=== PATIENT | male | born 1940 | race Caucasian/White ===

== ENCOUNTER 2016-08-21 13:36 | Inpatient (IN) | payer MEDICARE, MEDICAID ==
[2016-08-21] MEDS ORDERED: Albuterol 0.083% 2.5 MG/3 ML Neb Soln INH PRN (17:01)
[2016-08-21] MEDS ORDERED: Nitroglycerin 0.4 MG Tab.SL SL PRN (17:01)
[2016-08-21] MEDS: Pregabalin 25 MG Cap PO SCH (18:11)
[2016-08-21] MEDS: Clindamycin HCl 150 MG Cap PO SCH (18:11)
[2016-08-21] MEDS: Albuterol/Ipratropium 3.0-0.5 MG/3 ML Neb Soln INH SCH ×2 (18:13→23:58)
[2016-08-21] MEDS: Verapamil 120 MG Tab.ER PO SCH (18:13)
[2016-08-21] MEDS: Warfarin 5 MG Tab PO SCH (18:15)
[2016-08-21] MEDS: Docusate Sodium 100 MG Cap PO PRN (18:18)
[2016-08-21] MEDS: Lactulose Soln 10 GM/15 ML 30 ML UD Cup PO PRN (18:19)
[2016-08-21] MEDS: Acetaminophen 325 MG Tab PO PRN (18:20)
[2016-08-21] MEDS: oxyCODONE 5 MG Tab PO PRN (19:45)
[2016-08-21] MEDS: Latanoprost 0.005% Ophth Soln 2.5 ML Bottle EYEBOTH SCH (19:47)
[2016-08-21] MEDS: Simvastatin 10 MG Tab PO SCH (19:47)
--- NOTE | 2016-08-21 20:15 | PCM.HP ---
H&P History of Present Illness - General Date of Service: 08/21/16 Admit Problem/Dx: Admission Diagnosis/Problem Admission Diagnosis/Problem Mass Source of Information: Patient, Old records History Limitations: Reports: No limitations - History of Present Illness Location: Reports: chest Improves with: Reports: Medication, Rest Context: Reports: trauma (CPR) Associated Symptoms: Reports: chest pain, cough w sputum, weakness - Related Data Allergies/Adverse Reactions: Allergies Allergy/AdvReac Type Severity Reaction Status Date / Time codeine Allergy Nausea Verified 08/14/16 20:25 Penicillins Allergy Rash Verified 08/14/16 20:25 Home Medications: Home Meds Citalopram [Citalopram HBr] 20 mg PO DAILY 08/07/13 [History] Levothyroxine 75 mcg PO QAM 08/07/13 [History] Pregabalin [Lyrica] 25 mg PO TID 08/07/13 [History] amLODIPine [Norvasc] 5 mg PO DAILY 08/07/13 [History] Cholecalciferol (Vitamin D3) [Vitamin D3] 2,000 units PO DAILY 06/12/14 [History ] Docusate Sodium [Colace] 1 cap PO BID PRN 06/12/14 [History] Latanoprost [Xalatan 0.005% Ophth Soln] 1 drop EYEBOTH BEDTIME 06/12/14 [History ] Nitroglycerin [Nitrostat] 1 tab SL ASDIRECTED PRN 06/12/14 [History] Verapamil HCl [Verapamil ER] 1 cap PO QPM 06/12/14 [History] Simvastatin [Zocor] 10 mg PO BEDTIME 11/12/15 [History] Ranitidine [Zantac] 150 mg PO BID #60 tab 11/17/15 [Rx] Albuterol [Proventil Neb Soln] 1 ampule INH Q4HR PRN 03/19/16 [History] Albuterol/Ipratropium [DuoNeb 3.0-0.5 MG/3 ML] 1 ampule INH QID 03/19/16 [ History] Folic Acid 1 mg PO DAILY 03/19/16 [History] Magnesium Oxide 400 mg PO DAILY #90 tablet 04/05/16 [Rx] Acetaminophen 650 mg PO Q4HR PRN 07/26/16 [History] Furosemide 20 mg PO DAILY 07/26/16 [History] Lactulose [Cephulac] 20 gm PO DAILY PRN 07/26/16 [History] Non-Formulary Medication [NF Drug] 1 ea PO QPM 07/26/16 [History] Non-Formulary Medication [NF Drug] 1 tab PO DAILY 07/26/16 [History] Sennosides/Docusate Sodium [Senna S Tablet] 1 tab PO BID PRN 07/26/16 [History] Warfarin [Coumadin] 5 mg PO MOWEFR@1800 07/26/16 [History] Warfarin [Coumadin] 7.5 mg PO SUTUTHSA@1800 07/26/16 [History] Clindamycin HCl [Cleocin HCl] 300 mg PO TID 08/21/16 [History] Colesevelam HCl [Welchol] 3 tab PO BIDMEALS 08/21/16 [History] oxyCODONE 5 mg PO Q4H PRN 08/21/16 [History] Past Medical History HEENT History: Reports: Cataract, Glaucoma Cardiovascular History: Reports: Blood clots/VTE/DVT, Cardiomyopathy, Heart Failure, High cholesterol, Hypertension, Other (see below) Other Cardiovascular History: Varicose veins Respiratory History: Reports: COPD, PE, Pneumonia, recurrent, Sleep apnea Other Respiratory History: Benign left pulmonary nodule, Respiratory Arrest on . Gastrointestinal History: Reports: Chronic constipation, Diverticulosis, GERD, Hiatal hernia Genitourinary History: Reports: Acute renal failure, BPH, Chronic renal insuffiency, Dialysis, Renal disease, Urinary incontinence Other Genitourinary History: hX DIALYSIS due to acute renal failure, resolved Musculoskeletal History: Reports: Back pain, chronic, Fracture, Neck pain, chronic, Osteoarthritis, Other (see below) Other Musculoskeletal History: Chronic pain syndrome with chronic narcotic use Neurological History: Reports: Migraines, Neuropathy, peripheral, Other (see below) Other Neuro History: Chronic left leg weakness secondary to previous osteomyelitis, chronic pain syndrome with chronic narcotic use. 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 Miley fundoplication Male Surgical History: Reports: Prostatectomy Musculoskeletal Surgical History: Reports: Hip replacement, Knee replacement - Past Imaging History Past Imaging History: Reports: Cardiac echo (Last echocardiogram on 01/17/15 with ejection fraction of 50-55% with previous suboptimal echocardiogram on 03/14 with ejection fraction of 50-60%), CAT scan (CT of the chest on 07/04/12, CT of the abdomen and pelvis on 01/08/15, 12/19/12 and 07/04/12, CT of the brain on 08/07 and 02/04/14), DEXA scan (07/09/12), Ultrasound (Bladder ultrasound and abdominal ultrasound on 12/24/12), Venous doppler (Right leg on 05/11/14) Social & Family History - Family History Family Medical History: Noncontributory Neurological: Reports: Other (see below) Other Neurological Family History: Son with fatal muscular dystrophy at age 21 - Tobacco Use Smoking Status *Q: Former Smoker Second Hand Smoke Exposure: No - Alcohol Use Days Per Week of Alcohol Use: 0 (No previous DWIs, problems with alcohol abuse, etc.) Number of Drinks Per Day: 1 Total Drinks Per Week: 0 - Recreational Drug Use Recreational Drug Use: No Drug Use in Last 12 Months: No Recreational Drug Type: Reports: Oxycodone (Chronic oxycodone use) Recreational Drug Use Frequency: Daily - Living Situation & Occupation Living situation: Reports: (3 children), with family () Occupation: retired H&P Review of Systems - Review of Systems: Review Of Systems: See Below General: Reports: weakness HEENT: Reports: headaches Pulmonary: Reports: shortness of breath, pleuritic chest pain, cough, sputum Cardiovascular: Reports: chest pain Gastrointestinal: Reports: No symptoms Genitourinary: Reports: hematuria Musculoskeletal: Reports: muscle pain Skin: Reports: bruising Psychiatric: Reports: no symptoms Neurological: Reports: weakness Hematologic/Lymphatic: Reports: anemia, easy bleeding, easy bruising Immunologic: Reports: no symptoms Exam - Exam Exam: See Below - Vital Signs Vital Signs: Last Vital Signs Temp 98.3 F 08/21/16 19:33 Pulse 75 08/21/16 19:33 Resp 20 08/21/16 19:33 BP 113/73 08/21/16 19:33 Pulse Ox 97 08/21/16 19:33 Weight: 254 lb - Exam Quality Assessment: supplemental oxygen General: alert, cooperative HEENT: Conjunctiva clear, Hearing intact, Mucosa moist & pink, Nares patent, Normal nasal septum, Posterior pharynx clear, Pupils equal, Pupils reactive Neck: trachea midline Lungs: Normal respiratory effort, Decreased breath sounds, Rhonchi, Other ( tender over sternum, and) Cardiovascular: regular rate, regular rhythm Abdomen: normal bowel sounds, soft (Male) Exam: Deferred Rectal (Males) Exam: Deferred Back Exam: normal inspection Extremities: edema, other (chronic varicosities) Skin: warm, dry, intact, ecchymosis (extremities) Neurological: other (generalized weakness) Neuro Extensive - Mental Status: alert, normal mood/affect, normal cognition Neuro Extensive - Motor, Sensory, Reflexes: other (generalized weakness) Psychiatric: alert, normal affect, normal mood *Q Meaningful Use (ADM) - VTE *Q VTE Criteria *Q: - Stroke *Q Stroke Criteria *Q: - AMI *Q AMI Criteria *Q: - Problem List (1) Respiratory failure with hypercapnia SNOMED Code(s): 076963150 ICD Code: J96.92 - RESPIRATORY FAILURE, UNSPECIFIED WITH HYPERCAPNIA Status : Acute Priority: High Current Visit: Yes (2) Rib fractures SNOMED Code(s): 74468019 ICD Code: S22.39XA - FRACTURE OF ONE RIB, UNSP SIDE, INIT FOR CLOS FX Status: Acute Priority: High Current Visit: Yes Qualifiers: Encounter type: subsequent encounter Rib fracture type: multiple ribs Fracture type: closed Laterality: bilateral Fracture healing: with routine healing Qualified Code(s): S22.43XD - Multiple fractures of ribs, bilateral, subsequent encounter for fracture with routine healing (3) Hematuria, gross SNOMED Code(s): 846462255 ICD Code: R31.0 - GROSS HEMATURIA Status: Acute Priority: High Current Visit: No (4) Aspiration into respiratory tract SNOMED Code(s): 148107178 ICD Code: T17.908A - UNSP FB IN RESP TRACT, PART UNSP CAUSING OTH INJURY, INIT Status: Acute Current Visit: Yes (5) GERD (gastroesophageal reflux disease) SNOMED Code(s): 601301771 ICD Code: K21.9 - GASTRO-ESOPHAGEAL REFLUX DISEASE WITHOUT ESOPHAGITIS Status: Acute Priority: Medium Current Visit: No Qualifiers: Esophagitis presence: esophagitis presence not specified Qualified Code(s) : K21.9 - Gastro-esophageal reflux disease without esophagitis (6) Hip joint replacement status SNOMED Code(s): 229241644, 444718364, 246572978 ICD Code: Z96.649 - PRESENCE OF UNSPECIFIED ARTIFICIAL HIP JOINT Status: Acute Priority: High Current Visit: No Qualifiers: Laterality: left Qualified Code(s): Z96.642 - Presence of left artificial hip joint (7) Lower leg DVT (deep venous thromboembolism), chronic SNOMED Code(s): 252382470, 590650146, 978022969745389 ICD Code: I82.5Z9 - CHR EMBLSM AND THOMBOS UNSP DEEP VN UNSP DISTAL LOW EXTRM Status: Acute Priority: Medium Current Visit: No Qualifiers: Laterality: unspecified laterality Qualified Code(s): I82.5Z9 - Chronic embolism and thrombosis of unspecified deep veins of unspecified distal lower extremity (8) Mood disorder Status: Acute Priority: Medium Current Visit: No (9) PVD (peripheral vascular disease) SNOMED Code(s): 067168967 ICD Code: I73.9 - PERIPHERAL VASCULAR DISEASE, UNSPECIFIED Status: Acute Priority: Medium Current Visit: No (10) Prostate cancer SNOMED Code(s): 879013570 ICD Code: C61 - MALIGNANT NEOPLASM OF PROSTATE Status: Acute Priority: Low Current Visit: No (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 SNOMED Code(s): 8223930 ICD Code: D68.59 - OTHER PRIMARY THROMBOPHILIA Status: Acute Priority: High Current Visit: No (12) Respiratory failure, chronic SNOMED Code(s): 66085725 ICD Code: J96.10 - CHRONIC RESPIRATORY FAILURE, UNSP W HYPOXIA OR HYPERCAPNIA Status: Acute Priority: Medium Current Visit: No Qualifiers: Respiratory failure complication: unspecified whether with hypoxia or hypercapnia Qualified Code(s): J96.10 - Chronic respiratory failure, unspecified whether with hypoxia or hypercapnia (13) COPD (chronic obstructive pulmonary disease) SNOMED Code(s): 30556325 ICD Code: J44.9 - CHRONIC OBSTRUCTIVE PULMONARY DISEASE, UNSPECIFIED Status : Chronic Priority: Medium Current Visit: No Problem Details: No recent fever, bronchitic type symptoms, etc. with stable chronic nonproductive cough. Note recent antibiotic therapy, which will be held secondary to his elevated INR Qualifiers: COPD type: unspecified COPD Qualified Code(s): J44.9 - Chronic obstructive pulmonary disease, unspecified (14) Hypertension SNOMED Code(s): 96377217 ICD Code: I10 - ESSENTIAL (PRIMARY) HYPERTENSION Status: Chronic Current Visit: No Problem Details: Blood pressure is under good control in the emergency room. Stable by history Qualifiers: Hypertension type: essential hypertension Qualified Code(s): I10 - Essential (primary) hypertension (15) Hypothyroidism SNOMED Code(s): 16144855 ICD Code: E03.9 - HYPOTHYROIDISM, UNSPECIFIED Status: Chronic Priority: Medium Current Visit: No Problem Details: Stable by his history, TSH normal today (16) Migraine SNOMED Code(s): 57264632 ICD Code: G43.909 - MIGRAINE, UNSP, NOT INTRACTABLE, WITHOUT STATUS MIGRAINOSUS Status: Chronic Priority: Medium Current Visit: No Problem Details: Symptomatically improved after medications provided. Advised to hydrate and rest today to avoid rebound. Follow up as needed. (17) Osteoarthritis SNOMED Code(s): 662154662 ICD Code: M19.90 - UNSPECIFIED OSTEOARTHRITIS, UNSPECIFIED SITE Status: Chronic Priority: Medium Current Visit: No Problem Details: Stable by history with chronic narcotic use Qualifiers: Osteoarthritis location: multiple joints Osteoarthritis type: primary Qualified Code(s): M15.0 - Primary generalized (osteo)arthritis (18) Polycythemia SNOMED Code(s): 423031979 ICD Code: D75.1 - SECONDARY POLYCYTHEMIA Status: Chronic Priority: Medium Current Visit: No Onset Date: 09/12/15 Problem Details: Likely secondary to his COPD (19) Renal insufficiency SNOMED Code(s): 714610032 ICD Code: N28.9 - DISORDER OF KIDNEY AND URETER, UNSPECIFIED Status: Chronic Priority: Medium Current Visit: No Problem Details: Stable mild creatinine elevation Problem List Initiated/Reviewed/Updated: Yes Orders Last 24hrs: Active Orders 24 hr Category Date Time Status Patient Status [ADT] Routine ADT 08/21/16 16:57 Active Ambulate [RC] ASDIRECTED Care 08/21/16 16:57 Active May Shower [RC] ASDIRECTED Care 08/21/16 16:57 Active Oxygen Therapy [RC] Care 08/21/16 16:57 Active VTE/DVT Education [RC] PER UNIT ROUTINE Care 08/21/16 16:57 Active Vital Signs [RC] 08, Care 08/21/16 16:57 Active OT Evaluation and Treatment [CONS] Routine Cons 08/21/16 16:57 Active PT Evaluation and Treatment [CONS] Routine Cons 08/21/16 16:57 Active Regular Diet [DIET] Diet 08/21/16 Dinner Active BLOOD GAS VENOUS [BG] Routine Lab 08/22/16 05:11 Ordered CBC WITH AUTO DIFF [HEME] Routine Lab 08/22/16 05:11 Ordered CMP [COMPREHENSIVE METABOLIC PN,CMP] [CHEM] Routine Lab 08/22/16 05:11 Ordered INR,PT,PROTHROMBIN TIME [COAG] Routine Lab 08/22/16 05:11 Ordered PTT,PARTIAL THROMBOPLSTIN TIME [COAG] Routine Lab 08/22/16 05:11 Ordered Acetaminophen [Tylenol] Med 08/21/16 17:01 Active 650 mg PO Q4HR PRN Albuterol [Proventil Neb Soln] Med 08/21/16 17:01 Active 2.5 mg INH Q4H PRN Albuterol/Ipratropium [DuoNeb 3.0-0.5 MG/3 ML] Med 08/21/16 17:15 Active 3 ml INH QIDRT Cholecalciferol (Vitamin D3) [Vitamin D3] Med 08/22/16 08:00 Active 2,000 units PO DAILY Citalopram [Celexa] Med 08/22/16 08:00 Active 20 mg PO DAILY Clindamycin HCl [Cleocin] Med 08/21/16 18:00 Active 300 mg PO TID Colesevelam HCl Med 08/21/16 17:30 Pending 3 tab PO BIDMEALS Docusate Sodium [Colace] Med 08/21/16 17:01 Active 100 mg PO BID PRN Docusate Sodium/Sennosides [Senna Plus] Med 08/21/16 17:01 Active 1 tab PO BID PRN Folic Acid Med 08/22/16 08:00 Active 1 mg PO DAILY Furosemide [Lasix] Med 08/22/16 08:00 Active 20 mg PO DAILY Lactulose [Cephulac] Med 08/21/16 17:01 Active 20 gm PO DAILY PRN Latanoprost [Xalatan 0.005% Ophth Soln] Med 08/21/16 20:00 Active 0 ml EYEBOTH BEDTIME Levothyroxine Med 08/22/16 08:00 Active 75 mcg PO QAM Magnesium Oxide Med 08/22/16 08:00 Active 400 mg PO DAILY Nitroglycerin [Nitrostat] Med 08/21/16 17:01 Active 0.4 mg SL ASDIRECTED PRN Non-Formulary Medication [NF Drug] Med 08/22/16 08:00 Pending 1 each PO DAILY Non-Formulary Medication [NF Drug] Med 08/21/16 18:00 Pending 12 each PO QPM Pregabalin [Lyrica] Med 08/21/16 18:00 Active 25 mg PO TID Ranitidine [Zantac] Med 08/21/16 18:00 Active 150 mg PO BID Simvastatin [Zocor] Med 08/21/16 20:00 Active 10 mg PO BEDTIME Verapamil [Calan SR] Med 08/21/16 18:00 Active 240 mg PO QPM Warfarin [Coumadin] Med 08/21/16 18:00 Active 5 mg PO MOWEFR@1800 Warfarin [Coumadin] Med 08/22/16 18:00 Active 7.5 mg PO SUTUTHSA@1800 amLODIPine [Norvasc] Med 08/22/16 08:00 Active 5 mg PO DAILY oxyCODONE Med 08/21/16 17:01 Active 5 mg PO Q4H PRN Resuscitation Status Routine Resus Stat 08/21/16 16:57 Ordered Medication Orders Acetaminophen (Tylenol) 650 mg PO Q4HR PRN PRN Reason: Pain (moderate 4-6) Last Admin: 08/21/16 18:20 Dose: 650 mg Albuterol (Proventil Neb Soln) 2.5 mg INH Q4H PRN PRN Reason: Dyspnea Albuterol/Ipratropium (Duoneb 3.0-0.5 Mg/3 Ml) 3 ml INH QIDRT [facility] Last Admin: 08/21/16 18:13 Dose: 3 ml Amlodipine Besylate (Norvasc) 5 mg PO DAILY [facility] Cholecalciferol (Vitamin D3) 2,000 units PO DAILY [facility] Citalopram Hydrobromide (Celexa) 20 mg PO DAILY [facility] Clindamycin HCl (Cleocin) 300 mg PO TID [facility] Last Admin: 08/21/16 18:11 Dose: 300 mg Docusate Sodium (Colace) 100 mg PO BID PRN PRN Reason: Constipation Last Admin: 08/21/16 18:18 Dose: 100 mg Folic Acid (Folic Acid) 1 mg PO DAILY [facility] Furosemide (Lasix) 20 mg PO DAILY [facility] Lactulose (Cephulac) 20 gm PO DAILY PRN PRN Reason: Constipation Last Admin: 08/21/16 18:19 Dose: 20 gm Latanoprost (Xalatan 0.005% Oph Soln) 0 ml EYEBOTH BEDTIME [facility] Last Admin: 08/21/16 19:47 Dose: 1 drop Levothyroxine Sodium (Levothyroxine) 75 mcg PO QAM [facility] Magnesium Oxide (Magnesium Oxide) 400 mg PO DAILY [facility] Nitroglycerin (Nitrostat) 0.4 mg SL ASDIRECTED PRN PRN Reason: Chest Pain Colesevelam (Welchol () 625mg Tabs) 3 tab PO BIDMEALS [facility] Protein Tablets 12 each PO QPM [facility] Nephrocaps 1 each PO DAILY [facility] Oxycodone HCl (Oxycodone) 5 mg PO Q4H PRN PRN Reason: Pain (severe 7-10) Last Admin: 08/21/16 19:45 Dose: 5 mg Pregabalin (Lyrica) 25 mg PO TID [facility] Last Admin: 08/21/16 18:11 Dose: 25 mg Ranitidine HCl (Zantac) 150 mg PO BID [facility] Last Admin: 08/21/16 18:16 Dose: 150 mg Senna/Docusate Sodium (Senna Plus) 1 tab PO BID PRN PRN Reason: Constipation Last Admin: 08/21/16 18:18 Dose: 1 tab Simvastatin (Zocor) 10 mg PO BEDTIME [facility] Last Admin: 08/21/16 19:47 Dose: 10 mg Verapamil HCl (Calan Sr) 240 mg PO QPM [facility] Last Admin: 08/21/16 18:13 Dose: 240 mg Warfarin Sodium (Coumadin) 7.5 mg PO SUTUTHSA@1800 [facility] Warfarin Sodium (Coumadin) 5 mg PO MOWEFR@1800 [facility] Last Admin: 08/21/16 18:15 Dose: 5 mg Assessment/Plan Comment:: 08/21/16 Recent hospitalization for pneumonia. He had respiratory arrest/failure. He received CPR, transferred to [facility]. Now here admitted to [facility] for PT-OT-SPL.
[2016-08-22] MEDS: oxyCODONE 5 MG Tab PO PRN ×4 (00:45→19:02)
[2016-08-22 07:03] LABS: O2 DELIVERY DEVICE NASAL CANNULA; O2 FLOW RATE 0 L/min
[2016-08-22 07:25] LABS: CHLORIDE,CL 99 mmol/L (98-107); SODIUM,NA 140 mmol/L (136-145)
[2016-08-22 07:39] LABS: BASE EXCESS VENOUS 20 mmol/L ((-2)-3); BICARBONATE,VENOUS 45 mmol/L (23-28); O2 SATURATION VENOUS 99 %; PCO2 VENOUS 76 mmHG (41-51); PH,VENOUS 7.38 (7.31-7.41); PO2 VENOUS 138 mmHG
[2016-08-22] MEDS: Pregabalin 25 MG Cap PO SCH ×3 (08:20→17:21)
[2016-08-22] MEDS: Folic Acid 1 MG Tab PO SCH (08:21)
[2016-08-22] MEDS: Clindamycin HCl 150 MG Cap PO SCH ×3 (08:22→17:23)
[2016-08-22] MEDS: Levothyroxine 75 MCG Tab PO SCH (08:22)
[2016-08-22] MEDS: Citalopram 20 MG Tab PO SCH (08:23)
[2016-08-22] MEDS: amLODIPine 5 MG Tab PO SCH (08:24)
[2016-08-22] MEDS: Furosemide 20 MG Tab PO SCH (08:25)
[2016-08-22] MEDS: Magnesium Oxide 400 MG Tab PO SCH (08:25)
[2016-08-22] MEDS: Cholecalciferol (Vitamin D3) 1,000 Unit Tab PO SCH (08:26)
[2016-08-22] MEDS: Albuterol/Ipratropium 3.0-0.5 MG/3 ML Neb Soln INH SCH ×4 (08:30→19:03)
[2016-08-22] MEDS: COLESEVELAM 625 MG PO SCH ×2 (09:17→17:19)
[2016-08-22] MEDS: NEPHROCAPS PO SCH (09:17)
--- NOTE | 2016-08-22 11:40 | PCM.SN ---
- Free Text/Narrative Note: 08-22-16 Marin Panchal PA-C Received telephone call at [facility] [place] Ankit Booker, recommending non- invasive ventilator for this patient upon return to home. Indicates provider can call her directly to discuss this at time of discharge at [phone].
[2016-08-22] MEDS: PROTEIN PO SCH (17:18)
[2016-08-22] MEDS: Warfarin 2.5 MG Tab PO SCH (17:22)
[2016-08-22] MEDS: Verapamil 120 MG Tab.ER PO SCH (17:28)
[2016-08-22] MEDS: Latanoprost 0.005% Ophth Soln 2.5 ML Bottle EYEBOTH SCH (19:03)
[2016-08-22] MEDS: Simvastatin 10 MG Tab PO SCH (19:03)
[2016-08-22] MEDS ORDERED: guaiFENesin/Dextromethorphan 100-10 MG/5 ML Soln 10 ML Cup PO PRN (22:38)
[2016-08-23] MEDS: oxyCODONE 5 MG Tab PO PRN ×3 (01:37→19:20)
[2016-08-23] MEDS: COLESEVELAM 625 MG PO SCH ×2 (08:12→17:14)
[2016-08-23] MEDS: Albuterol/Ipratropium 3.0-0.5 MG/3 ML Neb Soln INH SCH ×4 (08:13→19:07)
[2016-08-23] MEDS: amLODIPine 5 MG Tab PO SCH (08:13)
[2016-08-23] MEDS: Pregabalin 25 MG Cap PO SCH ×3 (08:13→17:13)
[2016-08-23] MEDS: Clindamycin HCl 150 MG Cap PO SCH ×3 (08:14→17:13)
[2016-08-23] MEDS: Folic Acid 1 MG Tab PO SCH (08:14)
[2016-08-23] MEDS: Levothyroxine 75 MCG Tab PO SCH (08:15)
[2016-08-23] MEDS: Magnesium Oxide 400 MG Tab PO SCH (08:15)
[2016-08-23] MEDS: Furosemide 20 MG Tab PO SCH (08:15)
[2016-08-23] MEDS: Citalopram 20 MG Tab PO SCH (08:15)
[2016-08-23] MEDS: Cholecalciferol (Vitamin D3) 1,000 Unit Tab PO SCH (08:15)
[2016-08-23] MEDS: NEPHROCAPS PO SCH (08:15)
[2016-08-23] MEDS: Verapamil 120 MG Tab.ER PO SCH (17:13)
[2016-08-23] MEDS: Warfarin 5 MG Tab PO SCH (17:13)
[2016-08-23] MEDS: PROTEIN PO SCH (17:14)
[2016-08-23] MEDS: Latanoprost 0.005% Ophth Soln 2.5 ML Bottle EYEBOTH SCH (19:07)
[2016-08-23] MEDS: Simvastatin 10 MG Tab PO SCH (19:07)
[2016-08-24] MEDS: Folic Acid 1 MG Tab PO SCH (08:33)
[2016-08-24] MEDS: Citalopram 20 MG Tab PO SCH (08:33)
[2016-08-24] MEDS: Cholecalciferol (Vitamin D3) 1,000 Unit Tab PO SCH (08:33)
[2016-08-24] MEDS: Levothyroxine 75 MCG Tab PO SCH (08:33)
[2016-08-24] MEDS: Albuterol/Ipratropium 3.0-0.5 MG/3 ML Neb Soln INH SCH ×4 (08:33→19:14)
[2016-08-24] MEDS: Clindamycin HCl 150 MG Cap PO SCH ×3 (08:33→17:29)
[2016-08-24] MEDS: Magnesium Oxide 400 MG Tab PO SCH (08:33)
[2016-08-24] MEDS: amLODIPine 5 MG Tab PO SCH (08:34)
[2016-08-24] MEDS: Docusate Sodium 100 MG Cap PO PRN ×2 (08:34→19:14)
[2016-08-24] MEDS: Furosemide 20 MG Tab PO SCH (08:34)
[2016-08-24] MEDS: Pregabalin 25 MG Cap PO SCH ×3 (08:34→17:29)
[2016-08-24] MEDS: COLESEVELAM 625 MG PO SCH ×2 (08:34→17:30)
[2016-08-24] MEDS: NEPHROCAPS PO SCH (08:35)
--- NOTE | 2016-08-24 08:54 | PCM.PN ---
- General Info Date of Service: 08/24/16 Admission Dx/Problem (Free Text): Admission Diagnosis/Problem Admission Diagnosis/Problem Acute on Chronic hypercapnic resp failure Aspiration pneumonia Ct scan showing 3.9cm masslike consolidation in the left lower lobe atelectasis vs pneumonia vs neoplasm Functional Status: Reports: pain controlled, tolerating diet, ambulating, incentive spirometry - Review of Systems General: Reports: weakness, fatigue HEENT: Reports: no symptoms Pulmonary: Reports: cough, sputum Cardiovascular: Reports: no symptoms Gastrointestinal: Reports: No symptoms Genitourinary: Reports: no symptoms Musculoskeletal: Reports: no symptoms Skin: Reports: no symptoms Neurological: Reports: no symptoms Psychiatric: Reports: no symptoms - Patient Data Vitals - most recent: Last Vital Signs Temp 98 F 08/24/16 08:00 Pulse 74 08/24/16 08:00 Resp 16 08/24/16 08:00 BP 147/59 H 08/24/16 08:34 Pulse Ox 92 L 08/24/16 08:00 Weight - most recent: 253 lb 15.983 oz I&O - last 24 hours: Intake & Output 08/23/16 08/24/16 08/24/16 22:59 06:59 14:59 Intake Total 240 300 Output Total 1350 Balance 240 -1050 Med Orders - Current: Current Medications Acetaminophen (Tylenol) 650 mg PO Q4HR PRN PRN Reason: Pain (moderate 4-6) Last Admin: 08/21/16 18:20 Dose: 650 mg Albuterol (Proventil Neb Soln) 2.5 mg INH Q4H PRN PRN Reason: Dyspnea Albuterol/Ipratropium (Duoneb 3.0-0.5 Mg/3 Ml) 3 ml INH QIDRT [facility] Last Admin: 08/24/16 08:33 Dose: 3 ml Amlodipine Besylate (Norvasc) 5 mg PO DAILY [facility] Last Admin: 08/24/16 08:34 Dose: 5 mg Cholecalciferol (Vitamin D3) 2,000 units PO DAILY [facility] Last Admin: 08/24/16 08:33 Dose: 2,000 units Citalopram Hydrobromide (Celexa) 20 mg PO DAILY [facility] Last Admin: 08/24/16 08:33 Dose: 20 mg Clindamycin HCl (Cleocin) 300 mg PO TID [facility] Stop: 08/26/16 18:01 Last Admin: 08/24/16 08:33 Dose: 300 mg Docusate Sodium (Colace) 100 mg PO BID PRN PRN Reason: Constipation Last Admin: 08/24/16 08:34 Dose: 100 mg Folic Acid (Folic Acid) 1 mg PO DAILY [facility] Last Admin: 08/24/16 08:33 Dose: 1 mg Furosemide (Lasix) 20 mg PO DAILY [facility] Last Admin: 08/24/16 08:34 Dose: 20 mg Guaifenesin/Dextromethorphan (Robitussin Dm) 10 ml PO Q4H PRN PRN Reason: Cough Last Admin: 08/23/16 01:37 Dose: 10 ml Lactulose (Cephulac) 20 gm PO DAILY PRN PRN Reason: Constipation Last Admin: 08/21/16 18:19 Dose: 20 gm Latanoprost (Xalatan 0.005% Ophth Soln) 0 ml EYEBOTH BEDTIME [facility] Last Admin: 08/23/16 19:07 Dose: 1 drop Levothyroxine Sodium (Levothyroxine) 75 mcg PO QAM [facility] Last Admin: 08/24/16 08:33 Dose: 75 mcg Magnesium Oxide (Magnesium Oxide) 400 mg PO DAILY [facility] Last Admin: 08/24/16 08:33 Dose: 400 mg Nitroglycerin (Nitrostat) 0.4 mg SL ASDIRECTED PRN PRN Reason: Chest Pain Colesevelam (Welchol () 625mg Tabs) 3 tab PO BIDMEALS [facility] Last Admin: 08/24/16 08:34 Dose: 3 tab Protein Tablets 4 each PO DAILY@1700 [facility] Last Admin: 08/23/16 17:14 Dose: 4 each Nephrocaps 1 each PO DAILY [facility] Last Admin: 08/24/16 08:35 Dose: 1 each Oxycodone HCl (Oxycodone) 5 mg PO Q4H PRN PRN Reason: Pain (severe 7-10) Last Admin: 08/24/16 00:00 Dose: 5 mg Pregabalin (Lyrica) 25 mg PO TID [facility] Last Admin: 08/24/16 08:34 Dose: 25 mg Ranitidine HCl (Zantac) 150 mg PO BID [facility] Last Admin: 08/24/16 08:34 Dose: 150 mg Senna/Docusate Sodium (Senna Plus) 1 tab PO BID PRN PRN Reason: Constipation Last Admin: 08/21/16 18:18 Dose: 1 tab Simvastatin (Zocor) 10 mg PO BEDTIME [facility] Last Admin: 08/23/16 19:07 Dose: 10 mg Verapamil HCl (Calan Sr) 240 mg PO QPM [facility] Last Admin: 08/23/16 17:13 Dose: 240 mg Warfarin Sodium (Coumadin) 7.5 mg PO SUTUTHSA@1800 [facility] Last Admin: 08/22/16 17:22 Dose: 7.5 mg Warfarin Sodium (Coumadin) 5 mg PO MOWEFR@1800 [facility] Last Admin: 08/23/16 17:13 Dose: 5 mg - Exam Quality Assessment: supplemental oxygen, DVT prophylaxis (on coumadin) General: alert, oriented, cooperative, no acute distress HEENT: Pupils equal, Pupils reactive Neck: supple, no JVD (yellow bruise noted to left side of neck, no signs of infecton) Lungs: Normal respiratory effort, Decreased breath sounds Cardiovascular: regular rate, regular rhythm Abdomen: bowel sounds present, soft, no tenderness, no distension Back Exam: normal inspection, full range of motion Extremities: edema (trace pedal edema noted bilat) Peripheral Pulses: 1+: dorsalis pedis (L), dorsalis pedis (R) Skin: warm, dry, intact Neurological: no new focal deficit Psy/Mental Status: alert, normal affect, normal mood - Problem List & Annotations (1) Aspiration into respiratory tract SNOMED Code(s): 853442486 Code(s): T17.908A - UNSP FB IN RESP TRACT, PART UNSP CAUSING OTH INJURY, INIT Status: Acute Current Visit: Yes (2) Respiratory failure with hypercapnia SNOMED Code(s): 664265410 Code(s): J96.92 - RESPIRATORY FAILURE, UNSPECIFIED WITH HYPERCAPNIA Status : Acute Priority: High Current Visit: Yes Qualifiers: Chronicity: acute on chronic Qualified Code(s): J96.22 - Acute and chronic respiratory failure with hypercapnia (3) Rib fractures SNOMED Code(s): 94709047 Code(s): S22.39XA - FRACTURE OF ONE RIB, UNSP SIDE, INIT FOR CLOS FX Status : Acute Priority: High Current Visit: Yes Qualifiers: Encounter type: subsequent encounter Rib fracture type: multiple ribs Fracture type: closed Laterality: bilateral Fracture healing: with routine healing (4) Congestive heart failure SNOMED Code(s): 84449542 Code(s): I50.9 - HEART FAILURE, UNSPECIFIED Status: Acute Current Visit: No Qualifiers: Congestive heart failure type: unspecified congestive heart failure type Congestive heart failure chronicity: acute on chronic Qualified Code(s): I50.9 - Heart failure, unspecified (5) Protein S deficiency SNOMED Code(s): 1830191 Code(s): D68.59 - OTHER PRIMARY THROMBOPHILIA Status: Acute Priority: High Current Visit: No (6) Respiratory failure, chronic SNOMED Code(s): 19268930 Code(s): J96.10 - CHRONIC RESPIRATORY FAILURE, UNSP W HYPOXIA OR HYPERCAPNIA Status: Acute Priority: Medium Current Visit: No Qualifiers: Respiratory failure complication: unspecified whether with hypoxia or hypercapnia Qualified Code(s): J96.10 - Chronic respiratory failure, unspecified whether with hypoxia or hypercapnia (7) COPD (chronic obstructive pulmonary disease) SNOMED Code(s): 18597705 Code(s): J44.9 - CHRONIC OBSTRUCTIVE PULMONARY DISEASE, UNSPECIFIED Status : Chronic Priority: Medium Current Visit: No Qualifiers: COPD type: unspecified COPD Qualified Code(s): J44.9 - Chronic obstructive pulmonary disease, unspecified (8) Hypertension SNOMED Code(s): 86403689 Code(s): I10 - ESSENTIAL (PRIMARY) HYPERTENSION Status: Chronic Current Visit: No Qualifiers: Hypertension type: essential hypertension Qualified Code(s): I10 - Essential (primary) hypertension - Problem List Review Problem List Initiated/Reviewed/Updated: Yes - Plan Plan:: 08/21/16 Recent hospitalization for pneumonia. He had respiratory arrest/failure. He received CPR, transferred to [facility]. [facility]. 08/24/2016 Patient feeling okay, using a pillow when he coughs to help with the pain from the rib fracture. Reviewed notes from [facility]. Lung Ct scan showing a 3.9 cm masslike consolidation in the left lower lung field and AAA. Patient needing a follow up CT scan in 3 months time. Patient has appointment with Dr Summers in urology in September, when Dr Summers comes to [place]. Patient is being treated for aspiration pneumonia with Clindamycin as patient had CPR and intubation. On coumadin for Protein S deficiency, and recurrent DVT/PE. Will continue to follow INRs. Patient is needing assisted swingbed stay due to deconditioning, acute on chronic respiratory failure requiring CPR and intubation. Discussed the finding of the CT scan of the lung with the patient, patient verbalized understanding and had no further questions. Leonie Franco,TECH[employer]OLOGY SALES CONSULTANT
[2016-08-24] MEDS: oxyCODONE 5 MG Tab PO PRN ×3 (09:29→17:29)
[2016-08-24] MEDS: Warfarin 2.5 MG Tab PO SCH (17:28)
[2016-08-24] MEDS: Verapamil 120 MG Tab.ER PO SCH (17:28)
[2016-08-24] MEDS: PROTEIN PO SCH (17:30)
[2016-08-24] MEDS: Simvastatin 10 MG Tab PO SCH (19:14)
[2016-08-24] MEDS: Latanoprost 0.005% Ophth Soln 2.5 ML Bottle EYEBOTH SCH (19:14)
[2016-08-25] MEDS: Clindamycin HCl 150 MG Cap PO SCH ×3 (07:20→19:18)
[2016-08-25] MEDS: Levothyroxine 75 MCG Tab PO SCH (07:21)
[2016-08-25] MEDS: Folic Acid 1 MG Tab PO SCH (07:21)
[2016-08-25] MEDS: Citalopram 20 MG Tab PO SCH (07:21)
[2016-08-25] MEDS: Furosemide 20 MG Tab PO SCH (07:22)
[2016-08-25] MEDS: Magnesium Oxide 400 MG Tab PO SCH (07:22)
[2016-08-25] MEDS: Pregabalin 25 MG Cap PO SCH ×3 (07:23→19:18)
[2016-08-25] MEDS: COLESEVELAM 625 MG PO SCH ×2 (07:23→16:38)
[2016-08-25] MEDS: Cholecalciferol (Vitamin D3) 1,000 Unit Tab PO SCH (07:23)
[2016-08-25] MEDS: NEPHROCAPS PO SCH (07:24)
[2016-08-25] MEDS: Albuterol/Ipratropium 3.0-0.5 MG/3 ML Neb Soln INH SCH ×4 (07:24→19:17)
[2016-08-25] MEDS: Docusate Sodium 100 MG Cap PO PRN (07:32)
[2016-08-25] MEDS: oxyCODONE 5 MG Tab PO PRN ×2 (07:32→21:52)
[2016-08-25] MEDS: Lactulose Soln 10 GM/15 ML 30 ML UD Cup PO PRN (07:33)
[2016-08-25] MEDS: amLODIPine 5 MG Tab PO SCH (07:33)
[2016-08-25] MEDS: PROTEIN PO SCH (16:37)
[2016-08-25] MEDS: Acetaminophen 325 MG Tab PO PRN (16:39)
[2016-08-25] MEDS: Verapamil 120 MG Tab.ER PO SCH (19:17)
[2016-08-25] MEDS: Latanoprost 0.005% Ophth Soln 2.5 ML Bottle EYEBOTH SCH (19:17)
[2016-08-25] MEDS: Simvastatin 10 MG Tab PO SCH (19:18)
[2016-08-25] MEDS: Warfarin 2.5 MG Tab PO SCH (19:18)
[2016-08-26] MEDS ORDERED: Magnesium Hydroxide 400 MG/5 ML Susp 30 ML Cup PO PRN (06:15)
[2016-08-26 07:49] LABS: CHLORIDE,CL 99 mmol/L (98-107); SODIUM,NA 142 mmol/L (136-145)
[2016-08-26] MEDS: COLESEVELAM 625 MG PO SCH ×2 (08:14→17:36)
[2016-08-26] MEDS: Pregabalin 25 MG Cap PO SCH ×3 (08:15→17:37)
[2016-08-26] MEDS: Albuterol/Ipratropium 3.0-0.5 MG/3 ML Neb Soln INH SCH ×4 (08:15→19:47)
[2016-08-26] MEDS: Cholecalciferol (Vitamin D3) 1,000 Unit Tab PO SCH (08:20)
[2016-08-26] MEDS: Magnesium Oxide 400 MG Tab PO SCH (08:20)
[2016-08-26] MEDS: Levothyroxine 75 MCG Tab PO SCH (08:21)
[2016-08-26] MEDS: Folic Acid 1 MG Tab PO SCH (08:22)
[2016-08-26] MEDS: amLODIPine 5 MG Tab PO SCH (08:22)
[2016-08-26] MEDS: Citalopram 20 MG Tab PO SCH (08:23)
[2016-08-26] MEDS: Furosemide 20 MG Tab PO SCH (08:23)
[2016-08-26] MEDS: NEPHROCAPS PO SCH (08:24)
[2016-08-26] MEDS: Clindamycin HCl 150 MG Cap PO SCH ×3 (08:27→17:37)
[2016-08-26] MEDS: Verapamil 120 MG Tab.ER PO SCH (17:36)
[2016-08-26] MEDS: PROTEIN PO SCH (17:36)
[2016-08-26] MEDS: Warfarin 5 MG Tab PO SCH (17:37)
[2016-08-26] MEDS: Simvastatin 10 MG Tab PO SCH (19:47)
[2016-08-26] MEDS: Latanoprost 0.005% Ophth Soln 2.5 ML Bottle EYEBOTH SCH (19:47)
[2016-08-26] MEDS: Acetaminophen 325 MG Tab PO PRN (19:47)
[2016-08-26] MEDS: Lactulose Soln 10 GM/15 ML 30 ML UD Cup PO SCH (19:47)
[2016-08-26] MEDS: oxyCODONE 5 MG Tab PO PRN (21:38)
[2016-08-27] MEDS: Acetaminophen 325 MG Tab PO PRN (05:15)
[2016-08-27] MEDS: COLESEVELAM 625 MG PO SCH ×2 (07:48→17:51)
[2016-08-27] MEDS: Citalopram 20 MG Tab PO SCH (07:49)
[2016-08-27] MEDS: Cholecalciferol (Vitamin D3) 1,000 Unit Tab PO SCH (07:50)
[2016-08-27] MEDS: Levothyroxine 75 MCG Tab PO SCH (07:50)
[2016-08-27] MEDS: Pregabalin 25 MG Cap PO SCH ×3 (07:51→17:52)
[2016-08-27] MEDS: Folic Acid 1 MG Tab PO SCH (07:51)
[2016-08-27] MEDS: Furosemide 20 MG Tab PO SCH (07:51)
[2016-08-27] MEDS: Magnesium Oxide 400 MG Tab PO SCH (07:51)
[2016-08-27] MEDS: amLODIPine 5 MG Tab PO SCH (07:52)
[2016-08-27] MEDS: NEPHROCAPS PO SCH (07:54)
[2016-08-27] MEDS: Albuterol/Ipratropium 3.0-0.5 MG/3 ML Neb Soln INH SCH ×4 (07:54→19:23)
[2016-08-27] MEDS: oxyCODONE 5 MG Tab PO PRN ×2 (11:31→19:23)
[2016-08-27] MEDS: Verapamil 120 MG Tab.ER PO SCH (17:52)
[2016-08-27] MEDS: PROTEIN PO SCH (17:53)
[2016-08-27] MEDS ORDERED: Warfarin 5 MG Tab PO SCH (18:00)
[2016-08-27] MEDS: Simvastatin 10 MG Tab PO SCH (19:22)
[2016-08-27] MEDS: Latanoprost 0.005% Ophth Soln 2.5 ML Bottle EYEBOTH SCH (19:23)
[2016-08-27] MEDS: Lactulose Soln 10 GM/15 ML 30 ML UD Cup PO SCH (19:23)
[2016-08-28] MEDS: amLODIPine 5 MG Tab PO SCH (07:52)
[2016-08-28] MEDS: Pregabalin 25 MG Cap PO SCH ×3 (07:53→17:50)
[2016-08-28] MEDS: Cholecalciferol (Vitamin D3) 1,000 Unit Tab PO SCH (07:53)
[2016-08-28] MEDS: Levothyroxine 75 MCG Tab PO SCH (07:53)
[2016-08-28] MEDS: Magnesium Oxide 400 MG Tab PO SCH (07:54)
[2016-08-28] MEDS: Citalopram 20 MG Tab PO SCH (07:56)
[2016-08-28] MEDS: Folic Acid 1 MG Tab PO SCH (07:57)
[2016-08-28] MEDS: Albuterol/Ipratropium 3.0-0.5 MG/3 ML Neb Soln INH SCH ×4 (07:57→19:31)
[2016-08-28] MEDS: NEPHROCAPS PO SCH (07:57)
[2016-08-28] MEDS: Furosemide 20 MG Tab PO SCH (07:57)
[2016-08-28] MEDS: COLESEVELAM 625 MG PO SCH ×2 (07:57→17:49)
[2016-08-28] MEDS: oxyCODONE 5 MG Tab PO PRN (09:41)
[2016-08-28] MEDS: Verapamil 120 MG Tab.ER PO SCH (17:48)
[2016-08-28] MEDS: Acetaminophen 325 MG Tab PO PRN (17:50)
[2016-08-28] MEDS: PROTEIN PO SCH (17:53)
[2016-08-28] MEDS ORDERED: Warfarin 2.5 MG Tab PO SCH (18:00)
[2016-08-28] MEDS: Simvastatin 10 MG Tab PO SCH (19:31)
[2016-08-28] MEDS: Latanoprost 0.005% Ophth Soln 2.5 ML Bottle EYEBOTH SCH (19:32)
[2016-08-28] MEDS: Lactulose Soln 10 GM/15 ML 30 ML UD Cup PO SCH (19:34)
[2016-08-29] MEDS: oxyCODONE 5 MG Tab PO PRN (02:53)
[2016-08-29] MEDS: COLESEVELAM 625 MG PO SCH ×2 (07:37→17:23)
[2016-08-29] MEDS: Citalopram 20 MG Tab PO SCH (07:38)
[2016-08-29] MEDS: Albuterol/Ipratropium 3.0-0.5 MG/3 ML Neb Soln INH SCH ×4 (07:38→19:18)
[2016-08-29] MEDS: Furosemide 20 MG Tab PO SCH (07:39)
[2016-08-29] MEDS: Pregabalin 25 MG Cap PO SCH ×3 (07:39→17:23)
[2016-08-29] MEDS: Magnesium Oxide 400 MG Tab PO SCH (07:39)
[2016-08-29] MEDS: Levothyroxine 75 MCG Tab PO SCH (07:39)
[2016-08-29] MEDS: NEPHROCAPS PO SCH (07:39)
[2016-08-29] MEDS: Folic Acid 1 MG Tab PO SCH (07:39)
[2016-08-29] MEDS: amLODIPine 5 MG Tab PO SCH (07:40)
[2016-08-29] MEDS: Cholecalciferol (Vitamin D3) 1,000 Unit Tab PO SCH (07:40)
[2016-08-29] MEDS: Acetaminophen 325 MG Tab PO PRN (08:45)
[2016-08-29] MEDS: PROTEIN PO SCH (17:22)
[2016-08-29] MEDS: Verapamil 120 MG Tab.ER PO SCH (17:23)
--- NOTE | 2016-08-29 18:59 | PCM.PN ---
- General Info Date of Service: 08/29/16 Admission Dx/Problem (Free Text): Admission Diagnosis/Problem Admission Diagnosis/Problem Acute on Chronic hypercapnic resp failure Aspiration pneumonia Ct scan showing 3.9cm masslike consolidation in the left lower lobe atelectasis vs pneumonia vs neoplasm Functional Status: Reports: pain controlled - Review of Systems General: Reports: no symptoms HEENT: Reports: no symptoms Pulmonary: Reports: no symptoms Cardiovascular: Reports: no symptoms Gastrointestinal: Reports: No symptoms Genitourinary: Reports: no symptoms Musculoskeletal: Reports: no symptoms Skin: Reports: no symptoms Neurological: Reports: no symptoms Psychiatric: Reports: no symptoms - Patient Data Vitals - most recent: Last Vital Signs Temp 98.7 F 08/29/16 07:41 Pulse 76 08/28/16 19:55 Resp 14 08/29/16 07:41 BP 141/67 H 08/29/16 07:41 Pulse Ox 94 L 08/29/16 07:41 Weight - most recent: 267 lb I&O - last 24 hours: Intake & Output 08/29/16 08/29/16 08/29/16 06:59 14:59 22:59 Intake Total 360 Balance 360 Lab Results last 24 hrs: Laboratory Results - last 24 hr 08/29/16 Range/Units 07:16 INR 3.1 Med Orders - Current: Current Medications Acetaminophen (Tylenol) 650 mg PO Q4HR PRN PRN Reason: Pain (moderate 4-6) Last Admin: 08/29/16 08:45 Dose: 650 mg Albuterol (Proventil Neb Soln) 2.5 mg INH Q4H PRN PRN Reason: Dyspnea Albuterol/Ipratropium (Duoneb 3.0-0.5 Mg/3 Ml) 3 ml INH QIDRT [facility] Last Admin: 08/29/16 16:19 Dose: 3 ml Amlodipine Besylate (Norvasc) 5 mg PO DAILY [facility] Last Admin: 08/29/16 07:40 Dose: 5 mg Cholecalciferol (Vitamin D3) 2,000 units PO DAILY [facility] Last Admin: 08/29/16 07:40 Dose: 2,000 units Citalopram Hydrobromide (Celexa) 20 mg PO DAILY [facility] Last Admin: 08/29/16 07:38 Dose: 20 mg Docusate Sodium (Colace) 100 mg PO BID PRN PRN Reason: Constipation Last Admin: 08/25/16 07:32 Dose: 100 mg Folic Acid (Folic Acid) 1 mg PO DAILY [facility] Last Admin: 08/29/16 07:39 Dose: 1 mg Furosemide (Lasix) 20 mg PO DAILY [facility] Last Admin: 08/29/16 07:39 Dose: 20 mg Guaifenesin/Dextromethorphan (Robitussin Dm) 10 ml PO Q4H PRN PRN Reason: Cough Last Admin: 08/23/16 01:37 Dose: 10 ml Lactulose (Cephulac) 20 gm PO DAILY PRN PRN Reason: Constipation Last Admin: 08/25/16 07:33 Dose: 20 gm Lactulose (Cephulac) 20 gm PO BEDTIME [facility] Last Admin: 08/28/16 19:34 Dose: Not Given Latanoprost (Xalatan 0.005% Ophth Soln) 0 ml EYEBOTH BEDTIME [facility] Last Admin: 08/28/16 19:32 Dose: 1 drop Levothyroxine Sodium (Levothyroxine) 75 mcg PO QAM [facility] Last Admin: 08/29/16 07:39 Dose: 75 mcg Magnesium Hydroxide (Milk Of Magnesia) 30 ml PO DAILY PRN PRN Reason: Constipation Magnesium Oxide (Magnesium Oxide) 400 mg PO DAILY [facility] Last Admin: 08/29/16 07:39 Dose: 400 mg Nitroglycerin (Nitrostat) 0.4 mg SL ASDIRECTED PRN PRN Reason: Chest Pain Last Admin: 08/28/16 10:08 Dose: 0.4 mg Colesevelam (Welchol () 625mg Tabs) 3 tab PO BIDMEALS [facility] Last Admin: 08/29/16 17:23 Dose: 3 tab Protein Tablets 4 each PO DAILY@1700 [facility] Last Admin: 08/29/16 17:22 Dose: 4 each Nephrocaps 1 each PO DAILY [facility] Last Admin: 08/29/16 07:39 Dose: 1 each Oxycodone HCl (Oxycodone) 5 mg PO Q4H PRN PRN Reason: Pain (severe 7-10) Last Admin: 08/29/16 02:53 Dose: 5 mg Pregabalin (Lyrica) 25 mg PO TID [facility] Last Admin: 08/29/16 17:23 Dose: 25 mg Ranitidine HCl (Zantac) 150 mg PO BID [facility] Last Admin: 08/29/16 17:23 Dose: 150 mg Senna/Docusate Sodium (Senna Plus) 1 tab PO TID [facility] Last Admin: 08/29/16 17:23 Dose: 1 tab Simvastatin (Zocor) 10 mg PO BEDTIME [facility] Last Admin: 08/28/16 19:31 Dose: 10 mg Verapamil HCl (Calan Sr) 240 mg PO QPM [facility] Last Admin: 08/29/16 17:23 Dose: 240 mg Warfarin Sodium (Coumadin) 5 mg PO DAILY@1800 [facility] Discontinued Medications Clindamycin HCl (Cleocin) 300 mg PO TID [facility] Stop: 08/26/16 18:01 Last Admin: 08/26/16 17:37 Dose: 300 mg Senna/Docusate Sodium (Senna Plus) 1 tab PO BID PRN PRN Reason: Constipation Last Admin: 08/25/16 07:34 Dose: 1 tab Senna/Docusate Sodium (Senna Plus) 2 tab PO ONETIME ONE Stop: 08/26/16 12:31 Last Admin: 08/26/16 12:49 Dose: 2 tab Warfarin Sodium (Coumadin) 7.5 mg PO SUTUTHSA@1800 [facility] Last Admin: 08/25/16 19:18 Dose: 7.5 mg Warfarin Sodium (Coumadin) 5 mg PO MOWEFR@1800 [facility] Last Admin: 08/26/16 17:37 Dose: 5 mg Warfarin Sodium (Coumadin) 7.5 mg PO MOWEFR@1800 [facility] Last Admin: 08/28/16 17:50 Dose: 7.5 mg Warfarin Sodium (Coumadin) 5 mg PO SUTUTHSA@1800 [facility] Last Admin: 08/27/16 17:53 Dose: 5 mg - Exam Quality Assessment: supplemental oxygen General: alert, cooperative, no acute distress HEENT: Mucous membr. moist/pink Neck: trachea midline, no JVD Lungs: Decreased breath sounds, Rhonchi Cardiovascular: regular rate, regular rhythm Abdomen: bowel sounds present, soft, no tenderness, no distension (Male) Exam: Deferred Back Exam: normal inspection Extremities: no calf tenderness, edema Skin: warm, dry, intact, ecchymosis (extremities) Neurological: no new focal deficit Psy/Mental Status: alert, normal affect, normal mood - Problem List & Annotations (1) Respiratory failure with hypercapnia SNOMED Code(s): 588208182 Code(s): J96.92 - RESPIRATORY FAILURE, UNSPECIFIED WITH HYPERCAPNIA Status : Acute Priority: High Current Visit: Yes Qualifiers: Chronicity: acute on chronic Qualified Code(s): J96.22 - Acute and chronic respiratory failure with hypercapnia (2) Rib fractures SNOMED Code(s): 57608848 Code(s): S22.39XA - FRACTURE OF ONE RIB, UNSP SIDE, INIT FOR CLOS FX Status : Acute Priority: High Current Visit: Yes Qualifiers: Encounter type: subsequent encounter Rib fracture type: multiple ribs Fracture type: closed Laterality: bilateral Fracture healing: with routine healing (3) Hematuria, gross SNOMED Code(s): 560473819 Code(s): R31.0 - GROSS HEMATURIA Status: Acute Priority: High Current Visit: No (4) Aspiration into respiratory tract SNOMED Code(s): 437000554 Code(s): T17.908A - UNSP FB IN RESP TRACT, PART UNSP CAUSING OTH INJURY, INIT Status: Acute Current Visit: Yes (5) GERD (gastroesophageal reflux disease) SNOMED Code(s): 968581002 Code(s): K21.9 - GASTRO-ESOPHAGEAL REFLUX DISEASE WITHOUT ESOPHAGITIS Status: Acute Priority: Medium Current Visit: No Qualifiers: Esophagitis presence: esophagitis presence not specified Qualified Code(s) : K21.9 - Gastro-esophageal reflux disease without esophagitis (6) Hip joint replacement status SNOMED Code(s): 525446219, 172436570, 579123945 Code(s): Z96.649 - PRESENCE OF UNSPECIFIED ARTIFICIAL HIP JOINT Status: Acute Priority: High Current Visit: No Qualifiers: Laterality: left Qualified Code(s): Z96.642 - Presence of left artificial hip joint (7) Lower leg DVT (deep venous thromboembolism), chronic SNOMED Code(s): 094287467, 703461067, 592925410316951 Code(s): I82.5Z9 - CHR EMBLSM AND THOMBOS UNSP DEEP VN UNSP DISTAL LOW EXTRM Status: Acute Priority: Medium Current Visit: No Qualifiers: Laterality: unspecified laterality Qualified Code(s): I82.5Z9 - Chronic embolism and thrombosis of unspecified deep veins of unspecified distal lower extremity (8) Mood disorder Status: Acute Priority: Medium Current Visit: No (9) PVD (peripheral vascular disease) SNOMED Code(s): 839452922 Code(s): I73.9 - PERIPHERAL VASCULAR DISEASE, UNSPECIFIED Status: Acute Priority: Medium Current Visit: No (10) Prostate cancer SNOMED Code(s): 087591112 Code(s): C61 - MALIGNANT NEOPLASM OF PROSTATE Status: Acute Priority: Low Current Visit: No (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 SNOMED Code(s): 8051336 Code(s): D68.59 - OTHER PRIMARY THROMBOPHILIA Status: Acute Priority: High Current Visit: No (12) Respiratory failure, chronic SNOMED Code(s): 55865634 Code(s): J96.10 - CHRONIC RESPIRATORY FAILURE, UNSP W HYPOXIA OR HYPERCAPNIA Status: Acute Priority: Medium Current Visit: No Qualifiers: Respiratory failure complication: unspecified whether with hypoxia or hypercapnia Qualified Code(s): J96.10 - Chronic respiratory failure, unspecified whether with hypoxia or hypercapnia (13) COPD (chronic obstructive pulmonary disease) SNOMED Code(s): 26414463 Code(s): J44.9 - CHRONIC OBSTRUCTIVE PULMONARY DISEASE, UNSPECIFIED Status : Chronic Priority: Medium Current Visit: No Qualifiers: COPD type: unspecified COPD Qualified Code(s): J44.9 - Chronic obstructive pulmonary disease, unspecified (14) Hypertension SNOMED Code(s): 86997657 Code(s): I10 - ESSENTIAL (PRIMARY) HYPERTENSION Status: Chronic Current Visit: No Qualifiers: Hypertension type: essential hypertension Qualified Code(s): I10 - Essential (primary) hypertension (15) Hypothyroidism SNOMED Code(s): 55850626 Code(s): E03.9 - HYPOTHYROIDISM, UNSPECIFIED Status: Chronic Priority: Medium Current Visit: No Annotation/Comment:: Stable by his history, TSH normal today (16) Migraine SNOMED Code(s): 29896280 Code(s): G43.909 - MIGRAINE, UNSP, NOT INTRACTABLE, WITHOUT STATUS MIGRAINOSUS Status: Chronic Priority: Medium Current Visit: No Annotation/Comment:: Symptomatically improved after medications provided. Advised to hydrate and rest today to avoid rebound. Follow up as needed. (17) Osteoarthritis SNOMED Code(s): 756250974 Code(s): M19.90 - UNSPECIFIED OSTEOARTHRITIS, UNSPECIFIED SITE Status: Chronic Priority: Medium Current Visit: No Qualifiers: Osteoarthritis location: multiple joints Osteoarthritis type: primary Qualified Code(s): M15.0 - Primary generalized (osteo)arthritis Annotation/Comment:: Stable by history with chronic narcotic use (18) Polycythemia SNOMED Code(s): 654174885 Code(s): D75.1 - SECONDARY POLYCYTHEMIA Status: Chronic Priority: Medium Current Visit: No Onset Date: 09/12/15 Annotation/Comment:: Likely secondary to his COPD (19) Renal insufficiency SNOMED Code(s): 613781642 Code(s): N28.9 - DISORDER OF KIDNEY AND URETER, UNSPECIFIED Status: Chronic Priority: Medium Current Visit: No Annotation/Comment:: Stable mild creatinine elevation - Problem List Review Problem List Initiated/Reviewed/Updated: Yes - My Orders Last 24 Hours: My Active Orders 08/30/16 05:11 Chest 2V [CR] Routine BLOOD GAS VENOUS [BG] Routine CBC WITH AUTO DIFF [HEME] Routine CMP [COMPREHENSIVE METABOLIC PN,CMP] [CHEM] Routine CRP [C-REACTIVE PROTEIN] [CHEM] Routine INR,PT,PROTHROMBIN TIME [COAG] Routine 08/30/16 18:00 Warfarin [Coumadin] 5 mg PO DAILY@1800 - Plan Plan:: 08/21/16 Recent hospitalization for pneumonia. He had respiratory arrest/failure. He received CPR, transferred to [facility]. Now here admitted to [facility] for PT-OT-SPL. 08/24/2016 Patient feeling okay, using a pillow when he coughs to help with the pain from the rib fracture. Reviewed notes from [facility]. Lung Ct scan showing a 3.9 cm masslike consolidation in the left lower lung field and AAA. Patient needing a follow up CT scan in 3 months time. Patient has appointment with Dr Summers in urology in September, when Dr Summers comes to [place]. Patient is being treated for aspiration pneumonia with Clindamycin as patient had CPR and intubation. On coumadin for Protein S deficiency, and recurrent DVT/PE. Will continue to follow INRs. 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 Discussed the finding of the CT scan of the lung with the patient, patient verbalized understanding and had no further questions. Leonie Franco,JOSE 08/29/16 Discharge plans discussed today with Jabari and his Johanny. Discharge tomorrow. Discussed oxygen requirements.
[2016-08-29] MEDS: Simvastatin 10 MG Tab PO SCH (19:18)
[2016-08-29] MEDS: Latanoprost 0.005% Ophth Soln 2.5 ML Bottle EYEBOTH SCH (19:18)
[2016-08-29] MEDS: Lactulose Soln 10 GM/15 ML 30 ML UD Cup PO SCH ×2 (19:18→20:33)
--- NOTE | 2016-08-29 19:22 | PCM.SN ---
- Free Text/Narrative Note: 08/29/2016 Beatrice Lang MD Face to face visit for DME/Respiratory item. 76 yowm diagnosis of COPD, acute on chronic respiratory failure with hypoxia and hypercapnia, aspiration pneumonia, lung atelectasis severe obstructive sleep apnea. He is oxygen dependent at 3.5 LPM per nasal cannula continuous. O2 sats today at rest on room air 69%. He will need oxygen concentrator, portability 3.5 LPM, CPAP (Auto titrating), Nebulizers, cool humidifier. Sleep study last done 2001. See results. A new sleep study has been ordered.
[2016-08-30 07:24] VITALS: BP 154/78
[2016-08-30 07:26] LABS: O2 DELIVERY DEVICE NASAL CANNULA; O2 FLOW RATE 0 L/min
[2016-08-30] MEDS: Albuterol/Ipratropium 3.0-0.5 MG/3 ML Neb Soln INH SCH ×2 (07:38→11:18)
[2016-08-30] MEDS: Magnesium Oxide 400 MG Tab PO SCH (07:38)
[2016-08-30] MEDS: amLODIPine 5 MG Tab PO SCH (07:38)
[2016-08-30] MEDS: Pregabalin 25 MG Cap PO SCH ×2 (07:38→11:18)
[2016-08-30] MEDS: Cholecalciferol (Vitamin D3) 1,000 Unit Tab PO SCH (07:38)
[2016-08-30] MEDS: Levothyroxine 75 MCG Tab PO SCH (07:38)
[2016-08-30] MEDS: Furosemide 20 MG Tab PO SCH (07:38)
[2016-08-30] MEDS: Citalopram 20 MG Tab PO SCH (07:38)
[2016-08-30] MEDS: Folic Acid 1 MG Tab PO SCH (07:38)
[2016-08-30] MEDS: NEPHROCAPS PO SCH (07:39)
[2016-08-30] MEDS: COLESEVELAM 625 MG PO SCH (07:39)
[2016-08-30 07:46] LABS: CHLORIDE,CL 102 mmol/L (98-107); SODIUM,NA 143 mmol/L (136-145)
[2016-08-30 07:53] LABS: BASE EXCESS VENOUS 14 mmol/L ((-2)-3); BICARBONATE,VENOUS 40 mmol/L (23-28); O2 SATURATION VENOUS 97 %; PCO2 VENOUS 77 mmHG (41-51); PH,VENOUS 7.32 (7.31-7.41); PO2 VENOUS 106 mmHG
--- NOTE | 2016-08-30 12:29 | PCM.PN ---
- General Info Date of Service: 08/30/16 Functional Status: Reports: pain controlled - Review of Systems General: Reports: weakness HEENT: Reports: no symptoms Pulmonary: Reports: no symptoms Cardiovascular: Reports: no symptoms Gastrointestinal: Reports: No symptoms Genitourinary: Reports: no symptoms Musculoskeletal: Reports: no symptoms Skin: Reports: no symptoms Neurological: Reports: no symptoms Psychiatric: Reports: no symptoms - Patient Data Vitals - most recent: Last Vital Signs Temp 98.6 F 08/30/16 07:22 Pulse 84 08/30/16 07:22 Resp 18 08/30/16 07:22 BP 154/78 H 08/30/16 07:38 Pulse Ox 93 L 08/29/16 19:19 Weight - most recent: 267 lb I&O - last 24 hours: Intake & Output 08/29/16 08/30/16 08/30/16 22:59 06:59 14:59 Intake Total 300 420 Balance 300 420 Lab Results last 24 hrs: Laboratory Results - last 24 hr 08/30/16 08/30/16 08/30/16 Range/Units 07:20 07:20 07:20 WBC 5.0 (4.0-10.2) K/uL RBC 4.03 L (4.33-5.41) M/uL Hgb 12.0 L (13.1-16.8) g/dL Hct 39.5 (39.0-49.0) % MCV 98.0 (84.0-98.0) fL MCH 29.8 (28.2-33.3) pg MCHC 30.4 L (31.7-36.0) g/dL RDW 15.4 H (11.2-14.1) % Plt Count 147 L (150-350) K/uL Neut % (Auto) 79.8 (45.0-80.0) % Lymph % (Auto) 9.2 L (10.0-50.0) % Luna % (Auto) 7.6 (2.0-14.0) % Eos % (Auto) 2.8 (0.0-5.0) % Baso % (Auto) 0.6 (0.0-2.0) % Neut # 3.99 (1.40-7.00) K/uL Lymph # 0.46 L (0.50-3.50) K/uL Luna # 0.38 (0.00-1.00) K/uL Eos # 0.14 (0.00-0.50) K/uL Baso # 0.03 (0.00-0.20) K/uL PT 30.1 H (9.8-11.7) SEC INR 2.7 VBG pH 7.32 (7.31-7.41) VBG pCO2 77 H (41-51) mmHG VBG pO2 106 mmHG VBG HCO3 40 H (23-28) mmol/L VBG Total CO2 42 mmol/L VBG O2 Saturation 97 % VBG Base Excess 14 H ((-2)-3) mmol/L O2 Delivery Device Nasal cannula Oxygen Flow Rate 0 L/min Sodium (136-145) mmol/L Potassium (3.5-5.1) mmol/L Chloride (98-107) mmol/L Carbon Dioxide (21.0-32.0) mmol/L BUN (7-18) mg/dL Creatinine (0.51-1.17) mg/dL Est Cr Clr Drug Dosing mL/min Estimated GFR (MDRD) mL/min Glucose (74-106) mg/dL Calcium (8.5-10.1) mg/dL Total Bilirubin (0.2-1.0) mg/dL AST (15-37) U/L ALT (12-78) U/L Alkaline Phosphatase (46-116) IU/L C-Reactive Protein (<=0.9) mg/dL Total Protein (6.4-8.2) g/dL Albumin (3.4-5.0) g/dL 08/30/16 Range/Units 07:20 WBC (4.0-10.2) K/uL RBC (4.33-5.41) M/uL Hgb (13.1-16.8) g/dL Hct (39.0-49.0) % MCV (84.0-98.0) fL MCH (28.2-33.3) pg MCHC (31.7-36.0) g/dL RDW (11.2-14.1) % Plt Count (150-350) K/uL Neut % (Auto) (45.0-80.0) % Lymph % (Auto) (10.0-50.0) % Luna % (Auto) (2.0-14.0) % Eos % (Auto) (0.0-5.0) % Baso % (Auto) (0.0-2.0) % Neut # (1.40-7.00) K/uL Lymph # (0.50-3.50) K/uL Luna # (0.00-1.00) K/uL Eos # (0.00-0.50) K/uL Baso # (0.00-0.20) K/uL PT (9.8-11.7) SEC INR VBG pH (7.31-7.41) VBG pCO2 (41-51) mmHG VBG pO2 mmHG VBG HCO3 (23-28) mmol/L VBG Total CO2 mmol/L VBG O2 Saturation % VBG Base Excess ((-2)-3) mmol/L O2 Delivery Device Oxygen Flow Rate L/min Sodium 143 (136-145) mmol/L Potassium 4.3 (3.5-5.1) mmol/L Chloride 102 (98-107) mmol/L Carbon Dioxide 38.1 H (21.0-32.0) mmol/L BUN 18 (7-18) mg/dL Creatinine 0.92 (0.51-1.17) mg/dL Est Cr Clr Drug Dosing 77.43 mL/min Estimated GFR (MDRD) > 60 mL/min Glucose 97 (74-106) mg/dL Calcium 8.6 (8.5-10.1) mg/dL Total Bilirubin 0.5 (0.2-1.0) mg/dL AST 37 (15-37) U/L ALT 32 (12-78) U/L Alkaline Phosphatase 108 (46-116) IU/L C-Reactive Protein 2.1 H (<=0.9) mg/dL Total Protein 6.6 (6.4-8.2) g/dL Albumin 3.1 L (3.4-5.0) g/dL Med Orders - Current: Current Medications Acetaminophen (Tylenol) 650 mg PO Q4HR PRN PRN Reason: Pain (moderate 4-6) Last Admin: 08/29/16 08:45 Dose: 650 mg Albuterol (Proventil Neb Soln) 2.5 mg INH Q4H PRN PRN Reason: Dyspnea Albuterol/Ipratropium (Duoneb 3.0-0.5 Mg/3 Ml) 3 ml INH QIDRT [facility] Last Admin: 08/30/16 11:18 Dose: 3 ml Amlodipine Besylate (Norvasc) 5 mg PO DAILY [facility] Last Admin: 08/30/16 07:38 Dose: 5 mg Cholecalciferol (Vitamin D3) 2,000 units PO DAILY [facility] Last Admin: 08/30/16 07:38 Dose: 2,000 units Citalopram Hydrobromide (Celexa) 20 mg PO DAILY [facility] Last Admin: 08/30/16 07:38 Dose: 20 mg Docusate Sodium (Colace) 100 mg PO BID PRN PRN Reason: Constipation Last Admin: 08/25/16 07:32 Dose: 100 mg Folic Acid (Folic Acid) 1 mg PO DAILY [facility] Last Admin: 08/30/16 07:38 Dose: 1 mg Furosemide (Lasix) 20 mg PO DAILY [facility] Last Admin: 08/30/16 07:38 Dose: 20 mg Guaifenesin/Dextromethorphan (Robitussin Dm) 10 ml PO Q4H PRN PRN Reason: Cough Last Admin: 08/23/16 01:37 Dose: 10 ml Lactulose (Cephulac) 20 gm PO DAILY PRN PRN Reason: Constipation Last Admin: 08/25/16 07:33 Dose: 20 gm Lactulose (Cephulac) 20 gm PO BEDTIME [facility] Last Admin: 08/29/16 20:33 Dose: Not Given Latanoprost (Xalatan 0.005% [facility] Sol) 0 ml EYEBOTH BEDTIME [facility] Last Admin: 08/29/16 19:18 Dose: 1 drop Levothyroxine Sodium (Levothyroxine) 75 mcg PO QAM [facility] Last Admin: 08/30/16 07:38 Dose: 75 mcg Magnesium Hydroxide (Milk Of Magnesia) 30 ml PO DAILY PRN PRN Reason: Constipation Magnesium Oxide (Magnesium Oxide) 400 mg PO DAILY [facility] Last Admin: 08/30/16 07:38 Dose: 400 mg Nitroglycerin (Nitrostat) 0.4 mg SL ASDIRECTED PRN PRN Reason: Chest Pain Last Admin: 08/28/16 10:08 Dose: 0.4 mg Colesevelam (Welchol () 625mg Tabs) 3 tab PO BIDMEALS [facility] Last Admin: 08/30/16 07:39 Dose: 3 tab Protein Tablets 4 each PO DAILY@1700 [facility] Last Admin: 08/29/16 17:22 Dose: 4 each Nephrocaps 1 each PO DAILY [facility] Last Admin: 08/30/16 07:39 Dose: 1 each Oxycodone HCl (Oxycodone) 5 mg PO Q4H PRN PRN Reason: Pain (severe 7-10) Last Admin: 08/29/16 02:53 Dose: 5 mg Pregabalin (Lyrica) 25 mg PO TID [facility] Last Admin: 08/30/16 11:18 Dose: 25 mg Ranitidine HCl (Zantac) 150 mg PO BID [facility] Last Admin: 08/30/16 07:38 Dose: 150 mg Senna/Docusate Sodium (Senna Plus) 1 tab PO TID [facility] Last Admin: 08/30/16 11:18 Dose: 1 tab Simvastatin (Zocor) 10 mg PO BEDTIME [facility] Last Admin: 08/29/16 19:18 Dose: 10 mg Verapamil HCl (Calan Sr) 240 mg PO QPM [facility] Last Admin: 08/29/16 17:23 Dose: 240 mg Warfarin Sodium (Coumadin) 5 mg PO DAILY@1800 [facility] Discontinued Medications Clindamycin HCl (Cleocin) 300 mg PO TID [facility] Stop: 08/26/16 18:01 Last Admin: 08/26/16 17:37 Dose: 300 mg Senna/Docusate Sodium (Senna Plus) 1 tab PO BID PRN PRN Reason: Constipation Last Admin: 08/25/16 07:34 Dose: 1 tab Senna/Docusate Sodium (Senna Plus) 2 tab PO ONETIME ONE Stop: 08/26/16 12:31 Last Admin: 08/26/16 12:49 Dose: 2 tab Warfarin Sodium (Coumadin) 7.5 mg PO SUTUTHSA@1800 [facility] Last Admin: 08/25/16 19:18 Dose: 7.5 mg Warfarin Sodium (Coumadin) 5 mg PO MOWEFR@1800 [facility] Last Admin: 08/26/16 17:37 Dose: 5 mg Warfarin Sodium (Coumadin) 7.5 mg PO MOWEFR@1800 [facility] Last Admin: 08/28/16 17:50 Dose: 7.5 mg Warfarin Sodium (Coumadin) 5 mg PO SUTUTHSA@1800 [facility] Last Admin: 08/27/16 17:53 Dose: 5 mg - Exam Quality Assessment: supplemental oxygen General: alert, cooperative, no acute distress HEENT: Mucous membr. moist/pink Neck: trachea midline, no JVD, no thyromegaly Lungs: Normal respiratory effort, Decreased breath sounds Cardiovascular: regular rate, regular rhythm Abdomen: bowel sounds present, soft, no tenderness, no distension (Male) Exam: Deferred Back Exam: normal inspection Extremities: no calf tenderness, edema Skin: warm, dry, intact, ecchymosis (extremities) Neurological: no new focal deficit Psy/Mental Status: alert, normal affect, normal mood - Problem List & Annotations (1) Respiratory failure with hypercapnia SNOMED Code(s): 378819753 Code(s): J96.92 - RESPIRATORY FAILURE, UNSPECIFIED WITH HYPERCAPNIA Status : Acute Priority: High Current Visit: Yes Qualifiers: Chronicity: acute on chronic Qualified Code(s): J96.22 - Acute and chronic respiratory failure with hypercapnia (2) Rib fractures SNOMED Code(s): 03205981 Code(s): S22.39XA - FRACTURE OF ONE RIB, UNSP SIDE, INIT FOR CLOS FX Status : Acute Priority: High Current Visit: Yes Qualifiers: Encounter type: subsequent encounter Rib fracture type: multiple ribs Fracture type: closed Laterality: bilateral Fracture healing: with routine healing (3) Hematuria, gross SNOMED Code(s): 491719883 Code(s): R31.0 - GROSS HEMATURIA Status: Acute Priority: High Current Visit: No (4) Aspiration into respiratory tract SNOMED Code(s): 657288345 Code(s): T17.908A - UNSP FB IN RESP TRACT, PART UNSP CAUSING OTH INJURY, INIT Status: Acute Current Visit: Yes (5) GERD (gastroesophageal reflux disease) SNOMED Code(s): 680380237 Code(s): K21.9 - GASTRO-ESOPHAGEAL REFLUX DISEASE WITHOUT ESOPHAGITIS Status: Acute Priority: Medium Current Visit: No Qualifiers: Esophagitis presence: esophagitis presence not specified Qualified Code(s) : K21.9 - Gastro-esophageal reflux disease without esophagitis (6) Hip joint replacement status SNOMED Code(s): 436564708, 761725226, 840330892 Code(s): Z96.649 - PRESENCE OF UNSPECIFIED ARTIFICIAL HIP JOINT Status: Acute Priority: High Current Visit: No Qualifiers: Laterality: left Qualified Code(s): Z96.642 - Presence of left artificial hip joint (7) Lower leg DVT (deep venous thromboembolism), chronic SNOMED Code(s): 345551878, 425164421, 890722373156065 Code(s): I82.5Z9 - CHR EMBLSM AND THOMBOS UNSP DEEP VN UNSP DISTAL LOW EXTRM Status: Acute Priority: Medium Current Visit: No Qualifiers: Laterality: unspecified laterality Qualified Code(s): I82.5Z9 - Chronic embolism and thrombosis of unspecified deep veins of unspecified distal lower extremity (8) Mood disorder Status: Acute Priority: Medium Current Visit: No (9) PVD (peripheral vascular disease) SNOMED Code(s): 408827019 Code(s): I73.9 - PERIPHERAL VASCULAR DISEASE, UNSPECIFIED Status: Acute Priority: Medium Current Visit: No (10) Prostate cancer SNOMED Code(s): 126718625 Code(s): C61 - MALIGNANT NEOPLASM OF PROSTATE Status: Acute Priority: Low Current Visit: No (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 SNOMED Code(s): 7131722 Code(s): D68.59 - OTHER PRIMARY THROMBOPHILIA Status: Acute Priority: High Current Visit: No (12) Respiratory failure, chronic SNOMED Code(s): 31111204 Code(s): J96.10 - CHRONIC RESPIRATORY FAILURE, UNSP W HYPOXIA OR HYPERCAPNIA Status: Acute Priority: Medium Current Visit: No Qualifiers: Respiratory failure complication: unspecified whether with hypoxia or hypercapnia Qualified Code(s): J96.10 - Chronic respiratory failure, unspecified whether with hypoxia or hypercapnia (13) COPD (chronic obstructive pulmonary disease) SNOMED Code(s): 93337896 Code(s): J44.9 - CHRONIC OBSTRUCTIVE PULMONARY DISEASE, UNSPECIFIED Status : Chronic Priority: Medium Current Visit: No Qualifiers: COPD type: unspecified COPD Qualified Code(s): J44.9 - Chronic obstructive pulmonary disease, unspecified (14) Hypertension SNOMED Code(s): 70379391 Code(s): I10 - ESSENTIAL (PRIMARY) HYPERTENSION Status: Chronic Current Visit: No Qualifiers: Hypertension type: essential hypertension Qualified Code(s): I10 - Essential (primary) hypertension (15) Hypothyroidism SNOMED Code(s): 79013468 Code(s): E03.9 - HYPOTHYROIDISM, UNSPECIFIED Status: Chronic Priority: Medium Current Visit: No Annotation/Comment:: Stable by his history, TSH normal today (16) Migraine SNOMED Code(s): 46828513 Code(s): G43.909 - MIGRAINE, UNSP, NOT INTRACTABLE, WITHOUT STATUS MIGRAINOSUS Status: Chronic Priority: Medium Current Visit: No Annotation/Comment:: Symptomatically improved after medications provided. Advised to hydrate and rest today to avoid rebound. Follow up as needed. (17) Osteoarthritis SNOMED Code(s): 110898719 Code(s): M19.90 - UNSPECIFIED OSTEOARTHRITIS, UNSPECIFIED SITE Status: Chronic Priority: Medium Current Visit: No Qualifiers: Osteoarthritis location: multiple joints Osteoarthritis type: primary Qualified Code(s): M15.0 - Primary generalized (osteo)arthritis Annotation/Comment:: Stable by history with chronic narcotic use (18) Polycythemia SNOMED Code(s): 529390118 Code(s): D75.1 - SECONDARY POLYCYTHEMIA Status: Chronic Priority: Medium Current Visit: No Onset Date: 09/12/15 Annotation/Comment:: Likely secondary to his COPD (19) Renal insufficiency SNOMED Code(s): 749863607 Code(s): N28.9 - DISORDER OF KIDNEY AND URETER, UNSPECIFIED Status: Chronic Priority: Medium Current Visit: No Annotation/Comment:: Stable mild creatinine elevation (20) AAA (abdominal aortic aneurysm) SNOMED Code(s): 081917298 Code(s): I71.4 - ABDOMINAL AORTIC ANEURYSM, WITHOUT RUPTURE Status: Acute Priority: Medium Current Visit: Yes Qualifiers: Presence of rupture: without rupture Qualified Code(s): I71.4 - Abdominal aortic aneurysm, without rupture - Problem List Review Problem List Initiated/Reviewed/Updated: Yes - My Orders Last 24 Hours: My Active Orders 08/30/16 05:11 Chest 2V [CR] Routine 08/30/16 12:26 Ready for Discharge [RC] PER UNIT ROUTINE 08/30/16 18:00 Warfarin [Coumadin] 5 mg PO DAILY@1800 - Plan Plan:: 08/21/16 Recent hospitalization for pneumonia. He had respiratory arrest/failure. He received CPR, transferred to [facility]. Now here admitted to [facility] for PT-OT-SPL. 08/24/2016 Patient feeling okay, using a pillow when he coughs to help with the pain from the rib fracture. Reviewed notes from [facility]. Lung Ct scan showing a 3.9 cm masslike consolidation in the left lower lung field and AAA. Patient needing a follow up CT scan in 3 months time. Patient has appointment with Dr Summers in urology in September, when Dr Summers comes to [place]. Patient is being treated for aspiration pneumonia with Clindamycin as patient had CPR and intubation. On coumadin for Protein S deficiency, and recurrent DVT/PE. Will continue to follow INRs. Patient is needing manager line [facility] stay due to deconditioning, acute on chronic respiratory failure requiring CPR and intubation. Discussed the finding of the CT scan of the lung with the patient, patient verbalized understanding and had no further questions. Leonie Franco CNP 08/29/16 Discharge plans discussed today with Jabari and his Johanny. Discharge tomorrow. Discussed oxygen requirements. 08/30/16 Beatrice Lang MD Ready for discharge.
--- NOTE | 2016-08-30 12:35 | PCM.DCSUM1 ---
Discharge Summary - Hospital Course Free Text/Narrative:: 76 yowm pneumonia, questionable LLL mass was hospitalized. He experienced hypercapnia, hypoxia respiratory arrest. He was full code so he was resuscitated and sent to [place]. CT scans confirmed oxygen dependent COPD and small abdomenal aortic aneurysm. He returned to [facility] bed status for PT- OT. He had sustained closed fracture bilateral ribs. He is dependent 3.5 LPM continuous oxygen per nasal cannula. He had gross hematuria so he will follow up with urology. History of prostate cancer. - Discharge Data Discharge Date: 08/30/16 Discharge Disposition: Home, [facility] 06 Condition: Good - Discharge Diagnosis/Problem(s) (1) Respiratory failure with hypercapnia SNOMED Code(s): 751523978 ICD Code: J96.92 - RESPIRATORY FAILURE, UNSPECIFIED WITH HYPERCAPNIA Status : Acute Priority: High Current Visit: Yes Qualifiers: Chronicity: acute on chronic Qualified Code(s): J96.22 - Acute and chronic respiratory failure with hypercapnia (2) Rib fractures SNOMED Code(s): 43775085 ICD Code: S22.39XA - FRACTURE OF ONE RIB, UNSP SIDE, INIT FOR CLOS FX Status: Acute Priority: High Current Visit: Yes Qualifiers: Encounter type: subsequent encounter Rib fracture type: multiple ribs Fracture type: closed Laterality: bilateral Fracture healing: with routine healing (3) Hematuria, gross SNOMED Code(s): 119286315 ICD Code: R31.0 - GROSS HEMATURIA Status: Acute Priority: High Current Visit: No (4) Aspiration into respiratory tract SNOMED Code(s): 671616686 ICD Code: T17.908A - UNSP FB IN RESP TRACT, PART UNSP CAUSING OTH INJURY, INIT Status: Acute Current Visit: Yes (5) GERD (gastroesophageal reflux disease) SNOMED Code(s): 739806875 ICD Code: K21.9 - GASTRO-ESOPHAGEAL REFLUX DISEASE WITHOUT ESOPHAGITIS Status: Acute Priority: Medium Current Visit: No Qualifiers: Esophagitis presence: esophagitis presence not specified Qualified Code(s) : K21.9 - Gastro-esophageal reflux disease without esophagitis (6) Hip joint replacement status SNOMED Code(s): 536049939, 079656241, 226022225 ICD Code: Z96.649 - PRESENCE OF UNSPECIFIED ARTIFICIAL HIP JOINT Status: Acute Priority: High Current Visit: No Qualifiers: Laterality: left Qualified Code(s): Z96.642 - Presence of left artificial hip joint (7) Lower leg DVT (deep venous thromboembolism), chronic SNOMED Code(s): 569605713, 542792657, [id number] ICD Code: I82.5Z9 - CHR EMBLSM AND THOMBOS UNSP DEEP VN UNSP DISTAL LOW EXTRM Status: Acute Priority: Medium Current Visit: No Qualifiers: Laterality: unspecified laterality Qualified Code(s): I82.5Z9 - Chronic embolism and thrombosis of unspecified deep veins of unspecified distal lower extremity (8) Mood disorder Status: Acute Priority: Medium Current Visit: No (9) PVD (peripheral vascular disease) SNOMED Code(s): 266999431 ICD Code: I73.9 - PERIPHERAL VASCULAR DISEASE, UNSPECIFIED Status: Acute Priority: Medium Current Visit: No (10) Prostate cancer SNOMED Code(s): 135680039 ICD Code: C61 - MALIGNANT NEOPLASM OF PROSTATE Status: Acute Priority: Low Current Visit: No (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 SNOMED Code(s): 9931233 ICD Code: D68.59 - OTHER PRIMARY THROMBOPHILIA Status: Acute Priority: High Current Visit: No (12) Respiratory failure, chronic SNOMED Code(s): 16242226 ICD Code: J96.10 - CHRONIC RESPIRATORY FAILURE, UNSP W HYPOXIA OR HYPERCAPNIA Status: Acute Priority: Medium Current Visit: No Qualifiers: Respiratory failure complication: unspecified whether with hypoxia or hypercapnia Qualified Code(s): J96.10 - Chronic respiratory failure, unspecified whether with hypoxia or hypercapnia (13) COPD (chronic obstructive pulmonary disease) SNOMED Code(s): 97630327 ICD Code: J44.9 - CHRONIC OBSTRUCTIVE PULMONARY DISEASE, UNSPECIFIED Status : Chronic Priority: Medium Current Visit: No Qualifiers: COPD type: unspecified COPD Qualified Code(s): J44.9 - Chronic obstructive pulmonary disease, unspecified (14) Hypertension SNOMED Code(s): 04362126 ICD Code: I10 - ESSENTIAL (PRIMARY) HYPERTENSION Status: Chronic Current Visit: No Qualifiers: Hypertension type: essential hypertension Qualified Code(s): I10 - Essential (primary) hypertension (15) Hypothyroidism SNOMED Code(s): 08172943 ICD Code: E03.9 - HYPOTHYROIDISM, UNSPECIFIED Status: Chronic Priority: Medium Current Visit: No Problem Details: Stable by his history, TSH normal today (16) Migraine SNOMED Code(s): 43186912 ICD Code: G43.909 - MIGRAINE, UNSP, NOT INTRACTABLE, WITHOUT STATUS MIGRAINOSUS Status: Chronic Priority: Medium Current Visit: No Problem Details: Symptomatically improved after medications provided. Advised to hydrate and rest today to avoid rebound. Follow up as needed. (17) Osteoarthritis SNOMED Code(s): 479593677 ICD Code: M19.90 - UNSPECIFIED OSTEOARTHRITIS, UNSPECIFIED SITE Status: Chronic Priority: Medium Current Visit: No Problem Details: Stable by history with chronic narcotic use Qualifiers: Osteoarthritis location: multiple joints Osteoarthritis type: primary Qualified Code(s): M15.0 - Primary generalized (osteo)arthritis (18) Polycythemia SNOMED Code(s): 100622256 ICD Code: D75.1 - SECONDARY POLYCYTHEMIA Status: Chronic Priority: Medium Current Visit: No Onset Date: 09/12/15 Problem Details: Likely secondary to his COPD (19) Renal insufficiency SNOMED Code(s): 921273019 ICD Code: N28.9 - DISORDER OF KIDNEY AND URETER, UNSPECIFIED Status: Chronic Priority: Medium Current Visit: No Problem Details: Stable mild creatinine elevation (20) AAA (abdominal aortic aneurysm) SNOMED Code(s): 090722755 ICD Code: I71.4 - ABDOMINAL AORTIC ANEURYSM, WITHOUT RUPTURE Status: Acute Priority: Medium Current Visit: Yes Qualifiers: Presence of rupture: without rupture Qualified Code(s): I71.4 - Abdominal aortic aneurysm, without rupture - Patient Summary/Data Consults: Consultations 08/21/16 16:57 OT Evaluation and Treatment [CONS] Routine PT Evaluation and Treatment [CONS] Routine 08/22/16 08:00 Consult to Speech Language Pathology [SIDER Evaluation and Treatment] [CONS] Routine - Patient Instructions Diet: Mechanical Soft ([place] thick liquids, Free water protocol) Activity: As Tolerated, Cough & Deep Breathe (Incentive Spirometry every hour while awake) Driving: Do Not Drive Showering/Bathing: May Shower Other/Special Instructions: Oxygen per nasal cannula 3.5 LPM. Sleep study ordered. - Discharge Plan Prescriptions/Med Rec: Warfarin [Coumadin] 5 mg PO DAILY@1800 #30 tablet Home Medications: Home Meds Citalopram [Citalopram HBr] 20 mg PO DAILY 08/07/13 [History] Levothyroxine 75 mcg PO QAM 08/07/13 [History] Pregabalin [Lyrica] 25 mg PO TID 08/07/13 [History] amLODIPine [Norvasc] 5 mg PO DAILY 08/07/13 [History] Cholecalciferol (Vitamin D3) [Vitamin D3] 2,000 units PO DAILY 06/12/14 [History ] Docusate Sodium [Colace] 1 cap PO BID PRN 06/12/14 [History] Latanoprost [Xalatan 0.005% Ophth Soln] 1 drop EYEBOTH BEDTIME 06/12/14 [History ] Nitroglycerin [Nitrostat] 1 tab SL ASDIRECTED PRN 06/12/14 [History] Verapamil HCl [Verapamil ER] 1 cap PO QPM 06/12/14 [History] Simvastatin [Zocor] 10 mg PO BEDTIME 11/12/15 [History] Ranitidine [Zantac] 150 mg PO BID #60 tab 11/17/15 [Rx] Albuterol [Proventil Neb Soln] 1 ampule INH Q4HR PRN 03/19/16 [History] Albuterol/Ipratropium [DuoNeb 3.0-0.5 MG/3 ML] 1 ampule INH QID 03/19/16 [ History] Folic Acid 1 mg PO DAILY 03/19/16 [History] Magnesium Oxide 400 mg PO DAILY #90 tablet 04/05/16 [Rx] Acetaminophen 650 mg PO Q4HR PRN 07/26/16 [History] Furosemide 20 mg PO DAILY 07/26/16 [History] Lactulose [Cephulac] 20 gm PO DAILY PRN 07/26/16 [History] Non-Formulary Medication [NF Drug] 1 ea PO QPM 07/26/16 [History] Non-Formulary Medication [NF Drug] 1 tab PO DAILY 07/26/16 [History] Sennosides/Docusate Sodium [Senna S Tablet] 1 tab PO BID PRN 07/26/16 [History] Colesevelam HCl [Welchol] 3 tab PO BIDMEALS 08/21/16 [History] Dextromethorphan/guaiFENesin [Robitussin DM] 10 ml PO Q4H PRN #240 cup 08/30/16 [Rx] Magnesium Hydroxide [Milk of Magnesia] 30 ml PO DAILY PRN #240 cup 08/30/16 [Rx] Warfarin [Coumadin] 5 mg PO DAILY@1800 #30 tablet 08/30/16 [Rx] - Discharge Summary/Plan Comment DC Time >30 min.: Yes Discharge Summary/Plan Comment: He is ready for discharge to home with home health. - Patient Data Vitals - Most Recent: Last Vital Signs Temp 98.6 F 08/30/16 07:22 Pulse 84 08/30/16 07:22 Resp 18 08/30/16 07:22 BP 154/78 H 08/30/16 07:38 Pulse Ox 93 L 08/29/16 19:19 Weight - Most Recent: 267 lb I&O - Last 24 hours: Intake & Output 08/29/16 08/30/16 08/30/16 22:59 06:59 14:59 Intake Total 300 420 Balance 300 420 Lab Results - Last 24 hrs: Laboratory Results - last 24 hr 08/30/16 08/30/16 08/30/16 Range/Units 07:20 07:20 07:20 WBC 5.0 (4.0-10.2) K/uL RBC 4.03 L (4.33-5.41) M/uL Hgb 12.0 L (13.1-16.8) g/dL Hct 39.5 (39.0-49.0) % MCV 98.0 (84.0-98.0) fL MCH 29.8 (28.2-33.3) pg MCHC 30.4 L (31.7-36.0) g/dL RDW 15.4 H (11.2-14.1) % Plt Count 147 L (150-350) K/uL Neut % (Auto) 79.8 (45.0-80.0) % Lymph % (Auto) 9.2 L (10.0-50.0) % Gr[place] % (Auto) 7.6 (2.0-14.0) % Eos % (Auto) 2.8 (0.0-5.0) % Baso % (Auto) 0.6 (0.0-2.0) % Neut # 3.99 (1.40-7.00) K/uL Lymph # 0.46 L (0.50-3.50) K/uL Grayson # 0.38 (0.00-1.00) K/uL Eos # 0.14 (0.00-0.50) K/uL Baso # 0.03 (0.00-0.20) K/uL PT 30.1 H (9.8-11.7) SEC INR 2.7 VBG pH 7.32 (7.31-7.41) VBG pCO2 77 H (41-51) mmHG VBG pO2 106 mmHG VBG HCO3 40 H (23-28) mmol/L VBG Total CO2 42 mmol/L VBG O2 Saturation 97 % VBG Base Excess 14 H ((-2)-3) mmol/L O2 Delivery Device Nasal cannula Oxygen Flow Rate 0 L/min Sodium (136-145) mmol/L Potassium (3.5-5.1) mmol/L Chloride (98-107) mmol/L Carbon Dioxide (21.0-32.0) mmol/L BUN (7-18) mg/dL Creatinine (0.51-1.17) mg/dL Est Cr Clr Drug Dosing mL/min Estimated GFR (MDRD) mL/min Glucose (74-106) mg/dL Calcium (8.5-10.1) mg/dL Total Bilirubin (0.2-1.0) mg/dL AST (15-37) U/L ALT (12-78) U/L Alkaline Phosphatase (46-116) IU/L C-Reactive Protein (<=0.9) mg/dL Total Protein (6.4-8.2) g/dL Albumin (3.4-5.0) g/dL 08/30/16 Range/Units 07:20 WBC (4.0-10.2) K/uL RBC (4.33-5.41) M/uL Hgb (13.1-16.8) g/dL Hct (39.0-49.0) % MCV (84.0-98.0) fL MCH (28.2-33.3) pg MCHC (31.7-36.0) g/dL RDW (11.2-14.1) % Plt Count (150-350) K/uL Neut % (Auto) (45.0-80.0) % Lymph % (Auto) (10.0-50.0) % [place] % (Auto) (2.0-14.0) % Eos % (Auto) (0.0-5.0) % Baso % (Auto) (0.0-2.0) % Neut # (1.40-7.00) K/uL Lymph # (0.50-3.50) K/uL Grayson # (0.00-1.00) K/uL Eos # (0.00-0.50) K/uL Baso # (0.00-0.20) K/uL PT (9.8-11.7) SEC INR VBG pH (7.31-7.41) VBG pCO2 (41-51) mmHG VBG pO2 mmHG VBG HCO3 (23-28) mmol/L VBG Total CO2 mmol/L VBG O2 Saturation % VBG Base Excess ((-2)-3) mmol/L O2 Delivery Device Oxygen Flow Rate L/min Sodium 143 (136-145) mmol/L Potassium 4.3 (3.5-5.1) mmol/L Chloride 102 (98-107) mmol/L Carbon Dioxide 38.1 H (21.0-32.0) mmol/L BUN 18 (7-18) mg/dL Creatinine 0.92 (0.51-1.17) mg/dL Est Cr Clr Drug Dosing 77.43 mL/min Estimated GFR (MDRD) > 60 mL/min Glucose 97 (74-106) mg/dL Calcium 8.6 (8.5-10.1) mg/dL Total Bilirubin 0.5 (0.2-1.0) mg/dL AST 37 (15-37) U/L ALT 32 (12-78) U/L Alkaline Phosphatase 108 (46-116) IU/L C-Reactive Protein 2.1 H (<=0.9) mg/dL Total Protein 6.6 (6.4-8.2) g/dL Albumin 3.1 L (3.4-5.0) g/dL Med Orders - Current: Current Medications Acetaminophen (Tylenol) 650 mg PO Q4HR PRN PRN Reason: Pain (moderate 4-6) Last Admin: 08/29/16 08:45 Dose: 650 mg Albuterol (Proventil Neb Soln) 2.5 mg INH Q4H PRN PRN Reason: Dyspnea Albuterol/Ipratropium (Duoneb 3.0-0.5 Mg/3 Ml) 3 ml INH QIDRT [facility] Last Admin: 08/30/16 11:18 Dose: 3 ml Amlodipine Besylate (Norvasc) 5 mg PO DAILY [facility] Last Admin: 08/30/16 07:38 Dose: 5 mg Cholecalciferol (Vitamin D3) 2,000 units PO DAILY [facility] Last Admin: 08/30/16 07:38 Dose: 2,000 units Citalopram Hydrobromide (Celexa) 20 mg PO DAILY [facility] Last Admin: 08/30/16 07:38 Dose: 20 mg Docusate Sodium (Colace) 100 mg PO BID PRN PRN Reason: Constipation Last Admin: 08/25/16 07:32 Dose: 100 mg Folic Acid (Folic Acid) 1 mg PO DAILY [facility] Last Admin: 08/30/16 07:38 Dose: 1 mg Furosemide (Lasix) 20 mg PO DAILY [facility] Last Admin: 08/30/16 07:38 Dose: 20 mg Guaifenesin/Dextromethorphan (Robitussin Dm) 10 ml PO Q4H PRN PRN Reason: Cough Last Admin: 08/23/16 01:37 Dose: 10 ml Lactulose (Cephulac) 20 gm PO DAILY PRN PRN Reason: Constipation Last Admin: 08/25/16 07:33 Dose: 20 gm Lactulose (Cephulac) 20 gm PO BEDTIME [facility] Last Admin: 08/29/16 20:33 Dose: Not Given Latanoprost (Xalatan 0.005% Ophth Soln) 0 ml EYEBOTH BEDTIME [facility] Last Admin: 08/29/16 19:18 Dose: 1 drop Levothyroxine Sodium (Levothyroxine) 75 mcg PO QAM [facility] Last Admin: 08/30/16 07:38 Dose: 75 mcg Magnesium Hydroxide (Milk Of Magnesia) 30 ml PO DAILY PRN PRN Reason: Constipation Magnesium Oxide (Magnesium Oxide) 400 mg PO DAILY [facility] Last Admin: 08/30/16 07:38 Dose: 400 mg Nitroglycerin (Nitrostat) 0.4 mg SL ASDIRECTED PRN PRN Reason: Chest Pain Last Admin: 08/28/16 10:08 Dose: 0.4 mg Colesevelam (Welchol () 625mg Tabs) 3 tab PO BIDMEALS [facility] Last Admin: 08/30/16 07:39 Dose: 3 tab Protein Tablets 4 each PO DAILY@1700 [facility] Last Admin: 08/29/16 17:22 Dose: 4 each Nephrocaps 1 each PO DAILY [facility] Last Admin: 08/30/16 07:39 Dose: 1 each Oxycodone HCl (Oxycodone) 5 mg PO Q4H PRN PRN Reason: Pain (severe 7-10) Last Admin: 08/29/16 02:53 Dose: 5 mg Pregabalin (Lyrica) 25 mg PO TID [facility] Last Admin: 08/30/16 11:18 Dose: 25 mg Ranitidine HCl (Zantac) 150 mg PO BID [facility] Last Admin: 08/30/16 07:38 Dose: 150 mg Senna/Docusate Sodium (Senna Plus) 1 tab PO TID [facility] Last Admin: 08/30/16 11:18 Dose: 1 tab Simvastatin (Zocor) 10 mg PO BEDTIME [facility] Last Admin: 08/29/16 19:18 Dose: 10 mg Verapamil HCl (Calan Sr) 240 mg PO QPM [facility] Last Admin: 08/29/16 17:23 Dose: 240 mg Warfarin Sodium (Coumadin) 5 mg PO DAILY@1800 [facility] Discontinued Medications Clindamycin HCl (Cleocin) 300 mg PO TID [facility] Stop: 08/26/16 18:01 Last Admin: 08/26/16 17:37 Dose: 300 mg Senna/Docusate Sodium (Senna Plus) 1 tab PO BID PRN PRN Reason: Constipation Last Admin: 08/25/16 07:34 Dose: 1 tab Senna/Docusate Sodium (Senna Plus) 2 tab PO ONETIME ONE Stop: 08/26/16 12:31 Last Admin: 08/26/16 12:49 Dose: 2 tab Warfarin Sodium (Coumadin) 7.5 mg PO SUTUTHSA@1800 [facility] Last Admin: 08/25/16 19:18 Dose: 7.5 mg Warfarin Sodium (Coumadin) 5 mg PO MOWEFR@1800 [facility] Last Admin: 08/26/16 17:37 Dose: 5 mg Warfarin Sodium (Coumadin) 7.5 mg PO MOWEFR@1800 [facility] Last Admin: 08/28/16 17:50 Dose: 7.5 mg Warfarin Sodium (Coumadin) 5 mg PO SUTUTHSA@1800 [facility] Last Admin: 08/27/16 17:53 Dose: 5 mg *Q Meaningful Use (DIS) - VTE *Q VTE Criteria *Q: - Stroke *Q Stroke Criteria *Q: - AMI *Q AMI Criteria *Q:
[2016-08-30] MEDS ORDERED: Warfarin 5 MG Tab PO SCH (18:00)
== END 2016-08-30 15:45 | disposition home health service (06) | DRG 189 ==
LOC: LL.MS 14:20
PROVIDERS: ADMIT Family Medicine; ATTEND Family Medicine
DX: J96.22 Acute and chronic respiratory failure with hypercapnia (principal); J69.0 Pneumonitis due to inhalation of food and vomit; I82.5Z9 Chronic embolism and thrombosis of unspecified deep veins of unspecified distal lower extremity; D68.59 Other primary thrombophilia; I42.9 Cardiomyopathy, unspecified; I11.0 Hypertensive heart disease with heart failure; I50.9 Heart failure, unspecified; E03.9 Hypothyroidism, unspecified; J44.9 Chronic obstructive pulmonary disease, unspecified; G47.33 Obstructive sleep apnea (adult) (pediatric); K59.09 Other constipation; E78.00 Pure hypercholesterolemia, unspecified; K21.9 Gastro-esophageal reflux disease without esophagitis; K44.9 Diaphragmatic hernia without obstruction or gangrene; M54.9 Dorsalgia, unspecified; M19.90 Unspecified osteoarthritis, unspecified site; G89.4 Chronic pain syndrome; F11.90 Opioid use, unspecified, uncomplicated; F41.9 Anxiety disorder, unspecified; F32.9 Major depressive disorder, single episode, unspecified; Z85.46 Personal history of malignant neoplasm of prostate; Z87.01 Personal history of pneumonia (recurrent); Z86.718 Personal history of other venous thrombosis and embolism; Z86.711 Personal history of pulmonary embolism; E66.9 Obesity, unspecified; Z68.30 Body mass index [BMI] 30.0-30.9, adult; Z99.81 Dependence on supplemental oxygen; I71.4 Abdominal aortic aneurysm, without rupture; Z87.891 Personal history of nicotine dependence; S22.32XD Fracture of one rib, left side, subsequent encounter for fracture with routine healing; S22.31XD Fracture of one rib, right side, subsequent encounter for fracture with routine healing; R31.0 Gross hematuria; I73.9 Peripheral vascular disease, unspecified; G43.909 Migraine, unspecified, not intractable, without status migrainosus; D75.1 Secondary polycythemia; N28.9 Disorder of kidney and ureter, unspecified; Z90.79 Acquired absence of other genital organ(s); G62.9 Polyneuropathy, unspecified; F39 Unspecified mood [affective] disorder; Z96.659 Presence of unspecified artificial knee joint; R91.8 Other nonspecific abnormal finding of lung field; Z79.01 Long term (current) use of anticoagulants; Z88.5 Allergy status to narcotic agent; Z88.0 Allergy status to penicillin
CPT/HCPCS: 36415; 36416; 71020; 74230; 80053; 82803; 83735; 85025; 85610; 85730; 86140; 92526-GN; 92611-GN; 94640; 94664; 97110-GO; 97110-GP; 97116-GP; 97161-GP; 97165-GO; 97530-GO; 97535-GO; A9270-GY

== ENCOUNTER 2016-09-02 12:40 | Emergency (ER) | payer MEDICARE, MEDICAID ==
[2016-09-02] MEDS ORDERED: Famotidine 20 MG/2 ML SDV IVPUSH ONE (12:47)
[2016-09-02] MEDS ORDERED: Morphine 2 MG/ML Syringe IVPUSH ONE ×2 (12:54→13:22)
[2016-09-02] MEDS ORDERED: Ondansetron 4 MG/2 ML SDV IVPUSH ONE (12:54)
[2016-09-02] MEDS: Sodium Chloride 0.9% 10 ML Syringe FLUSH PRN ×2 (12:55→13:26)
[2016-09-02] MEDS ORDERED: Morphine 10 MG/ML Syringe IVPUSH ONE (13:15)
[2016-09-02] MEDS ORDERED: Furosemide 40 MG/4 ML VIAL IVPUSH ONE (13:19)
--- NOTE | 2016-09-02 13:19 | EDM.PDOC ---
ED HISTORY OF PRESENT ILLNESS - General Chief Complaint: Chest Pain Stated Complaint: Chest Pain Time Seen by Provider: 09/02/16 12:40 Source of Information: Reports: Patient, EMS, Family (), Old records ([facility] chart/EMR) History Limitations: Reports: No limitations - History of Present Illness INITIAL COMMENTS - FREE TEXT/NARRATIVE: The patient was brought to the emergency room for evaluation of 04/08 retrosternal chest pressure, which started at about 09:30 a.m. this morning, while the patient was sitting in the chair at home. He did take one sublingual nitroglycerin tablet at that time with no improvement of his symptoms. His chest pain is associated with some mild diaphoresis. The patient denies any heart flutter, dizziness, orthostasis, orthopnea, paresthesias, recent decreased exercise tolerance, or any other anginal-type symptoms, although his overall activity level is low secondary to his COPD, etc.. No recent history of abdominal pain, heartburn, nausea, diarrhea, melena, gross hematochezia, or any food intolerance, including fatty foods, etc. with normal bowel movement yesterday evening. The patient also denies any recent fever, cough, wheezing, dyspnea, etc.. Note that the patient did go into respiratory arrest on 08/14/16 with code and intubation required. He was recently discharged from our swing bed unit on 08/30/16. He has been compliant with his medications, nebulizer therapy, and home O2, although he has yet to initiate his CPAP Symptom Onset Date: 09/02/16 Symptom Onset Time: 09:30 Timing/Duration: Reports: Constant Severity: severe Location, General: Reports: chest. Denies: head, face, neck, abdomen, back, upper extremity, left, upper extremity, right, radiates to: Quality: Reports: Dull, Pressure, Same as previous episode Improves with: Reports: None Worsens with: Reports: None Context, General: Reports: Other (As above) Associated Symptoms (General): Reports: cough, diaphoresis, shortness of breath. Denies: confusion, chest pain, fever/chills, headaches, loss of appetite, nausea/vomiting, syncope, weakness - Related Data Allergies/ADRs: Allergies Allergy/AdvReac Type Severity Reaction Status Date / Time codeine Allergy Nausea Verified 08/14/16 20:25 Penicillins Allergy Rash Verified 08/14/16 20:25 Home Meds: Home Meds Citalopram [Citalopram HBr] 20 mg PO DAILY 08/07/13 [History] Levothyroxine 75 mcg PO QAM 08/07/13 [History] Pregabalin [Lyrica] 25 mg PO TID 08/07/13 [History] amLODIPine [Norvasc] 5 mg PO DAILY 08/07/13 [History] Cholecalciferol (Vitamin D3) [Vitamin D3] 2,000 units PO DAILY 06/12/14 [History ] Docusate Sodium [Colace] 1 cap PO BID PRN 06/12/14 [History] Latanoprost [Xalatan 0.005% Ophth Soln] 1 drop EYEBOTH BEDTIME 06/12/14 [History ] Nitroglycerin [Nitrostat] 1 tab SL ASDIRECTED PRN 06/12/14 [History] Verapamil HCl [Verapamil ER] 1 cap PO QPM 06/12/14 [History] Simvastatin [Zocor] 10 mg PO BEDTIME 11/12/15 [History] Ranitidine [Zantac] 150 mg PO BID #60 tab 11/17/15 [Rx] Albuterol [Proventil Neb Soln] 1 ampule INH Q4HR PRN 03/19/16 [History] Albuterol/Ipratropium [DuoNeb 3.0-0.5 MG/3 ML] 1 ampule INH QID 03/19/16 [ History] Folic Acid 1 mg PO DAILY 03/19/16 [History] Magnesium Oxide 400 mg PO DAILY #90 tablet 04/05/16 [Rx] Acetaminophen 650 mg PO Q4HR PRN 07/26/16 [History] Furosemide 20 mg PO DAILY 07/26/16 [History] Lactulose [Cephulac] 20 gm PO DAILY PRN 07/26/16 [History] Non-Formulary Medication [NF Drug] 1 ea PO QPM 07/26/16 [History] Non-Formulary Medication [NF Drug] 1 tab PO DAILY 07/26/16 [History] Sennosides/Docusate Sodium [Senna S Tablet] 1 tab PO BID PRN 07/26/16 [History] Colesevelam HCl [Welchol] 3 tab PO BIDMEALS 08/21/16 [History] Dextromethorphan/guaiFENesin [Robitussin DM] 10 ml PO Q4H PRN #240 cup 08/30/16 [Rx] Magnesium Hydroxide [Milk of Magnesia] 30 ml PO DAILY PRN #240 cup 08/30/16 [Rx] Warfarin [Coumadin] 5 mg PO DAILY@1800 #30 tablet 08/30/16 [Rx] Past Medical History HEENT History: Reports: Cataract, Glaucoma, Impaired vision, Other (see below). Denies: Allergic rhinitis, Hard of hearing, Macular degeneration, Retinal detachment Other HEENT History: Patient wears reading glasses Cardiovascular History: Reports: Aneurysm, Arrhythmia, Blood clots/VTE/DVT, Cardiomyopathy, Heart Failure, High cholesterol, Hypertension, PVD, Other (see below). 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 Gastrointestinal History: Reports: Chronic constipation, Diverticulosis, GERD, Hiatal hernia. Denies: Celiac disease, Cholelithiasis, Chronic diarrhea, Colon polyp, Fecal incontinence, GI bleed, Hepatitis, Inflammatory bowel disease, Irritable bowel syndrome, Jaundice, Pancreatitis, PUD Genitourinary History: Reports: Acute renal failure, BPH, Chronic renal insuffiency, Dialysis, Renal disease, Urinary incontinence. Denies: Renal calculus, STD Other Genitourinary History: History of DIALYSIS due to acute renal failure- resolved chronic renal insufficiency, BPH with additional history of prostate cancer Musculoskeletal History: Reports: Arthritis, Back pain, chronic, Fracture, Gout , Neck pain, chronic, Osteoarthritis, SLE, Other (see below). Denies: Amputation, Osteoporosis, RA Other Musculoskeletal History: Chronic pain syndrome with previous history chronic narcotic use, bilateral wrist fractures as a child at about age 13, right-sided rib fracture secondary to respiratory code on 08/14/16 as above Neurological History: Reports: Headaches, chronic, Migraines, Neuropathy, peripheral, Other (see below). Denies: Cerebral aneurysms, Concussion, CVA, Head trauma, MS, Parkinson's, Seizure, TIA Other Neuro History: Chronic left leg weakness secondary to previous osteomyelitis, chronic pain syndrome with chronic narcotic use. Head mass found via CT on 08/19/16 Psychiatric History: Reports: Addiction, Anxiety, Depression, Other (see below) . Denies: Abuse, victim of, ADD, ADHD, Alzheimers disease, Dementia, Psych Hospitalization(s), PTSD, Suicide attempt, Suicidal ideation Other Psychiatric History: History of chronic narcotic use secondary to chronic pain syndrome as above Endocrine/Metabolic History: Reports: Hyperparathyroidism, Hypothyroidism, Obesity/BMI 30+. Denies: Diabetes, type I, Diabetes, type II, IDDM Hematologic History: Reports: Polycythemia, Other (see below). 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 Denies: AIDS, HIV, SLE Oncologic (Cancer) History: Reports: Prostate, Other (see below). Denies: Basal cell carcinoma, Bladder, Hodgkin's Lymphoma, Lymphoma, Malignant melanoma , Non-Hodgkin's Lymphoma Other Oncologic History: 37 radiation treatments for prostate cancer with additional chemotherapy and status post prostatectomy in 2011 Dermatologic History: Reports: Venous stasis dermatitis, Other (see below). Denies: Eczema, Psoriasis Other Dermatologic History: Venous stasis ulcer of the right anterior tibial region with skin graft as below - Infectious Disease History Infectious Disease History: Reports: Chicken pox, Measles, Mumps. Denies: C- difficile, Meningitis, Mononucleosis, MRSA, Pertussis (whooping cough), Rheumatic Fever, Rubella, Scarlet fever, Shingles, TB, VRE - Past Surgical History Head Surgeries/Procedures: Reports: None HEENT Surgical History: Reports: Cataract surgery, Oral surgery, Tonsillectomy, Other (see below) Other HEENT Surgeries/Procedures: bilateral cataract surgery in 2009,, complete teeth extraction, tonsillectomy Cardiovascular Surgical History: Reports: Other (see below) Other Cardiovascular Surgeries/Procedures: IVC filter placement GI Surgical History: Reports: Appendectomy, Colonoscopy, EGD, Miley fundoplication. Denies: Hernia repair/other, Lysis of adhesions, Polypectomy Other GI Surgeries/Procedures: Hiatal hernia repair-? Miley fundoplication Male Surgical History: Reports: Circumcision, Prostatectomy, Other (see below ). Denies: Vasectomy Other Male Surgeries/Procedures: Radical prostatectomy secondary to prostate cancer in 2011, circumcision as an infant Endocrine Surgical History: Reports: None. Denies: Thyroid biopsy Neurological Surgical History: Reports: None. Denies: C-Spine, Discectomy, Laminectomy, Lumbar spine, Spinal fusion, Vertebroplasty Musculoskeletal Surgical History: Reports: Carpal tunnel, Hip replacement, Joint replacement, Knee replacement, Shoulder surgery, Other (see below). Denies: Amputation, Arthroscopic procedure, Ganglion cyst, ORIF Other Musculoskeletal Surgeries/Procedures:: Carpal tunnel release to left side , right hip TEP in 1993, left hip TEP on 03/14/16, left rotator cuff repair Oncologic Surgical History: Reports: Other (see below) Other Oncologic Surgeries/Procedures: Prostatectomy, etc. as above Dermatological Surgical History: Reports: Skin graft, Other (see below) Other Dermatological Surgeries/Procedures: Skin graft of the right anterior tibial region in the - Past Imaging History Past Imaging History: Reports: Cardiac echo (Last echocardiogram on 01/17/15 with ejection fraction of 50-55% with previous suboptimal echocardiogram on 03/14 with ejection fraction of 50-60%), CAT scan (CT of the head, chest, abdomen , and pelvis in 08/19/2016 ? CT of the soft tissue of the neck on 11/21/15 and , CT of the chest on 07/04/12, CT of the abdomen and pelvis on 01/08/15, and 07/04/12, CT of the brain on 08/07/13 and 02/04/14), DEXA scan (07/09/12), Sleep study (08/21/16), Swallow Study (08/22/16), Ultrasound (Renal ultrasound on 04/17/16, thyroid ultrasound on 11/16/15, Bladder ultrasound and abdominal ultrasound on 12/24/12), Venous doppler (Left leg on 07/26/16, Right leg on ) Social & Family History - Family History Family Medical History: Noncontributory HEENT: Reports: None. Denies: Allergic rhinitis, Retinal detachment Cardiac: Reports: Blood clots/VTE/DVT, CAD, Heart failure, ND, Other (see below) . Denies: Afib, Aneurysm, Arrhythmia, Bypass, High cholesterol, Hypertension, Pacemaker, Stent, Syncope Other Cardiac Family History: Father with probable fatal ND and CHF at age 78, father with recurrent DVTs Respiratory: Reports: None. Denies: Asthma, COPD, PE, Pneumothorax, Sleep apnea GI: Reports: None. Denies: Chronic diarrhea, Cirrhosis, Colon polyps, Diverticulosis, GERD, GI bleed, Hepatitis, Irritable bowel syndrome, PUD : Reports: Diabetic nephropathy, Renal disease/insufficiency, Other (see below ). Denies: Dialysis, Renal calculus Other Family History: mother with diabetic nephropathy Musculoskeletal: Reports: Arthritis, Osteoarthritis, Other (see below). Denies : Gout, RA, SLE Other Musculoskeletal Family History: Father with osteoarthritis Neurological: Reports: Other (see below). Denies: Alzheimers disease, Cerebral aneurysms, CVA, Dementia, MS, Parkinson's, Seizure, TIA Other Neurological Family History: Son with fatal muscular dystrophy at age 21 Psychiatric: Reports: None. Denies: Abuse, victim of, ADHD, Learning disability , Psych hospitalization(s), PTSD Endocrine/Metabolic: Reports: Diabetes, type II, IDDM, Other (see below). Denies: Diabetes, type I, Hypothyroidism Other Endocrine/Metabolic Family History: Mother, maternal aunt, and paternal uncle with IDDM Hematologic: Reports: None. Denies: Anemia, B12 deficiency, Polycthemia Immunologic: Reports: None. Denies: AIDS, HIV, SLE Dermatologic: Reports: None. Denies: Eczema, Psoriasis Oncologic: Reports: None. Denies: Colon, Esophageal, Hodgkin's lymphoma, Leukemia, Non-Hodgkin's lymphoma, Prostate - Tobacco Use Smoking Status *Q: Never Smoker Smoking Cessation Information Provided To Patient: No Second Hand Smoke Exposure: No Second Hand Smoke Education Provided: No - Caffeine Use Caffeine Use: Reports: Coffee (2 cups per day), Soda (One soda per day). Denies : Energy drinks, Tea - Alcohol Use Alcohol Use History: Yes Days Per Week of Alcohol Use: 0 (No previous DWIs, problems with alcohol abuse, etc.) Number of Drinks Per Day: 0 Total Drinks Per Week: 0 Alcohol Use in Last Twelve Months: No - Recreational Drug Use Recreational Drug Use: No Drug Use in Last 12 Months: No Recreational Drug Type: Denies: Amphetamines (Speed), Cocaine, Heroin, Inhalants (Glues, Solvents, Aerosols), LSD (Acid), Marijuana/Hashish, Methamphetamine, Morphine - Living Situation & Occupation Living situation: Reports: (1962,3 children), with family () Occupation: retired (Retired [employer] in 1980) ED ROS GENERAL - Review of Systems Review Of Systems: ROS reveals no pertinent complaints other than HPI. ED EXAM, GENERAL - Physical Exam Exam: See Below Exam Limited By: No limitations General Appearance: alert, WD/WN, no apparent distress, anxious (Mild) Eye Exam: bilateral eye: EOMI, normal inspection (No nystagmus), PERRL Ears: normal external exam, normal canal, hearing grossly normal, normal TMs Nose: normal inspection, normal mucosa, no blood Throat/Mouth: Normal inspection, Normal lips, Normal gums, Normal oropharynx, Normal voice, No airway compromise. No: Normal teeth (Complete absent dentition ), Dysphagia, Inflammation, Perioral cyanosis Head: atraumatic, normocephalic. No: facial swelling, facial tenderness, sinus tenderness Neck: normal inspection, supple, non-tender, full range of motion. No: carotid bruit, lymphadenopathy (L), lymphadenopathy (R), thyromegaly Respiratory/Chest: no respiratory distress, no accessory muscle use, chest non- tender, rales (Moderate diffuse bilateral particularly in the bases). No: rhonchi, wheezing, pleural rub, retractions Cardiovascular: normal peripheral pulses, regular rate, rhythm, no gallop, no JVD, no murmur, no rub. No: no edema (Dependent edema as below), gallop/S3, gallop/S4, friction rub Peripheral Pulses: 2+: radial (L), radial (R), dorsalis pedis (L), dorsalis pedis (R) GI/Abdominal: normal bowel sounds, soft, non tender, no organomegaly, no distention, no abnormal bruit, no mass, other (Obese, multiple abdominal surgical scars). No: guarding (Male) Exam: Deferred Rectal (Males) Exam: Deferred Back Exam: normal inspection, full range of motion. No: CVA tenderness (L), CVA tenderness (R), muscle spasm Extremities: normal range of motion, non-tender, normal capillary refill, pedal edema (Stable by history trace-+1 bilateral pedal/pretibial edema moderate bilateral venous stasis dermatitis and evidence of previous right anterior tibial skin graft with no evidence of acute infection). No: Sean's Sign Neurological: alert, oriented, CN II-XII intact, normal cognition, normal gait, normal reflexes (Negative Babinski's), no motor/sensory deficits Psychiatric: anxious (Mild). No: depressed mood Skin Exam: Diaphoretic (Mild), Other (Venous stasis dermatitis as above). No: Intact, Wound/incision Lymphatic: no adenopathy EKG INTERPRETATION EKG Date: 09/02/16 Time: 12:40 Rhythm: NSR Rate (beats/min): 78 [place]: normal P-wave: enlarged (Mouth diffuse biphasic P waves) QRS: normal (QRS interval of 0.11 seconds representing borderline incomplete right bundle branch block versus repolarization changes) ST-T: normal QT: normal FL/PQ Interval: FL interval 0.16 seconds Comparison: no change (08/16/16) EKG Interpretation Comments: 1. No acute ischemic changes 2. Borderline incomplete right bundle branch block versus repolarization changes Course - Vital Signs Last Recorded V/S: Last Vital Signs Temp 36.8 C 09/02/16 12:44 Pulse 86 09/02/16 16:20 Resp 18 09/02/16 16:20 BP 114/72 09/02/16 16:20 Pulse Ox 95 09/02/16 16:20 Vital Signs - 24 hr 09/02/16 09/02/16 09/02/16 12:44 13:04 13:19 Temperature [ 36.8 C Oral] Pulse, 76 76 75 Peripheral [ Pulse Oximetry] Respiratory 19 25 H 20 Rate Blood Pressure 115/67 126/73 112/65 [Right Upper Arm] O2 Sat by Pulse 95 97 94 L Oximetry 09/02/16 09/02/16 09/02/16 13:35 13:50 14:05 Temperature [ Oral] Pulse, 74 74 76 Peripheral [ Pulse Oximetry] Respiratory 22 H 21 H 16 Rate Blood Pressure 120/55 L 113/68 115/70 [Right Upper Arm] O2 Sat by Pulse 96 95 95 Oximetry 09/02/16 09/02/16 09/02/16 14:17 14:29 14:32 Temperature [ Oral] Pulse, 76 81 81 Peripheral [ Pulse Oximetry] Respiratory 19 18 20 Rate Blood Pressure 114/60 96/68 [Right Upper Arm] O2 Sat by Pulse 93 L 94 L 95 Oximetry 09/02/16 09/02/16 09/02/16 14:56 15:16 15:22 Temperature [ Oral] Pulse, 84 85 86 Peripheral [ Pulse Oximetry] Respiratory 17 18 18 Rate Blood Pressure 139/71 125/65 126/66 [Right Upper Arm] O2 Sat by Pulse 91 L 95 91 L Oximetry 09/02/16 09/02/16 09/02/16 15:37 15:52 16:20 Temperature [ Oral] Pulse, 88 85 86 Peripheral [ Pulse Oximetry] Respiratory 18 21 H 18 Rate Blood Pressure 143/81 H 134/74 114/72 [Right Upper Arm] O2 Sat by Pulse 91 L 91 L 95 Oximetry - Orders/Labs/Meds Orders: Active Orders 24 hr Category Date Time Status Cardiac Monitoring [RC] . DIRECTED Care 09/02/16 12:47 Active EKG Documentation Completion [RC] ASDIRECTED Care 09/02/16 12:47 Active Ochoa Catheter Insertion [Insert Urinary Catheter] [OM. Care 09/02/16 15:45 Ordered PC] Q24H Oxygen Therapy, ED [RC] CONTINUOUS Care 09/02/16 12:47 Active Peripheral IV Care [RC] . DIRECTED Care 09/02/16 12:47 Active Peripheral IV Care [RC] . DIRECTED Care 09/02/16 12:47 Inactive Pulse Oximetry [RC] CONTINUOUS Care 09/02/16 12:47 Active Up With Assistance [RC] PFP Care 09/02/16 12:47 Active Urinary Catheter Assessment [RC] ASDIRECTED Care 09/02/16 15:34 Active Vital Signs [RC] PFP Care 09/02/16 12:47 Active Nothing per Oral Now Diet [DIET] Diet 09/02/16 Breakfast Active Chest 1V Frontal [CR] Stat Exams 09/02/16 12:47 Taken Chest PE [Ang Chest] [CT] Stat Exams 09/02/16 14:23 Taken Nitroglycerin/D5W [Nitroglycerin 25 MG/D5W 250 ML] Med 09/02/16 14:00 Active 25 mg in 250 ml IV TITRATE Sodium Chloride 0.9% [Normal Saline] 1,000 ml Med 09/02/16 14:00 Active IV ASDIRECTED Sodium Chloride 0.9% [Saline Flush] Med 09/02/16 12:47 Active 10 ml FLUSH ASDIRECTED PRN Obtain Past Medical Record [OM.PC] Urgent Oth 09/02/16 12:47 Active Peripheral IV Insertion Adult [OM.PC] Stat Oth 09/02/16 12:47 Ordered Resuscitation Status Stat Resus Stat 09/02/16 12:47 Ordered Medication Orders Nitroglycerin/Dextrose (Nitroglycerin 25 Mg/D5w 250 Ml) 25 mg in 250 mls @ 12 mls/hr IV TITRATE ROLAND PRN Reason: 20 MCG/MIN Last Infusion: 09/02/16 15:08 Dose: 15 mcg/min, 9 mls/hr Admin: 09/02/16 14:08 Dose: 10 mcg/min, 6 mls/hr Sodium Chloride (Normal Saline) 1,000 mls @ 30 mls/hr IV ASDIRECTED ROLAND Last Admin: 09/02/16 14:03 Dose: 30 mls/hr Sodium Chloride (Saline Flush) 10 ml FLUSH ASDIRECTED PRN PRN Reason: Keep Vein Open Last Admin: 09/02/16 13:26 Dose: 10 ml Admin: 09/02/16 12:55 Dose: 10 ml Labs: Laboratory Tests 09/02/16 09/02/16 09/02/16 Range/Units 12:55 12:55 12:55 WBC 6.6 (4.0-10.2) K/uL RBC 3.98 L (4.33-5.41) M/uL Hgb 11.8 L (13.1-16.8) g/dL Hct 38.7 L (39.0-49.0) % MCV 97.2 (84.0-98.0) fL MCH 29.6 (28.2-33.3) pg MCHC 30.5 L (31.7-36.0) g/dL RDW 15.6 H (11.2-14.1) % Plt Count 138 L (150-350) K/uL Neut % (Auto) 82.0 H (45.0-80.0) % Lymph % (Auto) 8.5 L (10.0-50.0) % [place] % (Auto) 6.5 (2.0-14.0) % Eos % (Auto) 2.1 (0.0-5.0) % Baso % (Auto) 0.9 (0.0-2.0) % Neut # 5.42 (1.40-7.00) K/uL Lymph # 0.56 (0.50-3.50) K/uL [place] # 0.43 (0.00-1.00) K/uL Eos # 0.14 (0.00-0.50) K/uL Baso # 0.06 (0.00-0.20) K/uL PT 28.3 H (9.8-11.7) SEC INR 2.5 APTT 37.3 H (23.5-30.0) SEC D-Dimer, Quantitative 1100 H (0-400) ng/mL Sodium (136-145) mmol/L Potassium (3.5-5.1) mmol/L Chloride (98-107) mmol/L Carbon Dioxide (21.0-32.0) mmol/L BUN (7-18) mg/dL Creatinine (0.51-1.17) mg/dL Est Cr Clr Drug Dosing mL/min Estimated GFR (MDRD) mL/min Glucose (74-106) mg/dL Lactic Acid (0.4-2.0) mmol/L Uric Acid (2.6-7.2) mg/dL Calcium (8.5-10.1) mg/dL Magnesium (1.8-2.4) mg/dL Total Bilirubin (0.2-1.0) mg/dL AST (15-37) U/L ALT (12-78) U/L Alkaline Phosphatase (46-116) IU/L Creatine Kinase (26-308) U/L Creatine Kinase Index (0.0-2.5) % CK-MB (CK-2) (0.00-3.60) ng/mL Troponin I (0.000-0.056) ng/mL [id number] Pept (0-125) pg/mL Total Protein (6.4-8.2) g/dL Albumin (3.4-5.0) g/dL TSH, Ultra Sensitive (0.358-3.740) mIU/mL H. pylori IgG Antibody (NEGATIVE) 09/02/16 09/02/16 09/02/16 Range/Units 12:55 12:55 12:55 WBC (4.0-10.2) K/uL RBC (4.33-5.41) M/uL Hgb (13.1-16.8) g/dL Hct (39.0-49.0) % MCV (84.0-98.0) fL MCH (28.2-33.3) pg MCHC (31.7-36.0) g/dL RDW (11.2-14.1) % Plt Count (150-350) K/uL Neut % (Auto) (45.0-80.0) % Lymph % (Auto) (10.0-50.0) % [place] % (Auto) (2.0-14.0) % Eos % (Auto) (0.0-5.0) % Baso % (Auto) (0.0-2.0) % Neut # (1.40-7.00) K/uL Lymph # (0.50-3.50) K/uL [place] # (0.00-1.00) K/uL Eos # (0.00-0.50) K/uL Baso # (0.00-0.20) K/uL PT (9.8-11.7) SEC INR APTT (23.5-30.0) SEC D-Dimer, Quantitative (0-400) ng/mL Sodium 145 (136-145) mmol/L Potassium 4.1 (3.5-5.1) mmol/L Chloride 103 (98-107) mmol/L Carbon Dioxide 35.8 H (21.0-32.0) mmol/L BUN 14 (7-18) mg/dL Creatinine 1.08 (0.51-1.17) mg/dL Est Cr Clr Drug Dosing 65.86 mL/min Estimated GFR (MDRD) > 60 mL/min Glucose 92 (74-106) mg/dL Lactic Acid 1.6 (0.4-2.0) mmol/L Uric Acid 7.4 H (2.6-7.2) mg/dL Calcium 8.5 (8.5-10.1) mg/dL Magnesium 1.5 L (1.8-2.4) mg/dL Total Bilirubin 0.4 (0.2-1.0) mg/dL AST 21 (15-37) U/L ALT 27 (12-78) U/L Alkaline Phosphatase 120 H (46-116) IU/L Creatine Kinase 75 (26-308) U/L Creatine Kinase Index 0.8 (0.0-2.5) % CK-MB (CK-2) 0.60 (0.00-3.60) ng/mL Troponin I 0.000 (0.000-0.056) ng/mL [id number] Pept 365 H (0-125) pg/mL Total Protein 6.3 L (6.4-8.2) g/dL Albumin 3.0 L (3.4-5.0) g/dL TSH, Ultra Sensitive 0.666 (0.358-3.740) mIU/mL H. pylori IgG Antibody Negative (NEGATIVE) Meds: Medications Generic Name Dose Route Start Last Admin Trade Name Freq PRN Reason Stop Dose Admin Nitroglycerin/Dextrose 25 mg in 250 mls @ 12 mls/hr 09/02/16 14:00 09/02/16 16:07 Nitroglycerin 25 Mg/D5w 250 Ml IV 20 mcg/min TITRATE ROLAND 12 mls/hr 20 MCG/MIN Infusion Sodium Chloride 1,000 mls @ 30 mls/hr 09/02/16 14:00 09/02/16 14:03 Normal Saline IV 30 mls/hr ASDIRECTED ROLAND Administration Sodium Chloride 10 ml 09/02/16 12:47 09/02/16 13:26 Saline Flush FLUSH 10 ml ASDIRECTED PRN Administration Keep Vein Open Discontinued Medications Generic Name Dose Route Start Last Admin Trade Name Freq PRN Reason Stop Dose Admin Famotidine 40 mg 09/02/16 12:47 09/02/16 12:55 Pepcid IVPUSH 09/02/16 12:48 40 mg ONETIME ONE Administration Furosemide 60 mg 09/02/16 13:19 09/02/16 13:25 Lasix IVPUSH 09/02/16 13:20 60 mg NOW ONE Administration Iopamidol 100 ml 09/02/16 14:25 09/02/16 14:50 [id number] (76%) IVPUSH 09/02/16 14:26 100 ml ONETIME ONE Administration Morphine Sulfate 2 mg 09/02/16 12:54 09/02/16 12:57 Morphine IVPUSH 09/02/16 12:55 2 mg ONETIME ONE Administration Morphine Sulfate 2 mg 09/02/16 13:22 09/02/16 13:25 Morphine IVPUSH 09/02/16 13:23 2 mg ONETIME ONE Administration Ondansetron HCl 4 mg 09/02/16 12:54 09/02/16 12:57 Zofran IVPUSH 09/02/16 12:55 4 mg ONETIME ONE Administration - Radiology Interpretation Free Text/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 Moderate COPD and mild pulmonary fibrotic changes also noted. Preliminary written report from the radiologist does not apparently indicate any significant pulmonary infiltrates, or pulmonary effusions CHF are present. Telephone consultation at 15:29 hours with the radiologist at [facility] Center with verbal report of CTA of the chest with IV contrast. The study is negative for PE, however possibility of right middle lobe and left lower lobe pulmonary infiltrates with bilateral perihilar lymphadenopathy and bilateral pleural effusions, right greater than left. Previous left lower lobe pulmonary nodule could not be properly assessed. CT Results Date: 09/02/16 CT Results Time: 15:29 Departure - Departure Time of Disposition: 16:45 Disposition: DC/Tfer to [facility] 02 Reason for Transfer *Q: Other (Unstable angina) Condition: fair Clinical Impression: Chest pain, AAA (abdominal aortic aneurysm), Congestive heart failure, COPD ( chronic obstructive pulmonary disease), Hypertension, Hypothyroidism, Renal insufficiency, Osteoarthritis, Hypoalbuminemia, Hypomagnesemia, Anemia, Peptic reflux disease, Sleep apnea Referrals: Beatrice-Karen Lang MD [Primary Care Provider] - Forms: ED Department Discharge, Interfacility Transfer EMTALA - Problem List & Annotations (1) Chest pain SNOMED Code(s): 79679354 Code(s): R07.9 - CHEST PAIN, UNSPECIFIED Status: Acute Priority: High Current Visit: Yes Onset Date: 09/02/16 Annotation/Comment:: Procedure pain still the same Chest pain protocol initiated in the emergency room. ASA and Plavix were held secondary to his current Coumadin therapy with therapeutic INR at this time. IV Lopressor was also held secondary to his COPD and borderline mild low systolic blood pressure on arrival. Telephone consultation at 13:[address] Lin, hospitalist at [facility], with no ICU beds available in their facility. He is in agreement with my plan to initiate IV nitroglycerin infusion secondary to patient's persistent unstable angina despite aggressive treatment in the emergency room initially as above. Subsequent telephone consultation with [facility] at 13:55 hours with no bed available in their facility. Initially the patient and his requested that we continue to observe the patient in the emergency room. Note no relief of patient's chest pain with persistent 8/10 chest pressure despite aggressive therapy as above. Telephone consultation with [facility] at 14: 40 hours will help us obtain patient transfer to another facility [facility]. Subsequent telephone consultation at 14:[address] Cardona, hospitalist at [facility] in [place], who does accept the patient for further treatment and evaluation. No further treatment recommendations given. [facility] will arrange air transport for the patient. Subsequent telephone consultations with [facility] at 15:10 and 15:20 hours with patient updates given. Some delay inpatient transfer secondary to record her transport, etc. as above with no sequelae. Chest pain persists at 8/10 at time of transfer with nitroglycerin increased to 20 mcg per minute prior to transfer with systolic blood pressure in the 130s at that time with systolic blood pressures in the 110s Qualifiers: Ischemic chest pain type: unstable angina pectoris (2) Congestive heart failure SNOMED Code(s): 71772860 Code(s): I50.9 - HEART FAILURE, UNSPECIFIED Status: Acute Priority: High Current Visit: Yes Annotation/Comment:: Exacerbation of patient's previous CHF with IV Lasix initiated in the emergency room. Excellent urine output in the emergency room with the patient requesting Ochoa catheter placement. Continue to observe his renal status closely secondary to required aggressive IV Lasix therapy. Qualifiers: Congestive heart failure type: unspecified congestive heart failure type Congestive heart failure chronicity: acute on chronic Qualified Code(s): I50.9 - Heart failure, unspecified (3) COPD (chronic obstructive pulmonary disease) SNOMED Code(s): 78486827 Code(s): J44.9 - CHRONIC OBSTRUCTIVE PULMONARY DISEASE, UNSPECIFIED Status : Acute Priority: Medium Current Visit: Yes Annotation/Comment:: Note O2 dependent COPD and sleep apnea with possibility of concomitant right middle lobe and right lower lobe pneumonia, however difficult to determine secondary to patient's concomitant CHF. No recent history of fever with no leukocytosis at this time. Conflicting reports of chest x-ray and CT scan of the chest as above. Consider blood cultures, initiation of antibiotic therapy, etc. depending on his clinical course. Note recent history of respiratory failure requiring code and intubation on 08/14/16 with stable O2 sats with O2 supplementation in the emergency room. Qualifiers: COPD type: COPD with acute lower respiratory infection Qualified Code(s): J44.0 - Chronic obstructive pulmonary disease with acute lower respiratory infection (4) AAA (abdominal aortic aneurysm) SNOMED Code(s): 496828361 Code(s): I71.4 - ABDOMINAL AORTIC ANEURYSM, WITHOUT RUPTURE Status: Acute Priority: Medium Current Visit: Yes Annotation/Comment:: Recently diagnosed small abdominal aortic aneurysm by CT scan nonproblematic at this time Qualifiers: Presence of rupture: without rupture Qualified Code(s): I71.4 - Abdominal aortic aneurysm, without rupture (5) Protein S deficiency SNOMED Code(s): 3913086 Code(s): D68.59 - OTHER PRIMARY THROMBOPHILIA Status: Chronic Priority: Medium Current Visit: No Annotation/Comment:: History of chronic DVTs and previous PE today. INR today. Note d-dimer elevation with negative CTA of the chest for PE (6) Hypertension SNOMED Code(s): 94753889 Code(s): I10 - ESSENTIAL (PRIMARY) HYPERTENSION Status: Chronic Priority : Medium Current Visit: Yes Annotation/Comment:: Blood Pressures under good control in the emergency room Qualifiers: Hypertension type: essential hypertension Qualified Code(s): I10 - Essential (primary) hypertension (7) Hypothyroidism SNOMED Code(s): 94919943 Code(s): E03.9 - HYPOTHYROIDISM, UNSPECIFIED Status: Chronic Priority: Medium Current Visit: Yes Annotation/Comment:: Stable by his history, TSH normal today (8) Osteoarthritis SNOMED Code(s): 222616815 Code(s): M19.90 - UNSPECIFIED OSTEOARTHRITIS, UNSPECIFIED SITE Status: Chronic Priority: Medium Current Visit: Yes Annotation/Comment:: Stable by history with history of gout and chronic narcotic use Qualifiers: Osteoarthritis location: multiple joints Osteoarthritis type: primary Qualified Code(s): M15.0 - Primary generalized (osteo)arthritis (9) Renal insufficiency SNOMED Code(s): 845473105 Code(s): N28.9 - DISORDER OF KIDNEY AND URETER, UNSPECIFIED Status: Chronic Priority: Medium Current Visit: Yes Annotation/Comment:: History of chronic renal insufficiency with normal creatinine today and previous history of acute renal insufficiency requiring distant dialysis as above (10) Anemia SNOMED Code(s): 484886676 Code(s): D64.9 - ANEMIA, UNSPECIFIED Status: Chronic Priority: Medium Current Visit: Yes Annotation/Comment:: Mild progression of his previous anemia with no abdominal complaints or evidence of acute GI bleed. Note current Coumadin therapy. Continue to observe closely with further workup depending on his clinical course Qualifiers: Anemia type: unspecified type Qualified Code(s): D64.9 - Anemia, unspecified (11) Hypoalbuminemia SNOMED Code(s): 052415435 Code(s): E88.09 - OTH DISORDERS OF PLASMA-PROTEIN METABOLISM, NEC Status: Chronic Priority: Medium Current Visit: Yes Annotation/Comment:: Consider initiation of high protein Glucerna supplement with caution secondary to his previous history of renal insufficiency (12) Hypomagnesemia SNOMED Code(s): 421414279 Code(s): E83.42 - HYPOMAGNESEMIA Status: Chronic Priority: Medium Current Visit: Yes Annotation/Comment:: Consider initiation of magnesium oxide therapy (13) Peptic reflux disease SNOMED Code(s): 26797727 Code(s): K21.9 - GASTRO-ESOPHAGEAL REFLUX DISEASE WITHOUT ESOPHAGITIS Status: Chronic Priority: Medium Current Visit: Yes Annotation/Comment:: High-dose IV Pepcid given as GI prophylaxis in the emergency room. No recent abdominal complaints, etc. as above (14) Sleep apnea SNOMED Code(s): 15124292 Code(s): G47.30 - SLEEP APNEA, UNSPECIFIED Status: Chronic Priority: Medium Current Visit: Yes Onset Date: ~08/21/16 Annotation/Comment:: Auto- CPAP should be initiated [facility] Qualifiers: Sleep apnea type: obstructive Qualified Code(s): G47.33 - Obstructive sleep apnea (adult) (pediatric) - Problem List Review Problem List Initiated/Reviewed/Updated: Yes - My Orders Last 24 Hours: My Active Orders 09/02/16 12:47 Cardiac Monitoring [RC] . DIRECTED EKG Documentation Completion [RC] ASDIRECTED Oxygen Therapy, ED [RC] CONTINUOUS Peripheral IV Care [RC] . DIRECTED Peripheral IV Care [RC] . DIRECTED Pulse Oximetry [RC] CONTINUOUS Up With Assistance [RC] PFP Vital Signs [RC] PFP Chest 1V Frontal [CR] Stat Sodium Chloride 0.9% [Saline Flush] 10 ml FLUSH ASDIRECTED PRN Obtain Past Medical Record [OM.PC] Urgent Peripheral IV Insertion Adult [OM.PC] Stat Resuscitation Status Stat 09/02/16 14:00 Nitroglycerin/D5W [Nitroglycerin 25 MG/D5W 250 ML] 25 mg in 250 ml IV TITRATE Sodium Chloride 0.9% [Normal Saline] 1,000 ml IV ASDIRECTED 09/02/16 14:23 Chest PE [Ang Chest] [CT] Stat 09/02/16 15:34 Urinary Catheter Assessment [RC] ASDIRECTED 09/02/16 15:45 Ochoa Catheter Insertion [Insert Urinary Catheter] [OM.PC] Q24H 09/02/16 Breakfast Nothing per Oral Now Diet [DIET] - Assessment/Plan Last 24 Hours: My Active Orders 09/02/16 12:47 Cardiac Monitoring [RC] . DIRECTED EKG Documentation Completion [RC] ASDIRECTED Oxygen Therapy, ED [RC] CONTINUOUS Peripheral IV Care [RC] . DIRECTED Peripheral IV Care [RC] . DIRECTED Pulse Oximetry [RC] CONTINUOUS Up With Assistance [RC] PFP Vital Signs [RC] PFP Chest 1V Frontal [CR] Stat Sodium Chloride 0.9% [Saline Flush] 10 ml FLUSH ASDIRECTED PRN Obtain Past Medical Record [OM.PC] Urgent Peripheral IV Insertion Adult [OM.PC] Stat Resuscitation Status Stat 09/02/16 14:00 Nitroglycerin/D5W [Nitroglycerin 25 MG/D5W 250 ML] 25 mg in 250 ml IV TITRATE Sodium Chloride 0.9% [Normal Saline] 1,000 ml IV ASDIRECTED 09/02/16 14:23 Chest PE [Ang Chest] [CT] Stat 09/02/16 15:34 Urinary Catheter Assessment [RC] ASDIRECTED 09/02/16 15:45 Ochoa Catheter Insertion [Insert Urinary Catheter] [OM.PC] Q24H 09/02/16 Breakfast Nothing per Oral Now Diet [DIET] Assessment:: As above Plan: As above. Extensive precautions were given to the patient and his , who are in agreement with the treatment plan. Air ambulance transport as above.
[2016-09-02 13:26] LABS: CHLORIDE,CL 103 mmol/L (98-107); SODIUM,NA 145 mmol/L (136-145)
[2016-09-02] MEDS ORDERED: Sodium Chloride 0.9% 1,000 ML IV SCH (14:00)
[2016-09-02] MEDS ORDERED: Nitroglycerin/D5W 25 MG/250 ML BOTTLE IV SCH (14:00)
[2016-09-02] MEDS ORDERED: Iopamidol 755 Mg/ML 100 ML Bottle IVPUSH ONE (14:25)
[2016-09-02 18:23] VITALS: BP 120/79
== END 2016-09-02 16:45 ==
LOC: LL.ED 12:40
DX: I13.0 Hypertensive heart and chronic kidney disease with heart failure and stage 1 through stage 4 chronic kidney disease, or unspecified chronic kidney disease (principal); I50.9 Heart failure, unspecified; J44.9 Chronic obstructive pulmonary disease, unspecified; I71.4 Abdominal aortic aneurysm, without rupture; D68.59 Other primary thrombophilia; E03.9 Hypothyroidism, unspecified; M19.90 Unspecified osteoarthritis, unspecified site; N28.9 Disorder of kidney and ureter, unspecified; D64.9 Anemia, unspecified; E88.09 Other disorders of plasma-protein metabolism, not elsewhere classified; E83.42 Hypomagnesemia; K21.9 Gastro-esophageal reflux disease without esophagitis; G47.30 Sleep apnea, unspecified; Z88.5 Allergy status to narcotic agent; Z88.0 Allergy status to penicillin; Z79.899 Other long term (current) drug therapy; Z79.01 Long term (current) use of anticoagulants; Z90.49 Acquired absence of other specified parts of digestive tract
CPT/HCPCS: 36415; 71010; 71275; 80053; 82550; 82553; 83605; 83735; 83880; 84443; 84484; 84550; 85025; 85379; 85610; 85730; 86318; 93005; 96365; 96366; 96375; 99284; 99285; J1940; J2270; J2405; J7030; J7050; Q9967; S0028

== ENCOUNTER 2016-10-04 18:23 | Emergency (ER) | payer MEDICARE, MEDICAID ==
--- NOTE | 2016-10-04 19:58 | EDM.PDOC ---
ED HPI RENAL/ - General Chief Complaint: Genitourinary Problem Stated Complaint: urinating blood Time Seen by Provider: 10/04/16 18:41 Source of Information: Reports: Patient History Limitations: Reports: No limitations - History of Present Illness INITIAL COMMENTS - FREE TEXT/NARRATIVE: Patient is brought to ER by after having bloody urination starting at 15: 30 today. Has some discomfort in urethra with urination but is otherwise pain- free. No history of similar episodes in past. Home health nurse visited him earlier today and it was noted that his INR was 5 per patient's recollection. Was told to hold his Warfarin. He usually does not have issues with elevated INR. Denies changes in diets/meds/ supplements. Denies back/abdominal pain. ROS negative for acute changes for HEENT/Respiratory /CV/GI/Neuro systems. Patient has multiple chronic medical problems including protein S deficiency and previous DVTs. Several recent hospitalizations. - Related Data Allergies/ADRs: Allergies Allergy/AdvReac Type Severity Reaction Status Date / Time codeine Allergy Nausea Verified 10/04/16 18:34 Penicillins Allergy Rash Verified 10/04/16 18:34 Home Meds: Home Meds Citalopram [Citalopram HBr] 20 mg PO DAILY 08/07/13 [History] Levothyroxine 75 mcg PO QAM 08/07/13 [History] Pregabalin [Lyrica] 25 mg PO TID 08/07/13 [History] amLODIPine [Norvasc] 5 mg PO DAILY 08/07/13 [History] Cholecalciferol (Vitamin D3) [Vitamin D3] 2,000 units PO DAILY 06/12/14 [History ] Docusate Sodium [Colace] 1 cap PO BID PRN 06/12/14 [History] Latanoprost [Xalatan 0.005% Ophth Soln] 1 drop EYEBOTH BEDTIME 06/12/14 [History ] Nitroglycerin [Nitrostat] 1 tab SL ASDIRECTED PRN 06/12/14 [History] Verapamil HCl [Verapamil ER] 1 cap PO QPM 06/12/14 [History] Simvastatin [Zocor] 10 mg PO BEDTIME 11/12/15 [History] Ranitidine [Zantac] 150 mg PO BID #60 tab 11/17/15 [Rx] Albuterol [Proventil Neb Soln] 1 ampule INH Q4HR PRN 03/19/16 [History] Albuterol/Ipratropium [DuoNeb 3.0-0.5 MG/3 ML] 1 ampule INH QID 03/19/16 [ History] Folic Acid 1 mg PO DAILY 03/19/16 [History] Magnesium Oxide 400 mg PO DAILY #90 tablet 04/05/16 [Rx] Acetaminophen 650 mg PO Q4HR PRN 07/26/16 [History] Furosemide 20 mg PO DAILY 07/26/16 [History] Lactulose [Cephulac] 20 gm PO DAILY PRN 07/26/16 [History] Non-Formulary Medication [NF Drug] 1 ea PO QPM 07/26/16 [History] Non-Formulary Medication [NF Drug] 1 tab PO DAILY 07/26/16 [History] Sennosides/Docusate Sodium [Senna S Tablet] 1 tab PO BID PRN 07/26/16 [History] Magnesium Hydroxide [Milk of Magnesia] 30 ml PO DAILY PRN #240 cup 08/30/16 [Rx] Warfarin [Coumadin] 5 mg PO DAILY@1800 #30 tablet 08/30/16 [Rx] Calcium Carbonate/Vitamin D3 [Liquid Calcium 600-Vit D3 Sfgl] 1 each PO BID 01/13 [History] Past Medical History HEENT History: Reports: Cataract, Glaucoma, Impaired vision, Other (see below) Other HEENT History: Patient wears reading glasses Cardiovascular History: Reports: Aneurysm, Arrhythmia, Blood clots/VTE/DVT, Cardiomyopathy, Heart Failure, High cholesterol, Hypertension, PVD, Other (see below) Other Cardiovascular History: Varicose veins, recurrent DVTs since 1980 including DVT of the abdomen and legs with 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 Gastrointestinal History: Reports: Chronic constipation, Diverticulosis, GERD, Hiatal hernia Genitourinary History: Reports: Acute renal failure, BPH, Chronic renal insuffiency, Dialysis, Renal disease, Urinary incontinence Other Genitourinary History: History of DIALYSIS due to acute renal failure- resolved chronic renal insufficiency, BPH with additional history of prostate cancer Musculoskeletal History: Reports: Arthritis, Back pain, chronic, Fracture, Gout , Neck pain, chronic, Osteoarthritis, SLE, Other (see below) Other Musculoskeletal History: Chronic pain syndrome with previous history chronic narcotic use, bilateral wrist fractures as a child at about age 13, right-sided rib fracture secondary to respiratory code on 08/14/16 as above Neurological History: Reports: Headaches, chronic, Migraines, Neuropathy, peripheral, Other (see below) Other Neuro History: Chronic left leg weakness secondary to previous osteomyelitis, chronic pain syndrome with chronic narcotic use. 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 Immunologic History: Reports: None Oncologic (Cancer) History: Reports: Prostate, Other (see below) Other Oncologic History: 37 radiation treatments for prostate cancer with additional chemotherapy and status post prostatectomy in 2011 Dermatologic History: Reports: Venous stasis dermatitis, Other (see below) Other Dermatologic History: Venous stasis ulcer of the right anterior tibial region with skin graft as below - Infectious Disease History Infectious Disease History: Reports: Chicken pox, Measles, Mumps - Past Surgical History Head Surgeries/Procedures: Reports: None HEENT Surgical History: Reports: Cataract surgery, Oral surgery, Tonsillectomy, Other (see below) Other HEENT Surgeries/Procedures: bilateral cataract surgery in 2009,, complete teeth extraction, tonsillectomy Cardiovascular Surgical History: Reports: Other (see below) Other Cardiovascular Surgeries/Procedures: IVC filter placement GI Surgical History: Reports: Appendectomy, Colonoscopy, EGD, Miley fundoplication Other GI Surgeries/Procedures: Hiatal hernia repair-? Miley fundoplication Male Surgical History: Reports: Circumcision, Prostatectomy, Other (see below ) Other Male Surgeries/Procedures: Radical prostatectomy secondary to prostate cancer in 2012, circumcision as an infant Endocrine Surgical History: Reports: None Neurological Surgical History: Reports: None Musculoskeletal Surgical History: Reports: Carpal tunnel, Hip replacement, Joint replacement, Knee replacement, Shoulder surgery, Other (see below) Other Musculoskeletal Surgeries/Procedures:: Carpal tunnel release to left side , right hip TEP in 1993, left hip TEP on 03/14/16, left rotator cuff repair Oncologic Surgical History: Reports: Other (see below) Other Oncologic Surgeries/Procedures: Prostatectomy, etc. as above Dermatological Surgical History: Reports: Skin graft - Past Imaging History Past Imaging History: Reports: Cardiac echo (Last echocardiogram on 01/17/15 with ejection fraction of 50-55% with previous suboptimal echocardiogram on 03/14 with ejection fraction of 50-60%), CAT scan (CT of the head, chest, abdomen , and pelvis in 08/19/[address] ? [address] of the soft tissue of the neck on 11/21/15 and , CT of the chest on 07/04/12, CT of the abdomen and pelvis on 01/08/15, and 07/04/12, CT of the brain on 08/07/13 and 02/04/14), DEXA scan (07/09/12), Sleep study (08/21/16), Swallow Study (08/22/16), Ultrasound (Renal ultrasound on 04/17/16, thyroid ultrasound on 11/16/15, Bladder ultrasound and abdominal ultrasound on 12/24/12), Venous doppler (Left leg on 07/26/16, Right leg on ) Social & Family History - Family History Family Medical History: Noncontributory HEENT: Reports: None Cardiac: Reports: Blood clots/VTE/DVT, CAD, Heart failure, [place], Other (see below) Other Cardiac Family History: Father with probable fatal [place] and CHF at age 78, father with recurrent DVTs Respiratory: Reports: None GI: Reports: None : Reports: Diabetic nephropathy, Renal disease/insufficiency, Other (see below ) Other Family History: mother with diabetic nephropathy Musculoskeletal: Reports: Arthritis, Osteoarthritis, Other (see below) Other Musculoskeletal Family History: Father with osteoarthritis Neurological: Reports: Other (see below) Other Neurological Family History: Son with fatal muscular dystrophy at age 21 Psychiatric: Reports: None Endocrine/Metabolic: Reports: Diabetes, type II, IDDM, Other (see below) Other Endocrine/Metabolic Family History: Mother, maternal aunt, and paternal uncle with IDDM Hematologic: Reports: None Immunologic: Reports: None Dermatologic: Reports: None Oncologic: Reports: None - Tobacco Use Smoking Status *Q: Never Smoker Second Hand Smoke Exposure: No - Caffeine Use Caffeine Use: Reports: Coffee, Soda - Alcohol Use Days Per Week of Alcohol Use: 0 Number of Drinks Per Day: 0 Total Drinks Per Week: 0 - Recreational Drug Use Recreational Drug Use: No Drug Use in Last 12 Months: No Recreational Drug Type: Denies: Amphetamines (Speed), Cocaine, Heroin, Inhalants (Glues, Solvents, Aerosols), LSD (Acid), Marijuana/Hashish, Methamphetamine, Morphine Recreational Drug Use Frequency: Daily - Living Situation & Occupation Living situation: Reports: (1959,3 children), with family () Occupation: retired (Retired [employer] in 1980) ED ROS GENERAL - Review of Systems Review Of Systems: ROS reveals no pertinent complaints other than HPI. ED EXAM, RENAL/ - Physical Exam Exam: See Below Exam Limited By: No limitations General Appearance: alert, WD/WN, no apparent distress Eye Exam: bilateral eye: EOMI, PERRL Ears: normal external exam Throat/Mouth: Normal lips, Normal voice, No airway compromise Head: atraumatic, normocephalic Neck: normal inspection, supple, non-tender. No: carotid bruit, lymphadenopathy (L), lymphadenopathy (R) Respiratory/Chest: no respiratory distress, lungs clear, normal breath sounds Cardiovascular: normal peripheral pulses, regular rate, rhythm, no murmur GI/Abdominal: normal bowel sounds, soft, non tender (Male) Exam: Other (No acute changes. Observed to have hematuria when UA obtained. ) Rectal (Males) Exam: Deferred Back Exam: No: CVA tenderness (L), CVA tenderness (R) Extremities: non-tender, normal capillary refill, other (mild bilateral lower extremity edema around ankles. ) Neurological: alert, oriented, normal cognition Psychiatric: normal affect, normal mood Skin Exam: Warm, Dry, Intact Course - Vital Signs Last Recorded V/S: Last Vital Signs Temp 37.2 C 10/04/16 19:30 Pulse 73 10/04/16 19:30 Resp 16 10/04/16 19:30 BP 127/93 H 10/04/16 19:30 Pulse Ox 97 10/04/16 19:30 - Orders/Labs/Meds Orders: Active Orders 24 hr Category Date Time Status Communication Order [RC] ROUTINE Care 10/04/16 19:18 Active Labs: Laboratory Tests 10/04/16 10/04/16 10/04/16 Range/Units 18:35 18:35 18:40 WBC 5.1 (4.0-10.2) K/uL RBC 3.87 L (4.33-5.41) M/uL Hgb 11.4 L (13.1-16.8) g/dL Hct 36.0 L (39.0-49.0) % MCV 93.0 D (84.0-98.0) fL MCH 29.5 (28.2-33.3) pg MCHC 31.7 (31.7-36.0) g/dL RDW 14.4 H (11.2-14.1) % Plt Count 131 L (150-350) K/uL Neut % (Auto) 71.4 (45.0-80.0) % Lymph % (Auto) 13.9 (10.0-50.0) % Dubois % (Auto) 9.4 (2.0-14.0) % Eos % (Auto) 3.3 (0.0-5.0) % Baso % (Auto) 2.0 (0.0-2.0) % Neut # (Auto) 3.64 (1.40-7.00) K/uL Lymph # (Auto) 0.71 (0.50-3.50) K/uL Dubois # (Auto) 0.48 (0.00-1.00) K/uL Eos # (Auto) 0.17 (0.00-0.50) K/uL Baso # (Auto) 0.10 (0.00-0.20) K/uL PT 48.3 H D (9.8-11.7) SEC INR 4.2 Specimen Type Urinvoid Urine Color Red H (YELLOW) Urine Appearance Other H (CLEAR) Urine pH TNP Ur Specific [place] TNP Urine Protein TNP Urine Glucose (UA) TNP Urine Ketones TNP Urine Occult Blood TNP Urine Nitrite TNP Urine Bilirubin TNP Urine Urobilinogen TNP Ur Leukocyte Esterase TNP Urine RBC Packed /HPF Urine WBC 5-10 H /HPF Urine Bacteria Few (NONE TO FEW) /HPF - Re-Assessments/Exams Free Text/Narrative Re-Assessment/Exam: 10/04/16 20:02 UA confirmed packed RBCs, only a few WBC noted. CBC showed Hgb 11.4 Platelets slightly below normal range. INR 4.2 It was noted by lab that the urine sample literally clotted shortly after collection. Called and discussed patient with (hospitalist) from [facility]. Suspect that hematuria is related to patient's elevated INR however cannot guarantee that it is the cause of patient's complaint. It was decided to transfer the patient to [facility] as Urology available. requested that we set patient up for continuous bladder irrigation prior to transfer. Patient transferred by EMS to [facility] for further evaluation and care. Departure - Departure Time of Disposition: 20:06 Disposition: DC/Tfer to [facility] 02 Clinical Impression: Hematuria, gross Referrals: PCP,Unknown [Primary Care Provider] - Forms: ED Department Discharge - My Orders Last 24 Hours: My Active Orders 10/04/16 19:18 Communication Order [RC] ROUTINE - Assessment/Plan Last 24 Hours: My Active Orders 10/04/16 19:18 Communication Order [RC] ROUTINE
[2016-10-05 00:29] VITALS: BP 142/58
== END 2016-10-04 20:28 ==
LOC: LL.ED 18:23
DX: R31.0 Gross hematuria (principal); I11.0 Hypertensive heart disease with heart failure; I50.9 Heart failure, unspecified; E78.00 Pure hypercholesterolemia, unspecified; E03.9 Hypothyroidism, unspecified; J44.9 Chronic obstructive pulmonary disease, unspecified; K21.9 Gastro-esophageal reflux disease without esophagitis; M19.90 Unspecified osteoarthritis, unspecified site; F41.9 Anxiety disorder, unspecified; F32.9 Major depressive disorder, single episode, unspecified; E66.9 Obesity, unspecified; Z79.01 Long term (current) use of anticoagulants; Z79.899 Other long term (current) drug therapy; Z68.30 Body mass index [BMI] 30.0-30.9, adult; Z98.42 Cataract extraction status, left eye; Z98.41 Cataract extraction status, right eye; Z98.890 Other specified postprocedural states; Z90.49 Acquired absence of other specified parts of digestive tract; Z88.5 Allergy status to narcotic agent; Z88.0 Allergy status to penicillin
CPT/HCPCS: 36000; 36415; 51702; 81001; 85025; 85610; 99284; 99285

== ENCOUNTER 2016-11-02 16:21 | Emergency (ER) | payer MEDICARE, MEDICAID ==
--- NOTE | 2016-11-02 17:09 | EDM.PDOC ---
ED HPI RENAL/ - General Chief Complaint: Genitourinary Problem Stated Complaint: Burning with urination Time Seen by Provider: 11/02/16 16:27 Source of Information: Reports: Patient, Family History Limitations: Reports: No limitations - History of Present Illness INITIAL COMMENTS - FREE TEXT/NARRATIVE: Increased urinary frequency and dysuria. Started yesterday. Worse today. No fever Timing/Duration: Reports: Day(s):, Getting worse Location: Reports: suprapubic Quality: Reports: burning Severity: moderate Worsens with: Reports: urinating - Related Data Allergies/ADRs: Allergies Allergy/AdvReac Type Severity Reaction Status Date / Time codeine Allergy Nausea Verified 11/02/16 16:41 Penicillins Allergy Rash Verified 11/02/16 16:41 Home Meds: Home Meds Citalopram [Citalopram HBr] 20 mg PO DAILY 08/07/13 [History] Levothyroxine 75 mcg PO QAM 08/07/13 [History] Pregabalin [Lyrica] 25 mg PO TID 08/07/13 [History] amLODIPine [Norvasc] 5 mg PO DAILY 08/07/13 [History] Cholecalciferol (Vitamin D3) [Vitamin D3] 2,000 units PO DAILY 06/12/14 [History ] Latanoprost [Xalatan 0.005% Ophth Soln] 1 drop EYEBOTH BEDTIME 06/12/14 [History ] Nitroglycerin [Nitrostat] 1 tab SL ASDIRECTED PRN 06/12/14 [History] Simvastatin [Zocor] 10 mg PO BEDTIME 11/12/15 [History] Ranitidine [Zantac] 150 mg PO BID #60 tab 11/17/15 [Rx] Albuterol [Proventil Neb Soln] 1 ampule INH Q4HR PRN 03/19/16 [History] Albuterol/Ipratropium [DuoNeb 3.0-0.5 MG/3 ML] 1 ampule INH QID 03/19/16 [ History] Folic Acid 1 mg PO DAILY 03/19/16 [History] Magnesium Oxide 400 mg PO DAILY #90 tablet 04/05/16 [Rx] Acetaminophen 650 mg PO Q4HR PRN 07/26/16 [History] Furosemide 20 mg PO DAILY 07/26/16 [History] Non-Formulary Medication [NF Drug] 1 ea PO QPM 07/26/16 [History] Non-Formulary Medication [NF Drug] 1 tab PO DAILY 07/26/16 [History] Magnesium Hydroxide [Milk of Magnesia] 30 ml PO DAILY PRN #240 cup 08/30/16 [Rx] Calcium Carbonate/Vitamin D3 [Liquid Calcium 600-Vit D3 Sfgl] 1 each PO BID 01/13 [History] Finasteride 5 mg PO DAILY 11/02/16 [History] Sulfamethoxazole/Trimethoprim [Bactrim Ds Tablet] 1 each PO BID #14 tablet 11/02 [Rx] Verapamil HCl [Verapamil ER] 240 mg PO DAILY 11/02/16 [History] Warfarin [Coumadin] 5 mg PO SUTUTHSA@1800 11/02/16 [History] Warfarin [Coumadin] 7.5 mg PO MOWEFR@1800 11/02/16 [History] Past Medical History HEENT History: Reports: Cataract, Glaucoma, Impaired vision, Other (see below) Other HEENT History: Patient wears reading glasses Cardiovascular History: Reports: Aneurysm, Arrhythmia, Blood clots/VTE/DVT, Cardiomyopathy, Heart Failure, High cholesterol, Hypertension, PVD, Other (see below) Other Cardiovascular History: Varicose veins, recurrent DVTs since 1980 including DVT of the abdomen and legs with 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 Gastrointestinal History: Reports: Chronic constipation, Diverticulosis, GERD, Hiatal hernia Genitourinary History: Reports: Acute renal failure, BPH, Chronic renal insuffiency, Dialysis, Renal disease, Urinary incontinence Other Genitourinary History: History of DIALYSIS due to acute renal failure- resolved chronic renal insufficiency, BPH with additional history of prostate cancer Musculoskeletal History: Reports: Arthritis, Back pain, chronic, Fracture, Gout , Neck pain, chronic, Osteoarthritis, SLE, Other (see below) Other Musculoskeletal History: Chronic pain syndrome with previous history chronic narcotic use, bilateral wrist fractures as a child at about age 13, right-sided rib fracture secondary to respiratory code on 08/14/16 as above Neurological History: Reports: Headaches, chronic, Migraines, Neuropathy, peripheral, Other (see below) Other Neuro History: Chronic left leg weakness secondary to previous osteomyelitis, chronic pain syndrome with chronic narcotic use. 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 Immunologic History: Reports: None Oncologic (Cancer) History: Reports: Prostate, Other (see below) Other Oncologic History: 37 radiation treatments for prostate cancer with additional chemotherapy and status post prostatectomy in 2011 Dermatologic History: Reports: Venous stasis dermatitis, Other (see below) Other Dermatologic History: Venous stasis ulcer of the right anterior tibial region with skin graft as below - Infectious Disease History Infectious Disease History: Reports: Chicken pox, Measles, Mumps - Past Surgical History Head Surgeries/Procedures: Reports: None HEENT Surgical History: Reports: Cataract surgery, Oral surgery, Tonsillectomy, Other (see below) Other HEENT Surgeries/Procedures: bilateral cataract surgery in 2009,, complete teeth extraction, tonsillectomy Cardiovascular Surgical History: Reports: Other (see below) Other Cardiovascular Surgeries/Procedures: IVC filter placement GI Surgical History: Reports: Appendectomy, Colonoscopy, EGD, Miley fundoplication Other GI Surgeries/Procedures: Hiatal hernia repair-? Miley fundoplication Male Surgical History: Reports: Circumcision, Prostatectomy, Other (see below ) Other Male Surgeries/Procedures: Radical prostatectomy secondary to prostate cancer in 2012, circumcision as an Endocrine Surgical History: Reports: None Neurological Surgical History: Reports: None Musculoskeletal Surgical History: Reports: Carpal tunnel, Hip replacement, Joint replacement, Knee replacement, Shoulder surgery, Other (see below) Other Musculoskeletal Surgeries/Procedures:: Carpal tunnel release to left side , right hip TEP in 1993, left hip TEP on 03/14/16, left rotator cuff repair Oncologic Surgical History: Reports: Other (see below) Other Oncologic Surgeries/Procedures: Prostatectomy, etc. as above Dermatological Surgical History: Reports: Skin graft - Past Imaging History Past Imaging History: Reports: Cardiac echo (Last echocardiogram on 01/17/15 with ejection fraction of 50-55% with previous suboptimal echocardiogram on 03/14 with ejection fraction of 50-60%), CAT scan (CT of the head, chest, abdomen , and pelvis in 08/19/2016 ? CT of the soft tissue of the neck on 11/21/15 and , CT of the chest on 07/04/12, CT of the abdomen and pelvis on 01/08/15, and 07/04/12, CT of the brain on 08/07/13 and 02/04/14), DEXA scan (07/09/12), Sleep study (08/21/16), Swallow Study (08/22/16), Ultrasound (Renal ultrasound on 04/17/16, thyroid ultrasound on 11/16/15, Bladder ultrasound and abdominal ultrasound on 12/24/12), Venous doppler (Left leg on 07/26/16, Right leg on ) Social & Family History - Family History Family Medical History: Noncontributory HEENT: Reports: None Cardiac: Reports: Blood clots/VTE/DVT, CAD, Heart failure, GA, Other (see below) Other Cardiac Family History: Father with probable fatal GA and CHF at age 78, father with recurrent DVTs Respiratory: Reports: None GI: Reports: None : Reports: Diabetic nephropathy, Renal disease/insufficiency, Other (see below ) Other Family History: mother with diabetic nephropathy Musculoskeletal: Reports: Arthritis, Osteoarthritis, Other (see below) Other Musculoskeletal Family History: Father with osteoarthritis Neurological: Reports: Other (see below) Other Neurological Family History: Son with fatal muscular dystrophy at age 21 Psychiatric: Reports: None Endocrine/Metabolic: Reports: Diabetes, type II, IDDM, Other (see below) Other Endocrine/Metabolic Family History: Mother, maternal aunt, and paternal uncle with IDDM Hematologic: Reports: None Immunologic: Reports: None Dermatologic: Reports: None Oncologic: Reports: None - Tobacco Use Smoking Status *Q: Never Smoker Second Hand Smoke Exposure: No - Caffeine Use Caffeine Use: Reports: Coffee, Soda - Alcohol Use Days Per Week of Alcohol Use: 0 Number of Drinks Per Day: 0 Total Drinks Per Week: 0 - Recreational Drug Use Recreational Drug Use: No Drug Use in Last 12 Months: No Recreational Drug Type: Denies: Amphetamines (Speed), Cocaine, Heroin, Inhalants (Glues, Solvents, Aerosols), LSD (Acid), Marijuana/Hashish, Methamphetamine, Morphine Recreational Drug Use Frequency: Daily - Living Situation & Occupation Living situation: Reports: (196,3 children), with family () Occupation: retired (Retired [employer] in 1980) ED ROS GENERAL - Review of Systems Review Of Systems: See Below HEENT: Reports: No symptoms Respiratory: Reports: No Symptoms Cardiovascular: Reports: No symptoms GI/Abdominal: Reports: No symptoms : Reports: dysuria, frequency Musculoskeletal: Reports: no symptoms ED EXAM, RENAL/ - Physical Exam Exam: See Below Exam Limited By: No limitations General Appearance: alert, mild distress Throat/Mouth: Normal oropharynx Neck: supple Respiratory/Chest: lungs clear Cardiovascular: regular rate, rhythm GI/Abdominal: non tender Course - Orders/Labs/Meds Orders: Active Orders 24 hr Category Date Time Status CULTURE URINE [RM] Stat Lab 11/02/16 17:01 Uncollected Labs: Laboratory Tests 11/02/16 Range/Units 16:30 Specimen Type Urincc Urine Color Yellow Urine Appearance Cloudy Urine pH 5.0 (5.0-9.0) Ur Specific [place] 1.025 (1.005-1.030) Urine Protein >=300 H (NEGATIVE) mg/dL Urine Glucose (UA) Negative (NEGATIVE) mg/dL Urine Ketones Trace H (NEGATIVE) mg/dL Urine Occult Blood Large H (NEGATIVE) Urine Nitrite Negative (NEGATIVE) Urine Bilirubin Negative (NEGATIVE) Urine Urobilinogen 0.2 (0.2-1.0) E.U./dL Ur Leukocyte Esterase Small H (NEGATIVE) Urine RBC 50-75 H /HPF Urine WBC >100 H /HPF Urine Bacteria Moderate H (NONE TO FEW) /HPF Urine Yeast Rare H (NEGATIVE) /HPF Departure - Departure Time of Disposition: 17:15 Disposition: Home, Self-Care 01 Clinical Impression: UTI, Urinary tract infectious disease Prescriptions: Sulfamethoxazole/Trimethoprim [Bactrim Ds Tablet] 1 each PO BID #14 tablet Instructions: Urinary Tract Infection, Adult, [id number] Forms: ED Department Discharge Additional Instructions: Follow up in clinic - My Orders Last 24 Hours: My Active Orders 11/02/16 17:01 CULTURE URINE [RM] Stat - Assessment/Plan Last 24 Hours: My Active Orders 11/02/16 17:01 CULTURE URINE [] Stat
[2016-11-02 19:49] VITALS: BP 134/72
== END 2016-11-02 17:32 | disposition home or self-care (01) ==
LOC: LL.ED 16:21
DX: N39.0 Urinary tract infection, site not specified (principal); E78.00 Pure hypercholesterolemia, unspecified; I13.0 Hypertensive heart and chronic kidney disease with heart failure and stage 1 through stage 4 chronic kidney disease, or unspecified chronic kidney disease; I50.9 Heart failure, unspecified; N18.9 Chronic kidney disease, unspecified; K21.9 Gastro-esophageal reflux disease without esophagitis; J44.9 Chronic obstructive pulmonary disease, unspecified; F41.9 Anxiety disorder, unspecified; F32.9 Major depressive disorder, single episode, unspecified; E03.9 Hypothyroidism, unspecified; E21.3 Hyperparathyroidism, unspecified; E66.9 Obesity, unspecified; Z88.1 Allergy status to other antibiotic agents; Z88.6 Allergy status to analgesic agent; Z79.899 Other long term (current) drug therapy
CPT/HCPCS: 81001; 87086; 87186; 99282; 99283

== ENCOUNTER 2016-11-08 17:50 | Emergency (ER) | payer MEDICARE, MEDICAID ==
[2016-11-08 17:58] VITALS: BP 133/61
[2016-11-08] MEDS ORDERED: Sodium Chloride 0.9% 10 ML Syringe FLUSH PRN (19:48)
--- NOTE | 2016-11-08 19:48 | EDM.PDOC ---
ED HPI GENERAL MEDICAL PROBLEM - General Chief Complaint: General Stated Complaint: Pain in abdomen, buring with urination Time Seen by Provider: 11/08/16 17:53 Source of Information: Reports: Patient, Family History Limitations: Reports: Other (Patient is very vague when giving history) - History of Present Illness INITIAL COMMENTS - FREE TEXT/NARRATIVE: Patient comes to ER complaining of burning with urination and left lower quadrant/groin pain. The groin pain and left lower abdomen discomfort has been going on for quite some time and has been documented before. It is now worse per patient. Was seen November 02 for urinary complaints. Diagnosed with UTI. Sent home with Rx for Bactrim. Today patient says he did not take/was not given antibiotics. Again he is very poor with history when questioned about his health the last few weeks and circumstances around last visit. He does say he is taking a pill that "turns his urine orange" and it sounds like Pyridium by description. says patient has been having soaking wet sweats in bed but no fever. They deny GI changes. No emesis. No other pain complaint. No other acute changes mentioned during ROS. Bladder Pain Score (Numeric/FACES): 6 - Related Data Allergies Allergy/AdvReac Type Severity Reaction Status Date / Time codeine Allergy Nausea Verified 11/02/16 16:41 Penicillins Allergy Rash Verified 11/02/16 16:41 Home Meds: Home Meds Citalopram [Citalopram HBr] 20 mg PO DAILY 08/07/13 [History] Levothyroxine 75 mcg PO QAM 08/07/13 [History] Pregabalin [Lyrica] 25 mg PO TID 08/07/13 [History] amLODIPine [Norvasc] 5 mg PO DAILY 08/07/13 [History] Cholecalciferol (Vitamin D3) [Vitamin D3] 2,000 units PO DAILY 06/12/14 [History ] Latanoprost [Xalatan 0.005% Ophth Soln] 1 drop EYEBOTH BEDTIME 06/12/14 [History ] Nitroglycerin [Nitrostat] 1 tab SL ASDIRECTED PRN 06/12/14 [History] Simvastatin [Zocor] 10 mg PO BEDTIME 11/12/15 [History] Ranitidine [Zantac] 150 mg PO BID #60 tab 11/17/15 [Rx] Albuterol [Proventil Neb Soln] 1 ampule INH QID 03/19/16 [History] Albuterol/Ipratropium [DuoNeb 3.0-0.5 MG/3 ML] 1 ampule INH QID 03/19/16 [ History] Folic Acid 1 mg PO DAILY 03/19/16 [History] Magnesium Oxide 400 mg PO DAILY #90 tablet 04/05/16 [Rx] Acetaminophen 650 mg PO Q4HR PRN 07/26/16 [History] Furosemide 20 mg PO DAILY 07/26/16 [History] Non-Formulary Medication [NF Drug] 1 cap PO DAILY 07/26/16 [History] Non-Formulary Medication [NF Drug] 1 ea PO QPM 07/26/16 [History] Calcium Carbonate/Vitamin D3 [Liquid Calcium 600-Vit D3 Sfgl] 1 each PO BID 01/13 [History] Finasteride 5 mg PO DAILY 11/02/16 [History] Phenazopyridine HCl [Pyridium] 200 mg PO TID 11/02/16 [History] Verapamil HCl [Verapamil ER] 240 mg PO DAILY 11/02/16 [History] Warfarin [Coumadin] 5 mg PO SUTUTHSA@1800 11/02/16 [History] Warfarin [Coumadin] 7.5 mg PO MOWEFR@1800 11/02/16 [History] Past Medical History HEENT History: Reports: Cataract, Glaucoma, Impaired Vision, Other (See Below) Other HEENT History: Patient wears reading glasses Cardiovascular History: Reports: Aneurysm, Arrhythmia, Blood Clots/VTE/DVT, Cardiomyopathy, Heart Failure, High Cholesterol, Hypertension, PVD, Other (See Below) Other Cardiovascular History: Varicose veins, recurrent DVTs since 1980 including DVT of the abdomen and legs with 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 Gastrointestinal History: Reports: Chronic Constipation, Diverticulosis, GERD, Hiatal Hernia Genitourinary History: Reports: Acute Renal Failure, BPH, Chronic Renal Insuffiency, Dialysis, Renal Disease, Urinary Incontinence Other Genitourinary History: History of DIALYSIS due to acute renal failure- resolved chronic renal insufficiency, BPH with additional history of prostate cancer Musculoskeletal History: Reports: Arthritis, Back Pain, Chronic, Fracture, Gout , Neck Pain, Chronic, Osteoarthritis, SLE, Other (See Below) Other Musculoskeletal History: Chronic pain syndrome with previous history chronic narcotic use, bilateral wrist fractures as a child at about age 13, right-sided rib fracture secondary to respiratory code on 08/14/16 as above Neurological History: Reports: Headaches, Chronic, Migraines, Neuropathy, Peripheral, Other (See Below) Other Neuro History: Chronic left leg weakness secondary to previous osteomyelitis, chronic pain syndrome with chronic narcotic use. 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 Immunologic History: Reports: None Oncologic (Cancer) History: Reports: Prostate, Other (See Below) Other Oncologic History: 37 radiation treatments for prostate cancer with additional chemotherapy and status post prostatectomy in 2011 Dermatologic History: Reports: Venous Stasis Dermatitis, Other (See Below) Other Dermatologic History: Venous stasis ulcer of the right anterior tibial region with skin graft as below - Infectious Disease History Infectious Disease History: Reports: Chicken Pox, Measles, Mumps - Past Surgical History Head Surgeries/Procedures: Reports: None HEENT Surgical History: Reports: Cataract Surgery, Oral Surgery, Tonsillectomy, Other (See Below) Cardiovascular Surgical History: Reports: Other (See Below) GI Surgical History: Reports: Appendectomy, Colonoscopy, EGD, Miley Fundoplication Male Surgical History: Reports: Circumcision, Prostatectomy, Other (See Below ) Endocrine Surgical History: Reports: None Musculoskeletal Surgical History: Reports: Carpal Tunnel, Hip Replacement, Joint Replacement, Knee Replacement, Shoulder Surgery, Other (See Below) Oncologic Surgical History: Reports: Other (See Below) Dermatological Surgical History: Reports: Skin Graft - Past Imaging History Past Imaging History: Reports: Cardiac Echo, CAT Scan, DEXA Scan, Sleep Study, Swallow Study, Ultrasound, Venous Doppler Social & Family History - Family History Family Medical History: Noncontributory HEENT: Reports: None Cardiac: Reports: Blood Clots/VTE/DVT, CAD, Heart Failure, CO, Other (See Below) Other Cardiac Family History: Father with probable fatal CO and CHF at age 78, father with recurrent DVTs Respiratory: Reports: None GI: Reports: None : Reports: Diabetic Nephropathy, Renal Disease/Insufficiency, Other (See Below ) Other Family History: mother with diabetic nephropathy Musculoskeletal: Reports: Arthritis, Osteoarthritis, Other (See Below) Other Musculoskeletal Family History: Father with osteoarthritis Neurological: Reports: Other (See Below) Other Neurological Family History: Son with fatal muscular dystrophy at age 21 Psychiatric: Reports: None Endocrine/Metabolic: Reports: Diabetes, type II, IDDM, Other (See Below) Other Endocrine/Metabolic Family History: Mother, maternal aunt, and paternal uncle with IDDM Hematologic: Reports: None Immunologic: Reports: None Dermatologic: Reports: None Oncologic: Reports: None - Tobacco Use Smoking Status *Q: Never Smoker Second Hand Smoke Exposure: No - Caffeine Use Caffeine Use: Reports: Coffee, Soda - Alcohol Use Days Per Week of Alcohol Use: 0 Number of Drinks Per Day: 0 Total Drinks Per Week: 0 - Recreational Drug Use Recreational Drug Use: No Drug Use in Last 12 Months: No Recreational Drug Type: Denies: Amphetamines (Speed), Cocaine, Heroin, Inhalants (Glues, Solvents, Aerosols), LSD (Acid), Marijuana/Hashish, Methamphetamine, Morphine Recreational Drug Use Frequency: Daily - Living Situation & Occupation Living situation: Reports: , with Family Occupation: Retired ED ROS GENERAL - Review of Systems Review Of Systems: See Below Constitutional: Reports: Chills, Malaise, Night Sweats, Diaphoresis. Denies: Fever, Weakness, Fatigue, Decreased Appetite, Weight Loss HEENT: Reports: No Symptoms Respiratory: Reports: No Symptoms Cardiovascular: Reports: No Symptoms GI/Abdominal: Reports: Abdominal Pain (See HPI). Denies: Black Stool, Bloody Stool, Constipation, Diarrhea, Distension, Hematochezia, Nausea, Vomiting : Reports: Dysuria, Frequency, Hematuria (uncertain). Denies: Flank Pain Musculoskeletal: Reports: Other (no acute changes) Skin: Reports: No Symptoms Neurological: Reports: No Symptoms Psychiatric: Reports: No Symptoms ED EXAM, GENERAL - Physical Exam Exam: See Below Exam Limited By: No Limitations General Appearance: Alert, No Apparent Distress, Obese Eye Exam: Bilateral Eye: EOMI, Normal Inspection, PERRL Ears: Normal External Exam Nose: No: Nasal Drainage Throat/Mouth: Normal Inspection, Normal Voice, No Airway Compromise Head: Atraumatic, Normocephalic Neck: Normal Inspection, Supple, Non-Tender, Full Range of Motion Respiratory/Chest: No Respiratory Distress, Lungs Clear, No Accessory Muscle Use , Decreased Breath Sounds (diminished throughout) Cardiovascular: Regular Rate, Rhythm, No Murmur Peripheral Pulses: 2+: Radial (L), Radial (R) GI/Abdominal: Soft, Tender (Left lower quadrant/suprapubic). No: Guarding, Rigid, Rebound Back Exam: No: CVA Tenderness (L), CVA Tenderness (R) Extremities: Non-Tender, Normal Capillary Refill Neurological: Alert, Oriented Psychiatric: Normal Affect, Normal Mood Skin Exam: Warm, Dry, Intact, Normal Color Course - Vital Signs Last Recorded V/S: Last Vital Signs Temp 37.1 C 11/08/16 17:50 Pulse 87 11/08/16 17:50 Resp 16 11/08/16 17:50 BP 133/61 11/08/16 17:50 Pulse Ox 99 11/08/16 17:50 - Orders/Labs/Meds Orders: Active Orders 24 hr Category Date Time Status COMPREHENSIVE METABOLIC PN,CMP [CHEM] Stat Lab 11/08/16 17:55 Ordered Labs: Laboratory Tests 11/08/16 11/08/16 11/08/16 Range/Units 18:05 18:15 18:15 WBC 7.9 (4.0-10.2) K/uL RBC 3.29 L (4.33-5.41) M/uL Hgb 9.4 L (13.1-16.8) g/dL Hct 31.5 L (39.0-49.0) % MCV 95.7 (84.0-98.0) fL MCH 28.6 (28.2-33.3) pg MCHC 29.8 L (31.7-36.0) g/dL RDW 14.9 H (11.2-14.1) % Plt Count 238 (150-350) K/uL Neut % (Auto) 80.6 H (45.0-80.0) % Lymph % (Auto) 12.0 (10.0-50.0) % [place] % (Auto) 5.6 (2.0-14.0) % Eos % (Auto) 1.0 (0.0-5.0) % Baso % (Auto) 0.8 (0.0-2.0) % Neut # (Auto) 6.39 (1.40-7.00) K/uL Lymph # (Auto) 0.95 (0.50-3.50) K/uL Evans # (Auto) 0.44 (0.00-1.00) K/uL Eos # (Auto) 0.08 (0.00-0.50) K/uL Baso # (Auto) 0.06 (0.00-0.20) K/uL PT 40.9 H (9.8-11.7) SEC INR 3.6 Specimen Type Urinblad Urine Color [place] Urine Appearance Slightly cloudy Urine pH 5.5 (5.0-9.0) Ur Specific [place] 1.015 (1.005-1.030) Urine Protein >=300 H (NEGATIVE) mg/dL Urine Glucose (UA) 100 H (NEGATIVE) mg/dL Urine Ketones Trace H (NEGATIVE) mg/dL Urine Occult Blood Large H (NEGATIVE) Urine Nitrite Positive H (NEGATIVE) Urine Bilirubin Small H (NEGATIVE) Urine Urobilinogen 4.0 H (0.2-1.0) E.U./dL Ur Leukocyte Esterase Large H (NEGATIVE) Urine RBC 75-100 H /HPF Urine WBC 40-50 H /HPF Ur Epithelial Cells Few /LPF Urine Bacteria Moderate H (NONE TO FEW) /HPF - Re-Assessments/Exams Free Text/Narrative Re-Assessment/Exam: 11/08/16 19:54 Vital signs stable. Elevated WBC/RBC in UA. Hgb 9.4. Noted to be slowly decreasing over the past several months when compared to previous values. Normal WBC. CRP 21.9 INR 3.6/elevated. Urine Culture found during chart review, collected November 02. +E Coli. Susceptible to Septra/Bactrim. Negative bladder scan. Uncertain as to cause of increased left lower quadrant pain and if the pain is related to the UTI or early Pylonephritis. Cannot rule out other cause. Differential discussed with patient along with possible need for CT. Patient and would like to have workup continued at [place] and have him admitted there as they have been up there numerous times recently visiting Urology and other specialists for other chronic conditions patient has. Discussed patient with . He accepted the patient in transfer to be admitted to [facility] for UTI and additional evaluation to r/o acute abdomen. Free Text/Narrative Re-Assessment/Exam: 11/08/16 20:06 Rocephin given. Patient stated he has tolerated Morphine well in the past and was given a dose while in ER to help with his discomfort. Departure - Departure Time of Disposition: 20:04 Disposition: DC/Tfer to Acute Hospital 02 Condition: good Clinical Impression: UTI, Urinary tract infectious disease, Abdominal pain, left lower quadrant, Elevated INR - Discharge Information Forms: ED Department Discharge - My Orders Last 24 Hours: My Active Orders 11/08/16 17:55 COMPREHENSIVE METABOLIC PN,CMP [CHEM] Stat - Assessment/Plan Last 24 Hours: My Active Orders 11/08/16 17:55 COMPREHENSIVE METABOLIC PN,CMP [CHEM] Stat
[2016-11-08] MEDS ORDERED: Sodium Chloride 0.9% 1,000 ML IV ONE (19:49)
[2016-11-08] MEDS ORDERED: cefTRIAXone 1 GM in Sodium Chloride 0.9% 100 ML IV ONE (19:49)
[2016-11-08] MEDS ORDERED: Morphine 10 MG/ML Syringe IVPUSH ONE (20:01)
[2016-11-08] MEDS ORDERED: Ondansetron 4 MG/2 ML SDV IVPUSH ONE (20:03)
== END 2016-11-08 21:30 ==
LOC: LL.ED 17:50
DX: N39.0 Urinary tract infection, site not specified (principal); I13.0 Hypertensive heart and chronic kidney disease with heart failure and stage 1 through stage 4 chronic kidney disease, or unspecified chronic kidney disease; E11.22 Type 2 diabetes mellitus with diabetic chronic kidney disease; I50.9 Heart failure, unspecified; N18.9 Chronic kidney disease, unspecified; I25.2 Old myocardial infarction; E78.00 Pure hypercholesterolemia, unspecified; K21.9 Gastro-esophageal reflux disease without esophagitis; F41.9 Anxiety disorder, unspecified; F32.9 Major depressive disorder, single episode, unspecified; M10.9 Gout, unspecified; E66.9 Obesity, unspecified; G43.909 Migraine, unspecified, not intractable, without status migrainosus; J44.9 Chronic obstructive pulmonary disease, unspecified; M19.90 Unspecified osteoarthritis, unspecified site; R79.1 Abnormal coagulation profile; Z79.01 Long term (current) use of anticoagulants; Z88.0 Allergy status to penicillin; Z79.899 Other long term (current) drug therapy; Z98.49 Cataract extraction status, unspecified eye; Z88.5 Allergy status to narcotic agent; Z90.49 Acquired absence of other specified parts of digestive tract
CPT/HCPCS: 36415; 51798; 81001; 85025; 85610; 96374; 96375; 99284; 99285; J0696; J2270; J2405; J7030; J7050

== ENCOUNTER 2016-11-15 12:40 | Inpatient (IN) | payer MEDICARE, MEDICAID ==
[2016-11-15] MEDS ORDERED: Docusate Sodium 100 MG Cap PO PRN (13:44)
[2016-11-15] MEDS ORDERED: BELLADONNA ALKALOIDS RECTAL PRN (13:44)
[2016-11-15] MEDS ORDERED: Nitroglycerin 0.4 MG Tab.SL SL PRN (13:44)
[2016-11-15] MEDS ORDERED: OPIUM RECTAL PRN (13:44)
[2016-11-15] MEDS: Verapamil 120 MG Tab.ER PO SCH (17:14)
[2016-11-15] MEDS: PROTEIN PO SCH (17:14)
[2016-11-15] MEDS: Calcium Carbonate/Vitamin D3 1500 MG-400 Units Tab PO SCH (17:15)
[2016-11-15] MEDS: Amoxicillin/Clavulanate K 875-125 MG Tab PO SCH (17:15)
[2016-11-15] MEDS: Magnesium Oxide 400 MG Tab PO SCH (17:15)
[2016-11-15] MEDS: Pregabalin 25 MG Cap PO SCH (17:15)
[2016-11-15] MEDS: Arformoterol 15 MCG/2 ML Neb Soln INH SCH (20:59)
[2016-11-15] MEDS: Latanoprost 0.005% Ophth Soln 2.5 ML Bottle EYEBOTH SCH (21:00)
[2016-11-15] MEDS: Budesonide 0.5 MG/2 ML Neb Susp NEB SCH (21:00)
[2016-11-15] MEDS: Famotidine 20 MG Tab PO SCH (21:00)
[2016-11-15] MEDS: Simvastatin 10 MG Tab PO SCH (21:00)
[2016-11-15] MEDS: traMADol 50 MG Tab PO PRN (21:51)
--- NOTE | 2016-11-15 22:00 | PCM.HP ---
H&P History of Present Illness - General Date of Service: 11/15/16 Admit Problem/Dx: Admission Diagnosis/Problem Admission Diagnosis/Problem UTI, Urinary tract infectious disease Source of Information: Patient, Old Records History Limitations: Reports: No Limitations - History of Present Illness Initial Comments - Free Text/Narative: Complicated UTI. Hypoxia. Chronic respiratory failure. Weakness. Duration of Symptoms: Reports: Improving Associated Symptoms: Reports: Shortness of Breath, Weakness - Related Data Allergies/Adverse Reactions: Allergies Allergy/AdvReac Type Severity Reaction Status Date / Time codeine Allergy Nausea Verified 11/15/16 10:42 Home Medications: Home Meds Citalopram [Citalopram HBr] 20 mg PO DAILY 08/07/13 [History] Levothyroxine 75 mcg PO QAM 08/07/13 [History] Pregabalin [Lyrica] 25 mg PO TID 08/07/13 [History] amLODIPine [Norvasc] 5 mg PO DAILY 08/07/13 [History] Cholecalciferol (Vitamin D3) [Vitamin D3] 2,000 units PO DAILY 06/12/14 [History ] Latanoprost [Xalatan 0.005% Ophth Soln] 1 drop EYEBOTH BEDTIME 06/12/14 [History ] Nitroglycerin [Nitrostat] 1 tab SL ASDIRECTED PRN 06/12/14 [History] Simvastatin [Zocor] 10 mg PO BEDTIME 11/12/15 [History] Ranitidine [Zantac] 150 mg PO BID #60 tab 11/17/15 [Rx] Albuterol/Ipratropium [DuoNeb 3.0-0.5 MG/3 ML] 1 ampule INH Q4H PRN 03/19/16 [ History] Folic Acid 1 mg PO DAILY 03/19/16 [History] Acetaminophen 650 mg PO Q4HR PRN 07/26/16 [History] Furosemide 20 mg PO DAILY 07/26/16 [History] Calcium Carbonate/Vitamin D3 [Liquid Calcium 600-Vit D3 Sfgl] 1 each PO BID 01/13 [History] Finasteride 5 mg PO DAILY 11/02/16 [History] Phenazopyridine HCl [Pyridium] 200 mg PO TID 11/02/16 [History] Verapamil HCl [Verapamil ER] 240 mg PO DAILY@1700 11/02/16 [History] Warfarin [Coumadin] 7.5 mg PO SUTUTHSA@1800 11/02/16 [History] Amoxicillin/Potassium Clav [Augmentin 875-125 Tablet] 1 each PO BID 11/15/16 [ History] Aspirin [Halfprin] 324 mg PO DAILY 11/15/16 [History] Belladonna/Opium [B & O Supprettes No. 16A] 1 supp RECTAL BID PRN 11/15/16 [ History] Budesonide [Pulmicort] 0.5 mg NEB BIDRT 11/15/16 [History] Docusate Sodium [Colace] 100 mg PO BID PRN 11/15/16 [History] Formoterol [Perforomist] 1 dose INH BID 11/15/16 [History] Lactulose [Cephulac] 20 gm PO DAILY 11/15/16 [History] Magnesium Oxide 400 mg PO BID 11/15/16 [History] Non-Formulary Medication [NF Drug] 4 tab PO 1700 11/15/16 [History] traMADol [Ultram] 50 mg PO Q6HR PRN 11/15/16 [History] Past Medical History HEENT History: Reports: Cataract, Glaucoma, Impaired Vision, Other (See Below) Other HEENT History: Patient wears reading glasses Cardiovascular History: Reports: Aneurysm, Arrhythmia, Blood Clots/VTE/DVT, Cardiomyopathy, Heart Failure, High Cholesterol, Hypertension, PVD, Other (See Below) Other Cardiovascular History: Varicose veins, recurrent DVTs since 1980 including DVT of the abdomen and legs with 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 Gastrointestinal History: Reports: Chronic Constipation, Diverticulosis, GERD, Hiatal Hernia Genitourinary History: Reports: Acute Renal Failure, BPH, Chronic Renal Insuffiency, Dialysis, Renal Disease, Urinary Incontinence Other Genitourinary History: History of DIALYSIS due to acute renal failure- resolved chronic renal insufficiency, BPH with additional history of prostate cancer Musculoskeletal History: Reports: Arthritis, Back Pain, Chronic, Fracture, Gout , Neck Pain, Chronic, Osteoarthritis, SLE, Other (See Below) Other Musculoskeletal History: Chronic pain syndrome with previous history chronic narcotic use, bilateral wrist fractures as a child at about age 13, right-sided rib fracture secondary to respiratory code on 08/14/16 as above Neurological History: Reports: Headaches, Chronic, Migraines, Neuropathy, Peripheral, Other (See Below) Other Neuro History: Chronic left leg weakness secondary to previous osteomyelitis, chronic pain syndrome with chronic narcotic use. 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 Immunologic History: Reports: None Oncologic (Cancer) History: Reports: Prostate, Other (See Below) Other Oncologic History: 37 radiation treatments for prostate cancer with additional chemotherapy and status post prostatectomy in 2012 Dermatologic History: Reports: Venous Stasis Dermatitis, Other (See Below) Other Dermatologic History: Venous stasis ulcer of the right anterior tibial region with skin graft as below - Infectious Disease History Infectious Disease History: Reports: Chicken Pox, Measles, Mumps - Past Surgical History Head Surgeries/Procedures: Reports: None HEENT Surgical History: Reports: Cataract Surgery, Oral Surgery, Tonsillectomy, Other (See Below) Cardiovascular Surgical History: Reports: Other (See Below) GI Surgical History: Reports: Appendectomy, Colonoscopy, EGD, Miley Fundoplication Male Surgical History: Reports: Circumcision, Prostatectomy, Other (See Below ) Endocrine Surgical History: Reports: None Musculoskeletal Surgical History: Reports: Carpal Tunnel, Hip Replacement, Joint Replacement, Knee Replacement, Shoulder Surgery, Other (See Below) Oncologic Surgical History: Reports: Other (See Below) Dermatological Surgical History: Reports: Skin Graft - Past Imaging History Past Imaging History: Reports: Cardiac Echo, CAT Scan, DEXA Scan, Sleep Study, Swallow Study, Ultrasound, Venous Doppler Social & Family History - Family History Family Medical History: Noncontributory HEENT: Reports: None Cardiac: Reports: Blood Clots/VTE/DVT, CAD, Heart Failure, PR, Other (See Below) Other Cardiac Family History: Father with probable fatal PR and CHF at age 78, father with recurrent DVTs Respiratory: Reports: None GI: Reports: None : Reports: Diabetic Nephropathy, Renal Disease/Insufficiency, Other (See Below ) Other Family History: mother with diabetic nephropathy Musculoskeletal: Reports: Arthritis, Osteoarthritis, Other (See Below) Other Musculoskeletal Family History: Father with osteoarthritis Neurological: Reports: Other (See Below) Other Neurological Family History: Son with fatal muscular dystrophy at age 21 Psychiatric: Reports: None Endocrine/Metabolic: Reports: Diabetes, type II, IDDM, Other (See Below) Other Endocrine/Metabolic Family History: Mother, maternal aunt, and paternal uncle with IDDM Hematologic: Reports: None Immunologic: Reports: None Dermatologic: Reports: None Oncologic: Reports: None - Tobacco Use Smoking Status *Q: Never Smoker Second Hand Smoke Exposure: No - Caffeine Use Caffeine Use: Reports: Coffee, Soda - Alcohol Use Days Per Week of Alcohol Use: 0 Number of Drinks Per Day: 0 Total Drinks Per Week: 0 - Recreational Drug Use Recreational Drug Use: No Drug Use in Last 12 Months: No Recreational Drug Type: Denies: Amphetamines (Speed), Cocaine, Heroin, Inhalants (Glues, Solvents, Aerosols), LSD (Acid), Marijuana/Hashish, Methamphetamine, Morphine Recreational Drug Use Frequency: Daily - Living Situation & Occupation Living situation: Reports: , with Family Occupation: Retired H&P Review of Systems - Review of Systems: Review Of Systems: See Below General: Reports: Weakness HEENT: Reports: Headaches Pulmonary: Reports: Shortness of Breath Cardiovascular: Reports: No Symptoms Gastrointestinal: Reports: No Symptoms Genitourinary: Reports: Dysuria, Burning, Hematuria Musculoskeletal: Reports: Joint Pain, Muscle Pain Skin: Reports: No Symptoms Psychiatric: Reports: No Symptoms Neurological: Reports: Weakness Hematologic/Lymphatic: Reports: Easy Bruising Immunologic: Reports: No Symptoms Exam - Exam Exam: See Below - Vital Signs Vital Signs: Last Vital Signs Temp Pulse 83 11/15/16 12:58 Resp 16 11/15/16 12:58 BP Pulse Ox 94 L 11/15/16 15:42 Weight: 249 lb 12.8 oz - Exam Quality Assessment: Supplemental Oxygen General: Alert, Cooperative HEENT: Conjunctiva Clear, Mucosa Moist & [place], Pupils Equal, Pupils Reactive Neck: Trachea Midline Lungs: Normal Respiratory Effort, Decreased Breath Sounds Cardiovascular: Regular Rate, Regular Rhythm Abdomen: Normal Bowel Sounds, Soft (Male) Exam: Deferred Rectal (Males) Exam: Deferred Back Exam: Normal Inspection Extremities: Edema (chronic) Skin: Warm, Dry, Intact Neurological: Normal Speech Neuro Extensive - Mental Status: Alert, Memory Intact Psychiatric: Alert, Normal Affect, Normal Mood *Q Meaningful Use (ADM) - VTE *Q VTE Criteria *Q: - Stroke *Q Stroke Criteria *Q: - AMI *Q AMI Criteria *Q: - Problem List (1) Lower leg DVT (deep venous thromboembolism), chronic SNOMED Code(s): 381156433, 512500596, 444586858119185 ICD Code: I82.5Z9 - CHR EMBLSM AND THOMBOS UNSP DEEP VN UNSP DISTAL LOW EXTRM Status: Acute Priority: Medium Current Visit: No Qualifiers: Laterality: unspecified laterality Qualified Code(s): I82.5Z9 - Chronic embolism and thrombosis of unspecified deep veins of unspecified distal lower extremity (2) Mood disorder Status: Acute Priority: Medium Current Visit: No (3) PVD (peripheral vascular disease) SNOMED Code(s): 137288804 ICD Code: I73.9 - PERIPHERAL VASCULAR DISEASE, UNSPECIFIED Status: Acute Priority: Medium Current Visit: No (4) Respiratory failure, chronic SNOMED Code(s): 04109029 ICD Code: J96.10 - CHRONIC RESPIRATORY FAILURE, UNSP W HYPOXIA OR HYPERCAPNIA Status: Acute Priority: Medium Current Visit: No Qualifiers: Respiratory failure complication: unspecified whether with hypoxia or hypercapnia Qualified Code(s): J96.10 - Chronic respiratory failure, unspecified whether with hypoxia or hypercapnia (5) UTI, Urinary tract infectious disease SNOMED Code(s): 37060665 ICD Code: N39.0 - URINARY TRACT INFECTION, SITE NOT SPECIFIED Status: Acute Current Visit: No (6) Anemia SNOMED Code(s): 379206698 ICD Code: D64.9 - ANEMIA, UNSPECIFIED Status: Chronic Priority: Medium Current Visit: No Problem Details: Mild progression of his previous anemia with no abdominal complaints or evidence of acute GI bleed. Note current Coumadin therapy. Continue to observe closely with further workup depending on his clinical course Qualifiers: Anemia type: unspecified type Qualified Code(s): D64.9 - Anemia, unspecified (7) Blood coagulation disorder SNOMED Code(s): 31319808 ICD Code: D68.9 - COAGULATION DEFECT, UNSPECIFIED Status: Chronic Priority: Medium Current Visit: No Problem Details: Elevated INR close followup by his regular providers as per discharge instructions (8) COPD (chronic obstructive pulmonary disease) SNOMED Code(s): 81718478 ICD Code: J44.9 - CHRONIC OBSTRUCTIVE PULMONARY DISEASE, UNSPECIFIED Status : Chronic Priority: Medium Current Visit: No Problem Details: Note O2 dependent COPD and sleep apnea with possibility of concomitant right middle lobe and right lower lobe pneumonia, however difficult to determine secondary to patient's concomitant CHF. No recent history of fever with no leukocytosis at this time. Conflicting reports of chest x-ray and CT scan of the chest as above. Consider blood cultures, initiation of antibiotic therapy, etc. depending on his clinical course. Note recent history of respiratory failure requiring code and intubation on 08/14/16 with stable O2 sats with O2 supplementation in the emergency room. Qualifiers: COPD type: COPD with acute lower respiratory infection Qualified Code(s): J44.0 - Chronic obstructive pulmonary disease with acute lower respiratory infection (9) GERD (gastroesophageal reflux disease) SNOMED Code(s): 741942080 ICD Code: K21.9 - GASTRO-ESOPHAGEAL REFLUX DISEASE WITHOUT ESOPHAGITIS Status: Chronic Priority: Medium Current Visit: No Qualifiers: Esophagitis presence: esophagitis presence not specified Qualified Code(s) : K21.9 - Gastro-esophageal reflux disease without esophagitis (10) Heart disease SNOMED Code(s): 33234653 ICD Code: I51.9 - HEART DISEASE, UNSPECIFIED Status: Chronic Priority: Medium Current Visit: No Problem Details: Stable by history with no recent true anginal complaints, etc. and negative EKG, cardiac enzymes, etc. as above (11) Hypertension SNOMED Code(s): 17073489 ICD Code: I10 - ESSENTIAL (PRIMARY) HYPERTENSION Status: Chronic Priority : Medium Current Visit: No Problem Details: Blood Pressures under good control in the emergency room Qualifiers: Hypertension type: essential hypertension Qualified Code(s): I10 - Essential (primary) hypertension (12) Hypoalbuminemia SNOMED Code(s): 663275063 ICD Code: E88.09 - OTH DISORDERS OF PLASMA-PROTEIN METABOLISM, NEC Status: Chronic Priority: Medium Current Visit: No Problem Details: Consider initiation of high protein Glucerna supplement with caution secondary to his previous history of renal insufficiency (13) Hypomagnesemia SNOMED Code(s): 335937269 ICD Code: E83.42 - HYPOMAGNESEMIA Status: Chronic Priority: Medium Current Visit: No Problem Details: Consider initiation of magnesium oxide therapy (14) Hypothyroidism SNOMED Code(s): 20554459 ICD Code: E03.9 - HYPOTHYROIDISM, UNSPECIFIED Status: Chronic Priority: Medium Current Visit: No Problem Details: Stable by his history, TSH normal today (15) Migraine SNOMED Code(s): 06101082 ICD Code: G43.909 - MIGRAINE, UNSP, NOT INTRACTABLE, WITHOUT STATUS MIGRAINOSUS Status: Chronic Priority: Medium Current Visit: No Problem Details: Symptomatically improved after medications provided. Advised to hydrate and rest today to avoid rebound. Follow up as needed. (16) Osteoarthritis SNOMED Code(s): 330356499 ICD Code: M19.90 - UNSPECIFIED OSTEOARTHRITIS, UNSPECIFIED SITE Status: Chronic Priority: Medium Current Visit: No Problem Details: Stable by history with history of gout and chronic narcotic use Qualifiers: Osteoarthritis location: multiple joints Osteoarthritis type: primary Qualified Code(s): M15.0 - Primary generalized (osteo)arthritis (17) Polycythemia SNOMED Code(s): 508061787 ICD Code: D75.1 - SECONDARY POLYCYTHEMIA Status: Chronic Priority: Medium Current Visit: No Onset Date: 09/12/15 Problem Details: Likely secondary to his COPD (18) Prostate cancer SNOMED Code(s): 187814907 ICD Code: C61 - MALIGNANT NEOPLASM OF PROSTATE Status: Chronic Priority: Low Current Visit: No (19) Protein S deficiency SNOMED Code(s): 1785402 ICD Code: D68.59 - OTHER PRIMARY THROMBOPHILIA Status: Chronic Priority: Medium Current Visit: No Problem Details: History of chronic DVTs and previous PE today. INR today. Note d-dimer elevation with negative CTA of the chest for PE (20) Renal insufficiency SNOMED Code(s): 293876832, 478749746 ICD Code: N28.9 - DISORDER OF KIDNEY AND URETER, UNSPECIFIED Status: Chronic Priority: Medium Current Visit: No Problem Details: History of chronic renal insufficiency with normal creatinine today and previous history of acute renal insufficiency requiring distant dialysis as above (21) Sleep apnea SNOMED Code(s): 40307649 ICD Code: G47.30 - SLEEP APNEA, UNSPECIFIED Status: Chronic Priority: Medium Current Visit: No Onset Date: ~08/21/16 Problem Details: Auto-CPAP should be initiated JUSTYN Qualifiers: Sleep apnea type: obstructive Qualified Code(s): G47.33 - Obstructive sleep apnea (adult) (pediatric) (22) Hematuria, gross SNOMED Code(s): 396951864 ICD Code: R31.0 - GROSS HEMATURIA Status: Resolved Priority: High Current Visit: No Problem List Initiated/Reviewed/Updated: Yes Orders Last 24hrs: Active Orders 24 hr Category Date Time Status Patient Status [ADT] Routine ADT 11/15/16 15:42 Active Ambulate [RC] DAILY Care 11/15/16 15:42 Active Communication Order [RC] 08,20 Care 11/15/16 15:48 Active Communication Order [RC] DAILY Care 11/15/16 13:55 Active May Shower [RC] DAILY Care 11/15/16 15:42 Active Oxygen Therapy [RC] 2300 Care 11/15/16 15:42 Active VTE/DVT Education [RC] PER UNIT ROUTINE Care 11/15/16 15:42 Active Vital Signs [RC] DAILY Care 11/15/16 15:42 Active Care Management Consult [Consult to Case Management] [ Cons 11/15/16 14:04 Active CONS] Routine Consult to Occupational Therapy [OT Evaluation and Cons 11/15/16 14:04 Active Treatment] [CONS] Routine Consult to Physical Therapy [PT Evaluation and Cons 11/15/16 14:03 Active Treatment] [CONS] Routine Regular Diet [DIET] Diet 11/15/16 Dinner Active Amoxicillin/Clavulanate K [Augmentin 875 MG/125 MG] Med 11/15/16 18:00 Active 1 tab PO BID Arformoterol [Brovana] Med 11/15/16 20:00 Active 15 mcg INH Q12HR Belladonna/Opium [B & O Supprettes No. 16A] Med 11/15/16 13:44 Active 1 supp RECTAL BID PRN Budesonide [Pulmicort] Med 11/15/16 20:00 Active 0.5 mg NEB BIDRT Calcium Carbonate/Vitamin D3 [Caltrate 600+D 1500 MG- Med 11/15/16 18:00 Active 400 Units] 1 tab PO BID Cholecalciferol (Vitamin D3) [Vitamin D3] Med 11/16/16 08:00 Active 2,000 units PO DAILY Citalopram [Celexa] Med 11/16/16 08:00 Active 20 mg PO DAILY Docusate Sodium [Colace] Med 11/15/16 13:44 Active 100 mg PO BID PRN Famotidine [Pepcid] Med 11/15/16 20:00 Active 20 mg PO Q12HR Finasteride [Proscar] Med 11/16/16 08:00 Active 5 mg PO DAILY Folic Acid Med 11/16/16 08:00 Active 1 mg PO DAILY Furosemide [Lasix] Med 11/16/16 08:00 Active 20 mg PO DAILY Lactulose [Cephulac] Med 11/16/16 08:00 Active 20 gm PO DAILY Latanoprost [Xalatan 0.005% Ophth Soln] Med 11/15/16 20:00 Active 0 ml EYEBOTH BEDTIME Levothyroxine Med 11/16/16 14:00 Active 75 mcg PO DAILY@1400 Magnesium Oxide Med 11/15/16 18:00 Active 400 mg PO BID Nitroglycerin [Nitrostat] Med 11/15/16 13:44 Active 0.4 mg SL Q5M PRN Non-Formulary Medication [NF Drug] Med 11/15/16 17:00 Active 4 each PO DAILY@1700 Pregabalin [Lyrica] Med 11/15/16 18:00 Active 25 mg PO TID Simvastatin [Zocor] Med 11/15/16 20:00 Active 10 mg PO BEDTIME Verapamil [Calan SR] Med 11/15/16 17:00 Active 240 mg PO DAILY@1700 Warfarin [Coumadin] Med 11/16/16 18:00 Active 7.5 mg PO SUTUTHSA@1800 amLODIPine [Norvasc] Med 11/16/16 08:00 Active 5 mg PO DAILY traMADol [Ultram] Med 11/15/16 13:44 Active 50 mg PO Q6HR PRN Resuscitation Status Routine Resus Stat 11/15/16 15:42 Ordered Medication Orders Amlodipine Besylate (Norvasc) 5 mg PO DAILY [facility] Amoxicillin/Clavulanate Potassium (Augmentin 875 Mg/125 Mg) 1 tab PO BID [facility] Stop: 11/23/16 08:01 Last Admin: 11/15/16 17:15 Dose: 1 tab Arformoterol Tartrate (Brovana) 15 mcg INH Q12HR [facility] Last Admin: 11/15/16 20:59 Dose: 15 mcg Belladonna Alkaloids/Opium (B & O Supprettes No. 16a) 1 supp RECTAL BID PRN PRN Reason: Moderate pain Budesonide (Pulmicort) 0.5 mg NEB BIDRT [facility] Last Admin: 11/15/16 21:00 Dose: 0.5 mg Calcium Carbonate (Caltrate 600+D 1500 Mg-400 Units) 1 tab PO BID [facility] Last Admin: 11/15/16 17:15 Dose: 1 tab Cholecalciferol (Vitamin D3) 2,000 units PO DAILY [facility] Citalopram Hydrobromide (Celexa) 20 mg PO DAILY [facility] Docusate Sodium (Colace) 100 mg PO BID PRN PRN Reason: Constipation Famotidine (Pepcid) 20 mg PO Q12HR [facility] Last Admin: 11/15/16 21:00 Dose: 20 mg Finasteride (Proscar) 5 mg PO DAILY [facility] Folic Acid (Folic Acid) 1 mg PO DAILY [facility] Furosemide (Lasix) 20 mg PO DAILY [facility] Lactulose (Cephulac) 20 gm PO DAILY [facility] Latanoprost (Xalatan 0.005% Ophth Soln) 0 ml EYEBOTH BEDTIME [facility] Last Admin: 11/15/16 21:00 Dose: 1 drop Levothyroxine Sodium (Levothyroxine) 75 mcg PO DAILY@1400 [facility] Magnesium Oxide (Magnesium Oxide) 400 mg PO BID [facility] Last Admin: 11/15/16 17:15 Dose: 400 mg Nitroglycerin (Nitrostat) 0.4 mg SL Q5M PRN PRN Reason: Chest Pain Protein Tablets 4 each PO DAILY@1700 [facility] Last Admin: 11/15/16 17:14 Dose: 4 each Pregabalin (Lyrica) 25 mg PO TID [facility] Last Admin: 11/15/16 17:15 Dose: 25 mg Simvastatin (Zocor) 10 mg PO BEDTIME [facility] Last Admin: 11/15/16 21:00 Dose: 10 mg Tramadol HCl (Ultram) 50 mg PO Q6HR PRN PRN Reason: moderate pain Last Admin: 11/15/16 21:51 Dose: 50 mg Verapamil HCl (Calan Sr) 240 mg PO DAILY@1700 [facility] Last Admin: 11/15/16 17:14 Dose: 240 mg Warfarin Sodium (Coumadin) 7.5 mg PO SUTUTHSA@1800 [facility] Assessment/Plan Comment:: 11/15/2016 Beatrice Lang MD Recent hospitalized for complex UTI, chronic respiratory failure (pO2 ~57%). Now requires swing bed status for PT-OT due to weakness.
[2016-11-16] MEDS: Finasteride 5 MG Tab PO SCH (07:36)
[2016-11-16] MEDS: Folic Acid 1 MG Tab PO SCH (07:36)
[2016-11-16] MEDS: Magnesium Oxide 400 MG Tab PO SCH ×2 (07:36→17:39)
[2016-11-16] MEDS: Pregabalin 25 MG Cap PO SCH ×3 (07:36→17:39)
[2016-11-16] MEDS: Furosemide 20 MG Tab PO SCH (07:36)
[2016-11-16] MEDS: Citalopram 20 MG Tab PO SCH (07:36)
[2016-11-16] MEDS: Calcium Carbonate/Vitamin D3 1500 MG-400 Units Tab PO SCH ×2 (07:36→17:39)
[2016-11-16] MEDS: Cholecalciferol (Vitamin D3) 1,000 Unit Tab PO SCH (07:37)
[2016-11-16] MEDS: amLODIPine 5 MG Tab PO SCH (07:37)
[2016-11-16] MEDS: Arformoterol 15 MCG/2 ML Neb Soln INH SCH ×2 (07:37→19:57)
[2016-11-16] MEDS: Famotidine 20 MG Tab PO SCH ×2 (07:37→19:57)
[2016-11-16] MEDS: Amoxicillin/Clavulanate K 875-125 MG Tab PO SCH ×2 (07:37→17:39)
[2016-11-16] MEDS: Budesonide 0.5 MG/2 ML Neb Susp NEB SCH ×2 (07:37→19:57)
[2016-11-16] MEDS: Lactulose Soln 10 GM/15 ML 30 ML UD Cup PO SCH ×2 (07:39→07:49)
--- NOTE | 2016-11-16 09:53 | PCM.PN ---
- General Info Date of Service: 11/16/16 Admission Dx/Problem (Free Text): Admission Diagnosis/Problem Admission Diagnosis/Problem UTI, Urinary tract infectious disease Functional Status: Reports: pain controlled, tolerating diet, ambulating - Review of Systems General: Reports: Weakness HEENT: Reports: no symptoms Pulmonary: Reports: no symptoms Cardiovascular: Reports: No Symptoms Gastrointestinal: Reports: No symptoms Genitourinary: Reports: frequency Musculoskeletal: Reports: neck pain (left sided neck pain) Skin: Reports: no symptoms Neurological: Reports: No Symptoms Psychiatric: Reports: no symptoms - Patient Data Vitals - most recent: Last Vital Signs Temp 98 F 11/16/16 07:59 Pulse 79 11/16/16 07:59 Resp 16 11/16/16 07:59 BP 120/73 11/16/16 07:59 Pulse Ox 91 L 11/16/16 07:59 Weight - most recent: 249 lb 12.8 oz I&O - last 24 hours: Intake & Output 11/15/16 11/16/16 11/16/16 22:59 06:59 14:59 Intake Total 680 50 360 Output Total 400 450 100 Balance 280 -400 260 Med Orders - Current: Current Medications Amlodipine Besylate (Norvasc) 5 mg PO DAILY [facility] Last Admin: 11/16/16 07:37 Dose: 5 mg Amoxicillin/Clavulanate Potassium (Augmentin 875 Mg/125 Mg) 1 tab PO BID [facility] Stop: 11/23/16 08:01 Last Admin: 11/16/16 07:37 Dose: 1 tab Arformoterol Tartrate (Brovana) 15 mcg INH Q12HR [facility] Last Admin: 11/16/16 07:37 Dose: 15 mcg Belladonna Alkaloids/Opium (B & O Supprettes No. 16a) 1 supp RECTAL BID PRN PRN Reason: Moderate pain Budesonide (Pulmicort) 0.5 mg NEB BIDRT [facility] Last Admin: 11/16/16 07:37 Dose: 0.5 mg Calcium Carbonate (Caltrate 600+D 1500 Mg-400 Units) 1 tab PO BID [facility] Last Admin: 11/16/16 07:36 Dose: 1 tab Cholecalciferol (Vitamin D3) 2,000 units PO DAILY [facility] Last Admin: 11/16/16 07:37 Dose: 2,000 units Citalopram Hydrobromide (Celexa) 20 mg PO DAILY [facility] Last Admin: 11/16/16 07:36 Dose: 20 mg Docusate Sodium (Colace) 100 mg PO BID PRN PRN Reason: Constipation Famotidine (Pepcid) 20 mg PO Q12HR [facility] Last Admin: 11/16/16 07:37 Dose: 20 mg Finasteride (Proscar) 5 mg PO DAILY [facility] Last Admin: 11/16/16 07:36 Dose: 5 mg Folic Acid (Folic Acid) 1 mg PO DAILY [facility] Last Admin: 11/16/16 07:36 Dose: 1 mg Furosemide (Lasix) 20 mg PO DAILY [facility] Last Admin: 11/16/16 07:36 Dose: 20 mg Lactulose (Cephulac) 20 gm PO DAILY [facility] Last Admin: 11/16/16 07:49 Dose: Not Given Latanoprost (Xalatan 0.005% Ophth Soln) 0 ml EYEBOTH BEDTIME [facility] Last Admin: 11/15/16 21:00 Dose: 1 drop Levothyroxine Sodium (Levothyroxine) 75 mcg PO DAILY@1400 [facility] Magnesium Oxide (Magnesium Oxide) 400 mg PO BID [facility] Last Admin: 11/16/16 07:36 Dose: 400 mg Nitroglycerin (Nitrostat) 0.4 mg SL Q5M PRN PRN Reason: Chest Pain Protein Tablets 4 each PO DAILY@1700 [facility] Last Admin: 11/15/16 17:14 Dose: 4 each Pregabalin (Lyrica) 25 mg PO TID [facility] Last Admin: 11/16/16 07:36 Dose: 25 mg Simvastatin (Zocor) 10 mg PO BEDTIME [facility] Last Admin: 11/15/16 21:00 Dose: 10 mg Tramadol HCl (Ultram) 50 mg PO Q6HR PRN PRN Reason: moderate pain Last Admin: 11/15/16 21:51 Dose: 50 mg Verapamil HCl (Calan Sr) 240 mg PO DAILY@1700 [facility] Last Admin: 11/15/16 17:14 Dose: 240 mg Warfarin Sodium (Coumadin) 7.5 mg PO SUTUTHSA@1800 [facility] - Exam Quality Assessment: supplemental oxygen General: alert, oriented, cooperative, no acute distress HEENT: Pupils equal Neck: supple Lungs: Clear to auscultation, Normal respiratory effort Cardiovascular: Regular Rate, Regular Rhythm, Murmurs Abdomen: bowel sounds present, soft, no tenderness, no distension Extremities: no edema Peripheral Pulses: 1+: Dorsalis Pedis (L), Dorsalis Pedis (R) Skin: warm, dry, intact Neurological: no new focal deficit Psy/Mental Status: alert, normal affect, normal mood - Problem List & Annotations (1) UTI, Urinary tract infectious disease SNOMED Code(s): 66174497 Code(s): N39.0 - URINARY TRACT INFECTION, SITE NOT SPECIFIED Status: Acute Current Visit: No (2) Respiratory failure, chronic SNOMED Code(s): 27798787 Code(s): J96.10 - CHRONIC RESPIRATORY FAILURE, UNSP W HYPOXIA OR HYPERCAPNIA Status: Acute Priority: Medium Current Visit: No Qualifiers: Respiratory failure complication: unspecified whether with hypoxia or hypercapnia Qualified Code(s): J96.10 - Chronic respiratory failure, unspecified whether with hypoxia or hypercapnia (3) Blood coagulation disorder SNOMED Code(s): 05246521 Code(s): D68.9 - COAGULATION DEFECT, UNSPECIFIED Status: Chronic Priority : Medium Current Visit: No (4) COPD (chronic obstructive pulmonary disease) SNOMED Code(s): 82101889 Code(s): J44.9 - CHRONIC OBSTRUCTIVE PULMONARY DISEASE, UNSPECIFIED Status : Chronic Priority: Medium Current Visit: No Qualifiers: COPD type: COPD with acute lower respiratory infection Qualified Code(s): J44.0 - Chronic obstructive pulmonary disease with acute lower respiratory infection - Problem List Review Problem List Initiated/Reviewed/Updated: Yes - My Orders Last 24 Hours: My Active Orders 11/16/16 09:08 Heat Therapy [OM.PC] Routine - Plan Plan:: 11/15/2016 Beatrice Lang MD Recent hospitalized for complex UTI, chronic respiratory failure (pO2 ~57%). Now requires swing bed status for PT-OT due to weakness. 11/16/2016 Patient having left sided neck pain after waking up this morning. Patient states having this in [place] and it started after he started to wear the new type of mask at night. Hurts to turn neck to the left side, heating pad applied with relief. Will order INR as patient is on coumadin therapy for blood clotting disorder. Continue with PT for strengthening. Leonie Franco,OUTSOLE ROUNDER
[2016-11-16] MEDS: Levothyroxine 75 MCG Tab PO SCH (13:57)
[2016-11-16] MEDS: PROTEIN PO SCH (17:20)
[2016-11-16] MEDS: Verapamil 120 MG Tab.ER PO SCH (17:20)
[2016-11-16] MEDS: Warfarin 2.5 MG Tab PO SCH (17:39)
[2016-11-16] MEDS: Simvastatin 10 MG Tab PO SCH (19:57)
[2016-11-16] MEDS: Latanoprost 0.005% Ophth Soln 2.5 ML Bottle EYEBOTH SCH (19:59)
[2016-11-17] MEDS: traMADol 50 MG Tab PO PRN ×2 (02:59→16:03)
[2016-11-17] MEDS: Amoxicillin/Clavulanate K 875-125 MG Tab PO SCH ×2 (07:39→17:54)
[2016-11-17] MEDS: amLODIPine 5 MG Tab PO SCH (07:39)
[2016-11-17] MEDS: Cholecalciferol (Vitamin D3) 1,000 Unit Tab PO SCH (07:39)
[2016-11-17] MEDS: Furosemide 20 MG Tab PO SCH (07:39)
[2016-11-17] MEDS: Famotidine 20 MG Tab PO SCH ×2 (07:39→19:44)
[2016-11-17] MEDS: Magnesium Oxide 400 MG Tab PO SCH ×2 (07:39→17:54)
[2016-11-17] MEDS: Pregabalin 25 MG Cap PO SCH ×3 (07:39→17:54)
[2016-11-17] MEDS: Finasteride 5 MG Tab PO SCH (07:39)
[2016-11-17] MEDS: Budesonide 0.5 MG/2 ML Neb Susp NEB SCH ×2 (07:39→19:44)
[2016-11-17] MEDS: Citalopram 20 MG Tab PO SCH (07:39)
[2016-11-17] MEDS: Arformoterol 15 MCG/2 ML Neb Soln INH SCH ×2 (07:39→19:44)
[2016-11-17] MEDS: Calcium Carbonate/Vitamin D3 1500 MG-400 Units Tab PO SCH ×2 (07:39→17:54)
[2016-11-17] MEDS: Lactulose Soln 10 GM/15 ML 30 ML UD Cup PO SCH (07:40)
[2016-11-17] MEDS: Folic Acid 1 MG Tab PO SCH (07:40)
[2016-11-17] MEDS ORDERED: Aluminum Hydroxide/Magnesium Hydroxide/Simethicone Susp 30 ML Cup PO PRN (11:19)
[2016-11-17] MEDS: Calcium Carbonate 750 MG Tab.Chew PO PRN (11:40)
[2016-11-17] MEDS: Levothyroxine 75 MCG Tab PO SCH (14:59)
[2016-11-17] MEDS: Verapamil 120 MG Tab.ER PO SCH (16:05)
[2016-11-17] MEDS ORDERED: Verapamil 120 MG Tab.ER ONE (16:09)
[2016-11-17] MEDS: PROTEIN PO SCH (16:11)
[2016-11-17] MEDS: Warfarin 2.5 MG Tab PO SCH (17:53)
[2016-11-17] MEDS: Latanoprost 0.005% Ophth Soln 2.5 ML Bottle EYEBOTH SCH (19:44)
[2016-11-17] MEDS: Simvastatin 10 MG Tab PO SCH (19:44)
[2016-11-18] MEDS: Calcium Carbonate 750 MG Tab.Chew PO PRN (03:47)
[2016-11-18] MEDS: traMADol 50 MG Tab PO PRN (03:47)
[2016-11-18] MEDS: Acetaminophen 325 MG Tab PO PRN (05:03)
[2016-11-18 07:13] LABS: O2 DELIVERY DEVICE NASAL CANNULA
[2016-11-18 07:49] LABS: BASE EXCESS VENOUS 19 mmol/L ((-2)-3); BICARBONATE,VENOUS 46 mmol/L (23-28); O2 SATURATION VENOUS 99 %; PCO2 VENOUS 97 mmHG (41-51); PH,VENOUS 7.29 (7.31-7.41); PO2 VENOUS 173 mmHG
[2016-11-18] MEDS: Finasteride 5 MG Tab PO SCH (07:50)
[2016-11-18] MEDS: Calcium Carbonate/Vitamin D3 1500 MG-400 Units Tab PO SCH ×2 (07:50→17:28)
[2016-11-18] MEDS: Pregabalin 25 MG Cap PO SCH ×3 (07:52→17:23)
[2016-11-18] MEDS: Cholecalciferol (Vitamin D3) 1,000 Unit Tab PO SCH (07:52)
[2016-11-18] MEDS: amLODIPine 5 MG Tab PO SCH (07:53)
[2016-11-18] MEDS: Famotidine 20 MG Tab PO SCH ×2 (07:54→19:51)
[2016-11-18] MEDS: Furosemide 20 MG Tab PO SCH (07:54)
[2016-11-18] MEDS: Citalopram 20 MG Tab PO SCH (07:55)
[2016-11-18] MEDS: Folic Acid 1 MG Tab PO SCH (07:55)
[2016-11-18 07:56] LABS: CHLORIDE,CL 99 mmol/L (98-107); SODIUM,NA 140 mmol/L (136-145)
[2016-11-18] MEDS: Magnesium Oxide 400 MG Tab PO SCH ×2 (07:56→17:23)
[2016-11-18] MEDS: Amoxicillin/Clavulanate K 875-125 MG Tab PO SCH ×2 (07:56→17:22)
[2016-11-18] MEDS: Lactulose Soln 10 GM/15 ML 30 ML UD Cup PO SCH (07:57)
[2016-11-18] MEDS: Arformoterol 15 MCG/2 ML Neb Soln INH SCH ×2 (07:57→19:51)
[2016-11-18] MEDS: Budesonide 0.5 MG/2 ML Neb Susp NEB SCH ×2 (07:57→19:51)
[2016-11-18] MEDS: Levothyroxine 75 MCG Tab PO SCH (14:35)
[2016-11-18] MEDS: Verapamil 120 MG Tab.ER PO SCH (17:24)
[2016-11-18] MEDS: PROTEIN PO SCH (17:28)
[2016-11-18] MEDS: Latanoprost 0.005% Ophth Soln 2.5 ML Bottle EYEBOTH SCH (19:51)
[2016-11-18] MEDS: Simvastatin 10 MG Tab PO SCH (19:51)
[2016-11-19] MEDS: traMADol 50 MG Tab PO PRN (00:28)
[2016-11-19] MEDS: Amoxicillin/Clavulanate K 875-125 MG Tab PO SCH ×2 (07:57→17:01)
[2016-11-19] MEDS: Finasteride 5 MG Tab PO SCH (07:58)
[2016-11-19] MEDS: Magnesium Oxide 400 MG Tab PO SCH ×2 (07:58→17:02)
[2016-11-19] MEDS: Calcium Carbonate/Vitamin D3 1500 MG-400 Units Tab PO SCH ×2 (07:59→17:04)
[2016-11-19] MEDS: Famotidine 20 MG Tab PO SCH ×2 (07:59→19:36)
[2016-11-19] MEDS: Citalopram 20 MG Tab PO SCH (08:00)
[2016-11-19] MEDS: Cholecalciferol (Vitamin D3) 1,000 Unit Tab PO SCH (08:00)
[2016-11-19] MEDS: Furosemide 20 MG Tab PO SCH (08:01)
[2016-11-19] MEDS: Pregabalin 25 MG Cap PO SCH ×3 (08:01→17:01)
[2016-11-19] MEDS: Folic Acid 1 MG Tab PO SCH (08:01)
[2016-11-19] MEDS: Budesonide 0.5 MG/2 ML Neb Susp NEB SCH ×2 (08:02→19:36)
[2016-11-19] MEDS: Lactulose Soln 10 GM/15 ML 30 ML UD Cup PO SCH (08:02)
[2016-11-19] MEDS: Arformoterol 15 MCG/2 ML Neb Soln INH SCH ×2 (08:02→19:36)
[2016-11-19] MEDS: amLODIPine 5 MG Tab PO SCH (08:02)
[2016-11-19] MEDS: Levothyroxine 75 MCG Tab PO SCH (14:20)
[2016-11-19] MEDS: Verapamil 120 MG Tab.ER PO SCH (17:00)
[2016-11-19] MEDS: PROTEIN PO SCH (17:01)
[2016-11-19] MEDS: Warfarin 2.5 MG Tab PO SCH (17:03)
[2016-11-19] MEDS: Acetaminophen 325 MG Tab PO PRN (19:36)
[2016-11-19] MEDS: Simvastatin 10 MG Tab PO SCH (19:36)
[2016-11-19] MEDS: Latanoprost 0.005% Ophth Soln 2.5 ML Bottle EYEBOTH SCH (19:37)
[2016-11-20] MEDS: traMADol 50 MG Tab PO PRN (02:34)
[2016-11-20 07:19] VITALS: BP 144/78
[2016-11-20] MEDS: Calcium Carbonate/Vitamin D3 1500 MG-400 Units Tab PO SCH (07:34)
[2016-11-20] MEDS: Arformoterol 15 MCG/2 ML Neb Soln INH SCH (07:34)
[2016-11-20] MEDS: Citalopram 20 MG Tab PO SCH (07:34)
[2016-11-20] MEDS: Lactulose Soln 10 GM/15 ML 30 ML UD Cup PO SCH ×2 (07:34→07:38)
[2016-11-20] MEDS: Amoxicillin/Clavulanate K 875-125 MG Tab PO SCH (07:34)
[2016-11-20] MEDS: Folic Acid 1 MG Tab PO SCH (07:35)
[2016-11-20] MEDS: Magnesium Oxide 400 MG Tab PO SCH (07:35)
[2016-11-20] MEDS: Furosemide 20 MG Tab PO SCH (07:35)
[2016-11-20] MEDS: Pregabalin 25 MG Cap PO SCH ×2 (07:35→12:00)
[2016-11-20] MEDS: amLODIPine 5 MG Tab PO SCH (07:35)
[2016-11-20] MEDS: Famotidine 20 MG Tab PO SCH (07:36)
[2016-11-20] MEDS: Budesonide 0.5 MG/2 ML Neb Susp NEB SCH (07:36)
[2016-11-20] MEDS: Finasteride 5 MG Tab PO SCH (07:36)
[2016-11-20] MEDS: Cholecalciferol (Vitamin D3) 1,000 Unit Tab PO SCH (07:36)
--- NOTE | 2016-11-20 13:34 | PCM.PN ---
- General Info Date of Service: 11/20/16 Admission Dx/Problem (Free Text): Admission Diagnosis/Problem Admission Diagnosis/Problem UTI, Urinary tract infectious disease Functional Status: Reports: pain controlled - Review of Systems General: Reports: No Symptoms HEENT: Reports: no symptoms Pulmonary: Reports: shortness of breath Cardiovascular: Reports: No Symptoms Gastrointestinal: Reports: No symptoms Genitourinary: Reports: hematuria Musculoskeletal: Reports: no symptoms Skin: Reports: no symptoms Neurological: Reports: No Symptoms Psychiatric: Reports: no symptoms - Patient Data Vitals - most recent: Last Vital Signs Temp 97.7 F 11/20/16 07:18 Pulse 83 11/20/16 07:18 Resp 15 11/20/16 07:18 BP 144/78 H 11/20/16 07:35 Pulse Ox 91 L 11/20/16 07:18 Weight - most recent: 247 lb 11.135 oz I&O - last 24 hours: Intake & Output 11/19/16 11/20/16 11/20/16 22:59 06:59 14:59 Intake Total 240 250 840 Output Total 275 700 Balance -35 -450 840 Med Orders - Current: Current Medications Acetaminophen (Tylenol) 650 mg PO Q4H PRN PRN Reason: Fever/Pain Last Admin: 11/19/16 19:36 Dose: 650 mg Al Hydroxide/Mg Hydroxide (Mag-Al Plus) 30 ml PO Q4H PRN PRN Reason: Indigestion Amlodipine Besylate (Norvasc) 5 mg PO DAILY [facility] Last Admin: 11/20/16 07:35 Dose: 5 mg Amoxicillin/Clavulanate Potassium (Augmentin 875 Mg/125 Mg) 1 tab PO BID [facility] Stop: 11/23/16 08:01 Last Admin: 11/20/16 07:34 Dose: 1 tab Arformoterol Tartrate (Brovana) 15 mcg INH Q12HR [facility] Last Admin: 11/20/16 07:34 Dose: 15 mcg Belladonna Alkaloids/Opium (B & O Supprettes No. 16a) 1 supp RECTAL BID PRN PRN Reason: Moderate pain Budesonide (Pulmicort) 0.5 mg NEB BIDRT [facility] Last Admin: 11/20/16 07:36 Dose: 0.5 mg Calcium Carbonate (Caltrate 600+D 1500 Mg-400 Units) 1 tab PO BID [facility] Last Admin: 11/20/16 07:34 Dose: 1 tab Calcium Carbonate/Glycine (Tums Extra Strength) 750 mg PO Q2HR PRN PRN Reason: Indigestion Last Admin: 11/18/16 03:47 Dose: 750 mg Cholecalciferol (Vitamin D3) 2,000 units PO DAILY [facility] Last Admin: 11/20/16 07:36 Dose: 2,000 units Citalopram Hydrobromide (Celexa) 20 mg PO DAILY [facility] Last Admin: 11/20/16 07:34 Dose: 20 mg Docusate Sodium (Colace) 100 mg PO BID PRN PRN Reason: Constipation Famotidine (Pepcid) 20 mg PO Q12HR [facility] Last Admin: 11/20/16 07:36 Dose: 20 mg Finasteride (Proscar) 5 mg PO DAILY [facility] Last Admin: 11/20/16 07:36 Dose: 5 mg Folic Acid (Folic Acid) 1 mg PO DAILY [facility] Last Admin: 11/20/16 07:35 Dose: 1 mg Furosemide (Lasix) 20 mg PO DAILY [facility] Last Admin: 11/20/16 07:35 Dose: 20 mg Lactulose (Cephulac) 20 gm PO DAILY [facility] Last Admin: 11/20/16 07:38 Dose: Not Given Latanoprost (Xalatan 0.005% Oph Soln) 0 ml EYEBOTH BEDTIME [facility] Last Admin: 11/19/16 19:37 Dose: 1 drop Levothyroxine Sodium (Levothyroxine) 75 mcg PO DAILY@1400 [facility] Last Admin: 11/19/16 14:20 Dose: 75 mcg Magnesium Oxide (Magnesium Oxide) 400 mg PO BID [facility] Last Admin: 11/20/16 07:35 Dose: 400 mg Nitroglycerin (Nitrostat) 0.4 mg SL Q5M PRN PRN Reason: Chest Pain Protein Tablets 4 each PO DAILY@1700 [facility] Last Admin: 11/19/16 17:01 Dose: 4 each Pregabalin (Lyrica) 25 mg PO TID [facility] Last Admin: 11/20/16 12:00 Dose: 25 mg Simvastatin (Zocor) 10 mg PO BEDTIME [facility] Last Admin: 11/19/16 19:36 Dose: 10 mg Tramadol HCl (Ultram) 50 mg PO Q6HR PRN PRN Reason: moderate pain Last Admin: 11/20/16 02:34 Dose: 50 mg Verapamil HCl (Calan Sr) 240 mg PO DAILY@1700 [facility] Last Admin: 11/19/16 17:00 Dose: 240 mg Warfarin Sodium (Coumadin) 7.5 mg PO SUTUTHSA@1800 [facility] Last Admin: 11/19/16 17:03 Dose: 7.5 mg Discontinued Medications Verapamil HCl (Calan Sr) Confirm Administered Dose 120 mg .ROUTE .STK-MED ONE Stop: 11/17/16 16:10 Last Admin: 11/17/16 17:52 Dose: Not Given - Exam Quality Assessment: supplemental oxygen General: alert, cooperative HEENT: Pupils equal, Pupils reactive, EOMI, Mucous membr. moist/pink Neck: trachea midline, no JVD Lungs: Normal respiratory effort, Decreased breath sounds Cardiovascular: Regular Rate, Regular Rhythm Abdomen: bowel sounds present, soft, no tenderness, no distension (Male) Exam: Deferred Back Exam: Normal Inspection Extremities: no edema, no calf tenderness Skin: warm, dry, intact Neurological: no new focal deficit Psy/Mental Status: alert, normal affect, normal mood - Problem List & Annotations (1) Lower leg DVT (deep venous thromboembolism), chronic SNOMED Code(s): 159998299, 168500066, 086248894866013 Code(s): I82.5Z9 - CHR EMBLSM AND THOMBOS UNSP DEEP VN UNSP DISTAL LOW EXTRM Status: Acute Priority: Medium Current Visit: No Qualifiers: Laterality: unspecified laterality Qualified Code(s): I82.5Z9 - Chronic embolism and thrombosis of unspecified deep veins of unspecified distal lower extremity (2) Mood disorder Status: Acute Priority: Medium Current Visit: No (3) PVD (peripheral vascular disease) SNOMED Code(s): 991643760 Code(s): I73.9 - PERIPHERAL VASCULAR DISEASE, UNSPECIFIED Status: Acute Priority: Medium Current Visit: No (4) Respiratory failure, chronic SNOMED Code(s): 01604537 Code(s): J96.10 - CHRONIC RESPIRATORY FAILURE, UNSP W HYPOXIA OR HYPERCAPNIA Status: Acute Priority: Medium Current Visit: No Qualifiers: Respiratory failure complication: unspecified whether with hypoxia or hypercapnia Qualified Code(s): J96.10 - Chronic respiratory failure, unspecified whether with hypoxia or hypercapnia (5) UTI, Urinary tract infectious disease SNOMED Code(s): 58776255 Code(s): N39.0 - URINARY TRACT INFECTION, SITE NOT SPECIFIED Status: Acute Current Visit: No (6) Anemia SNOMED Code(s): 637781725 Code(s): D64.9 - ANEMIA, UNSPECIFIED Status: Chronic Priority: Medium Current Visit: No Qualifiers: Anemia type: unspecified type Qualified Code(s): D64.9 - Anemia, unspecified Annotation/Comment:: Mild progression of his previous anemia with no abdominal complaints or evidence of acute GI bleed. Note current Coumadin therapy. Continue to observe closely with further workup depending on his clinical course (7) Blood coagulation disorder SNOMED Code(s): 44509452 Code(s): D68.9 - COAGULATION DEFECT, UNSPECIFIED Status: Chronic Priority : Medium Current Visit: No (8) COPD (chronic obstructive pulmonary disease) SNOMED Code(s): 63457389 Code(s): J44.9 - CHRONIC OBSTRUCTIVE PULMONARY DISEASE, UNSPECIFIED Status : Chronic Priority: Medium Current Visit: No Qualifiers: COPD type: COPD with acute lower respiratory infection Qualified Code(s): J44.0 - Chronic obstructive pulmonary disease with acute lower respiratory infection (9) GERD (gastroesophageal reflux disease) SNOMED Code(s): 502576062 Code(s): K21.9 - GASTRO-ESOPHAGEAL REFLUX DISEASE WITHOUT ESOPHAGITIS Status: Chronic Priority: Medium Current Visit: No Qualifiers: Esophagitis presence: esophagitis presence not specified Qualified Code(s) : K21.9 - Gastro-esophageal reflux disease without esophagitis (10) Heart disease SNOMED Code(s): 16652019 Code(s): I51.9 - HEART DISEASE, UNSPECIFIED Status: Chronic Priority: Medium Current Visit: No Annotation/Comment:: Stable by history with no recent true anginal complaints, etc. and negative EKG, cardiac enzymes, etc. as above (11) Hypertension SNOMED Code(s): 66135892 Code(s): I10 - ESSENTIAL (PRIMARY) HYPERTENSION Status: Chronic Priority : Medium Current Visit: No Qualifiers: Hypertension type: essential hypertension Qualified Code(s): I10 - Essential (primary) hypertension Annotation/Comment:: Blood Pressures under good control in the emergency room (12) Hypoalbuminemia SNOMED Code(s): 247532637 Code(s): E88.09 - OTH DISORDERS OF PLASMA-PROTEIN METABOLISM, NEC Status: Chronic Priority: Medium Current Visit: No Annotation/Comment:: Consider initiation of high protein Glucerna supplement with caution secondary to his previous history of renal insufficiency (13) Hypomagnesemia SNOMED Code(s): 979578259 Code(s): E83.42 - HYPOMAGNESEMIA Status: Chronic Priority: Medium Current Visit: No Annotation/Comment:: Consider initiation of magnesium oxide therapy (14) Hypothyroidism SNOMED Code(s): 13951435 Code(s): E03.9 - HYPOTHYROIDISM, UNSPECIFIED Status: Chronic Priority: Medium Current Visit: No Annotation/Comment:: Stable by his history, TSH normal today (15) Migraine SNOMED Code(s): 15907708 Code(s): G43.909 - MIGRAINE, UNSP, NOT INTRACTABLE, WITHOUT STATUS MIGRAINOSUS Status: Chronic Priority: Medium Current Visit: No Annotation/Comment:: Symptomatically improved after medications provided. Advised to hydrate and rest today to avoid rebound. Follow up as needed. (16) Osteoarthritis SNOMED Code(s): 710994223 Code(s): M19.90 - UNSPECIFIED OSTEOARTHRITIS, UNSPECIFIED SITE Status: Chronic Priority: Medium Current Visit: No Qualifiers: Osteoarthritis location: multiple joints Osteoarthritis type: primary Qualified Code(s): M15.0 - Primary generalized (osteo)arthritis Annotation/Comment:: Stable by history with history of gout and chronic narcotic use (17) Polycythemia SNOMED Code(s): 239081490 Code(s): D75.1 - SECONDARY POLYCYTHEMIA Status: Chronic Priority: Medium Current Visit: No Onset Date: 09/12/15 Annotation/Comment:: Likely secondary to his COPD (18) Prostate cancer SNOMED Code(s): 727163092 Code(s): C61 - MALIGNANT NEOPLASM OF PROSTATE Status: Chronic Priority: Low Current Visit: No (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 INR today. Note d-dimer elevation with negative CTA of the chest for PE (20) Renal insufficiency SNOMED Code(s): 797494603, 754339122 Code(s): N28.9 - DISORDER OF KIDNEY AND URETER, UNSPECIFIED Status: Chronic Priority: Medium Current Visit: No Annotation/Comment:: History of chronic renal insufficiency with normal creatinine today and previous history of acute renal insufficiency requiring distant dialysis as above (21) Sleep apnea SNOMED Code(s): 22029190 Code(s): G47.30 - SLEEP APNEA, UNSPECIFIED Status: Chronic Priority: Medium Current Visit: No Onset Date: ~08/21/16 Qualifiers: Sleep apnea type: obstructive Qualified Code(s): G47.33 - Obstructive sleep apnea (adult) (pediatric) Annotation/Comment:: Auto-CPAP should be initiated JUSTYN (22) Hematuria, gross SNOMED Code(s): 710171944 Code(s): R31.0 - GROSS HEMATURIA Status: Resolved Priority: High Current Visit: No - Problem List Review Problem List Initiated/Reviewed/Updated: Yes - My Orders Last 24 Hours: My Active Orders 11/20/16 13:29 Ready for Discharge [RC] PER UNIT ROUTINE - Plan Plan:: 11/15/2016 Beatrice Lang MD Recent hospitalized for complex UTI, chronic respiratory failure (pO2 ~57%). Now requires swing bed status for PT-OT due to weakness. 11/16/2016 Patient having left sided neck pain after waking up this morning. Patient states having this in [place] and it started after he started to wear the new type of mask at night. Hurts to turn neck to the left side, heating pad applied with relief. Will order INR as patient is on coumadin therapy for blood clotting disorder. Continue with PT for strengthening. Loenie Franco,JOSE 11/20/16 Beatrice Lang MD Ready to go home.
--- NOTE | 2016-11-20 13:35 | PCM.DCSUM1 ---
Discharge Summary - Discharge Data Discharge Date: 11/20/16 Discharge Disposition: Home, Self-Care 01 Condition: Good - Discharge Diagnosis/Problem(s) (1) Lower leg DVT (deep venous thromboembolism), chronic SNOMED Code(s): 382506238, 242940921, [id number] ICD Code: I82.5Z9 - CHR EMBLSM AND THOMBOS UNSP DEEP VN UNSP DISTAL LOW EXTRM Status: Acute Priority: Medium Current Visit: No Qualifiers: Laterality: unspecified laterality Qualified Code(s): I82.5Z9 - Chronic embolism and thrombosis of unspecified deep veins of unspecified distal lower extremity (2) Mood disorder Status: Acute Priority: Medium Current Visit: No (3) PVD (peripheral vascular disease) SNOMED Code(s): 302423694 ICD Code: I73.9 - PERIPHERAL VASCULAR DISEASE, UNSPECIFIED Status: Acute Priority: Medium Current Visit: No (4) Respiratory failure, chronic SNOMED Code(s): 28831582 ICD Code: J96.10 - CHRONIC RESPIRATORY FAILURE, UNSP W HYPOXIA OR HYPERCAPNIA Status: Acute Priority: Medium Current Visit: No Qualifiers: Respiratory failure complication: unspecified whether with hypoxia or hypercapnia Qualified Code(s): J96.10 - Chronic respiratory failure, unspecified whether with hypoxia or hypercapnia (5) UTI, Urinary tract infectious disease SNOMED Code(s): 26283914 ICD Code: N39.0 - URINARY TRACT INFECTION, SITE NOT SPECIFIED Status: Acute Current Visit: No (6) Anemia SNOMED Code(s): 963457995 ICD Code: D64.9 - ANEMIA, UNSPECIFIED Status: Chronic Priority: Medium Current Visit: No Problem Details: Mild progression of his previous anemia with no abdominal complaints or evidence of acute GI bleed. Note current Coumadin therapy. Continue to observe closely with further workup depending on his clinical course Qualifiers: Anemia type: unspecified type Qualified Code(s): D64.9 - Anemia, unspecified (7) Blood coagulation disorder SNOMED Code(s): 59711858 ICD Code: D68.9 - COAGULATION DEFECT, UNSPECIFIED Status: Chronic Priority: Medium Current Visit: No (8) COPD (chronic obstructive pulmonary disease) SNOMED Code(s): 74820693 ICD Code: J44.9 - CHRONIC OBSTRUCTIVE PULMONARY DISEASE, UNSPECIFIED Status : Chronic Priority: Medium Current Visit: No Qualifiers: COPD type: COPD with acute lower respiratory infection Qualified Code(s): J44.0 - Chronic obstructive pulmonary disease with acute lower respiratory infection (9) GERD (gastroesophageal reflux disease) SNOMED Code(s): 643437788 ICD Code: K21.9 - GASTRO-ESOPHAGEAL REFLUX DISEASE WITHOUT ESOPHAGITIS Status: Chronic Priority: Medium Current Visit: No Qualifiers: Esophagitis presence: esophagitis presence not specified Qualified Code(s) : K21.9 - Gastro-esophageal reflux disease without esophagitis (10) Heart disease SNOMED Code(s): 84569230 ICD Code: I51.9 - HEART DISEASE, UNSPECIFIED Status: Chronic Priority: Medium Current Visit: No Problem Details: Stable by history with no recent true anginal complaints, etc. and negative EKG, cardiac enzymes, etc. as above (11) Hypertension SNOMED Code(s): 98460361 ICD Code: I10 - ESSENTIAL (PRIMARY) HYPERTENSION Status: Chronic Priority : Medium Current Visit: No Problem Details: Blood Pressures under good control in the emergency room Qualifiers: Hypertension type: essential hypertension Qualified Code(s): I10 - Essential (primary) hypertension (12) Hypoalbuminemia SNOMED Code(s): 653263368 ICD Code: E88.09 - OTH DISORDERS OF PLASMA-PROTEIN METABOLISM, NEC Status: Chronic Priority: Medium Current Visit: No Problem Details: Consider initiation of high protein Glucerna supplement with caution secondary to his previous history of renal insufficiency (13) Hypomagnesemia SNOMED Code(s): 500067036 ICD Code: E83.42 - HYPOMAGNESEMIA Status: Chronic Priority: Medium Current Visit: No Problem Details: Consider initiation of magnesium oxide therapy (14) Hypothyroidism SNOMED Code(s): 37562725 ICD Code: E03.9 - HYPOTHYROIDISM, UNSPECIFIED Status: Chronic Priority: Medium Current Visit: No Problem Details: Stable by his history, TSH normal today (15) Migraine SNOMED Code(s): 01978083 ICD Code: G43.909 - MIGRAINE, UNSP, NOT INTRACTABLE, WITHOUT STATUS MIGRAINOSUS Status: Chronic Priority: Medium Current Visit: No Problem Details: Symptomatically improved after medications provided. Advised to hydrate and rest today to avoid rebound. Follow up as needed. (16) Osteoarthritis SNOMED Code(s): 443325175 ICD Code: M19.90 - UNSPECIFIED OSTEOARTHRITIS, UNSPECIFIED SITE Status: Chronic Priority: Medium Current Visit: No Problem Details: Stable by history with history of gout and chronic narcotic use Qualifiers: Osteoarthritis location: multiple joints Osteoarthritis type: primary Qualified Code(s): M15.0 - Primary generalized (osteo)arthritis (17) Polycythemia SNOMED Code(s): 760597260 ICD Code: D75.1 - SECONDARY POLYCYTHEMIA Status: Chronic Priority: Medium Current Visit: No Onset Date: 09/12/15 Problem Details: Likely secondary to his COPD (18) Prostate cancer SNOMED Code(s): 774281159 ICD Code: C61 - MALIGNANT NEOPLASM OF PROSTATE Status: Chronic Priority: Low Current Visit: No (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 INR today. Note d-dimer elevation with negative CTA of the chest for PE (20) Renal insufficiency SNOMED Code(s): 953330752, 320166925 ICD Code: N28.9 - DISORDER OF KIDNEY AND URETER, UNSPECIFIED Status: Chronic Priority: Medium Current Visit: No Problem Details: History of chronic renal insufficiency with normal creatinine today and previous history of acute renal insufficiency requiring distant dialysis as above (21) Sleep apnea SNOMED Code(s): 07592729 ICD Code: G47.30 - SLEEP APNEA, UNSPECIFIED Status: Chronic Priority: Medium Current Visit: No Onset Date: ~08/21/16 Problem Details: Auto-CPAP should be initiated JUSTYN Qualifiers: Sleep apnea type: obstructive Qualified Code(s): G47.33 - Obstructive sleep apnea (adult) (pediatric) (22) Hematuria, gross SNOMED Code(s): 712161994 ICD Code: R31.0 - GROSS HEMATURIA Status: Resolved Priority: High Current Visit: No - Patient Summary/Data Consults: Consultations 11/15/16 14:03 Consult to Physical Therapy [PT Evaluation and Treatment] [CONS] Routine 11/15/16 14:04 Care Management Consult [Consult to Case Management] [CONS] Routine Consult to Occupational Therapy [OT Evaluation and Treatment] [CONS] Routine - Patient Instructions Diet: Usual Diet as Tolerated Activity: As Tolerated Driving: Do Not Drive Showering/Bathing: May Shower - Discharge Plan Prescriptions/Med Rec: Amoxicillin/Potassium Clav [Augmentin 875-125 Tablet] 1 each PO BID #10 tablet Home Medications: Home Meds Citalopram [Citalopram HBr] 20 mg PO DAILY 08/07/13 [History] Levothyroxine 75 mcg PO QAM 08/07/13 [History] Pregabalin [Lyrica] 25 mg PO TID 08/07/13 [History] amLODIPine [Norvasc] 5 mg PO DAILY 08/07/13 [History] Cholecalciferol (Vitamin D3) [Vitamin D3] 2,000 units PO DAILY 06/12/14 [History ] Latanoprost [Xalatan 0.005% Ophth Soln] 1 drop EYEBOTH BEDTIME 06/12/14 [History ] Nitroglycerin [Nitrostat] 1 tab SL ASDIRECTED PRN 06/12/14 [History] Simvastatin [Zocor] 10 mg PO BEDTIME 11/12/15 [History] Ranitidine [Zantac] 150 mg PO BID #60 tab 11/17/15 [Rx] Albuterol/Ipratropium [DuoNeb 3.0-0.5 MG/3 ML] 1 ampule INH Q4H PRN 03/19/16 [ History] Folic Acid 1 mg PO DAILY 03/19/16 [History] Acetaminophen 650 mg PO Q4HR PRN 07/26/16 [History] Furosemide 20 mg PO DAILY 07/26/16 [History] Calcium Carbonate/Vitamin D3 [Liquid Calcium 600-Vit D3 Sfgl] 1 each PO BID 01/13 [History] Finasteride 5 mg PO DAILY 11/02/16 [History] Verapamil HCl [Verapamil ER] 240 mg PO DAILY@1700 11/02/16 [History] Warfarin [Coumadin] 7.5 mg PO SUTUTHSA@1800 11/02/16 [History] Aspirin [Halfprin] 324 mg PO DAILY 11/15/16 [History] Belladonna/Opium [B & O Supprettes No. 16A] 1 supp RECTAL BID PRN 11/15/16 [ History] Budesonide [Pulmicort] 0.5 mg NEB BIDRT 11/15/16 [History] Docusate Sodium [Colace] 100 mg PO BID PRN 11/15/16 [History] Formoterol [Perforomist] 1 dose INH BID 11/15/16 [History] Lactulose [Cephulac] 20 gm PO DAILY 11/15/16 [History] Magnesium Oxide 400 mg PO BID 11/15/16 [History] Non-Formulary Medication [NF Drug] 4 tab PO 1700 11/15/16 [History] traMADol [Ultram] 50 mg PO Q6HR PRN 11/15/16 [History] Amoxicillin/Potassium Clav [Augmentin 875-125 Tablet] 1 each PO BID #10 tablet 11/20/16 [Rx] Patient Handouts: Urinary Tract Infection, Adult, [id number] - Discharge Summary/Plan Comment DC Time >30 min.: No - Patient Data Vitals - Most Recent: Last Vital Signs Temp 97.7 F 11/20/16 07:18 Pulse 83 11/20/16 07:18 Resp 15 11/20/16 07:18 BP 144/78 H 11/20/16 07:35 Pulse Ox 91 L 11/20/16 07:18 Weight - Most Recent: 247 lb 11.135 oz I&O - Last 24 hours: Intake & Output 11/19/16 11/20/16 11/20/16 22:59 06:59 14:59 Intake Total 240 250 840 Output Total 275 700 Balance -35 -450 840 Med Orders - Current: Current Medications Acetaminophen (Tylenol) 650 mg PO Q4H PRN PRN Reason: Fever/Pain Last Admin: 11/19/16 19:36 Dose: 650 mg Al Hydroxide/Mg Hydroxide (Mag-Al Plus) 30 ml PO Q4H PRN PRN Reason: Indigestion Amlodipine Besylate (Norvasc) 5 mg PO DAILY [facility] Last Admin: 11/20/16 07:35 Dose: 5 mg Amoxicillin/Clavulanate Potassium (Augmentin 875 Mg/125 Mg) 1 tab PO BID ROLAND Stop: 11/23/16 08:01 Last Admin: 11/20/16 07:34 Dose: 1 tab Arformoterol Tartrate (Brovana) 15 mcg INH Q12HR ROLAND Last Admin: 11/20/16 07:34 Dose: 15 mcg Belladonna Alkaloids/Opium (B & O Supprettes No. 16a) 1 supp RECTAL BID PRN PRN Reason: Moderate pain Budesonide (Pulmicort) 0.5 mg NEB BIDRT [facility] Last Admin: 11/20/16 07:36 Dose: 0.5 mg Calcium Carbonate (Caltrate 600+D 1500 Mg-400 Units) 1 tab PO BID [facility] Last Admin: 11/20/16 07:34 Dose: 1 tab Calcium Carbonate/Glycine (Tums Extra Strength) 750 mg PO Q2HR PRN PRN Reason: Indigestion Last Admin: 11/18/16 03:47 Dose: 750 mg Cholecalciferol (Vitamin D3) 2,000 units PO DAILY [facility] Last Admin: 11/20/16 07:36 Dose: 2,000 units Citalopram Hydrobromide (Celexa) 20 mg PO DAILY [facility] Last Admin: 11/20/16 07:34 Dose: 20 mg Docusate Sodium (Colace) 100 mg PO BID PRN PRN Reason: Constipation Famotidine (Pepcid) 20 mg PO Q12HR [facility] Last Admin: 11/20/16 07:36 Dose: 20 mg Finasteride (Proscar) 5 mg PO DAILY [facility] Last Admin: 11/20/16 07:36 Dose: 5 mg Folic Acid (Folic Acid) 1 mg PO DAILY [facility] Last Admin: 11/20/16 07:35 Dose: 1 mg Furosemide (Lasix) 20 mg PO DAILY [facility] Last Admin: 11/20/16 07:35 Dose: 20 mg Lactulose (Cephulac) 20 gm PO DAILY [facility] Last Admin: 11/20/16 07:38 Dose: Not Given Latanoprost (Xalatan 0.005% [facility]) 0 ml EYEBOTH BEDTIME [facility] Last Admin: 11/19/16 19:37 Dose: 1 drop Levothyroxine Sodium (Levothyroxine) 75 mcg PO DAILY@1400 [facility] Last Admin: 11/19/16 14:20 Dose: 75 mcg Magnesium Oxide (Magnesium Oxide) 400 mg PO BID [facility] Last Admin: 11/20/16 07:35 Dose: 400 mg Nitroglycerin (Nitrostat) 0.4 mg SL Q5M PRN PRN Reason: Chest Pain Protein Tablets 4 each PO DAILY@1700 [facility] Last Admin: 11/19/16 17:01 Dose: 4 each Pregabalin (Lyrica) 25 mg PO TID [facility] Last Admin: 11/20/16 12:00 Dose: 25 mg Simvastatin (Zocor) 10 mg PO BEDTIME [facility] Last Admin: 11/19/16 19:36 Dose: 10 mg Tramadol HCl (Ultram) 50 mg PO Q6HR PRN PRN Reason: moderate pain Last Admin: 11/20/16 02:34 Dose: 50 mg Verapamil HCl (Calan Sr) 240 mg PO DAILY@1700 [facility] Last Admin: 11/19/16 17:00 Dose: 240 mg Warfarin Sodium (Coumadin) 7.5 mg PO SUTUTHSA@1800 [facility] Last Admin: 11/19/16 17:03 Dose: 7.5 mg Discontinued Medications Verapamil HCl (Calan Sr) Confirm Administered Dose 120 mg .ROUTE .K-MED ONE Stop: 11/17/16 16:10 Last Admin: 11/17/16 17:52 Dose: Not Given *Q Meaningful Use (DIS) - VTE *Q VTE Criteria *Q: - Stroke *Q Stroke Criteria *Q: - AMI *Q AMI Criteria *Q:
== END 2016-11-20 14:20 | disposition home health service (06) | DRG 948 ==
LOC: LL.MS 12:40
PROVIDERS: ADMIT Family Medicine; ATTEND Family Medicine
DX: R53.1 Weakness (principal); N39.0 Urinary tract infection, site not specified; J96.11 Chronic respiratory failure with hypoxia; I42.9 Cardiomyopathy, unspecified; I82.5Z9 Chronic embolism and thrombosis of unspecified deep veins of unspecified distal lower extremity; D68.9 Coagulation defect, unspecified; D68.59 Other primary thrombophilia; I13.0 Hypertensive heart and chronic kidney disease with heart failure and stage 1 through stage 4 chronic kidney disease, or unspecified chronic kidney disease; Z79.01 Long term (current) use of anticoagulants; Z79.82 Long term (current) use of aspirin; Z79.899 Other long term (current) drug therapy; I50.9 Heart failure, unspecified; J44.9 Chronic obstructive pulmonary disease, unspecified; K21.9 Gastro-esophageal reflux disease without esophagitis; K44.9 Diaphragmatic hernia without obstruction or gangrene; E21.3 Hyperparathyroidism, unspecified; I73.9 Peripheral vascular disease, unspecified; D64.9 Anemia, unspecified; E88.09 Other disorders of plasma-protein metabolism, not elsewhere classified; E83.42 Hypomagnesemia; M19.90 Unspecified osteoarthritis, unspecified site; G43.909 Migraine, unspecified, not intractable, without status migrainosus; D75.1 Secondary polycythemia; Z99.81 Dependence on supplemental oxygen; N18.9 Chronic kidney disease, unspecified; G47.33 Obstructive sleep apnea (adult) (pediatric); Z85.46 Personal history of malignant neoplasm of prostate; E03.9 Hypothyroidism, unspecified; F32.9 Major depressive disorder, single episode, unspecified; H40.9 Unspecified glaucoma; E78.00 Pure hypercholesterolemia, unspecified; K59.09 Other constipation; M54.9 Dorsalgia, unspecified; M32.9 Systemic lupus erythematosus, unspecified; G89.4 Chronic pain syndrome; Z86.711 Personal history of pulmonary embolism; Z92.21 Personal history of antineoplastic chemotherapy; Z92.3 Personal history of irradiation; Z96.649 Presence of unspecified artificial hip joint; Z96.659 Presence of unspecified artificial knee joint; Z88.5 Allergy status to narcotic agent; F39 Unspecified mood [affective] disorder
CPT/HCPCS: 36415; 80053; 82550; 82803; 83735; 84550; 85025; 85610; 94640; 94664; 97110-GP; 97116-GP; 97161-GP; 97165-GO; 97535-GO; A9270-GY

== ENCOUNTER 2016-12-18 19:38 | Emergency (ER) | payer MEDICARE, MEDICAID ==
--- NOTE | 2016-12-18 19:41 | EDM.PDOC ---
ED HPI GENERAL MEDICAL PROBLEM - General Chief Complaint: General Stated Complaint: L) knee bruising and pain Time Seen by Provider: 12/18/16 19:40 Source of Information: Reports: Patient, Family (), Old Records ([facility] chart/EMR) History Limitations: Reports: No Limitations - History of Present Illness INITIAL COMMENTS - FREE TEXT/NARRATIVE: The patient was brought to the emergency room via private automobile by his for evaluation of mild left leg and knee pain with possible mild increased dependent edema in this extremity since yesterday evening. They did notice a mild bruise over the medial left knee this morning, however no recent history of fall, injury, joint instability, etc. The patient is currently on Coumadin therapy with known previous history of recurrent DVTs as below. The patient denies any chest pain/pressure, heart flutter, dizziness, orthostasis, orthopnea , diaphoresis, paresthesias, recent decreased exercise tolerance, or any other anginal-type symptoms. No recent history of abdominal pain, heartburn, nausea, diarrhea, melena, gross hematochezia, or any food intolerance, including fatty foods, etc.. The patient also denies any recent fever, cough, wheezing, dyspnea , etc.. He did take 650 mg of Tylenol at 12:00 hours yesterday evening but no other therapy to this point Onset: Gradual, Unknown/Unsure Onset Date: 12/17/16 Duration: Getting Worse Location: Reports: Lower Extremity, Left. Denies: Head, Face, Neck, Chest, Abdomen, Back, Pelvis, Upper Extremity, Left, Upper Extremity, Right, Lower Extremity, Right, Radiates to Quality: Reports: Ache, Same as Previous Episode Severity: Mild Improves with: Reports: Rest Worsens with: Reports: Movement Context: Reports: Other (As above) Associated Symptoms: Denies: Confusion, Chest Pain, Cough, Diaphoresis, Fever/ Chills, Headaches, Loss of Appetite, Nausea/Vomiting, Shortness of Breath, Syncope, Weakness Treatments ART PREPARATOR: Reports: Other (see below) (None) - Related Data Allergies Allergy/AdvReac Type Severity Reaction Status Date / Time codeine Allergy Nausea Verified 12/18/16 19:42 Penicillins Allergy Hives Verified 12/18/16 19:42 Home Meds: Home Meds Citalopram [Citalopram HBr] 20 mg PO DAILY 08/07/13 [History] Levothyroxine 75 mcg PO QAM 08/07/13 [History] Pregabalin [Lyrica] 25 mg PO TID 08/07/13 [History] amLODIPine [Norvasc] 5 mg PO DAILY 08/07/13 [History] Cholecalciferol (Vitamin D3) [Vitamin D3] 2,000 units PO DAILY 06/12/14 [History ] Latanoprost [Xalatan 0.005% Ophth Soln] 1 drop EYEBOTH BEDTIME 06/12/14 [History ] Nitroglycerin [Nitrostat] 1 tab SL ASDIRECTED PRN 06/12/14 [History] Simvastatin [Zocor] 10 mg PO BEDTIME 11/12/15 [History] Ranitidine [Zantac] 150 mg PO BID #60 tab 11/17/15 [Rx] Albuterol/Ipratropium [DuoNeb 3.0-0.5 MG/3 ML] 1 ampule INH Q4H PRN 03/19/16 [ History] Folic Acid 1 mg PO DAILY 03/19/16 [History] Acetaminophen 650 mg PO Q4HR PRN 07/26/16 [History] Furosemide 20 mg PO DAILY 07/26/16 [History] Calcium Carbonate/Vitamin D3 [Liquid Calcium 600-Vit D3 Sfgl] 1 each PO BID 01/13 [History] Finasteride 5 mg PO DAILY 11/02/16 [History] Verapamil HCl [Verapamil ER] 240 mg PO DAILY@1700 11/02/16 [History] Warfarin [Coumadin] 7.5 mg PO SUTUTHSA@1800 11/02/16 [History] Aspirin [Halfprin] 324 mg PO DAILY 11/15/16 [History] Belladonna/Opium [B & O Supprettes No. 16A] 1 supp RECTAL BID PRN 11/15/16 [ History] Budesonide [Pulmicort] 0.5 mg NEB BIDRT 11/15/16 [History] Docusate Sodium [Colace] 100 mg PO BID PRN 11/15/16 [History] Formoterol [Perforomist] 1 dose INH BID 11/15/16 [History] Lactulose [Cephulac] 20 gm PO DAILY 11/15/16 [History] Magnesium Oxide 400 mg PO BID 11/15/16 [History] Non-Formulary Medication [NF Drug] 4 tab PO 1700 11/15/16 [History] traMADol [Ultram] 50 mg PO Q6HR PRN 11/15/16 [History] Past Medical History HEENT History: Reports: Cataract, Glaucoma, Impaired Vision, Other (See Below) Other HEENT History: Patient wears reading glasses Cardiovascular History: Reports: Aneurysm, Arrhythmia, Blood Clots/VTE/DVT, Cardiomyopathy, Heart Failure, High Cholesterol, Hypertension, PVD, Other (See Below) Other Cardiovascular History: Varicose veins, recurrent DVTs since 1980 including DVT of the abdomen and legs with 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 Gastrointestinal History: Reports: Chronic Constipation, Diverticulosis, GERD, Hiatal Hernia Genitourinary History: Reports: Acute Renal Failure, BPH, Chronic Renal Insuffiency, Dialysis, Renal Disease, Urinary Incontinence Other Genitourinary History: History of DIALYSIS due to acute renal failure- resolved chronic renal insufficiency, BPH with additional history of prostate cancer Musculoskeletal History: Reports: Arthritis, Back Pain, Chronic, Fracture, Gout , Neck Pain, Chronic, Osteoarthritis, SLE, Other (See Below) Other Musculoskeletal History: Chronic pain syndrome with previous history chronic narcotic use, bilateral wrist fractures as a child at about age 13, right-sided rib fracture secondary to respiratory code on 08/14/16 as above Neurological History: Reports: Headaches, Chronic, Migraines, Neuropathy, Peripheral, Other (See Below) Other Neuro History: Chronic left leg weakness secondary to previous osteomyelitis, chronic pain syndrome with chronic narcotic use. 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 Immunologic History: Reports: None Oncologic (Cancer) History: Reports: Prostate, Other (See Below) Other Oncologic History: 37 radiation treatments for prostate cancer with additional chemotherapy and status post prostatectomy in 2012 Dermatologic History: Reports: Venous Stasis Dermatitis, Other (See Below) Other Dermatologic History: Venous stasis ulcer of the right anterior tibial region with skin graft as below - Infectious Disease History Infectious Disease History: Reports: Chicken Pox, Measles, Mumps - Past Surgical History Head Surgeries/Procedures: Reports: None HEENT Surgical History: Reports: Cataract Surgery, Oral Surgery, Tonsillectomy, Other (See Below) Cardiovascular Surgical History: Reports: Other (See Below) GI Surgical History: Reports: Appendectomy, Colonoscopy, EGD, Miley Fundoplication Male Surgical History: Reports: Circumcision, Prostatectomy, Other (See Below ) Endocrine Surgical History: Reports: None Musculoskeletal Surgical History: Reports: Carpal Tunnel, Hip Replacement, Joint Replacement, Knee Replacement, Shoulder Surgery, Other (See Below) Oncologic Surgical History: Reports: Other (See Below) Dermatological Surgical History: Reports: Skin Graft - Past Imaging History Past Imaging History: Reports: Cardiac Echo (Last echocardiogram on with results not available with previous echocardiogram on 01/17/15 with ejection fraction of 5055 percent), CAT Scan (CTA of the chest on 09/02/16, CT of the chest, abdomen, and pelvis on 11/22/16, CT of the head, chest, and abdomen on , CT of the soft tissue of the neck on 11/21/15 and 11/16/15, CT of the chest on 07/04/12, CT of the abdomen and pelvis on 01/08/15, 12/19/12, and 07/04/12, CT of the brain on 08/07/13 and 02/04/14), DEXA Scan (07/09/12), Sleep Study (08/21/16 ), Swallow Study (08/22/16), Ultrasound (Renal ultrasound on 04/17/16, thyroid ultrasound on 11/16/15, bladder ultrasound and abdominal ultrasound on 12/24/12), Venous Doppler (Left leg on 07/26/16, right leg on 05/11/14) Social & Family History - Family History Family Medical History: Noncontributory HEENT: Reports: None Cardiac: Reports: Blood Clots/VTE/DVT, CAD, Heart Failure, RI, Other (See Below) Other Cardiac Family History: Father with probable fatal RI and CHF at age 78, father with recurrent DVTs Respiratory: Reports: None GI: Reports: None : Reports: Diabetic Nephropathy, Renal Disease/Insufficiency, Other (See Below ) Other Family History: mother with diabetic nephropathy Musculoskeletal: Reports: Arthritis, Osteoarthritis, Other (See Below) Other Musculoskeletal Family History: Father with osteoarthritis Neurological: Reports: Other (See Below) Other Neurological Family History: Son with fatal muscular dystrophy at age 21 Psychiatric: Reports: None Endocrine/Metabolic: Reports: Diabetes, type II, IDDM, Other (See Below) Other Endocrine/Metabolic Family History: Mother, maternal aunt, and paternal uncle with IDDM Hematologic: Reports: None Immunologic: Reports: None Dermatologic: Reports: None Oncologic: Reports: None - Tobacco Use Smoking Status *Q: Never Smoker Second Hand Smoke Exposure: No - Caffeine Use Caffeine Use: Reports: Coffee, Soda - Alcohol Use Days Per Week of Alcohol Use: 0 Number of Drinks Per Day: 0 Total Drinks Per Week: 0 - Recreational Drug Use Recreational Drug Use: No Drug Use in Last 12 Months: No Recreational Drug Type: Denies: Amphetamines (Speed), Cocaine, Heroin, Inhalants (Glues, Solvents, Aerosols), LSD (Acid), Marijuana/Hashish, Methamphetamine, Morphine Recreational Drug Use Frequency: Daily - Living Situation & Occupation Living situation: Reports: , with Family Occupation: Retired ED ROS GENERAL - Review of Systems Review Of Systems: ROS reveals no pertinent complaints other than HPI. ED EXAM, GENERAL - Physical Exam Exam: See Below Exam Limited By: No Limitations General Appearance: Alert, WD/WN, No Apparent Distress Head: Atraumatic, Normocephalic Neck: Normal Inspection, Supple, Non-Tender, Full Range of Motion. No: Lymphadenopathy (L), Lymphadenopathy (R), Thyromegaly Respiratory/Chest: No Respiratory Distress, Lungs Clear, Normal Breath Sounds, No Accessory Muscle Use, Chest Non-Tender. No: Pleural Rub, Retractions Cardiovascular: Normal Peripheral Pulses, Regular Rate, Rhythm, No Gallop, No JVD, No Murmur, No Rub. No: No Edema (Dependent edema as below), Gallop/S3, Gallop/S4, Friction Rub Peripheral Pulses: 2+: Radial (L), Radial (R), Dorsalis Pedis (L), Dorsalis Pedis (R) GI/Abdominal: Normal Bowel Sounds, Soft, Non-Tender, No Organomegaly, No Distention, No Abnormal Bruit, No Mass, Pelvis Stable, Other (Obese). No: Guarding (Male) Exam: Deferred Rectal (Males) Exam: Deferred Back Exam: Normal Inspection, Full Range of Motion. No: CVA Tenderness (L), CVA Tenderness (R), Muscle Spasm Extremities: Normal Range of Motion, Pedal Edema (+1 bilateral pedal/pretibial edema), Leg Pain (Mild Localized palpation pain over area of 3 cm in diameter mild ecchymosis over than left medial knee region with no joint instability, effusion, etc.). No: Sean's Sign Neurological: Alert, Oriented, CN II-XII Intact, Normal Cognition, Normal Gait, No Motor/Sensory Deficits Psychiatric: Normal Affect, Normal Mood Skin Exam: Warm, Dry, Intact, Ecchymosis (As above). No: Petechiae, Wound/ Incision Lymphatic: No Adenopathy Course - Vital Signs Last Recorded V/S: Last Vital Signs Temp 36.6 C 12/18/16 21:00 Pulse 88 12/18/16 21:00 Resp 20 12/18/16 21:00 BP 110/62 12/18/16 21:00 Pulse Ox 95 12/18/16 21:00 Vital Signs - 24 hr 12/18/16 21:00 Temperature [ 36.6 C Oral] Pulse, 88 Peripheral [ Right Pulse Oximetry] Respiratory 20 Rate Blood Pressure 110/62 [Right Upper Arm] O2 Sat by Pulse 95 Oximetry - Orders/Labs/Meds Orders: Active Orders 24 hr Category Date Time Status Obtain Past Medical Record [OM.PC] Routine Oth 12/18/16 19:41 Active Labs: Laboratory Tests 12/18/16 12/18/16 12/18/16 Range/Units 19:54 19:54 19:54 WBC 6.3 (4.0-10.2) K/uL RBC 3.60 L (4.33-5.41) M/uL Hgb 10.5 L (13.1-16.8) g/dL Hct 33.6 L (39.0-49.0) % MCV 93.3 D (84.0-98.0) fL MCH 29.2 (28.2-33.3) pg MCHC 31.3 L (31.7-36.0) g/dL RDW 15.6 H (11.2-14.1) % Plt Count 165 D (150-350) K/uL Neut % (Auto) 73.6 (45.0-80.0) % Lymph % (Auto) 13.5 (10.0-50.0) % Chilton % (Auto) 8.4 (2.0-14.0) % Eos % (Auto) 3.5 (0.0-5.0) % Baso % (Auto) 1.0 (0.0-2.0) % Neut # (Auto) 4.64 (1.40-7.00) K/uL Lymph # (Auto) 0.85 (0.50-3.50) K/uL [place] # (Auto) 0.53 (0.00-1.00) K/uL Eos # (Auto) 0.22 (0.00-0.50) K/uL Baso # (Auto) 0.06 (0.00-0.20) K/uL PT (9.8-11.7) SEC INR D-Dimer, Quantitative 913 H (0-400) ng/mL Sodium 139 (136-145) mmol/L Potassium 3.9 (3.5-5.1) mmol/L Chloride 103 (98-107) mmol/L Carbon Dioxide 32.5 H (21.0-32.0) mmol/L BUN 30 H (7-18) mg/dL Creatinine 1.21 H (0.51-1.17) mg/dL Est Cr Clr Drug Dosing TNP Estimated GFR (MDRD) 59 mL/min Glucose 119 H (74-106) mg/dL Calcium 9.0 (8.5-10.1) mg/dL Total Bilirubin 0.2 (0.2-1.0) mg/dL AST 18 (15-37) U/L ALT 19 (12-78) U/L Alkaline Phosphatase 105 (46-116) IU/L Total Protein 7.1 (6.4-8.2) g/dL Albumin 3.2 L (3.4-5.0) g/dL 12/18/16 Range/Units 19:54 WBC (4.0-10.2) K/uL RBC (4.33-5.41) M/uL Hgb (13.1-16.8) g/dL Hct (39.0-49.0) % MCV (84.0-98.0) fL MCH (28.2-33.3) pg MCHC (31.7-36.0) g/dL RDW (11.2-14.1) % Plt Count (150-350) K/uL Neut % (Auto) (45.0-80.0) % Lymph % (Auto) (10.0-50.0) % Chilton % (Auto) (2.0-14.0) % Eos % (Auto) (0.0-5.0) % Baso % (Auto) (0.0-2.0) % Neut # (Auto) (1.40-7.00) K/uL Lymph # (Auto) (0.50-3.50) K/uL [place]ilton # (Auto) (0.00-1.00) K/uL Eos # (Auto) (0.00-0.50) K/uL Baso # (Auto) (0.00-0.20) K/uL PT 34.9 H D (9.8-11.7) SEC INR 3.1 D-Dimer, Quantitative (0-400) ng/mL Sodium (136-145) mmol/L Potassium (3.5-5.1) mmol/L Chloride (98-107) mmol/L Carbon Dioxide (21.0-32.0) mmol/L BUN (7-18) mg/dL Creatinine (0.51-1.17) mg/dL Est Cr Clr Drug Dosing Estimated GFR (MDRD) mL/min Glucose (74-106) mg/dL Calcium (8.5-10.1) mg/dL Total Bilirubin (0.2-1.0) mg/dL AST (15-37) U/L ALT (12-78) U/L Alkaline Phosphatase (46-116) IU/L Total Protein (6.4-8.2) g/dL Albumin (3.4-5.0) g/dL Meds: None - Radiology Interpretation Free Text/Narrative:: None Departure - Departure Time of Disposition: 21:30 Disposition: Home, Self-Care 01 Condition: Good Clinical Impression: Protein S deficiency, Peptic reflux disease, Renal insufficiency, Heart disease Congestive heart failure Qualifiers: Congestive heart failure type: unspecified congestive heart failure type Congestive heart failure chronicity: acute on chronic Qualified Code(s): I50.9 - Heart failure, unspecified COPD (chronic obstructive pulmonary disease) Qualifiers: COPD type: COPD with acute lower respiratory infection Qualified Code(s): J44.0 - Chronic obstructive pulmonary disease with acute lower respiratory infection GERD (gastroesophageal reflux disease) Qualifiers: Esophagitis presence: esophagitis presence not specified Qualified Code(s): K21.9 - Gastro-esophageal reflux disease without esophagitis Hypertension Qualifiers: Hypertension type: essential hypertension Qualified Code(s): I10 - Essential ( primary) hypertension Anemia Qualifiers: Anemia type: other cause Other causes of anemia: other cause, not classified Qualified Code(s): D64.89 - Other specified anemias - Discharge Information Instructions: Deep Vein Thrombosis Referrals: Lidya Panchal PA [Primary Care Provider] - Forms: ED Department Discharge Additional Instructions: 1. Follow-up with your regular provider in one week with recommended CBC, INR, d-dimer, and basic metabolic panel at that time 2. Follow-up in this facility tomorrow at 9 AM for outpatient venous Doppler studies. Do not leave this facility without receiving preliminary verbal report from this provider 3. BenGay or equivalent, heating pad, and/or ice packs as directed. - Problem List & Annotations (1) Protein S deficiency SNOMED Code(s): 2470113 Code(s): D68.59 - OTHER PRIMARY THROMBOPHILIA Status: Chronic Priority: Medium Annotation/Comment:: History of chronic and recurrent DVT. INR therapeutic today. Note persistent d-dimer elevation, although this is actually improved from previous evaluations with negative recent CTA of the chest for PE as below. Venous Doppler studies to be conducted in this facility tomorrow as per discharge instructions with further therapy depending on these results. Otherwise follow-up closely with his regular provider (2) Anemia SNOMED Code(s): 207343902 Code(s): D64.9 - ANEMIA, UNSPECIFIED Status: Chronic Priority: High Annotation/Comment:: Continue to observe closely by his regular providers with further workup depending on his clinical course Qualifiers: Anemia type: other cause Other causes of anemia: other cause, not classified Qualified Code(s): D64.89 - Other specified anemias (3) Congestive heart failure SNOMED Code(s): 23816684 Code(s): I50.9 - HEART FAILURE, UNSPECIFIED Status: Chronic Priority: High Annotation/Comment:: No recent chest pain or anginal type symptoms Qualifiers: Congestive heart failure type: unspecified congestive heart failure type Congestive heart failure chronicity: acute on chronic Qualified Code(s): I50.9 - Heart failure, unspecified (4) AAA (abdominal aortic aneurysm) SNOMED Code(s): 571398872 Code(s): I71.4 - ABDOMINAL AORTIC ANEURYSM, WITHOUT RUPTURE Status: Chronic Priority: Medium Annotation/Comment:: Recently diagnosed small abdominal aortic aneurysm by CT scan nonproblematic at this time Qualifiers: Presence of rupture: without rupture Qualified Code(s): I71.4 - Abdominal aortic aneurysm, without rupture (5) Hypoalbuminemia SNOMED Code(s): 326834444 Code(s): E88.09 - OTH DISORDERS OF PLASMA-PROTEIN METABOLISM, NEC Status: Chronic Priority: Medium Annotation/Comment:: Once again recommend initiation of high protein Glucerna supplement with caution secondary to his previous history of renal insufficiency (6) Peptic reflux disease SNOMED Code(s): 92704051 Code(s): K21.9 - GASTRO-ESOPHAGEAL REFLUX DISEASE WITHOUT ESOPHAGITIS Status: Chronic Priority: Medium Annotation/Comment:: Stable by patient history. Note moderate anemia today (7) Osteoarthritis SNOMED Code(s): 913934557 Code(s): M19.90 - UNSPECIFIED OSTEOARTHRITIS, UNSPECIFIED SITE Status: Chronic Priority: Medium Annotation/Comment:: Stable by history with history of gout and chronic narcotic use. Current discomfort likely secondary to his mild ecchymosis in the left knee region as above. No evidence of significant injury Qualifiers: Osteoarthritis location: multiple joints Osteoarthritis type: primary Qualified Code(s): M15.0 - Primary generalized (osteo)arthritis (8) Hypertension SNOMED Code(s): 58250453 Code(s): I10 - ESSENTIAL (PRIMARY) HYPERTENSION Status: Chronic Priority : Medium Annotation/Comment:: Blood Pressures under good control in the emergency room Qualifiers: Hypertension type: essential hypertension Qualified Code(s): I10 - Essential (primary) hypertension (9) Renal insufficiency SNOMED Code(s): 334812669, 067860673 Code(s): N28.9 - DISORDER OF KIDNEY AND URETER, UNSPECIFIED Status: Chronic Priority: Medium Annotation/Comment:: History of chronic renal insufficiency relatively stable from previous evaluations. Note previous history of acute renal insufficiency requiring distant dialysis as above - Problem List Review Problem List Initiated/Reviewed/Updated: Yes - My Orders Last 24 Hours: My Active Orders 12/18/16 19:41 Obtain Past Medical Record [OM.PC] Routine - Assessment/Plan Last 24 Hours: My Active Orders 12/18/16 19:41 Obtain Past Medical Record [OM.PC] Routine Assessment:: As above Plan: As above. Extensive precautions were given to the patient and his , who are in agreement with the treatment plan. See Patient Instructions for further treatment and plan.
[2016-12-18 20:13] LABS: CHLORIDE,CL 103 mmol/L (98-107); SODIUM,NA 139 mmol/L (136-145)
[2016-12-18 22:17] VITALS: BP 110/62
== END 2016-12-18 21:31 | disposition home or self-care (01) ==
LOC: LL.ED 19:38
DX: I13.0 Hypertensive heart and chronic kidney disease with heart failure and stage 1 through stage 4 chronic kidney disease, or unspecified chronic kidney disease (principal); I50.9 Heart failure, unspecified; N18.9 Chronic kidney disease, unspecified; D68.59 Other primary thrombophilia; D64.89 Other specified anemias; I71.4 Abdominal aortic aneurysm, without rupture; K21.9 Gastro-esophageal reflux disease without esophagitis; J44.0 Chronic obstructive pulmonary disease with (acute) lower respiratory infection; E78.00 Pure hypercholesterolemia, unspecified; I73.9 Peripheral vascular disease, unspecified; E03.9 Hypothyroidism, unspecified; E66.9 Obesity, unspecified; I42.9 Cardiomyopathy, unspecified; E21.3 Hyperparathyroidism, unspecified; F41.9 Anxiety disorder, unspecified; F32.9 Major depressive disorder, single episode, unspecified; G43.909 Migraine, unspecified, not intractable, without status migrainosus; Z86.718 Personal history of other venous thrombosis and embolism; Z96.649 Presence of unspecified artificial hip joint; Z98.890 Other specified postprocedural states; Z98.49 Cataract extraction status, unspecified eye; Z79.01 Long term (current) use of anticoagulants; Z79.82 Long term (current) use of aspirin; Z88.5 Allergy status to narcotic agent; Z88.0 Allergy status to penicillin
CPT/HCPCS: 36415; 80053; 85025; 85379; 85610; 99283; 99284

== ENCOUNTER 2017-03-30 11:55 | Emergency (ER) | payer MEDICARE, MEDICAID ==
[2017-03-30] MEDS ORDERED: Sodium Chloride 0.9% 10 ML Syringe FLUSH PRN (12:08)
--- NOTE | 2017-03-30 12:36 | EDM.PDOC ---
ED HPI GENERAL MEDICAL PROBLEM - General Chief Complaint: Respiratory Problem Stated Complaint: ratting in my chest Time Seen by Provider: 03/30/17 12:20 Source of Information: Reports: Patient History Limitations: Reports: No Limitations - History of Present Illness INITIAL COMMENTS - FREE TEXT/NARRATIVE: Patient's 77-year-old who was brought in by his with chief complaint of rattling in his chest shortness of breath lower abdominal discomfort he was not feeling well at home and was brought in for evaluation Onset: Gradual Duration: Hour(s):, Waxing/Waning Location: Reports: Chest, Abdomen Severity: Moderate Improves with: Reports: Rest Worsens with: Reports: Movement Context: Reports: Sick Contact Associated Symptoms: Reports: Cough, Nausea/Vomiting, Shortness of Breath, Weakness Treatments 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: Reports: Oxygen Left Abdomen Pain Score (Numeric/FACES): 7 - Related Data Allergies Allergy/AdvReac Type Severity Reaction Status Date / Time codeine Allergy Nausea Verified 03/30/17 12:06 Penicillins Allergy Hives Verified 03/30/17 12:06 Home Meds: Home Meds Citalopram [Citalopram HBr] 20 mg PO DAILY 08/07/13 [History] Levothyroxine 75 mcg PO QAM 08/07/13 [History] Pregabalin [Lyrica] 25 mg PO TID 08/07/13 [History] amLODIPine [Norvasc] 5 mg PO DAILY 08/07/13 [History] Cholecalciferol (Vitamin D3) [Vitamin D3] 2,000 units PO DAILY 06/12/14 [History ] Latanoprost [Xalatan 0.005% Ophth Soln] 1 drop EYEBOTH BEDTIME 06/12/14 [History ] Nitroglycerin [Nitrostat] 1 tab SL ASDIRECTED PRN 06/12/14 [History] Simvastatin [Zocor] 10 mg PO BEDTIME 11/12/15 [History] Ranitidine [Zantac] 150 mg PO BID #60 tab 11/17/15 [Rx] Albuterol/Ipratropium [DuoNeb 3.0-0.5 MG/3 ML] 1 ampule INH Q4H PRN 03/19/16 [ History] Folic Acid 1 mg PO DAILY 03/19/16 [History] Acetaminophen 650 mg PO Q4HR PRN 07/26/16 [History] Furosemide 20 mg PO DAILY 07/26/16 [History] Finasteride 5 mg PO DAILY 11/02/16 [History] Verapamil HCl [Verapamil ER] 240 mg PO DAILY@1700 11/02/16 [History] Warfarin [Coumadin] 7.5 mg PO SUTUTHSA@1800 11/02/16 [History] Aspirin [Halfprin] 162 mg PO DAILY 11/15/16 [History] Budesonide [Pulmicort] 0.5 mg NEB BIDRT 11/15/16 [History] Docusate Sodium [Colace] 100 mg PO BID PRN 11/15/16 [History] Formoterol [Perforomist] 1 dose INH BID 11/15/16 [History] Magnesium Oxide 400 mg PO BID 11/15/16 [History] Amino Acids/Protein Supplement [Protein 2,000 MG] 1 each PO DAILY 03/30/17 [ History] Calcium Carbonate [Calcium] 600 mg PO BID 03/30/17 [History] Docusate Sodium [Colace] 100 mg PO BID 03/30/17 [History] Enoxaparin [Lovenox] 100 mg SUBCUT DAILY 03/30/17 [History] Past Medical History HEENT History: Reports: Cataract, Glaucoma, Impaired Vision, Other (See Below) Other HEENT History: Patient wears reading glasses Cardiovascular History: Reports: Aneurysm, Arrhythmia, Blood Clots/VTE/DVT, Cardiomyopathy, Heart Failure, High Cholesterol, Hypertension, PVD, Other (See Below) Other Cardiovascular History: Varicose veins, recurrent DVTs since 1980 including DVT of the abdomen and legs with 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 Gastrointestinal History: Reports: Chronic Constipation, Diverticulosis, GERD, Hiatal Hernia Genitourinary History: Reports: Acute Renal Failure, BPH, Chronic Renal Insuffiency, Dialysis, Renal Disease, Urinary Incontinence Other Genitourinary History: History of DIALYSIS due to acute renal failure- resolved chronic renal insufficiency, BPH with additional history of prostate cancer Musculoskeletal History: Reports: Arthritis, Back Pain, Chronic, Fracture, Gout , Neck Pain, Chronic, Osteoarthritis, SLE, Other (See Below) Other Musculoskeletal History: Chronic pain syndrome with previous history chronic narcotic use, bilateral wrist fractures as a child at about age 13, right-sided rib fracture secondary to respiratory code on 08/14/16 as above Neurological History: Reports: Headaches, Chronic, Migraines, Neuropathy, Peripheral, Other (See Below) Other Neuro History: Chronic left leg weakness secondary to previous osteomyelitis, chronic pain syndrome with chronic narcotic use. 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 Immunologic History: Reports: None Oncologic (Cancer) History: Reports: Prostate, Other (See Below) Other Oncologic History: 37 radiation treatments for prostate cancer with additional chemotherapy and status post prostatectomy in 2012 Dermatologic History: Reports: Venous Stasis Dermatitis, Other (See Below) Other Dermatologic History: Venous stasis ulcer of the right anterior tibial region with skin graft as below - Infectious Disease History Infectious Disease History: Reports: Chicken Pox, Measles, Mumps - Past Surgical History Head Surgeries/Procedures: Reports: None HEENT Surgical History: Reports: Cataract Surgery, Oral Surgery, Tonsillectomy, Other (See Below) Cardiovascular Surgical History: Reports: Other (See Below) GI Surgical History: Reports: Appendectomy, Colonoscopy, EGD, Miley Fundoplication Male Surgical History: Reports: Circumcision, Prostatectomy, Other (See Below ) Endocrine Surgical History: Reports: None Musculoskeletal Surgical History: Reports: Carpal Tunnel, Hip Replacement, Joint Replacement, Knee Replacement, Shoulder Surgery, Other (See Below) Oncologic Surgical History: Reports: Other (See Below) Dermatological Surgical History: Reports: Skin Graft - Past Imaging History Past Imaging History: Reports: Cardiac Echo (Last echocardiogram on with results not available with previous echocardiogram on 01/17/15 with ejection fraction of 5055 percent), CAT Scan (CTA of the chest on 09/02/16, CT of the chest, abdomen, and pelvis on 11/22/16, CT of the head, chest, and abdomen on , CT of the soft tissue of the neck on 11/21/15 and 11/16/15, CT of the chest on 07/04/12, CT of the abdomen and pelvis on 01/08/15, 12/19/12, and 07/04/12, CT of the brain on 08/07/13 and 02/04/14), DEXA Scan (07/09/12), Sleep Study (08/21/16 ), Swallow Study (08/22/16), Ultrasound (Renal ultrasound on 04/17/16, thyroid ultrasound on 11/16/15, bladder ultrasound and abdominal ultrasound on 12/24/12), Venous Doppler (Left leg on 07/26/16, right leg on 05/11/14) Social & Family History - Family History Family Medical History: Noncontributory HEENT: Reports: None Cardiac: Reports: Blood Clots/VTE/DVT, CAD, Heart Failure, VA, Other (See Below) Other Cardiac Family History: Father with probable fatal VA and CHF at age 78, father with recurrent DVTs Respiratory: Reports: None GI: Reports: None : Reports: Diabetic Nephropathy, Renal Disease/Insufficiency, Other (See Below ) Other Family History: mother with diabetic nephropathy Musculoskeletal: Reports: Arthritis, Osteoarthritis, Other (See Below) Other Musculoskeletal Family History: Father with osteoarthritis Neurological: Reports: Other (See Below) Other Neurological Family History: Son with fatal muscular dystrophy at age 21 Psychiatric: Reports: None Endocrine/Metabolic: Reports: Diabetes, type II, IDDM, Other (See Below) Other Endocrine/Metabolic Family History: Mother, maternal aunt, and paternal uncle with IDDM Hematologic: Reports: None Immunologic: Reports: None Dermatologic: Reports: None Oncologic: Reports: None - Tobacco Use Smoking Status *Q: Never Smoker Second Hand Smoke Exposure: No - Caffeine Use Caffeine Use: Reports: Coffee, Soda - Alcohol Use Days Per Week of Alcohol Use: 0 Number of Drinks Per Day: 0 Total Drinks Per Week: 0 - Recreational Drug Use Recreational Drug Use: No Drug Use in Last 12 Months: No Recreational Drug Type: Denies: Amphetamines (Speed), Cocaine, Heroin, Inhalants (Glues, Solvents, Aerosols), LSD (Acid), Marijuana/Hashish, Methamphetamine, Morphine Recreational Drug Use Frequency: Daily - Living Situation & Occupation Living situation: Reports: , with Family Occupation: Retired ED ROS GENERAL - Review of Systems Review Of Systems: See Below Constitutional: Reports: Weakness HEENT: Reports: No Symptoms Respiratory: Reports: Shortness of Breath Cardiovascular: Reports: No Symptoms Endocrine: Reports: Fatigue GI/Abdominal: Reports: Nausea : Reports: No Symptoms Musculoskeletal: Reports: No Symptoms Skin: Reports: No Symptoms Psychiatric: Reports: No Symptoms Hematologic/Lymphatic: Reports: No Symptoms Immunologic: Reports: No Symptoms ED EXAM, GENERAL - Physical Exam Exam: See Below Exam Limited By: No Limitations General Appearance: Alert, WD/WN, No Apparent Distress Ears: Normal External Exam, Normal Canal, Hearing Grossly Normal, Normal TMs Nose: Normal Inspection, Normal Mucosa, No Blood Throat/Mouth: Normal Inspection, Normal Lips, Normal Teeth, Normal Gums, Normal Oropharynx, Normal Voice, No Airway Compromise Head: Atraumatic, Normocephalic Neck: Normal Inspection Respiratory/Chest: Decreased Breath Sounds, Rales (In basis) GI/Abdominal: Normal Bowel Sounds, Soft, Non-Tender, No Organomegaly, No Distention, No Abnormal Bruit, No Mass, Tender (In all quadrants) (Male) Exam: No Hernia Rectal (Males) Exam: Deferred Back Exam: Normal Inspection, Full Range of Motion, NT Extremities: Normal Inspection, Normal Range of Motion, Non-Tender, Normal Capillary Refill, No Pedal Edema Neurological: Alert, Oriented, CN II-XII Intact, Normal Cognition, Normal Gait, Normal Reflexes, No Motor/Sensory Deficits Psychiatric: Normal Affect, Normal Mood Skin Exam: Warm, Dry, Intact, Normal Color, No Rash Lymphatic: No Adenopathy Course - Vital Signs Last Recorded V/S: Last Vital Signs Temp 99.4 F 03/30/17 11:59 Pulse 88 03/30/17 11:59 Resp 23 H 03/30/17 11:59 BP 136/69 03/30/17 11:59 Pulse Ox 92 L 03/30/17 11:59 - Orders/Labs/Meds Orders: Active Orders 24 hr Category Date Time Status CXR [Chest 2V] [CR] Stat Exams 03/30/17 12:05 Taken AMYLASE [CHEM] Stat Lab 03/30/17 12:43 Ordered COMPREHENSIVE METABOLIC PN,CMP [CHEM] Stat Lab 03/30/17 12:43 Ordered LACTIC ACID [CHEM] Stat Lab 03/30/17 12:46 Ordered LIPASE [CHEM] Stat Lab 03/30/17 12:43 Ordered PRO B-TYPE NATRIUR PEPT,BNPPRO [CHEM] Stat Lab 03/30/17 12:43 Ordered TROPONIN I [CHEM] Stat Lab 03/30/17 Ordered Sodium Chloride 0.9% [Saline Flush] Med 03/30/17 12:08 Active 10 ml FLUSH ASDIRECTED PRN Saline Lock Insert [OM.PC] Stat Oth 03/30/17 12:08 Ordered Medication Orders Sodium Chloride (Saline Flush) 10 ml FLUSH ASDIRECTED PRN PRN Reason: Keep Vein Open Last Admin: 03/30/17 13:32 Dose: 10 ml Labs: Laboratory Tests 03/30/17 03/30/17 03/30/17 Range/Units 12:25 12:25 12:42 WBC 5.8 (4.0-10.2) K/uL RBC 3.81 L (4.33-5.41) M/uL Hgb 11.2 L (13.1-16.8) g/dL Hct 35.9 L (39.0-49.0) % MCV 94.2 (84.0-98.0) fL MCH 29.4 (28.2-33.3) pg MCHC 31.2 L (31.7-36.0) g/dL RDW 15.0 H (11.2-14.1) % Plt Count 163 (150-350) K/uL Neut % (Auto) 75.9 (45.0-80.0) % Lymph % (Auto) 9.4 L (10.0-50.0) % [place] % (Auto) 9.2 (2.0-14.0) % Eos % (Auto) 5.0 (0.0-5.0) % Baso % (Auto) 0.5 (0.0-2.0) % Neut # (Auto) 4.38 (1.40-7.00) K/uL Lymph # (Auto) 0.54 (0.50-3.50) K/uL [place] # (Auto) 0.53 (0.00-1.00) K/uL Eos # (Auto) 0.29 (0.00-0.50) K/uL Baso # (Auto) 0.03 (0.00-0.20) K/uL POC Sodium 141 (138-146) mmol/L POC Potassium 4.1 (3.5-4.9) mmol/L POC Chloride 97 L (98-109) mmol/L POC Total CO2 34 H (24-29) mmol/L POC BUN 29 H (8-26) mg/dL POC Creatinine 1.2 (0.6-1.3) mg/dL POC Glucose 127 H (70-105) mg/dL POC WB Ioniz Calcium 1.15 Specimen Type Urincc Urine Color Dark yellow Urine Appearance Clear Urine pH 6.5 (5.0-9.0) Ur Specific [place] 1.020 (1.005-1.030) Urine Protein >=300 H (NEGATIVE) mg/dL Urine Glucose (UA) Negative (NEGATIVE) mg/dL Urine Ketones Negative (NEGATIVE) mg/dL Urine Occult Blood Moderate H (NEGATIVE) Urine Nitrite Negative (NEGATIVE) Urine Bilirubin Negative (NEGATIVE) Urine Urobilinogen 0.2 (0.2-1.0) E.U./dL Ur Leukocyte Esterase Negative (NEGATIVE) Urine RBC 40-50 H /HPF Urine WBC 0-5 /HPF Ur Epithelial Cells Few /LPF Urine Bacteria Few (NONE TO FEW) /HPF Meds: Medications Generic Name Dose Route Start Last Admin Trade Name Freq PRN Reason Stop Dose Admin Sodium Chloride 10 ml 03/30/17 12:08 03/30/17 13:32 Saline Flush FLUSH 10 ml ASDIRECTED PRN Administration Keep Vein Open Discontinued Medications Generic Name Dose Route Start Last Admin Trade Name Freq PRN Reason Stop Dose Admin Furosemide 40 mg 03/30/17 12:47 03/30/17 13:04 Lasix IVPUSH 03/30/17 12:48 40 mg NOW ONE Administration Ondansetron HCl 4 mg 03/30/17 12:48 03/30/17 12:57 Zofran IVPUSH 03/30/17 12:49 4 mg ONETIME ONE Administration Pantoprazole Sodium 40 mg 03/30/17 12:47 03/30/17 13:04 Protonix Iv IVPUSH 03/30/17 12:48 40 mg ONETIME ONE Administration Departure - Departure Time of Disposition: 14:44 Disposition: Home, Self-Care 01 Condition: Good Clinical Impression: Congenital heart disease in adult CHF (congestive heart failure) Qualifiers: Congestive heart failure type: unspecified congestive heart failure type Congestive heart failure chronicity: acute on chronic Qualified Code(s): I50.9 - Heart failure, unspecified - Discharge Information Referrals: Lidya Panchal PA [Primary Care Provider] - Forms: ED Department Discharge Care Plan Goals: Patient admitted to the ER given IV Lasix Protonix and Zofran feeling much better review labs from 6 troponin negative BMP 78.6 lactic acid within normal limits will discharge home follow-up as needed - My Orders Last 24 Hours: My Active Orders 03/30/17 TROPONIN I [CHEM] Stat 03/30/17 12:05 CXR [Chest 2V] [CR] Stat 03/30/17 12:08 Sodium Chloride 0.9% [Saline Flush] 10 ml FLUSH ASDIRECTED PRN Saline Lock Insert [OM.PC] Stat 03/30/17 12:43 AMYLASE [CHEM] Stat COMPREHENSIVE METABOLIC PN,CMP [CHEM] Stat LIPASE [CHEM] Stat PRO B-TYPE NATRIUR PEPT,BNPPRO [CHEM] Stat 03/30/17 12:46 LACTIC ACID [CHEM] Stat - Assessment/Plan Last 24 Hours: My Active Orders 03/30/17 TROPONIN I [CHEM] Stat 03/30/17 12:05 CXR [Chest 2V] [CR] Stat 03/30/17 12:08 Sodium Chloride 0.9% [Saline Flush] 10 ml FLUSH ASDIRECTED PRN Saline Lock Insert [OM.PC] Stat 03/30/17 12:43 AMYLASE [CHEM] Stat COMPREHENSIVE METABOLIC PN,CMP [CHEM] Stat LIPASE [CHEM] Stat PRO B-TYPE NATRIUR PEPT,BNPPRO [CHEM] Stat 03/30/17 12:46 LACTIC ACID [CHEM] Stat
[2017-03-30] MEDS ORDERED: Pantoprazole 40 MG Vial IVPUSH ONE (12:47)
[2017-03-30] MEDS ORDERED: Furosemide 40 MG/4 ML VIAL IVPUSH ONE (12:47)
[2017-03-30] MEDS ORDERED: Ondansetron 4 MG/2 ML SDV IVPUSH ONE (12:48)
[2017-03-30 15:23] VITALS: BP 136/70
== END 2017-03-30 14:57 | disposition home or self-care (01) ==
LOC: LL.ED 11:55
DX: I13.0 Hypertensive heart and chronic kidney disease with heart failure and stage 1 through stage 4 chronic kidney disease, or unspecified chronic kidney disease (principal); I50.9 Heart failure, unspecified; N18.9 Chronic kidney disease, unspecified; E78.00 Pure hypercholesterolemia, unspecified; J44.9 Chronic obstructive pulmonary disease, unspecified; K21.9 Gastro-esophageal reflux disease without esophagitis; M19.90 Unspecified osteoarthritis, unspecified site; G43.909 Migraine, unspecified, not intractable, without status migrainosus; F41.9 Anxiety disorder, unspecified; F32.9 Major depressive disorder, single episode, unspecified; E03.9 Hypothyroidism, unspecified; E66.9 Obesity, unspecified; Z79.01 Long term (current) use of anticoagulants; Z90.89 Acquired absence of other organs; Z79.899 Other long term (current) drug therapy; Z88.0 Allergy status to penicillin; Z88.5 Allergy status to narcotic agent; Z79.82 Long term (current) use of aspirin; Z99.2 Dependence on renal dialysis
CPT/HCPCS: 36415; 71020; 80047; 80053; 81001; 82150; 83605; 83690; 83880; 84484; 85025; 96374; 96375; 99284; 99285; C9113; J1940; J2405; J7050

== ENCOUNTER 2017-04-05 08:35 | Emergency (ER) | payer MEDICARE, MEDICAID ==
[2017-04-05] MEDS ORDERED: Sodium Chloride 0.9% 10 ML Syringe FLUSH PRN (09:04)
[2017-04-05] MEDS ORDERED: Nitroglycerin 0.4 MG Tab.SL SL PRN (09:06)
[2017-04-05] MEDS ORDERED: Aspirin 81 MG Tab.Chew PO ONE (09:11)
[2017-04-05 09:28] LABS: CHLORIDE,CL 103 mmol/L (98-107); SODIUM,NA 143 mmol/L (136-145)
[2017-04-05] MEDS ORDERED: Morphine 2 MG/ML Syringe IVPUSH ONE ×2 (09:29→09:48)
[2017-04-05] MEDS ORDERED: Furosemide 40 MG/4 ML VIAL IVPUSH ONE (09:36)
--- NOTE | 2017-04-05 09:42 | EDM.PDOC ---
ED HPI GENERAL MEDICAL PROBLEM - General Chief Complaint: Respiratory Problem Stated Complaint: shortness of breathing Time Seen by Provider: 04/05/17 09:20 Source of Information: Reports: Patient, Family () History Limitations: Reports: No Limitations - History of Present Illness INITIAL COMMENTS - FREE TEXT/NARRATIVE: Patient is a 77-year-old who was seen with chief complaint of retrosternal chest pain stasis about 8 out of 10 started around midnight maybe a little before with no relief patient has not been able to sleep all night patient was admitted during the summer at [place] with similar symptoms 4 baby aspirins given positive one nitroglycerin given dropped his pressure significantly to 92/ 56 rebound back nicely morphine 1 mg IV given will be repeated right now Lasix 40 mg IV will be given Onset: Sudden Duration: Hour(s): (10 hours), Getting Worse (During the night), Heavy Location: Reports: Chest Quality: Reports: Ache, Pressure, Stabbing Severity: Moderate Worsens with: Reports: Movement Treatments 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: Aspirin, Breathing Treatments Upper Chest Pain Score (Numeric/FACES): 8 - Related Data Allergies Allergy/AdvReac Type Severity Reaction Status Date / Time codeine Allergy Nausea Verified 03/30/17 12:06 Penicillins Allergy Hives Verified 03/30/17 12:06 Home Meds: Home Meds Citalopram [Citalopram HBr] 20 mg PO DAILY 08/07/13 [History] Levothyroxine 75 mcg PO QAM 08/07/13 [History] Pregabalin [Lyrica] 25 mg PO TID 08/07/13 [History] amLODIPine [Norvasc] 5 mg PO DAILY 08/07/13 [History] Cholecalciferol (Vitamin D3) [Vitamin D3] 2,000 units PO DAILY 06/12/14 [History ] Latanoprost [Xalatan 0.005% Ophth Soln] 1 drop EYEBOTH BEDTIME 06/12/14 [History ] Nitroglycerin [Nitrostat] 1 tab SL ASDIRECTED PRN 06/12/14 [History] Simvastatin [Zocor] 10 mg PO BEDTIME 11/12/15 [History] Ranitidine [Zantac] 150 mg PO BID #60 tab 11/17/15 [Rx] Albuterol/Ipratropium [DuoNeb 3.0-0.5 MG/3 ML] 1 ampule INH Q4H PRN 03/19/16 [ History] Folic Acid 1 mg PO DAILY 03/19/16 [History] Acetaminophen 650 mg PO Q4HR PRN 07/26/16 [History] Furosemide 20 mg PO DAILY 07/26/16 [History] Finasteride 5 mg PO DAILY 11/02/16 [History] Verapamil HCl [Verapamil ER] 240 mg PO DAILY@1700 11/02/16 [History] Warfarin [Coumadin] 7.5 mg PO SUTUTHSA@1800 11/02/16 [History] Aspirin [Halfprin] 162 mg PO DAILY 11/15/16 [History] Budesonide [Pulmicort] 0.5 mg NEB BIDRT 11/15/16 [History] Docusate Sodium [Colace] 100 mg PO BID PRN 11/15/16 [History] Formoterol [Perforomist] 1 dose INH BID 11/15/16 [History] Magnesium Oxide 400 mg PO BID 11/15/16 [History] Amino Acids/Protein Supplement [Protein 2,000 MG] 1 each PO DAILY 03/30/17 [ History] Calcium Carbonate [Calcium] 600 mg PO BID 03/30/17 [History] Docusate Sodium [Colace] 100 mg PO BID 03/30/17 [History] Enoxaparin [Lovenox] 100 mg SUBCUT DAILY 03/30/17 [History] cefTRIAXone [Rocephin] 1 gm IM ONETIME #1 vial 04/05/17 [Rx] Past Medical History HEENT History: Reports: Cataract, Glaucoma, Impaired Vision, Other (See Below) Other HEENT History: Patient wears reading glasses Cardiovascular History: Reports: Aneurysm, Arrhythmia, Blood Clots/VTE/DVT, Cardiomyopathy, Heart Failure, High Cholesterol, Hypertension, PVD, Other (See Below) Other Cardiovascular History: Varicose veins, recurrent DVTs since 1980 including DVT of the abdomen and legs with 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 Gastrointestinal History: Reports: Chronic Constipation, Diverticulosis, GERD, Hiatal Hernia Genitourinary History: Reports: Acute Renal Failure, BPH, Chronic Renal Insuffiency, Dialysis, Renal Disease, Urinary Incontinence Other Genitourinary History: History of DIALYSIS due to acute renal failure- resolved chronic renal insufficiency, BPH with additional history of prostate cancer Musculoskeletal History: Reports: Arthritis, Back Pain, Chronic, Fracture, Gout , Neck Pain, Chronic, Osteoarthritis, SLE, Other (See Below) Other Musculoskeletal History: Chronic pain syndrome with previous history chronic narcotic use, bilateral wrist fractures as a child at about age 13, right-sided rib fracture secondary to respiratory code on 08/14/16 as above Neurological History: Reports: Headaches, Chronic, Migraines, Neuropathy, Peripheral, Other (See Below) Other Neuro History: Chronic left leg weakness secondary to previous osteomyelitis, chronic pain syndrome with chronic narcotic use. 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 Immunologic History: Reports: None Oncologic (Cancer) History: Reports: Prostate, Other (See Below) Other Oncologic History: 37 radiation treatments for prostate cancer with additional chemotherapy and status post prostatectomy in 2012 Dermatologic History: Reports: Venous Stasis Dermatitis, Other (See Below) Other Dermatologic History: Venous stasis ulcer of the right anterior tibial region with skin graft as below - Infectious Disease History Infectious Disease History: Reports: Chicken Pox, Measles, Mumps - Past Surgical History Head Surgeries/Procedures: Reports: None HEENT Surgical History: Reports: Cataract Surgery, Oral Surgery, Tonsillectomy, Other (See Below) Cardiovascular Surgical History: Reports: Other (See Below) GI Surgical History: Reports: Appendectomy, Colonoscopy, EGD, Miley Fundoplication Male Surgical History: Reports: Circumcision, Prostatectomy, Other (See Below ) Endocrine Surgical History: Reports: None Musculoskeletal Surgical History: Reports: Carpal Tunnel, Hip Replacement, Joint Replacement, Knee Replacement, Shoulder Surgery, Other (See Below) Oncologic Surgical History: Reports: Other (See Below) Dermatological Surgical History: Reports: Skin Graft - Past Imaging History Past Imaging History: Reports: Cardiac Echo (Last echocardiogram on with results not available with previous echocardiogram on 01/17/15 with ejection fraction of 5055 percent), CAT Scan (CTA of the chest on 09/02/16, CT of the chest, abdomen, and pelvis on 11/22/16, CT of the head, chest, and abdomen on , CT of the soft tissue of the neck on 11/21/15 and 11/16/15, CT of the chest on 07/04/12, CT of the abdomen and pelvis on 01/08/15, 12/19/12, and 07/04/12, CT of the brain on 08/07/13 and 02/04/14), DEXA Scan (07/09/12), Sleep Study (08/21/16 ), Swallow Study (08/22/16), Ultrasound (Renal ultrasound on 04/17/16, thyroid ultrasound on 11/16/15, bladder ultrasound and abdominal ultrasound on 12/24/12), Venous Doppler (Left leg on 07/26/16, right leg on 05/11/14) Social & Family History - Family History Family Medical History: Noncontributory HEENT: Reports: None Cardiac: Reports: Blood Clots/VTE/DVT, CAD, Heart Failure, RI, Other (See Below) Other Cardiac Family History: Father with probable fatal RI and CHF at age 78, father with recurrent DVTs Respiratory: Reports: None GI: Reports: None : Reports: Diabetic Nephropathy, Renal Disease/Insufficiency, Other (See Below ) Other Family History: mother with diabetic nephropathy Musculoskeletal: Reports: Arthritis, Osteoarthritis, Other (See Below) Other Musculoskeletal Family History: Father with osteoarthritis Neurological: Reports: Other (See Below) Other Neurological Family History: Son with fatal muscular dystrophy at age 21 Psychiatric: Reports: None Endocrine/Metabolic: Reports: Diabetes, type II, IDDM, Other (See Below) Other Endocrine/Metabolic Family History: Mother, maternal aunt, and paternal uncle with IDDM Hematologic: Reports: None Immunologic: Reports: None Dermatologic: Reports: None Oncologic: Reports: None - Tobacco Use Smoking Status *Q: Never Smoker Second Hand Smoke Exposure: No - Caffeine Use Caffeine Use: Reports: None - Alcohol Use Days Per Week of Alcohol Use: 0 Number of Drinks Per Day: 0 Total Drinks Per Week: 0 - Recreational Drug Use Recreational Drug Use: No Drug Use in Last 12 Months: No Recreational Drug Type: Denies: Amphetamines (Speed), Cocaine, Heroin, Inhalants (Glues, Solvents, Aerosols), LSD (Acid), Marijuana/Hashish, Methamphetamine, Morphine Recreational Drug Use Frequency: Daily - Living Situation & Occupation Living situation: Reports: , with Family Occupation: Retired ED ROS GENERAL - Review of Systems Review Of Systems: See Below Constitutional: Reports: Night Sweats HEENT: Reports: No Symptoms Respiratory: Reports: Shortness of Breath, Cough (During the night) Cardiovascular: Reports: Chest Pain, Dyspnea on Exertion, Edema (Minimal) Endocrine: Reports: No Symptoms GI/Abdominal: Reports: No Symptoms : Reports: Incontinence, Urgency, Other (Dribbling history of prostate cancer) Musculoskeletal: Reports: Other (Generalized aches) Skin: Reports: Dryness, Bruising Neurological: Reports: No Symptoms Psychiatric: Reports: No Symptoms ED EXAM, GENERAL - Physical Exam Exam: See Below Exam Limited By: No Limitations General Appearance: Alert, WD/WN, No Apparent Distress Ears: Normal External Exam, Normal Canal, Hearing Grossly Normal, Normal TMs Nose: Normal Inspection, Normal Mucosa, No Blood Throat/Mouth: Normal Inspection, Normal Lips, Normal Teeth, Normal Gums, Normal Oropharynx, Normal Voice, No Airway Compromise Head: Atraumatic, Normocephalic Neck: Normal Inspection, Supple, Non-Tender, Full Range of Motion Respiratory/Chest: Respiratory Distress, Decreased Breath Sounds, Rales, Prolonged Expiration Cardiovascular: Normal Peripheral Pulses, Regular Rate, Rhythm, No Edema, No Gallop, No JVD, No Murmur, No Rub GI/Abdominal: Normal Bowel Sounds, Soft, Non-Tender, No Organomegaly, No Distention, No Abnormal Bruit, No Mass Back Exam: Normal Inspection, Full Range of Motion, NT Extremities: Pedal Edema Neurological: Alert, Oriented, CN II-XII Intact, Normal Cognition, Normal Gait, Normal Reflexes, No Motor/Sensory Deficits Psychiatric: Normal Affect, Normal Mood Skin Exam: Warm Course - Vital Signs Last Recorded V/S: Last Vital Signs Temp 98 F 04/05/17 08:36 Pulse 104 H 04/05/17 09:30 Resp 21 H 04/05/17 09:30 BP 92/53 L 04/05/17 09:30 Pulse Ox 92 L 04/05/17 09:30 - Orders/Labs/Meds Orders: Active Orders 24 hr Category Date Time Status EKG Documentation Completion [RC] ASDIRECTED Care 04/05/17 09:05 Ordered Oxygen Therapy [RC] PRN Care 04/05/17 09:00 Ordered Chest 1V Frontal [CR] Stat Exams 04/05/17 08:59 Ordered DD [D-DIMER QUANTITATIVE] [COAG] Stat Lab 04/05/17 09:04 Ordered PRO B-TYPE NATRIUR PEPT,BNPPRO [CHEM] Stat Lab 04/05/17 09:06 Ordered TROPONIN I [CHEM] Q6H Lab 04/05/17 15:03 Ordered TROPONIN I [CHEM] Q6H Lab 04/05/17 21:03 Ordered UA W/MICROSCOPIC [URIN] Stat Lab 04/05/17 09:03 Uncollected Furosemide [Lasix] Med 04/05/17 09:36 Once 40 mg IVPUSH NOW ONE Nitroglycerin [Nitrostat] Med 04/05/17 09:06 Ordered 0.4 mg SL Q5M PRN Sodium Chloride 0.9% [Saline Flush] Med 04/05/17 09:04 Ordered 10 ml FLUSH ASDIRECTED PRN Saline Lock Insert [OM.PC] Stat Oth 04/05/17 09:00 Ordered EKG 12 Lead [EK] Stat Ther 04/05/17 08:59 Ordered Medication Orders Nitroglycerin (Nitrostat) 0.4 mg SL Q5M PRN PRN Reason: Chest Pain Last Admin: 04/05/17 09:11 Dose: 0.4 mg Sodium Chloride (Saline Flush) 10 ml FLUSH ASDIRECTED PRN PRN Reason: Keep Vein Open Labs: Laboratory Tests 04/05/17 04/05/17 Range/Units 09:00 09:00 WBC 5.7 (4.0-10.2) K/uL RBC 3.80 L (4.33-5.41) M/uL Hgb 11.1 L (13.1-16.8) g/dL Hct 36.8 L (39.0-49.0) % MCV 96.8 (84.0-98.0) fL MCH 29.2 (28.2-33.3) pg MCHC 30.2 L (31.7-36.0) g/dL RDW 15.3 H (11.2-14.1) % Plt Count 184 (150-350) K/uL Neut % (Auto) 81.9 H (45.0-80.0) % Lymph % (Auto) 7.9 L (10.0-50.0) % Dare % (Auto) 7.9 (2.0-14.0) % Eos % (Auto) 1.9 (0.0-5.0) % Baso % (Auto) 0.4 (0.0-2.0) % Neut # (Auto) 4.68 (1.40-7.00) K/uL Lymph # (Auto) 0.45 L (0.50-3.50) K/uL Dare # (Auto) 0.45 (0.00-1.00) K/uL Eos # (Auto) 0.11 (0.00-0.50) K/uL Baso # (Auto) 0.02 (0.00-0.20) K/uL Sodium 143 (136-145) mmol/L Potassium 4.4 (3.5-5.1) mmol/L Chloride 103 (98-107) mmol/L Carbon Dioxide 38.2 H (21.0-32.0) mmol/L BUN 29 H (7-18) mg/dL Creatinine 1.15 (0.51-1.17) mg/dL Est Cr Clr Drug Dosing 60.92 mL/min Estimated GFR (MDRD) > 60 mL/min Glucose 124 H (74-106) mg/dL Calcium 9.0 (8.5-10.1) mg/dL Troponin I 0.000 (0.000-0.056) ng/mL Meds: Medications Generic Name Dose Route Start Last Admin Trade Name Freq PRN Reason Stop Dose Admin Nitroglycerin 0.4 mg 04/05/17 09:06 10 09:11 Nitrostat SL 0.4 mg Q5M PRN Administration Chest Pain Sodium Chloride 10 ml 04/05/17 09:04 Saline Flush FLUSH ASDIRECTED PRN Keep Vein Open Discontinued Medications Generic Name Dose Route Start Last Admin Trade Name Freq PRN Reason Stop Dose Admin Aspirin 324 mg 04/05/17 09:11 04/05/17 09:17 Aspirin PO 04/05/17 09:12 324 mg ONETIME ONE Administration Morphine Sulfate 2 mg 04/05/17 09:29 Morphine IVPUSH 04/05/17 09:30 ONETIME ONE Departure - Departure Time of Disposition: 11:49 Disposition: DC/Tfer to Acute Hospital 02 Condition: Fair Clinical Impression: Pneumonia Qualifiers: Pneumonia type: aspiration pneumonia Aspiration pneumonia type: unspecified Laterality: left Lung location: lower lobe of lung Qualified Code(s): J69.0 - Pneumonitis due to inhalation of food and vomit - Discharge Information - My Orders Last 24 Hours: My Active Orders 04/05/17 08:59 Chest 1V Frontal [CR] Stat EKG 12 Lead [EK] Stat 04/05/17 09:00 Oxygen Therapy [RC] PRN Saline Lock Insert [OM.PC] Stat 04/05/17 09:03 UA W/MICROSCOPIC [URIN] Stat 04/05/17 09:04 DD [D-DIMER QUANTITATIVE] [COAG] Stat Sodium Chloride 0.9% [Saline Flush] 10 ml FLUSH ASDIRECTED PRN 04/05/17 09:05 EKG Documentation Completion [RC] ASDIRECTED 04/05/17 09:06 PRO B-TYPE NATRIUR PEPT,BNPPRO [CHEM] Stat Nitroglycerin [Nitrostat] 0.4 mg SL Q5M PRN 04/05/17 09:36 Furosemide [Lasix] 40 mg IVPUSH NOW ONE 04/05/17 15:03 TROPONIN I [CHEM] Q6H 04/05/17 21:03 TROPONIN I [CHEM] Q6H - Assessment/Plan Last 24 Hours: My Active Orders 04/05/17 08:59 Chest 1V Frontal [CR] Stat EKG 12 Lead [EK] Stat 04/05/17 09:00 Oxygen Therapy [RC] PRN Saline Lock Insert [OM.PC] Stat 04/05/17 09:03 UA W/MICROSCOPIC [URIN] Stat 04/05/17 09:04 DD [D-DIMER QUANTITATIVE] [COAG] Stat Sodium Chloride 0.9% [Saline Flush] 10 ml FLUSH ASDIRECTED PRN 04/05/17 09:05 EKG Documentation Completion [RC] ASDIRECTED 04/05/17 09:06 PRO B-TYPE NATRIUR PEPT,BNPPRO [CHEM] Stat Nitroglycerin [Nitrostat] 0.4 mg SL Q5M PRN 04/05/17 09:36 Furosemide [Lasix] 40 mg IVPUSH NOW ONE 04/05/17 15:03 TROPONIN I [CHEM] Q6H 04/05/17 21:03 TROPONIN I [CHEM] Q6H
[2017-04-05] MEDS ORDERED: Iopamidol 755 Mg/ML 100 ML Bottle IVPUSH ONE (10:20)
[2017-04-05 10:26] VITALS: BP 136/69
[2017-04-05] MEDS ORDERED: cefTRIAXone 1 GM Vial ONE (12:12)
[2017-04-05] MEDS ORDERED: cefTRIAXone 1 GM in Sodium Chloride 0.9% 100 ML IV SCH (12:15)
== END 2017-04-05 12:17 ==
LOC: LL.ED 08:35
DX: J69.0 Pneumonitis due to inhalation of food and vomit (principal); I13.0 Hypertensive heart and chronic kidney disease with heart failure and stage 1 through stage 4 chronic kidney disease, or unspecified chronic kidney disease; I50.9 Heart failure, unspecified; N18.9 Chronic kidney disease, unspecified; Z88.0 Allergy status to penicillin; Z79.82 Long term (current) use of aspirin; Z79.01 Long term (current) use of anticoagulants; Z79.899 Other long term (current) drug therapy; Z88.5 Allergy status to narcotic agent
CPT/HCPCS: 36415; 51702; 71010; 71275; 80048; 81001; 83880; 84484; 85025; 85379; 87040; 93005; 94761; 96374; 96375; 96376; 99285; A9270; J0696; J1940; J2270; J7050; Q9967

== ENCOUNTER 2017-09-10 22:23 | Emergency (ER) | payer MEDICARE, MEDICAID ==
[2017-09-10 23:19] VITALS: BP 142/69
[2017-09-10] MEDS: Meclizine 25 MG Tab PO ONE (23:46)
--- NOTE | 2017-09-10 23:52 | EDM.PDOC ---
ED HPI GENERAL MEDICAL PROBLEM - General Chief Complaint: General Stated Complaint: dizziness Time Seen by Provider: 09/10/17 22:41 Source of Information: Reports: Patient History Limitations: Reports: No Limitations - History of Present Illness INITIAL COMMENTS - FREE TEXT/NARRATIVE: Patient well known to our facility comes by ambulance for complaint of left neck soreness and feeling lightheaded. Neck soreness has been present all day. Has had this pain before. Usually responds well to chiropractic intervention. No specific trigger for this episode of neck pain. Denies other pain complaints. Only other complaint is feeling mildly light headed. This started when he was at home and had just gone to the bathroom to have a bowel movement. It has been improving since then but has not gone completely away. Denies having frequent bouts of dizziness/light-headed sensation. Forgot current med list. No specific new meds/med changes mentioned by patient. Treatments DIRECTOR RADIO: Reports: Acetaminophen Left Neck Pain Score (Numeric/FACES): 8 Left Shoulder Pain Score (Numeric/FACES): 8 - Related Data Allergies Allergy/AdvReac Type Severity Reaction Status Date / Time codeine Allergy Nausea Verified 03/30/17 12:06 Penicillins Allergy Hives Verified 03/30/17 12:06 Home Meds: Home Meds Citalopram [Citalopram HBr] 20 mg PO DAILY 08/07/13 [History] Levothyroxine 75 mcg PO QAM 08/07/13 [History] Pregabalin [Lyrica] 25 mg PO TID 08/07/13 [History] amLODIPine [Norvasc] 5 mg PO DAILY 08/07/13 [History] Cholecalciferol (Vitamin D3) [Vitamin D3] 2,000 units PO DAILY 06/12/14 [History ] Latanoprost [Xalatan 0.005% Ophth Soln] 1 drop EYEBOTH BEDTIME 06/12/14 [History ] Nitroglycerin [Nitrostat] 1 tab SL ASDIRECTED PRN 06/12/14 [History] Simvastatin [Zocor] 10 mg PO BEDTIME 11/12/15 [History] Ranitidine [Zantac] 150 mg PO BID #60 tab 11/17/15 [Rx] Albuterol/Ipratropium [DuoNeb 3.0-0.5 MG/3 ML] 1 ampule INH Q4H PRN 03/19/16 [ History] Folic Acid 1 mg PO DAILY 03/19/16 [History] Acetaminophen 650 mg PO Q4HR PRN 07/26/16 [History] Furosemide 20 mg PO DAILY 07/26/16 [History] Finasteride 5 mg PO DAILY 11/02/16 [History] Verapamil HCl [Verapamil ER] 240 mg PO DAILY@1700 11/02/16 [History] Warfarin [Coumadin] 7.5 mg PO SUTUTHSA@1800 11/02/16 [History] Aspirin [Halfprin] 162 mg PO DAILY 11/15/16 [History] Budesonide [Pulmicort] 0.5 mg NEB BIDRT 11/15/16 [History] Docusate Sodium [Colace] 100 mg PO BID PRN 11/15/16 [History] Formoterol [Perforomist] 1 dose INH BID 11/15/16 [History] Magnesium Oxide 400 mg PO BID 11/15/16 [History] Amino Acids/Protein Supplement [Protein 2,000 MG] 1 each PO DAILY 03/30/17 [ History] Calcium Carbonate [Calcium] 600 mg PO BID 03/30/17 [History] Docusate Sodium [Colace] 100 mg PO BID 03/30/17 [History] Enoxaparin [Lovenox] 100 mg SUBCUT DAILY 03/30/17 [History] cefTRIAXone [Rocephin] 1 gm IM ONETIME #1 vial 04/05/17 [Rx] Past Medical History HEENT History: Reports: Cataract, Glaucoma, Impaired Vision, Other (See Below) Other HEENT History: Patient wears reading glasses Cardiovascular History: Reports: Aneurysm, Arrhythmia, Blood Clots/VTE/DVT, Cardiomyopathy, Heart Failure, High Cholesterol, Hypertension, PVD, Other (See Below) Other Cardiovascular History: Varicose veins, recurrent DVTs since 1980 including DVT of the abdomen and legs with 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 Gastrointestinal History: Reports: Chronic Constipation, Diverticulosis, GERD, Hiatal Hernia Genitourinary History: Reports: Acute Renal Failure, BPH, Chronic Renal Insuffiency, Dialysis, Renal Disease, Urinary Incontinence Other Genitourinary History: History of DIALYSIS due to acute renal failure- resolved chronic renal insufficiency, BPH with additional history of prostate cancer Musculoskeletal History: Reports: Arthritis, Back Pain, Chronic, Fracture, Gout , Neck Pain, Chronic, Osteoarthritis, SLE, Other (See Below) Other Musculoskeletal History: Chronic pain syndrome with previous history chronic narcotic use, bilateral wrist fractures as a child at about age 13, right-sided rib fracture secondary to respiratory code on 08/14/16 as above Neurological History: Reports: Headaches, Chronic, Migraines, Neuropathy, Peripheral, Other (See Below) Other Neuro History: Chronic left leg weakness secondary to previous osteomyelitis, chronic pain syndrome with chronic narcotic use. 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 09/10/17: reports current chemotherapy treatments for unknown type cancer, states "it's all over his body, I don't know what kind". Dermatologic History: Reports: Venous Stasis Dermatitis, Other (See Below) Other Dermatologic History: Venous stasis ulcer of the right anterior tibial region with skin graft as below - Infectious Disease History Infectious Disease History: Reports: Chicken Pox, Measles, Mumps - Past Surgical History Head Surgeries/Procedures: Reports: None HEENT Surgical History: Reports: Cataract Surgery, Oral Surgery, Tonsillectomy, Other (See Below) Cardiovascular Surgical History: Reports: Other (See Below) GI Surgical History: Reports: Appendectomy, Colonoscopy, EGD, Miley Fundoplication Male Surgical History: Reports: Circumcision, Prostatectomy, Other (See Below ) Endocrine Surgical History: Reports: None Musculoskeletal Surgical History: Reports: Carpal Tunnel, Hip Replacement, Joint Replacement, Knee Replacement, Shoulder Surgery, Other (See Below) Oncologic Surgical History: Reports: Other (See Below) Dermatological Surgical History: Reports: Skin Graft - Past Imaging History Past Imaging History: Reports: Cardiac Echo (Last echocardiogram on with results not available with previous echocardiogram on 01/17/15 with ejection fraction of 5055 percent), CAT Scan (CTA of the chest on 09/02/16, CT of the chest, abdomen, and pelvis on 11/22/16, CT of the head, chest, and abdomen on , CT of the soft tissue of the neck on 11/21/15 and 11/16/15, CT of the chest on 07/04/12, CT of the abdomen and pelvis on 01/08/15, 12/19/12, and 07/04/12, CT of the brain on 08/07/13 and 02/04/14), DEXA Scan (07/09/12), Sleep Study (08/21/16 ), Swallow Study (08/22/16), Ultrasound (Renal ultrasound on 04/17/16, thyroid ultrasound on 11/16/15, bladder ultrasound and abdominal ultrasound on 12/24/12), Venous Doppler (Left leg on 07/26/16, right leg on 05/11/14) Social & Family History - Family History Family Medical History: Noncontributory HEENT: Reports: None Cardiac: Reports: Blood Clots/VTE/DVT, CAD, Heart Failure, GA, Other (See Below) Other Cardiac Family History: Father with probable fatal GA and CHF at age 78, father with recurrent DVTs Respiratory: Reports: None GI: Reports: None : Reports: Diabetic Nephropathy, Renal Disease/Insufficiency, Other (See Below ) Other Family History: mother with diabetic nephropathy Musculoskeletal: Reports: Arthritis, Osteoarthritis, Other (See Below) Other Musculoskeletal Family History: Father with osteoarthritis Neurological: Reports: Other (See Below) Other Neurological Family History: Son with fatal muscular dystrophy at age 21 Psychiatric: Reports: None Endocrine/Metabolic: Reports: Diabetes, type II, IDDM, Other (See Below) Other Endocrine/Metabolic Family History: Mother, maternal aunt, and paternal uncle with IDDM Hematologic: Reports: None Immunologic: Reports: None Dermatologic: Reports: None Oncologic: Reports: None - Tobacco Use Smoking Status *Q: Never Smoker Second Hand Smoke Exposure: No - Caffeine Use Caffeine Use: Reports: None - Alcohol Use Days Per Week of Alcohol Use: 0 Number of Drinks Per Day: 0 Total Drinks Per Week: 0 - Recreational Drug Use Recreational Drug Use: No Drug Use in Last 12 Months: No Recreational Drug Type: Denies: Amphetamines (Speed), Cocaine, Heroin, Inhalants (Glues, Solvents, Aerosols), LSD (Acid), Marijuana/Hashish, Methamphetamine, Morphine Recreational Drug Use Frequency: Daily - Living Situation & Occupation Living situation: Reports: , with Family Occupation: Retired ED ROS GENERAL - Review of Systems Review Of Systems: See Below Constitutional: Reports: No Symptoms HEENT: Denies: Ear Discharge, Ear Pain, Eye Discharge, Eye Pain, Nose Pain, Rhinitis, Sinus Problem, Throat Pain, Throat Swelling, Vertigo, Vision Change Respiratory: Reports: No Symptoms Cardiovascular: Reports: Lightheadedness. Denies: Chest Pain, Palpitations, Syncope GI/Abdominal: Reports: No Symptoms : Reports: No Symptoms Musculoskeletal: Reports: Neck Pain Skin: Reports: No Symptoms (no acute changes) Neurological: Denies: Headache, Numbness, Paresthesia, Syncope, Trouble Speaking , Difficulty Walking, Change in Speech, Gait Disturbance Psychiatric: Reports: No Symptoms Hematologic/Lymphatic: Reports: No Symptoms ED EXAM, GENERAL - Physical Exam Exam: See Below Exam Limited By: No Limitations General Appearance: Alert, No Apparent Distress, Obese Eye Exam: Bilateral Eye: EOMI, PERRL, Other (no nystagmus) Ears: Normal External Exam, Normal Canal, Hearing Grossly Normal, Normal TMs Nose: No: Nasal Deformity, Nasal Swelling, Nasal Drainage, Clear Rhinorrhea Throat/Mouth: Normal Lips, Normal Gums, Normal Oropharynx, Normal Voice, No Airway Compromise, Other (missing teeth) Head: Atraumatic, Normocephalic Neck: Supple, Tender Lateral (tender along left sternoclidomastoid). No: Lymphadenopathy (L), Lymphadenopathy (R) Respiratory/Chest: No Respiratory Distress, Lungs Clear, Normal Breath Sounds, No Accessory Muscle Use, Chest Non-Tender Cardiovascular: Normal Peripheral Pulses, Regular Rate, Rhythm, No Edema, No Murmur Peripheral Pulses: 2+: Radial (L), Radial (R) GI/Abdominal: Normal Bowel Sounds, Soft, Non-Tender (Male) Exam: Deferred Rectal (Males) Exam: Deferred Back Exam: Normal Inspection. No: CVA Tenderness (L), CVA Tenderness (R), Muscle Spasm, Paraspinal Tenderness, Vertebral Tenderness Extremities: Non-Tender, Normal Capillary Refill Neurological: Alert, Oriented, Normal Cognition, Normal Gait (for patient), No Motor/Sensory Deficits Psychiatric: Normal Affect, Normal Mood Skin Exam: Warm, Dry, Intact, Other (scattered bruises noted. ) EKG INTERPRETATION EKG Date: 09/10/17 Time: 23:06 Rhythm: NSR Rate (Beats/Min): 69 [place]: Normal P-Wave: Present QRS: Other (nonspecific IVC delay) ST-T: Other (minimal t wave inversion noted V1-V3) QT: Normal Comparison: Change From Previous EKG (minimal change noted. Last EKG showed more upright Twaves in V1-4. No ST depression/elevation suggestive of acute ischemia) Course - Vital Signs Last Recorded V/S: Last Vital Signs Temp 36.7 C 09/10/17 22:26 Pulse 72 09/10/17 22:26 Resp 15 09/10/17 23:06 BP 142/69 H 09/10/17 23:06 Pulse Ox 95 09/10/17 23:06 Orthostatic Blood Pressure [ 137/75 Standing] Orthostatic Blood Pressure [ 146/88 Sitting] Orthostatic Blood Pressure [ 140/78 Supine] - Orders/Labs/Meds Orders: Active Orders 24 hr Category Date Time Status EKG Documentation Completion [RC] ASDIRECTED Care 09/10/17 23:00 Active Labs: Laboratory Tests 09/10/17 09/10/17 Range/Units 23:21 23:21 WBC 4.7 (4.0-10.2) K/uL RBC 3.31 L (4.33-5.41) M/uL Hgb 10.2 L (13.1-16.8) g/dL Hct 33.1 L (39.0-49.0) % MCV 100.0 H (84.0-98.0) fL MCH 30.8 (28.2-33.3) pg MCHC 30.8 L (31.7-36.0) g/dL RDW 15.6 H (11.2-14.1) % Plt Count 175 (150-350) K/uL Neut % (Auto) 71.9 (45.0-80.0) % Lymph % (Auto) 12.3 (10.0-50.0) % [place] % (Auto) 9.4 (2.0-14.0) % Eos % (Auto) 5.5 H (0.0-5.0) % Baso % (Auto) 0.9 (0.0-2.0) % Neut # (Auto) 3.38 (1.40-7.00) K/uL Lymph # (Auto) 0.58 (0.50-3.50) K/uL [place] # (Auto) 0.44 (0.00-1.00) K/uL Eos # (Auto) 0.26 (0.00-0.50) K/uL Baso # (Auto) 0.04 (0.00-0.20) K/uL Sodium 142 (136-145) mmol/L Potassium 3.9 (3.5-5.1) mmol/L Chloride 101 (98-107) mmol/L Carbon Dioxide 40.9 H* (21.0-32.0) mmol/L BUN 35 H (7-18) mg/dL Creatinine 1.26 H (0.51-1.17) mg/dL Est Cr Clr Drug Dosing 55.60 mL/min Estimated GFR (MDRD) 56 mL/min Glucose 105 (74-106) mg/dL Calcium 8.5 (8.5-10.1) mg/dL Meds: Medications Discontinued Medications Generic Name Dose Route Start Last Admin Trade Name Freq PRN Reason Stop Dose Admin Meclizine HCl 25 mg 09/10/17 23:28 09/10/17 23:46 Antivert PO 09/10/17 23:29 25 mg ONETIME ONE Administration - Re-Assessments/Exams Free Text/Narrative Re-Assessment/Exam: 09/11/17 00:48 Patient's main complaint was essentially musculoskeletal and appeared to be due to tightness affecting left sternoclidomastoid muscle. Long standing problem per patient. Sensation of lightheadedness greatly improved throughout stay in ER. Negative orthostatics. Patient observed to ambulate and did so without issue. Ambulated per norm for him (uses walker outside but requires no walker inside the house). CBC/Chem/EKG performed. Hgb 10.3, Co2 40.9, BUN 35, Cr 1.26 noted. Review of patient's previous lab history showed that these levels are within patient's usual range. He does have COPD and is on home O2, CO2 retainer. Plan at this time is to let him return home. He will try to see his chiropractor tomorrow to get relief from the muscle pain. He is to watch and see if lightheaded feeling resolves or if other changes are noted. Patient has follow up appointment in [place] with one of his doctors on Friday. He is to follow up acutely if any other problems develop. He and his are comfortable with this plan. Departure - Departure Time of Disposition: 23:52 Disposition: Home, Self-Care Clinical Impression: Light-headed feeling, Neck pain on left side - Discharge Information Referrals: Lidya Panchal PA [Primary Care Provider] - Forms: ED Department Discharge Additional Instructions: Follow up tomorrow with your chiropractor if you can get an appointment. Follow up Friday with your specialists in [place] as scheduled. See how the feeling of lightheadedness is tomorrow and if it is still present, how does it respond to the chiropractor treatment. Follow up otherwise as needed if there are further changes. - My Orders Last 24 Hours: My Active Orders 09/10/17 23:00 EKG Documentation Completion [RC] ASDIRECTED - Assessment/Plan Last 24 Hours: My Active Orders 09/10/17 23:00 EKG Documentation Completion [RC] ASDIRECTED
== END 2017-09-11 00:15 | disposition home or self-care (01) ==
LOC: LL.ED 22:23
DX: R42 Dizziness and giddiness (principal); M54.2 Cervicalgia; K21.9 Gastro-esophageal reflux disease without esophagitis; J44.9 Chronic obstructive pulmonary disease, unspecified; I13.2 Hypertensive heart and chronic kidney disease with heart failure and with stage 5 chronic kidney disease, or end stage renal disease; N18.6 End stage renal disease; I50.9 Heart failure, unspecified; E66.9 Obesity, unspecified; E03.9 Hypothyroidism, unspecified; Z88.0 Allergy status to penicillin; Z88.5 Allergy status to narcotic agent; Z79.899 Other long term (current) drug therapy; Z79.82 Long term (current) use of aspirin
CPT/HCPCS: 36415; 80048; 85025; 93005; 99285; A9270-GY

== ENCOUNTER 2017-09-30 21:36 | Inpatient (IN) | payer MEDICARE, MEDICAID ==
--- NOTE | 2017-09-30 21:41 | EDM.PDOC ---
ED HPI GENERAL MEDICAL PROBLEM - General Chief Complaint: General Stated Complaint: weakness, shortness of breath Time Seen by Provider: 09/30/17 21:36 Source of Information: Reports: Patient, EMS, Family (), Old Records ([facility] chart/EMR). Denies: EMS Notes Reviewed (Not available at time of dictation) History Limitations: Reports: No Limitations - History of Present Illness INITIAL COMMENTS - FREE TEXT/NARRATIVE: Patient was brought to the emergency room via ambulance with fitter armament accompaniment with DuoNeb treatment started in route. The patient does have a history of progressive dyspnea and yellowish productive cough during the last several days with evaluation by their regular provider yesterday. The patient did receive an IM antibiotic injection was started on a cephalosporin. His symptoms have worsened since that time with possible fever and chills, however temperature not measured. The patient is also progressively more weak since onset of symptoms, affecting his ADLs, including going to the bathroom, etc. The patient denies any chest pain/pressure, heart flutter, dizziness, orthostasis, orthopnea, diaphoresis, paresthesias, recent decreased exercise tolerance, or any other anginal-type symptoms. No recent history of abdominal pain, heartburn, nausea, diarrhea, melena, gross hematochezia, or any food intolerance, including fatty foods, etc. with normal bowel movement earlier today. No history of gross hematuria or other UTI symptoms. O2 saturation of only 82% on 3 L/m by nasal cannula at home prior to transfer. Note 710 diffuse nonspecific arthralgias. Onset: Gradual Onset Date: 09/28/17 Duration: Getting Worse Location: Reports: Generalized Quality: Reports: Ache, Same as Previous Episode (Dyspnea) Severity: Moderate Improves with: Reports: Rest Worsens with: Reports: Movement Context: Reports: Other (As above) Associated Symptoms: Reports: Cough, cough w sputum, Fever/Chills, Shortness of Breath, Weakness. 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: Reports: Other Medication(s) (As above), Oxygen generalized Pain Score (Numeric/FACES): 7 - Related Data Allergies Allergy/AdvReac Type Severity Reaction Status Date / Time codeine Allergy Nausea Verified 09/30/17 21:47 Penicillins Allergy Hives Verified 09/30/17 21:47 Home Meds: Home Meds Citalopram [Citalopram HBr] 20 mg PO DAILY 08/07/13 [History] Levothyroxine 75 mcg PO QAM 08/07/13 [History] Pregabalin [Lyrica] 25 mg PO TID 08/07/13 [History] amLODIPine [Norvasc] 5 mg PO DAILY 08/07/13 [History] Cholecalciferol (Vitamin D3) [Vitamin D3] 2,000 units PO DAILY 06/12/14 [History ] Latanoprost [Xalatan 0.005% Ophth Soln] 1 drop EYEBOTH BEDTIME 06/12/14 [History ] Nitroglycerin [Nitrostat] 1 tab SL ASDIRECTED PRN 06/12/14 [History] Simvastatin [Zocor] 10 mg PO BEDTIME 11/12/15 [History] Ranitidine [Zantac] 150 mg PO BID #60 tab 11/17/15 [Rx] Albuterol/Ipratropium [DuoNeb 3.0-0.5 MG/3 ML] 1 ampule INH Q4H PRN 03/19/16 [ History] Folic Acid 1 mg PO DAILY 03/19/16 [History] Acetaminophen 650 mg PO Q4HR PRN 07/26/16 [History] Furosemide 20 mg PO DAILY 07/26/16 [History] Finasteride 5 mg PO DAILY 11/02/16 [History] Verapamil HCl [Verapamil ER] 240 mg PO DAILY@1700 11/02/16 [History] Warfarin [Coumadin] 7.5 mg PO SUTUTHSA@1800 11/02/16 [History] Aspirin [Halfprin] 162 mg PO DAILY 11/15/16 [History] Budesonide [Pulmicort] 0.5 mg NEB BIDRT 11/15/16 [History] Magnesium Oxide 400 mg PO BID 11/15/16 [History] Amino Acids/Protein Supplement [Protein 2,000 MG] 1 each PO DAILY 03/30/17 [ History] Calcium Carbonate [Calcium] 600 mg PO BID 03/30/17 [History] Docusate Sodium [Colace] 100 mg PO BID 03/30/17 [History] Abiraterone Acetate [Zytiga] 1,000 mg PO DAILY 09/30/17 [History] Arformoterol [Brovana] 1 inh INH BID 09/30/17 [History] Benzonatate 200 mg PO TID PRN 09/30/17 [History] Cefprozil 500 mg PO BID 09/30/17 [History] Cyclobenzaprine [Flexeril] 10 mg PO TID PRN 09/30/17 [History] Sennosides/Docusate Sodium [Senna-S] 1 each PO BID PRN 09/30/17 [History] Warfarin Sodium [Coumadin] 10 mg PO TH@18 09/30/17 [History] Past Medical History HEENT History: Reports: Cataract, Glaucoma, Impaired Vision, Other (See Below). Denies: Allergic Rhinitis, Hard of Hearing, Retinal Detachment Other HEENT History: Patient wears reading glasses Cardiovascular History: Reports: Aneurysm, Arrhythmia, Blood Clots/VTE/DVT, Cardiomyopathy, Heart Failure, High Cholesterol, Hypertension, PVD, Other (See Below). 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 Denies: Asthma, Pneumothorax, TB Other Respiratory History: O2 dependent COPD, severe obstructive sleep apnea with no current CPAP therapy, Bilateral pulmonary nodules including the left lower lobe. Respiratory Arrest on 08/14/16 with code required and secondary right -sided rib fractures. Gastrointestinal History: Reports: Chronic Constipation, Diverticulosis, GERD, Hiatal Hernia. Denies: Bowel Obstruction, Cholelithiasis, Colon Polyp, Gastritis, GI Bleed, Hepatitis, Inflammatory Bowel Disease, Irritable Bowel Syndrome, Jaundice, Pancreatitis, PUD Genitourinary History: Reports: Acute Renal Failure, BPH, Chronic Renal Insuffiency, Dialysis, Renal Disease, Urinary Incontinence. Denies: Renal Calculus, STD, UTI, Recurrent Other Genitourinary History: History of DIALYSIS due to acute renal failure- resolved; chronic renal insufficiency, BPH with additional history of prostate cancer Musculoskeletal History: Reports: Arthritis, Back Pain, Chronic, Fracture, Gout , Neck Pain, Chronic, Osteoarthritis, SLE, Other (See Below). Denies: Amputation, RA Other Musculoskeletal History: Chronic pain syndrome with previous history chronic narcotic use, bilateral wrist fractures as a child at about age 13, right-sided rib fracture secondary to respiratory code on 08/14/16 as above. 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 Denies: Brain Injury, Cerebral Aneurysms, CVA, MS, Parkinson's, Seizure, TIA Other Neuro History: Chronic left leg weakness secondary to previous osteomyelitis, chronic pain syndrome with chronic narcotic use. Head mass found via CT on 08/19/16 Psychiatric History: Reports: Addiction, Anxiety, Depression, Other (See Below) . Denies: Abuse, Victim of, ADD, ADHD, Psych Hospitalization(s), Suicide Attempt, Suicidal Ideation Other Psychiatric History: History of chronic narcotic use secondary to chronic pain syndrome as above Endocrine/Metabolic History: Reports: Hyperparathyroidism, Hypothyroidism, Obesity/BMI 30+, Other (See Below). Denies: Diabetes, Type I, Diabetes, Type II , Diabetes Mellitus, Type 3c, IDDM Other Endocrine/Metabolic History: Hypomagnesemia Hematologic History: Reports: Polycythemia, Other (See Below) Other Hematologic History: Protein S deficiency with secondary recurrent DVTs and PE Immunologic History: Reports: None. Denies: AIDS, HIV, SLE Oncologic (Cancer) History: Reports: Bladder, Metastatic, Prostate, Other (See Below). Denies: Basal Cell Carcinoma, Hodgkin's Lymphoma, Leukemia, Lymphoma, Malignant Melanoma, Non-Hodgkin's Lymphoma, Squamous Cell Carcinoma Other Oncologic History: 37 radiation treatments for prostate cancer with additional chemotherapy and status post prostatectomy in 2011. 09/10/17: reports current chemotherapy treatments for unknown type cancer, states "it's all over his body, I don't know what kind". Bladder cancer with surgery as below in September 2016. Dermatologic History: Reports: Venous Stasis Dermatitis, Other (See Below). Denies: Eczema, Psoriasis Other Dermatologic History: Venous stasis ulcer of the right anterior tibial region with skin graft as below - Infectious Disease History Infectious Disease History: Reports: Chicken Pox, Measles, Mumps. Denies: C- Difficile, Meningitis, Mononucleosis, MRSA, Pertussis (Whooping Cough), Rheumatic Fever, Rubella, Scarlet Fever, Shingles, TB, VRE - Past Surgical History Head Surgeries/Procedures: Reports: None HEENT Surgical History: Reports: Cataract Surgery, Oral Surgery, Tonsillectomy. Denies: Eye Surgery, Laser Surgery, LASIK, Naso-Sinus Surgery GI Surgical History: Reports: Appendectomy, Colonoscopy, EGD, Miley Fundoplication, Other (See Below) Other GI Surgeries/Procedures: Appendectomy in 1970 Male Surgical History: Reports: Circumcision, Prostatectomy, TURBT- Transurethral Resection of Bladder Tumor, Other (See Below) Other Male Surgeries/Procedures: TURBT on 10/10/16 at cystoscopy on 10/05/16 Endocrine Surgical History: Reports: None Musculoskeletal Surgical History: Reports: Carpal Tunnel, Hip Replacement, Joint Replacement, Knee Replacement, Shoulder Surgery, Other (See Below) Other Musculoskeletal Surgeries/Procedures:: Left total knee arthroplasty on with history of bilateral total knee hemiarthroplasty and right hip TEP Oncologic Surgical History: Reports: Other (See Below) Dermatological Surgical History: Reports: Skin Graft - Past Imaging History Past Imaging History: Reports: Cardiac Echo (Last echocardiogram on with results not available with previous echocardiogram on 01/17/15 with ejection fraction of 5055 percent), CAT Scan (CTA of the chest on 04/05/17 with previous evaluation on 09/02/16; CT of the chest on 03/07/17; CT of the chest, abdomen, and pelvis on 11/22/16, CT of the head, chest, and abdomen on 08/19/16, CT of the soft tissue of the neck on 11/21/15 and 11/16/15, CT of the chest on 07/04/12, CT of the abdomen and pelvis on 01/08/15, 12/19/12, and 07/04/12, CT of the brain on 08/07/13 and 02/04/14), DEXA Scan (07/09/12), Sleep Study (08/21/16), Swallow Study (), Ultrasound (Renal ultrasound on 04/17/16, thyroid ultrasound on 11/16/15 , bladder ultrasound and abdominal ultrasound on 12/24/12), Venous Doppler ( Bilateral venous Doppler studies on 12/19/16. Left leg on 07/26/16, right leg on 05/11/14) Social & Family History - Family History HEENT: Reports: None Cardiac: Reports: Blood Clots/VTE/DVT, CAD, Heart Failure, MT, Other (See Below) Other Cardiac Family History: Father with probable fatal MT and CHF at age 78, father with recurrent DVTs Respiratory: Reports: None GI: Reports: None : Reports: Diabetic Nephropathy, Renal Disease/Insufficiency, Other (See Below ) Other Family History: mother with diabetic nephropathy and brother with renal insufficiency Musculoskeletal: Reports: Arthritis, Osteoarthritis, Other (See Below) Other Musculoskeletal Family History: Father with osteoarthritis Neurological: Reports: CVA, Other (See Below) Other Neurological Family History: Son with fatal muscular dystrophy at age 21 and mother with CVA Psychiatric: Reports: None Endocrine/Metabolic: Reports: Diabetes, type II, IDDM, Other (See Below) Other Endocrine/Metabolic Family History: Mother, maternal aunt, and paternal uncle with IDDM Hematologic: Reports: None Immunologic: Reports: None Dermatologic: Reports: None Oncologic: Reports: Other (See Below) Other Oncologic Family History: Paternal aunt and uncle with unknown type of cancer - Tobacco Use Smoking Status *Q: Never Smoker Tobacco Use Within Last Twelve Months: No Used Tobacco, but Quit: No Smoking Cessation Information Provided To Patient: No Second Hand Smoke Exposure: No Second Hand Smoke Education Provided: No - Caffeine Use Caffeine Use: Reports: None. Denies: Coffee, Energy Drinks, Soda, Tea - Alcohol Use Alcohol Use History: No Days Per Week of Alcohol Use: 0 Number of Drinks Per Day: 0 Total Drinks Per Week: 0 - Recreational Drug Use Recreational Drug Use: No Drug Use in Last 12 Months: No Recreational Drug Type: Denies: Amphetamines (Speed), Cocaine, Heroin, Inhalants (Glues, Solvents, Aerosols), LSD (Acid), Marijuana/Hashish, Methamphetamine, Morphine - Living Situation & Occupation Living situation: Reports: , with Family Occupation: Retired ED ROS GENERAL - Review of Systems Review Of Systems: ROS reveals no pertinent complaints other than HPI. ED EXAM, GENERAL - Physical Exam Exam: See Below Exam Limited By: No Limitations General Appearance: Alert, WD/WN, No Apparent Distress Eye Exam: Bilateral Eye: EOMI, Normal Inspection (No nystagmus), PERRL Ears: Normal External Exam, Normal Canal, Hearing Grossly Normal, Normal TMs Nose: Normal Mucosa, No Blood, Clear Rhinorrhea Throat/Mouth: Normal Inspection, Normal Lips, Normal Teeth (Multiple missing teeth), Normal Gums, Normal Oropharynx, Normal Voice, No Airway Compromise. No : Dysphagia, Inflammation, Perioral Cyanosis Head: Atraumatic, Normocephalic. No: Facial Swelling, Facial Tenderness, Sinus Tenderness Neck: Supple, Non-Tender, Full Range of Motion, Carotid Bruit (Mild bilateral carotid bruits). No: Lymphadenopathy (L), Lymphadenopathy (R), Thyromegaly Respiratory/Chest: No Respiratory Distress, No Accessory Muscle Use, Chest Non- Tender, Rales (Moderate diffuse bilateral basilar rales particularly in the right lower base). No: Rhonchi, Wheezing, Pleural Rub, Retractions Cardiovascular: Normal Peripheral Pulses, Regular Rate, Rhythm, No Edema, No Gallop, No JVD, No Murmur, No Rub. No: Gallop/S3, Gallop/S4, Friction Rub Peripheral Pulses: 2+: Radial (L), Radial (R), Dorsalis Pedis (L), Dorsalis Pedis (R) GI/Abdominal: Normal Bowel Sounds, Soft, Non-Tender, No Organomegaly, No Distention, No Abnormal Bruit, No Mass, Pelvis Stable, Other (Obese). No: Guarding (Male) Exam: Deferred Rectal (Males) Exam: Deferred Back Exam: Normal Inspection, Full Range of Motion. No: CVA Tenderness (L), CVA Tenderness (R), Muscle Spasm Extremities: Normal Inspection, Normal Range of Motion, Non-Tender, No Pedal Edema, Normal Capillary Refill. No: Sean's Sign Neurological: Alert, Oriented, CN II-XII Intact, Normal Cognition, Normal Gait, Normal Reflexes (Negative Babinski's), No Motor/Sensory Deficits Psychiatric: Normal Affect, Normal Mood Skin Exam: Warm, Dry, Intact, Normal Color, No Rash. No: Diaphoretic, Wound/ Incision Lymphatic: No Adenopathy EKG INTERPRETATION EKG Date: 09/30/17 Time: 21:47 Rhythm: NSR Rate (Beats/Min): 72 [place]: RAD-Right [place] Deviation P-Wave: Present QRS: RBBB (QRS interval of 0.12 seconds representing repolarization changes versus bundle branch block) ST-T: Normal (Nonspecific ST changes) QT: Normal TN/PQ Interval: 0.17 seconds with mild poor R-wave progression in the anterior leads Comparison: Change From Previous EKG (Resolution of previous T-wave inversions in leads 3 and V1 since 09/10/17) EKG Interpretation Comments: 1. No acute ischemic changes 2. Complete right bundle branch block/repolarization changes Course - Vital Signs Last Recorded V/S: Last Vital Signs Temp 37.1 C 09/30/17 21:39 Pulse 73 09/30/17 21:45 Resp 19 09/30/17 21:45 BP 126/63 09/30/17 21:45 Pulse Ox 84 L 09/30/17 21:45 Vital Signs - 24 hr 09/30/17 09/30/17 09/30/17 21:39 21:42 21:45 Temperature [ 37.1 C Oral] Temperature [ 36.7 C Temporal] Pulse, 67 73 Peripheral [ Left Pulse Oximetry] Respiratory 21 H 19 Rate Blood Pressure 132/56 L 126/63 [Left Upper Arm ] O2 Sat by Pulse 100 84 L Oximetry O2 Sat by Pulse 91 L Oximetry [ Nasal Cannula] 09/30/17 09/30/17 22:45 23:15 Temperature [ Oral] Temperature [ Temporal] Pulse, 79 71 Peripheral [ Left Pulse Oximetry] Respiratory 21 H 17 Rate Blood Pressure 105/56 L 114/65 [Left Upper Arm ] O2 Sat by Pulse 91 L 93 L Oximetry O2 Sat by Pulse Oximetry [ Nasal Cannula] - Orders/Labs/Meds Orders: Active Orders 24 hr Category Date Time Status Cardiac Monitoring [RC] CONTINUOUS Care 09/30/17 21:42 Active Communication Order [RC] ROUTINE Care 09/30/17 21:42 Active EKG Documentation Completion [RC] ASDIRECTED Care 09/30/17 21:43 Active Oxygen Therapy, ED [RC] CONTINUOUS Care 09/30/17 21:42 Active Peripheral IV Care [RC] . DIRECTED Care 09/30/17 21:43 Active Pulse Oximetry [RC] CONTINUOUS Care 09/30/17 21:42 Active Up With Assistance [RC] ASDIRECTED Care 09/30/17 21:42 Active Nothing Per Oral Diet [DIET] Diet 09/30/17 Breakfast Active Chest 1V Frontal [CR] Stat Exams 09/30/17 21:42 Taken CULTURE BLOOD [BC] Stat Lab 09/30/17 22:00 Received CULTURE BLOOD [BC] Stat Lab 09/30/17 22:12 Received CULTURE SPUTUM + SMEAR [RM] Urgent Lab 09/30/17 21:42 Ordered Acetaminophen [Tylenol] Med 09/30/17 21:42 Active 650 mg PO Q4H PRN Azithromycin [Zithromax] 500 mg Med 09/30/17 21:45 Active Sodium Chloride 0.9% [Normal Saline] 250 ml IV Q24H Levofloxacin/Dextrose 5%-Water [Levaquin in D5W 500 MG/ Med 09/30/17 21:45 Active 100 ML] 500 mg Premix Bag 1 bag IV Q24H Sodium Chloride 0.9% [Saline Flush] Med 09/30/17 21:42 Active 10 ml FLUSH ASDIRECTED PRN Blood Culture x2 Reflex Set [OM.PC] Stat Oth 09/30/17 21:42 Ordered Obtain Past Medical Record [OM.PC] Stat Oth 09/30/17 21:42 Active Peripheral IV Insertion Adult [OM.PC] Stat Oth 09/30/17 21:42 Ordered Resuscitation Status Routine Resus Stat 09/30/17 21:42 Ordered Medication Orders Acetaminophen (Tylenol) 650 mg PO Q4H PRN PRN Reason: Pain/Fever Azithromycin 500 mg/ Sodium (Chloride) 250 mls @ 250 mls/hr IV Q24H [facility] Last Admin: 09/30/17 22:18 Dose: 250 mls/hr Levofloxacin/Dextrose 500 mg/ (Premix) 100 mls @ 100 mls/hr IV Q24H [facility] Last Admin: 09/30/17 23:32 Dose: 100 mls/hr Sodium Chloride (Saline Flush) 10 ml FLUSH ASDIRECTED PRN PRN Reason: Keep Vein Open Last Admin: 09/30/17 23:09 Dose: 10 ml Admin: 09/30/17 22:21 Dose: 10 ml Labs: Laboratory Tests 09/30/17 09/30/17 09/30/17 Range/Units 22:00 22:00 22:00 WBC 5.6 (4.0-10.2) K/uL RBC 3.62 L (4.33-5.41) M/uL Hgb 10.8 L (13.1-16.8) g/dL Hct 35.3 L (39.0-49.0) % MCV 97.5 (84.0-98.0) fL MCH 29.8 (28.2-33.3) pg MCHC 30.6 L (31.7-36.0) g/dL RDW 15.3 H (11.2-14.1) % Plt Count 121 L (150-350) K/uL Neut % (Auto) 77.5 (45.0-80.0) % Lymph % (Auto) 11.4 (10.0-50.0) % [place] % (Auto) 10.5 (2.0-14.0) % Eos % (Auto) 0.4 (0.0-5.0) % Baso % (Auto) 0.2 (0.0-2.0) % Neut # (Auto) 4.31 (1.40-7.00) K/uL Lymph # (Auto) 0.63 (0.50-3.50) K/uL [place] # (Auto) 0.58 (0.00-1.00) K/uL Eos # (Auto) 0.02 (0.00-0.50) K/uL Baso # (Auto) 0.01 (0.00-0.20) K/uL D-Dimer, Quantitative 980 H (0-400) ng/mL Sodium 140 (136-145) mmol/L Potassium 3.5 (3.5-5.1) mmol/L Chloride 100 (98-107) mmol/L Carbon Dioxide 37.8 H (21.0-32.0) mmol/L BUN 27 H (7-18) mg/dL Creatinine 1.19 H (0.51-1.17) mg/dL Est Cr Clr Drug Dosing 58.87 mL/min Estimated GFR (MDRD) 60 mL/min Glucose 116 H (74-106) mg/dL Lactic Acid (0.4-2.0) mmol/L Calcium 8.4 L (8.5-10.1) mg/dL Magnesium 2.0 (1.8-2.4) mg/dL Total Bilirubin 0.5 (0.2-1.0) mg/dL AST 20 (15-37) U/L ALT 20 (12-78) U/L Alkaline Phosphatase 77 (46-116) IU/L Creatine Kinase 85 (26-308) U/L Creatine Kinase Index 0.9 (0.0-2.5) % CK-MB (CK-2) 0.80 (0.00-3.60) ng/mL Troponin I 0.017 (0.000-0.056) ng/mL NT-Pro-B Natriuret Pep 1108 H (0-125) pg/mL Total Protein 6.3 L (6.4-8.2) g/dL Albumin 2.8 L (3.4-5.0) g/dL TSH, Ultra Sensitive 0.646 (0.358-3.740) mIU/mL 09/30/17 Range/Units 22:00 WBC (4.0-10.2) K/uL RBC (4.33-5.41) M/uL Hgb (13.1-16.8) g/dL Hct (39.0-49.0) % MCV (84.0-98.0) fL MCH (28.2-33.3) pg MCHC (31.7-36.0) g/dL RDW (11.2-14.1) % Plt Count (150-350) K/uL Neut % (Auto) (45.0-80.0) % Lymph % (Auto) (10.0-50.0) % [place] % (Auto) (2.0-14.0) % Eos % (Auto) (0.0-5.0) % Baso % (Auto) (0.0-2.0) % Neut # (Auto) (1.40-7.00) K/uL Lymph # (Auto) (0.50-3.50) K/uL [place] # (Auto) (0.00-1.00) K/uL Eos # (Auto) (0.00-0.50) K/uL Baso # (Auto) (0.00-0.20) K/uL D-Dimer, Quantitative (0-400) ng/mL Sodium (136-145) mmol/L Potassium (3.5-5.1) mmol/L Chloride (98-107) mmol/L Carbon Dioxide (21.0-32.0) mmol/L BUN (7-18) mg/dL Creatinine (0.51-1.17) mg/dL Est Cr Clr Drug Dosing mL/min Estimated GFR (MDRD) mL/min Glucose (74-106) mg/dL Lactic Acid 1.2 (0.4-2.0) mmol/L Calcium (8.5-10.1) mg/dL Magnesium (1.8-2.4) mg/dL Total Bilirubin (0.2-1.0) mg/dL AST (15-37) U/L ALT (12-78) U/L Alkaline Phosphatase (46-116) IU/L Creatine Kinase (26-308) U/L Creatine Kinase Index (0.0-2.5) % CK-MB (CK-2) (0.00-3.60) ng/mL Troponin I (0.000-0.056) ng/mL NT-Pro-B Natriuret Pep (0-125) pg/mL Total Protein (6.4-8.2) g/dL Albumin (3.4-5.0) g/dL TSH, Ultra Sensitive (0.358-3.740) mIU/mL Blood cultures 2 collected Microbiology 09/30/17 21:45 Influenza Type A Antigen Screen - Final Nasal, Left NEGATIVE INFLUENZA A VIRUS AG Influenza Type B Antigen Screen - Final NEGATIVE INFLUENZA B VIRUS AG Meds: Medications Generic Name Dose Route Start Last Admin Trade Name Freq PRN Reason Stop Dose Admin Acetaminophen 650 mg 09/30/17 21:42 Tylenol PO Q4H PRN Pain/Fever Azithromycin 500 mg/ Sodium 250 mls @ 250 mls/hr 09/30/17 21:45 09/30/17 22: 18 Chloride IV 250 mls/hr Q24H ROLAND Administration Levofloxacin/Dextrose 500 mg/ 100 mls @ 100 mls/hr 09/30/17 21:45 09/30/17 23 :32 Premix IV 100 mls/hr Q24H ROLAND Administration Sodium Chloride 10 ml 09/30/17 21:42 09/30/17 23:33 Saline Flush FLUSH 10 ml ASDIRECTED PRN Administration Keep Vein Open Discontinued Medications Generic Name Dose Route Start Last Admin Trade Name Freq PRN Reason Stop Dose Admin Budesonide 0.5 mg 04/03/18 21:42 09/30/17 22:00 Pulmicort NEB 09/30/17 21:43 0.5 mg ONETIME ONE Administration Famotidine 40 mg 09/30/17 22:55 09/30/17 23:08 Pepcid IVPUSH 09/30/17 22:56 40 mg ONETIME ONE Administration Furosemide 60 mg 09/30/17 22:54 09/30/17 23:08 Lasix IVPUSH 09/30/17 22:55 60 mg NOW ONE Administration - Radiology Interpretation Free Text/Narrative:: Senior Dentist shows normal sinus rhythm with heart rate in the 70s and no ectopy or arrhythmia Chest x-ray portable, shows evidence of moderate cardiomegaly and mild prominence of the proximal aortic arch with mild right tracheal deviation. Moderate COPD changes with right middle lobe and left lower lobe pulmonary infiltrates in addition to mild centralized CHF. Moderate COPD changes were noted. Mild aortic valve calcification. No pneumothorax. Departure - Departure Time of Disposition: 00:05 Disposition: Admitted As Inpatient 68 Condition: Fair Clinical Impression: CHF, Congestive heart failure, COPD (chronic obstructive pulmonary disease), GERD (gastroesophageal reflux disease), Hypertension, Protein S deficiency, Renal insufficiency, Hypothyroidism, Hypoalbuminemia, D-dimer, elevated, Need for comfort care, Pneumonia, Anemia - Discharge Information - Problem List & Annotations (1) CHF, Congestive heart failure SNOMED Code(s): 76596477 Code(s): I50.9 - HEART FAILURE, UNSPECIFIED Status: Chronic Priority: Medium Current Visit: Yes Annotation/Comment:: Significant clinical CHF with IV Lasix initiated in the emergency room. No chest pain or anginal type symptoms with chest pain protocol not initiated in the emergency room. Repeat cardiac enzymes, EKG, etc. in the a.m. [facility] assumes care in the a.m. Long-term prognosis guarded and extremely poor. Note comfort care with no further echocardiogram, etc. Cardiology consultation depending on his clinical course (2) COPD (chronic obstructive pulmonary disease) SNOMED Code(s): 03480114 Code(s): J44.9 - CHRONIC OBSTRUCTIVE PULMONARY DISEASE, UNSPECIFIED Status : Acute Priority: High Current Visit: Yes Annotation/Comment:: O2 dependent COPD with significant hypoxia at home prior to transfer as above. Blood Cultures 2 were collected with concomitant right middle lobe and left lower lobe pneumonia. Note DuoNeb nebulizer treatment initiated by paramedics prior to arrival. Attempt to obtain sputum specimen. IV Levaquin and IV Zithromax therapy initiated in the emergency room. Continue aggressive nebulizer treatment. Note additional history of sleep apnea with the patient not currently compliant with his CPAP' Qualifiers: COPD type: COPD with acute lower respiratory infection Qualified Code(s): J44.0 - Chronic obstructive pulmonary disease with acute lower respiratory infection (3) Pneumonia SNOMED Code(s): 813814763 Code(s): J18.9 - PNEUMONIA, UNSPECIFIED ORGANISM Status: Acute Priority: High Current Visit: Yes Onset Date: ~09/30/17 Annotation/Comment:: As above Qualifiers: Pneumonia type: aspiration pneumonia Aspiration pneumonia type: unspecified Laterality: left Lung location: lower lobe of lung Qualified Code(s): J69.0 - Pneumonitis due to inhalation of food and vomit (4) D-dimer, elevated SNOMED Code(s): 736723417 Code(s): R79.89 - OTHER SPECIFIED ABNORMAL FINDINGS OF BLOOD CHEMISTRY Status: Chronic Priority: High Current Visit: Yes Annotation/Comment:: Chronic d-dimer elevation with history of recurrent DVTs and PEs as above. No direct evidence of acute DVT or PE. Patient is on Coumadin. Consider repeat venous Doppler studies and CT of the chest depending on his clinical course (5) Need for comfort care SNOMED Code(s): 155716408 Code(s): [id number] - Status: Chronic Priority: Medium Current Visit: Yes Annotation/Comment:: Comfort care as above confirmed today with the patient (6) GERD (gastroesophageal reflux disease) SNOMED Code(s): 974554893 Code(s): K21.9 - GASTRO-ESOPHAGEAL REFLUX DISEASE WITHOUT ESOPHAGITIS Status: Chronic Priority: Medium Current Visit: Yes Annotation/Comment:: After arrival patient began experiencing some nonspecific periumbilical abdominal discomfort and cramping with high-dose IV Pepcid given and improvement of his symptoms. Acute abdominal x-rays and repeat blood work in the a.m. Qualifiers: Esophagitis presence: esophagitis presence not specified Qualified Code(s) : K21.9 - Gastro-esophageal reflux disease without esophagitis (7) Hypertension SNOMED Code(s): 09270109 Code(s): I10 - ESSENTIAL (PRIMARY) HYPERTENSION Status: Chronic Priority : Medium Current Visit: Yes Annotation/Comment:: Blood Pressures under good control in the emergency room Qualifiers: Hypertension type: essential hypertension Qualified Code(s): I10 - Essential (primary) hypertension (8) Hypoalbuminemia SNOMED Code(s): 166133603 Code(s): E88.09 - OTH DISORDERS OF PLASMA-PROTEIN METABOLISM, NEC Status: Chronic Priority: Medium Current Visit: Yes Annotation/Comment:: Initiate high protein Glucerna supplement with caution secondary to his previous history of renal insufficiency (9) Hypothyroidism SNOMED Code(s): 12745367 Code(s): E03.9 - HYPOTHYROIDISM, UNSPECIFIED Status: Chronic Priority: Medium Current Visit: Yes Annotation/Comment:: Stable by his history, TSH normal today (10) Protein S deficiency SNOMED Code(s): 2819249 Code(s): D68.59 - OTHER PRIMARY THROMBOPHILIA Status: Chronic Priority: Medium Current Visit: Yes Annotation/Comment:: History of chronic and recurrent DVT as above. INR in the a.m.. (11) Renal insufficiency SNOMED Code(s): 558246422, 451997001 Code(s): N28.9 - DISORDER OF KIDNEY AND URETER, UNSPECIFIED Status: Chronic Priority: Medium Current Visit: Yes Annotation/Comment:: History of chronic renal insufficiency relatively stable from previous evaluations. Note previous history of acute renal insufficiency requiring distant dialysis as above (12) Anemia SNOMED Code(s): 048123506 Code(s): D64.9 - ANEMIA, UNSPECIFIED Status: Chronic Priority: High Current Visit: Yes Annotation/Comment:: History of chronic anemia. Continue to observe closely by his regular providers with further workup depending on his clinical course. Note current Coumadin therapy with Hemoccults, etc. to be collected Qualifiers: Anemia type: other cause Other causes of anemia: other cause, not classified Qualified Code(s): D64.89 - Other specified anemias - Problem List Review Problem List Initiated/Reviewed/Updated: Yes - My Orders Last 24 Hours: My Active Orders 09/30/17 21:42 Cardiac Monitoring [RC] CONTINUOUS Communication Order [RC] ROUTINE Oxygen Therapy, ED [RC] CONTINUOUS Pulse Oximetry [RC] CONTINUOUS Up With Assistance [RC] ASDIRECTED Chest 1V Frontal [CR] Stat CULTURE SPUTUM + SMEAR [RM] Urgent Acetaminophen [Tylenol] 650 mg PO Q4H PRN Sodium Chloride 0.9% [Saline Flush] 10 ml FLUSH ASDIRECTED PRN Blood Culture x2 Reflex Set [OM.PC] Stat Obtain Past Medical Record [OM.PC] Stat Peripheral IV Insertion Adult [OM.PC] Stat Resuscitation Status Routine 09/30/17 21:43 EKG Documentation Completion [RC] ASDIRECTED Peripheral IV Care [RC] . DIRECTED 09/30/17 21:45 Azithromycin [Zithromax] 500 mg Sodium Chloride 0.9% [Normal Saline] 250 ml IV Q24H Levofloxacin/Dextrose 5%-Water [Levaquin in D5W 500 MG/100 ML] 500 mg Premix Bag 1 bag IV Q24H 09/30/17 22:00 CULTURE BLOOD [BC] Stat 09/30/17 22:12 CULTURE BLOOD [BC] Stat 09/30/17 Breakfast Nothing Per Oral Diet [DIET] - Assessment/Plan Admission H&P: Please use this note as an admission H&P Last 24 Hours: My Active Orders 09/30/17 21:42 Cardiac Monitoring [RC] CONTINUOUS Communication Order [RC] ROUTINE Oxygen Therapy, ED [RC] CONTINUOUS Pulse Oximetry [RC] CONTINUOUS Up With Assistance [RC] ASDIRECTED Chest 1V Frontal [CR] Stat CULTURE SPUTUM + SMEAR [RM] Urgent Acetaminophen [Tylenol] 650 mg PO Q4H PRN Sodium Chloride 0.9% [Saline Flush] 10 ml FLUSH ASDIRECTED PRN Blood Culture x2 Reflex Set [OM.PC] Stat Obtain Past Medical Record [OM.PC] Stat Peripheral IV Insertion Adult [OM.PC] Stat Resuscitation Status Routine 09/30/17 21:43 EKG Documentation Completion [RC] ASDIRECTED Peripheral IV Care [RC] . DIRECTED 09/30/17 21:45 Azithromycin [Zithromax] 500 mg Sodium Chloride 0.9% [Normal Saline] 250 ml IV Q24H Levofloxacin/Dextrose 5%-Water [Levaquin in D5W 500 MG/100 ML] 500 mg Premix Bag 1 bag IV Q24H 09/30/17 22:00 CULTURE BLOOD [BC] Stat 09/30/17 22:12 CULTURE BLOOD [BC] Stat 09/30/17 Breakfast Nothing Per Oral Diet [DIET] Assessment:: As above Plan: As above. Extensive precautions were given to the patient and his , who are in agreement with the treatment plan. [facility] assumes care in the a.m. The patient will require about 3-4 days of inpatient/acute care secondary to multiple health problems as above. Long-term prognosis guarded
[2017-09-30] MEDS ORDERED: Budesonide 0.5 MG/2 ML Neb Susp NEB ONE (21:42)
[2017-09-30] MEDS ORDERED: Levofloxacin/Dextrose 5%-Water 500 MG in Premix Bag 1 BAG IV SCH (21:45)
[2017-09-30] MEDS: Azithromycin 500 MG in Sodium Chloride 0.9% 250 ML IV SCH (22:18)
[2017-09-30] MEDS: Sodium Chloride 0.9% 10 ML Syringe FLUSH PRN ×4 (22:21→23:33)
[2017-09-30] MEDS ORDERED: Furosemide 40 MG/4 ML VIAL IVPUSH ONE (22:54)
[2017-09-30] MEDS ORDERED: Famotidine 20 MG/2 ML SDV IVPUSH ONE (22:55)
[2017-10-01] MEDS ORDERED: Nitroglycerin 0.4 MG Tab.SL SL PRN (00:20)
[2017-10-01] MEDS ORDERED: Sodium Chloride 0.9% 10 ML Syringe FLUSH PRN (00:22)
[2017-10-01] MEDS ORDERED: Temazepam 15 MG Cap PO PRN (00:22)
[2017-10-01] MEDS ORDERED: Acetaminophen 325 MG Tab PO PRN (00:22)
[2017-10-01] MEDS ORDERED: Albuterol 0.083% 2.5 MG/3 ML Neb Soln INH PRN (00:29)
[2017-10-01] MEDS ORDERED: Albuterol/Ipratropium 3.0-0.5 MG/3 ML Neb Soln NEB PRN (00:29)
[2017-10-01] MEDS: Acetaminophen 325 MG Tab PO PRN ×2 (01:13→21:11)
[2017-10-01] MEDS: Cyclobenzaprine 10 MG Tab PO PRN ×2 (01:13→21:11)
[2017-10-01] MEDS ORDERED: Albuterol/Ipratropium 3.0-0.5 MG/3 ML Neb Soln NEB SCH (02:00)
[2017-10-01] MEDS ORDERED: Furosemide 40 MG/4 ML VIAL IVPUSH SCH (07:00)
[2017-10-01] MEDS: Magnesium Oxide 400 MG Tab PO SCH ×2 (07:44→17:56)
[2017-10-01] MEDS: Calcium Carbonate 500 MG Tab.Chew PO SCH ×2 (07:44→17:55)
[2017-10-01] MEDS: Docusate Sodium 100 MG Cap PO SCH ×2 (07:44→17:54)
[2017-10-01] MEDS: Budesonide 0.5 MG/2 ML Neb Susp NEB SCH ×2 (07:44→20:48)
[2017-10-01] MEDS: Cholecalciferol (Vitamin D3) 1,000 Unit Tab PO SCH (07:45)
[2017-10-01] MEDS: Dextromethorphan/guaiFENesin 600-30 MG Tab.ER PO SCH ×2 (07:45→17:54)
[2017-10-01] MEDS: amLODIPine 5 MG Tab PO SCH (07:45)
[2017-10-01] MEDS: Aspirin 81 MG Tab.EC PO SCH (07:45)
[2017-10-01] MEDS: Folic Acid 1 MG Tab PO SCH (07:45)
[2017-10-01] MEDS: Citalopram 20 MG Tab PO SCH (07:45)
[2017-10-01] MEDS: Levothyroxine 75 MCG Tab PO SCH (07:46)
[2017-10-01] MEDS: Pregabalin 25 MG Cap PO SCH ×3 (07:46→17:55)
[2017-10-01] MEDS: Potassium Chloride 20 MEQ Tab.ER PO SCH ×2 (07:46→11:18)
[2017-10-01] MEDS: Finasteride 5 MG Tab PO SCH (07:46)
[2017-10-01] MEDS: Sodium Chloride 0.9% 10 ML Syringe FLUSH PRN ×2 (07:46→20:56)
[2017-10-01] MEDS ORDERED: [UNRECOGNIZED DRUG - OTHER] PO SCH (08:00)
[2017-10-01] MEDS ORDERED: AMINO ACIDS PO SCH (08:00)
[2017-10-01] MEDS ORDERED: PROTEIN SUPPLEMENT PO SCH (08:00)
[2017-10-01] MEDS ORDERED: Arformoterol 15 MCG/2 ML Neb Soln INH SCH (08:00)
[2017-10-01] MEDS: Famotidine 20 MG Tab PO SCH (17:55)
[2017-10-01] MEDS: predniSONE 5 MG Tab PO SCH (17:55)
[2017-10-01] MEDS: Verapamil 120 MG Tab.ER PO SCH (17:56)
[2017-10-01] MEDS ORDERED: Warfarin 2.5 MG Tab PO SCH (18:00)
[2017-10-01] MEDS ORDERED: Potassium Chloride 20 MEQ Tab.ER PO SCH (18:00)
[2017-10-01] MEDS ORDERED: Non-Formulary Medication 1 Each (Ranitidine [Zantac] 150 MG) PO SCH (18:00)
[2017-10-01] MEDS: Latanoprost 0.005% Ophth Soln 2.5 ML Bottle EYEBOTH SCH (20:47)
[2017-10-01] MEDS: cefTAZidime 1 GM Vial IVPUSH SCH (20:47)
[2017-10-01] MEDS: Sodium Chloride 0.9% 10 ML Syringe FLUSH SCH (20:48)
[2017-10-01] MEDS: Azithromycin 500 MG in Sodium Chloride 0.9% 250 ML IV SCH (20:48)
[2017-10-01] MEDS: Arformoterol 15 MCG/2 ML Neb Soln INH SCH (20:48)
[2017-10-01] MEDS: Simvastatin 10 MG Tab PO SCH (20:49)
--- NOTE | 2017-10-01 23:31 | PCM.PN ---
- General Info Date of Service: 10/01/17 Functional Status: Reports: Pain Controlled - Review of Systems General: Reports: Weakness, Appetite (decreased) HEENT: Reports: No Symptoms Pulmonary: Reports: Cough, Sputum (green, yellow) Cardiovascular: Reports: No Symptoms Gastrointestinal: Reports: Decreased Appetite Genitourinary: Reports: No Symptoms Musculoskeletal: Reports: No Symptoms Skin: Reports: No Symptoms Neurological: Reports: Dizziness, Weakness Psychiatric: Reports: No Symptoms - Patient Data Vitals - Most Recent: Last Vital Signs Temp 98.5 F 10/01/17 20:00 Pulse 97 10/01/17 21:23 Resp 28 H 10/01/17 21:23 BP 136/70 10/01/17 20:00 Pulse Ox 91 L 10/01/17 21:23 Weight - Most Recent: 253 lb 6.389 oz I&O - Last 24 Hours: Intake & Output 10/01/17 10/01/17 10/02/17 14:59 22:59 06:59 Intake Total 240 500 Output Total 600 Balance 240 -100 Lab Results Last 24 Hours: Laboratory Results - last 24 hr 10/01/17 10/01/17 10/01/17 Range/Units 06:15 06:15 06:15 WBC (4.0-10.2) K/uL RBC (4.33-5.41) M/uL Hgb (13.1-16.8) g/dL Hct (39.0-49.0) % MCV (84.0-98.0) fL MCH (28.2-33.3) pg MCHC (31.7-36.0) g/dL RDW (11.2-14.1) % Plt Count (150-350) K/uL Neut % (Auto) (45.0-80.0) % Lymph % (Auto) (10.0-50.0) % [place] % (Auto) (2.0-14.0) % Eos % (Auto) (0.0-5.0) % Baso % (Auto) (0.0-2.0) % Neut # (Auto) (1.40-7.00) K/uL Lymph # (Auto) (0.50-3.50) K/uL [place] # (Auto) (0.00-1.00) K/uL Eos # (Auto) (0.00-0.50) K/uL Baso # (Auto) (0.00-0.20) K/uL PT 36.6 H (9.8-11.7) SEC INR 3.3 Creatine Kinase 100 (26-308) U/L Creatine Kinase Index 0.8 (0.0-2.5) % CK-MB (CK-2) 0.80 (0.00-3.60) ng/mL Troponin I 0.023 (0.000-0.056) ng/mL C-Reactive Protein (<=0.9) mg/dL Amylase 135 H (25-115) U/L Lipase 1060 H (73-393) U/L 10/01/17 10/01/17 10/01/17 Range/Units 06:15 06:20 11:51 WBC 3.7 L (4.0-10.2) K/uL RBC 3.44 L (4.33-5.41) M/uL Hgb 10.4 L (13.1-16.8) g/dL Hct 34.1 L (39.0-49.0) % MCV 99.1 H (84.0-98.0) fL MCH 30.2 (28.2-33.3) pg MCHC 30.5 L (31.7-36.0) g/dL RDW 15.3 H (11.2-14.1) % Plt Count 116 L (150-350) K/uL Neut % (Auto) 79.7 (45.0-80.0) % Lymph % (Auto) 9.2 L (10.0-50.0) % [place] % (Auto) 10.3 (2.0-14.0) % Eos % (Auto) 0.5 (0.0-5.0) % Baso % (Auto) 0.3 (0.0-2.0) % Neut # (Auto) 2.93 (1.40-7.00) K/uL Lymph # (Auto) 0.34 L (0.50-3.50) K/uL [place] # (Auto) 0.38 (0.00-1.00) K/uL Eos # (Auto) 0.02 (0.00-0.50) K/uL Baso # (Auto) 0.01 (0.00-0.20) K/uL PT (9.8-11.7) SEC INR Creatine Kinase 113 (26-308) U/L Creatine Kinase Index 0.9 (0.0-2.5) % CK-MB (CK-2) 1.00 (0.00-3.60) ng/mL Troponin I 0.022 (0.000-0.056) ng/mL C-Reactive Protein 7.7 H (<=0.9) mg/dL Amylase (25-115) U/L Lipase (73-393) U/L Abdiaziz Results Last 24 Hours: Microbiology 09/30/17 22:12 Aerobic Blood Culture - Preliminary Blood - Venous - Lab Draw NO GROWTH AFTER 1 DAY Anaerobic Blood Culture - Preliminary NO GROWTH AFTER 1 DAY 09/30/17 22:00 Aerobic Blood Culture - Preliminary Blood - Venous NO GROWTH AFTER 1 DAY Anaerobic Blood Culture - Preliminary NO GROWTH AFTER 1 DAY 09/30/17 23:07 Gram Stain - Final Sputum - Expectorated 09/30/17 21:45 Influenza Type A Antigen Screen - Final Nasal, Left NEGATIVE INFLUENZA A VIRUS AG Influenza Type B Antigen Screen - Final NEGATIVE INFLUENZA B VIRUS AG Med Orders - Current: Current Medications Acetaminophen (Tylenol) 650 mg PO Q4H PRN PRN Reason: Pain/Fever Last Admin: 10/01/17 21:11 Dose: 650 mg Albuterol (Proventil Neb Soln) 2.5 mg INH Q2H PRN PRN Reason: SHORTNESS OF BREATH Albuterol/Ipratropium (Duoneb 3.0-0.5 Mg/3 Ml) 3 ml NEB Q4HRRT PRN PRN Reason: Dyspnea Last Admin: 10/01/17 01:12 Dose: 3 ml Amlodipine Besylate (Norvasc) 5 mg PO DAILY [facility] Last Admin: 10/01/17 07:45 Dose: 5 mg Arformoterol Tartrate (Brovana) 15 mcg INH BIDRT [facility] Last Admin: 10/01/17 20:48 Dose: 15 mcg Aspirin (Halfprin) 162 mg PO DAILY [facility] Last Admin: 10/01/17 07:45 Dose: 162 mg Azithromycin (Zithromax) 500 mg PO DAILY [facility] Budesonide (Pulmicort) 0.5 mg NEB BIDRT [facility] Last Admin: 10/01/17 20:48 Dose: 0.5 mg Calcium Carbonate/Glycine (Tums) 500 mg PO BID [facility] Last Admin: 10/01/17 17:55 Dose: 500 mg Ceftazidime (Fortaz) 1 gm IVPUSH Q12HR [facility] Last Admin: 10/01/17 20:47 Dose: 1 gm Cholecalciferol (Vitamin D3) 2,000 units PO DAILY [facility] Last Admin: 10/01/17 07:45 Dose: 2,000 units Citalopram Hydrobromide (Celexa) 20 mg PO DAILY [facility] Last Admin: 10/01/17 07:45 Dose: 20 mg Cyclobenzaprine HCl (Flexeril) 10 mg PO TID PRN PRN Reason: MUSCLE SPASMS Last Admin: 10/01/17 21:11 Dose: 10 mg Docusate Sodium (Colace) 100 mg PO BID [facility] Last Admin: 10/01/17 17:54 Dose: 100 mg Famotidine (Pepcid) 20 mg PO BID [facility] Last Admin: 10/01/17 17:55 Dose: 20 mg Finasteride (Proscar) 5 mg PO DAILY [facility] Last Admin: 10/01/17 07:46 Dose: 5 mg Folic Acid (Folic Acid) 1 mg PO DAILY [facility] Last Admin: 10/01/17 07:45 Dose: 1 mg Guaifenesin/Dextromethorphan (Mucinex Dm Er 600-30 Mg) 1 tab PO BID [facility] Last Admin: 10/01/17 17:54 Dose: 1 tab Azithromycin 500 mg/ Sodium (Chloride) 250 mls @ 250 mls/hr IV Q24H [facility] Stop: 10/02/17 22:44 Last Admin: 10/01/17 20:48 Dose: 250 mls/hr Latanoprost (Xalatan 0.005% Ophth Soln) 0 ml EYEBOTH BEDTIME [facility] Last Admin: 10/01/17 20:47 Dose: 1 drop Levothyroxine Sodium (Levothyroxine) 75 mcg PO QAM [facility] Last Admin: 10/01/17 07:46 Dose: 75 mcg Magnesium Oxide (Magnesium Oxide) 400 mg PO BID [facility] Last Admin: 10/01/17 17:56 Dose: 400 mg Nitroglycerin (Nitrostat) 0.4 mg SL ASDIRECTED PRN PRN Reason: Chest Pain Abiraterone Acetate ([Zytiga] 250mg Tabs) 1,000 mg PO DAILY [facility] Last Admin: 10/01/17 09:33 Dose: 1,000 mg Non-Formulary Medication (Amino Acids/Protein Supplement [Protein 2,000 Mg]) 1 each PO DAILY [facility] Potassium Chloride (Klor-Con M20) 20 meq PO BID [facility] Last Admin: 10/01/17 17:55 Dose: 20 meq Prednisone (Prednisone) 5 mg PO BID [facility] Last Admin: 10/01/17 17:55 Dose: 5 mg Pregabalin (Lyrica) 25 mg PO TID [facility] Last Admin: 10/01/17 17:55 Dose: 25 mg Senna/Docusate Sodium (Senna Plus) 1 tab PO BID PRN PRN Reason: Constipation Simvastatin (Zocor) 10 mg PO BEDTIME [facility] Last Admin: 10/01/17 20:49 Dose: 10 mg Sodium Chloride (Saline Flush) 10 ml FLUSH ASDIRECTED PRN PRN Reason: Keep Vein Open Last Admin: 10/01/17 20:56 Dose: 10 ml Sodium Chloride (Saline Flush) 10 ml FLUSH Q12HR [facility] Last Admin: 10/01/17 20:48 Dose: 10 ml Temazepam (Restoril) 15 mg PO BEDTIME PRN PRN Reason: Insomnia Verapamil HCl (Calan Sr) 240 mg PO DAILY@1700 [facility] Last Admin: 10/01/17 17:56 Dose: 240 mg Discontinued Medications Acetaminophen (Tylenol) 650 mg PO Q4H PRN PRN Reason: Pain Arformoterol Tartrate (Brovana) 15 mcg INH BID [facility] Last Admin: 10/01/17 07:44 Dose: 15 mcg Budesonide (Pulmicort) 0.5 mg NEB ONETIME ONE Stop: 09/30/17 21:43 Last Admin: 09/30/17 22:00 Dose: 0.5 mg Famotidine (Pepcid) 40 mg IVPUSH ONETIME ONE Stop: 09/30/17 22:56 Last Admin: 09/30/17 23:08 Dose: 40 mg Furosemide (Lasix) 60 mg IVPUSH NOW ONE Stop: 09/30/17 22:55 Last Admin: 09/30/17 23:08 Dose: 60 mg Furosemide (Lasix) 40 mg IVPUSH Q8H [facility] Last Admin: 10/01/17 07:44 Dose: 40 mg Levofloxacin/Dextrose 500 mg/ (Premix) 100 mls @ 100 mls/hr IV Q24H [facility] Last Admin: 09/30/17 23:32 Dose: 100 mls/hr Non-Formulary Medication (Ranitidine [Zantac]) 150 mg PO BID [facility] Potassium Chloride (Klor-Con M20) 20 meq PO TID [facility] Last Admin: 10/01/17 11:18 Dose: 20 meq Sodium Chloride (Saline Flush) 10 ml FLUSH Q12HR PRN PRN Reason: Keep Vein Open Warfarin Sodium (Coumadin) 7.5 mg PO SUMOTUWEFRSA@1800 [facility] Warfarin Sodium (Coumadin) 10 mg PO TH@18 [facility] - Exam Quality Assessment: Supplemental Oxygen General: Alert, Cooperative, No Acute Distress HEENT: Mucous Membr. Moist/[place] Neck: Trachea Midline, No JVD Lungs: Normal Respiratory Effort, Decreased Breath Sounds, Wheezing Cardiovascular: Regular Rate, Regular Rhythm GI/Abdominal Exam: Soft, Non-Tender, No Distention (Male) Exam: Deferred Back Exam: Normal Inspection Extremities: Normal Inspection, No Pedal Edema Skin: Warm, Dry, Intact Neurological: No New Focal Deficit Psy/Mental Status: Alert, Normal Affect, Normal Mood - Problem List & Annotations (1) COPD (chronic obstructive pulmonary disease) SNOMED Code(s): 84402365 Code(s): J44.9 - CHRONIC OBSTRUCTIVE PULMONARY DISEASE, UNSPECIFIED Status : Acute Priority: High Current Visit: Yes Qualifiers: COPD type: COPD with acute lower respiratory infection Qualified Code(s): J44.0 - Chronic obstructive pulmonary disease with acute lower respiratory infection Annotation/Comment:: O2 dependent COPD with significant hypoxia at home prior to transfer as above. Blood Cultures 2 were collected with concomitant right middle lobe and left lower lobe pneumonia. Note DuoNeb nebulizer treatment initiated by paramedics prior to arrival. Attempt to obtain sputum specimen. IV Levaquin and IV Zithromax therapy initiated in the emergency room. Continue aggressive nebulizer treatment. Note additional history of sleep apnea with the patient not currently compliant with his CPAP' (2) Pneumonia SNOMED Code(s): 095020777 Code(s): J18.9 - PNEUMONIA, UNSPECIFIED ORGANISM Status: Acute Priority: High Current Visit: Yes Onset Date: ~09/30/17 Qualifiers: Pneumonia type: aspiration pneumonia Aspiration pneumonia type: unspecified Laterality: left Lung location: lower lobe of lung Qualified Code(s): J69.0 - Pneumonitis due to inhalation of food and vomit Annotation/Comment:: As above (3) Anemia SNOMED Code(s): 318700088 Code(s): D64.9 - ANEMIA, UNSPECIFIED Status: Chronic Priority: High Current Visit: Yes Qualifiers: Anemia type: other cause Other causes of anemia: other cause, not classified Qualified Code(s): D64.89 - Other specified anemias Annotation/Comment:: History of chronic anemia. Continue to observe closely by his regular providers with further workup depending on his clinical course. Note current Coumadin therapy with Hemoccults, etc. to be collected (4) CHF, Congestive heart failure SNOMED Code(s): 58175045 Code(s): I50.9 - HEART FAILURE, UNSPECIFIED Status: Chronic Priority: Medium Current Visit: Yes Annotation/Comment:: Significant clinical CHF with IV Lasix initiated in the emergency room. No chest pain or anginal type symptoms with chest pain protocol not initiated in the emergency room. Repeat cardiac enzymes, EKG, etc. in the a.m. [place] assumes care in the a.m. Long-term prognosis guarded and extremely poor. Note comfort care with no further echocardiogram, etc. Cardiology consultation depending on his clinical course (5) D-dimer, elevated SNOMED Code(s): 730309033 Code(s): R79.89 - OTHER SPECIFIED ABNORMAL FINDINGS OF BLOOD CHEMISTRY Status: Chronic Priority: High Current Visit: Yes Annotation/Comment:: Chronic d-dimer elevation with history of recurrent DVTs and PEs as above. No direct evidence of acute DVT or PE. Patient is on Coumadin. Consider repeat venous Doppler studies and CT of the chest depending on his clinical course (6) GERD (gastroesophageal reflux disease) SNOMED Code(s): 464195766 Code(s): K21.9 - GASTRO-ESOPHAGEAL REFLUX DISEASE WITHOUT ESOPHAGITIS Status: Chronic Priority: Medium Current Visit: Yes Qualifiers: Esophagitis presence: esophagitis presence not specified Qualified Code(s) : K21.9 - Gastro-esophageal reflux disease without esophagitis Annotation/Comment:: After arrival patient began experiencing some nonspecific periumbilical abdominal discomfort and cramping with high-dose IV Pepcid given and improvement of his symptoms. Acute abdominal x-rays and repeat blood work in the a.m. (7) Hypertension SNOMED Code(s): 64351943 Code(s): I10 - ESSENTIAL (PRIMARY) HYPERTENSION Status: Chronic Priority : Medium Current Visit: Yes Qualifiers: Hypertension type: essential hypertension Qualified Code(s): I10 - Essential (primary) hypertension Annotation/Comment:: Blood Pressures under good control in the emergency room (8) Hypoalbuminemia SNOMED Code(s): 311446999 Code(s): E88.09 - [facility] DISORDERS OF PLASMA-PROTEIN METABOLISM, NEC Status: Chronic Priority: Medium Current Visit: Yes Annotation/Comment:: Initiate high protein Glucerna supplement with caution secondary to his previous history of renal insufficiency (9) Hypothyroidism SNOMED Code(s): 80747816 Code(s): E03.9 - HYPOTHYROIDISM, UNSPECIFIED Status: Chronic Priority: Medium Current Visit: Yes Annotation/Comment:: Stable by his history, TSH normal today (10) Need for comfort care SNOMED Code(s): 913144447 Code(s): CEG5444 - Status: Chronic Priority: Medium Current Visit: Yes Annotation/Comment:: Comfort care as above confirmed today with the patient (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 SNOMED Code(s): 9035869 Code(s): D68.59 - OTHER PRIMARY THROMBOPHILIA Status: Chronic Priority: Medium Current Visit: Yes Annotation/Comment:: History of chronic and recurrent DVT as above. INR in the a.m.. (12) Renal insufficiency SNOMED Code(s): 211167514, 512135339 Code(s): N28.9 - DISORDER OF KIDNEY AND URETER, UNSPECIFIED Status: Chronic Priority: Medium Current Visit: Yes Annotation/Comment:: History of chronic renal insufficiency relatively stable from previous evaluations. Note previous history of acute renal insufficiency requiring distant dialysis as above (13) Elevated INR SNOMED Code(s): 025255842 Code(s): R79.1 - ABNORMAL COAGULATION PROFILE Status: Acute Current Visit : No (14) Hip joint replacement status SNOMED Code(s): 847558202, 783055024, 536640202, 725903327 Code(s): Z96.649 - PRESENCE OF UNSPECIFIED ARTIFICIAL HIP JOINT Status: Acute Priority: High Current Visit: No Qualifiers: Laterality: left Qualified Code(s): Z96.642 - Presence of left artificial hip joint (15) Lower leg DVT (deep venous thromboembolism), chronic SNOMED Code(s): 709422843, 203417545, 286223523034093 Code(s): I82.5Z9 - CHR EMBLSM AND THOMBOS UNSP DEEP VN UNSP DISTAL LOW EXTRM Status: Acute Priority: Medium Current Visit: No Qualifiers: Laterality: unspecified laterality Qualified Code(s): I82.5Z9 - Chronic embolism and thrombosis of unspecified deep veins of unspecified distal lower extremity (16) Mood disorder Status: Acute Priority: Medium Current Visit: No (17) PVD (peripheral vascular disease) SNOMED Code(s): 936797490 Code(s): I73.9 - PERIPHERAL VASCULAR DISEASE, UNSPECIFIED Status: Acute Priority: Medium Current Visit: No (18) Respiratory failure, chronic SNOMED Code(s): 44494850 Code(s): J96.10 - CHRONIC RESPIRATORY FAILURE, UNSP W HYPOXIA OR HYPERCAPNIA Status: Acute Priority: Medium Current Visit: No Qualifiers: Respiratory failure complication: unspecified whether with hypoxia or hypercapnia Qualified Code(s): J96.10 - Chronic respiratory failure, unspecified whether with hypoxia or hypercapnia (19) AAA (abdominal aortic aneurysm) SNOMED Code(s): 779416476 Code(s): I71.4 - ABDOMINAL AORTIC ANEURYSM, WITHOUT RUPTURE Status: Chronic Priority: Medium Current Visit: No Qualifiers: Presence of rupture: without rupture Qualified Code(s): I71.4 - Abdominal aortic aneurysm, without rupture Annotation/Comment:: Recently diagnosed small abdominal aortic aneurysm by CT scan nonproblematic at this time (20) Arthritis of left hip SNOMED Code(s): 86410353 Code(s): M19.90 - UNSPECIFIED OSTEOARTHRITIS, UNSPECIFIED SITE Status: Chronic Priority: High Current Visit: No (21) Blood coagulation disorder SNOMED Code(s): 34998593 Code(s): D68.9 - COAGULATION DEFECT, UNSPECIFIED Status: Chronic Priority : Medium Current Visit: No (22) Congestive heart failure SNOMED Code(s): 64390081 Code(s): I50.9 - HEART FAILURE, UNSPECIFIED Status: Chronic Priority: High Current Visit: No Qualifiers: Qualified Code(s): I50.9 - Heart failure, unspecified Annotation/Comment:: No recent chest pain or anginal type symptoms (23) Heart disease SNOMED Code(s): 72103149 Code(s): I51.9 - HEART DISEASE, UNSPECIFIED Status: Chronic Priority: Medium Current Visit: No Annotation/Comment:: Stable by history with no recent true anginal complaints, etc. and negative EKG, cardiac enzymes, etc. as above (24) Hypomagnesemia SNOMED Code(s): 369549313 Code(s): E83.42 - HYPOMAGNESEMIA Status: Chronic Priority: Medium Current Visit: No Annotation/Comment:: Consider initiation of magnesium oxide therapy (25) Migraine SNOMED Code(s): 32107832 Code(s): G43.909 - MIGRAINE, UNSP, NOT INTRACTABLE, WITHOUT STATUS MIGRAINOSUS Status: Chronic Priority: Medium Current Visit: No Annotation/Comment:: Symptomatically improved after medications provided. Advised to hydrate and rest today to avoid rebound. Follow up as needed. (26) Osteoarthritis SNOMED Code(s): 984440036 Code(s): M19.90 - UNSPECIFIED OSTEOARTHRITIS, UNSPECIFIED SITE Status: Chronic Priority: Medium Current Visit: No Qualifiers: Osteoarthritis location: multiple joints Osteoarthritis type: primary Qualified Code(s): M15.0 - Primary generalized (osteo)arthritis Annotation/Comment:: Stable by history with history of gout and chronic narcotic use. Current discomfort likely secondary to his mild ecchymosis in the left knee region as above. No evidence of significant injury (27) Peptic reflux disease SNOMED Code(s): 360467453 Code(s): K21.9 - GASTRO-ESOPHAGEAL REFLUX DISEASE WITHOUT ESOPHAGITIS Status: Chronic Priority: Medium Current Visit: No Annotation/Comment:: Stable by patient history. Note moderate anemia today (28) Polycythemia SNOMED Code(s): 833325993 Code(s): D75.1 - SECONDARY POLYCYTHEMIA Status: Chronic Priority: Medium Current Visit: No Onset Date: 09/12/15 Annotation/Comment:: Likely secondary to his COPD (29) Prostate cancer SNOMED Code(s): 256049751 Code(s): C61 - MALIGNANT NEOPLASM OF PROSTATE Status: Chronic Priority: Low Current Visit: No (30) Renal insufficiency, mild SNOMED Code(s): 204521016 Code(s): N28.9 - DISORDER OF KIDNEY AND URETER, UNSPECIFIED Status: Chronic Current Visit: No (31) Sleep apnea SNOMED Code(s): 06312366 Code(s): G47.30 - SLEEP APNEA, UNSPECIFIED Status: Chronic Priority: Medium Current Visit: No Onset Date: ~08/21/16 Qualifiers: Sleep apnea type: obstructive Qualified Code(s): G47.33 - Obstructive sleep apnea (adult) (pediatric) Annotation/Comment:: Auto-CPAP should be initiated JUSTYN - Problem List Review Problem List Initiated/Reviewed/Updated: Yes - My Orders Last 24 Hours: My Active Orders 10/01/17 18:00 Potassium Chloride [Klor-Con M20] 20 meq PO BID predniSONE 5 mg PO BID 10/01/17 20:00 Arformoterol [Brovana] 15 mcg INH BIDRT Sodium Chloride 0.9% [Saline Flush] 10 ml FLUSH Q12HR cefTAZidime [Fortaz] 1 gm IVPUSH Q12HR 10/02/17 05:11 CRP [C-REACTIVE PROTEIN] [CHEM] DAILY 10/02/17 08:00 Care Management Consult [Consult to Case Management] [CONS] Routine Consult to Occupational Therapy [OT Evaluation and Treatment] [CONS] Routine Consult to Physical Therapy [PT Evaluation and Treatment] [CONS] Routine 10/03/17 05:11 CRP [C-REACTIVE PROTEIN] [CHEM] DAILY INR,PT,PROTHROMBIN TIME [COAG] DAILY 10/03/17 12:00 Azithromycin [Zithromax] 500 mg PO DAILY 10/04/17 05:11 CRP [C-REACTIVE PROTEIN] [CHEM] DAILY INR,PT,PROTHROMBIN TIME [COAG] DAILY 10/05/17 05:11 INR,PT,PROTHROMBIN TIME [COAG] DAILY - Plan Plan:: 10/01/17 Beatrice Lang MD Still not feeling the best. Deep harsh cough. Antibiotics change due to multiple drug interactions.
[2017-10-02 07:36] LABS: CHLORIDE,CL 101 mmol/L (98-107); SODIUM,NA 141 mmol/L (136-145)
[2017-10-02] MEDS: Arformoterol 15 MCG/2 ML Neb Soln INH SCH ×2 (08:49→19:17)
[2017-10-02] MEDS: Albuterol/Ipratropium 3.0-0.5 MG/3 ML Neb Soln NEB SCH ×4 (08:50→19:17)
[2017-10-02] MEDS: Sodium Chloride 0.9% 10 ML Syringe FLUSH SCH ×2 (08:51→19:17)
[2017-10-02] MEDS: Furosemide 40 MG/4 ML VIAL IVPUSH SCH (08:51)
[2017-10-02] MEDS: Docusate Sodium 100 MG Cap PO SCH ×2 (08:52→17:26)
[2017-10-02] MEDS: cefTAZidime 1 GM Vial IVPUSH SCH ×2 (08:52→19:16)
[2017-10-02] MEDS: Citalopram 20 MG Tab PO SCH (08:52)
[2017-10-02] MEDS: Folic Acid 1 MG Tab PO SCH (08:52)
[2017-10-02] MEDS: Aspirin 81 MG Tab.EC PO SCH (08:53)
[2017-10-02] MEDS: Dextromethorphan/guaiFENesin 600-30 MG Tab.ER PO SCH ×2 (08:53→17:27)
[2017-10-02] MEDS: Magnesium Oxide 400 MG Tab PO SCH ×2 (08:53→17:26)
[2017-10-02] MEDS: Pregabalin 25 MG Cap PO SCH ×3 (08:53→17:26)
[2017-10-02] MEDS: Levothyroxine 75 MCG Tab PO SCH (08:53)
[2017-10-02] MEDS: Calcium Carbonate 500 MG Tab.Chew PO SCH ×2 (08:54→17:27)
[2017-10-02] MEDS: predniSONE 5 MG Tab PO SCH ×2 (08:54→17:24)
[2017-10-02] MEDS: amLODIPine 5 MG Tab PO SCH (08:54)
[2017-10-02] MEDS: Famotidine 20 MG Tab PO SCH ×2 (08:54→17:26)
[2017-10-02] MEDS: Cholecalciferol (Vitamin D3) 1,000 Unit Tab PO SCH (08:54)
[2017-10-02] MEDS: Finasteride 5 MG Tab PO SCH (08:54)
[2017-10-02] MEDS ORDERED: Aluminum Hydroxide/Magnesium Hydroxide/Simethicone Susp 30 ML Cup PO ONE (15:20)
[2017-10-02] MEDS: Verapamil 120 MG Tab.ER PO SCH (17:26)
[2017-10-02] MEDS: Benzonatate 100 MG Cap PO SCH (17:27)
[2017-10-02] MEDS: Acetaminophen 325 MG Tab PO PRN (17:28)
[2017-10-02] MEDS ORDERED: Warfarin 5 MG Tab PO SCH (18:00)
[2017-10-02] MEDS: Pantoprazole 40 MG Vial IVPUSH SCH (19:16)
[2017-10-02] MEDS: methylPREDNISolone Sodium Succinate 40 MG/1 ML SDV IVPUSH SCH (19:16)
[2017-10-02] MEDS: Simvastatin 10 MG Tab PO SCH (19:17)
[2017-10-02] MEDS: Latanoprost 0.005% Ophth Soln 2.5 ML Bottle EYEBOTH SCH (19:18)
[2017-10-02] MEDS: Sodium Chloride 0.9% 10 ML Syringe FLUSH PRN ×2 (19:21→21:53)
[2017-10-02] MEDS: Azithromycin 500 MG in Sodium Chloride 0.9% 250 ML IV SCH (21:52)
--- NOTE | 2017-10-03 00:19 | PCM.PN ---
- Review of Systems General: Reports: No Symptoms HEENT: Reports: Headaches Pulmonary: Reports: Shortness of Breath, Cough, Sputum Cardiovascular: Reports: No Symptoms Gastrointestinal: Reports: No Symptoms Genitourinary: Reports: No Symptoms Musculoskeletal: Reports: No Symptoms Skin: Reports: No Symptoms Neurological: Reports: No Symptoms Psychiatric: Reports: No Symptoms - Patient Data Vitals - Most Recent: Last Vital Signs Temp 98.9 F 10/02/17 20:00 Pulse 93 10/02/17 20:00 Resp 20 10/02/17 20:00 BP 125/57 L 10/02/17 20:00 Pulse Ox 90 L 10/02/17 20:00 Weight - Most Recent: 248 lb 8 oz I&O - Last 24 Hours: Intake & Output 10/02/17 10/02/17 10/03/17 14:59 22:59 06:59 Intake Total 260 120 Balance 260 120 Lab Results Last 24 Hours: Laboratory Results - last 24 hr 09/30/17 10/02/17 10/02/17 Range/Units 22:00 06:50 06:50 WBC 3.9 L (4.0-10.2) K/uL RBC 3.47 L (4.33-5.41) M/uL Hgb 10.2 L (13.1-16.8) g/dL Hct 34.8 L (39.0-49.0) % MCV 100.3 H (84.0-98.0) fL MCH 29.4 (28.2-33.3) pg MCHC 29.3 L (31.7-36.0) g/dL RDW 15.2 H (11.2-14.1) % Plt Count 123 L (150-350) K/uL Neut % (Auto) 80.5 H (45.0-80.0) % Lymph % (Auto) 8.7 L (10.0-50.0) % Dent % (Auto) 10.2 (2.0-14.0) % Eos % (Auto) 0.3 (0.0-5.0) % Baso % (Auto) 0.3 (0.0-2.0) % Neut # (Auto) 3.17 (1.40-7.00) K/uL Lymph # (Auto) 0.34 L (0.50-3.50) K/uL Dent # (Auto) 0.40 (0.00-1.00) K/uL Eos # (Auto) 0.01 (0.00-0.50) K/uL Baso # (Auto) 0.01 (0.00-0.20) K/uL PT (9.8-11.7) SEC INR D-Dimer, Quantitative 713 H (0-400) ng/mL Sodium (136-145) mmol/L Potassium (3.5-5.1) mmol/L Chloride (98-107) mmol/L Carbon Dioxide (21.0-32.0) mmol/L BUN (7-18) mg/dL Creatinine (0.51-1.17) mg/dL Est Cr Clr Drug Dosing mL/min Estimated GFR (MDRD) mL/min Glucose (74-106) mg/dL Hemoglobin A1c (4.3-5.7) % Calcium (8.5-10.1) mg/dL Total Bilirubin (0.2-1.0) mg/dL AST (15-37) U/L ALT (12-78) U/L Alkaline Phosphatase (46-116) IU/L Creatine Kinase (26-308) U/L Creatine Kinase Index (0.0-2.5) % CK-MB (CK-2) (0.00-3.60) ng/mL Troponin I (0.000-0.056) ng/mL C-Reactive Protein 7.9 H (<=0.9) mg/dL NT-Pro-B Natriuret Pep (0-125) pg/mL Total Protein (6.4-8.2) g/dL Albumin (3.4-5.0) g/dL Triglycerides (30-150) mg/dL Cholesterol (100-200) mg/dL LDL Cholesterol, Calc (0-100) mg/dL HDL Cholesterol (40-60) mg/dL Amylase (25-115) U/L Lipase (73-393) U/L 10/02/17 10/02/17 10/02/17 Range/Units 06:50 06:50 06:50 WBC (4.0-10.2) K/uL RBC (4.33-5.41) M/uL Hgb (13.1-16.8) g/dL Hct (39.0-49.0) % MCV (84.0-98.0) fL MCH (28.2-33.3) pg MCHC (31.7-36.0) g/dL RDW (11.2-14.1) % Plt Count (150-350) K/uL Neut % (Auto) (45.0-80.0) % Lymph % (Auto) (10.0-50.0) % Dent % (Auto) (2.0-14.0) % Eos % (Auto) (0.0-5.0) % Baso % (Auto) (0.0-2.0) % Neut # (Auto) (1.40-7.00) K/uL Lymph # (Auto) (0.50-3.50) K/uL Dent # (Auto) (0.00-1.00) K/uL Eos # (Auto) (0.00-0.50) K/uL Baso # (Auto) (0.00-0.20) K/uL PT 34.9 H (9.8-11.7) SEC INR 3.2 D-Dimer, Quantitative (0-400) ng/mL Sodium 141 (136-145) mmol/L Potassium 4.0 (3.5-5.1) mmol/L Chloride 101 (98-107) mmol/L Carbon Dioxide 41.1 H* (21.0-32.0) mmol/L BUN 25 H (7-18) mg/dL Creatinine 1.15 (0.51-1.17) mg/dL Est Cr Clr Drug Dosing 61.00 mL/min Estimated GFR (MDRD) > 60 mL/min Glucose 111 H (74-106) mg/dL Hemoglobin A1c 5.0 (4.3-5.7) % Calcium 7.9 L (8.5-10.1) mg/dL Total Bilirubin 0.4 (0.2-1.0) mg/dL AST 22 (15-37) U/L ALT 18 (12-78) U/L Alkaline Phosphatase 70 (46-116) IU/L Creatine Kinase 90 (26-308) U/L Creatine Kinase Index 1.2 (0.0-2.5) % CK-MB (CK-2) 1.10 (0.00-3.60) ng/mL Troponin I 0.021 (0.000-0.056) ng/mL C-Reactive Protein 10.6 H (<=0.9) mg/dL NT-Pro-B Natriuret Pep 1085 H (0-125) pg/mL Total Protein 6.1 L (6.4-8.2) g/dL Albumin 2.4 L (3.4-5.0) g/dL Triglycerides 59 (30-150) mg/dL Cholesterol 128 (100-200) mg/dL LDL Cholesterol, Calc 69 (0-100) mg/dL HDL Cholesterol 47 (40-60) mg/dL Amylase 57 (25-115) U/L Lipase 187 (73-393) U/L Abdiaziz Results Last 24 Hours: Microbiology 09/30/17 22:12 Aerobic Blood Culture - Preliminary Blood - Venous - Lab Draw NO GROWTH AFTER 2 DAYS Anaerobic Blood Culture - Preliminary NO GROWTH AFTER 2 DAYS 09/30/17 22:00 Aerobic Blood Culture - Preliminary Blood - Venous NO GROWTH AFTER 2 DAYS Anaerobic Blood Culture - Preliminary NO GROWTH AFTER 2 DAYS 09/30/17 23:07 Gram Stain - Final Sputum - Expectorated Sputum Culture - Preliminary No Growth Med Orders - Current: Current Medications Acetaminophen (Tylenol) 650 mg PO Q4H PRN PRN Reason: Pain/Fever Last Admin: 10/02/17 17:28 Dose: 650 mg Albuterol (Proventil Neb Soln) 2.5 mg INH Q2H PRN PRN Reason: SHORTNESS OF BREATH Last Admin: 10/02/17 03:49 Dose: 2.5 mg Albuterol/Ipratropium (Duoneb 3.0-0.5 Mg/3 Ml) 3 ml NEB QIDRT [facility] Last Admin: 10/02/17 19:17 Dose: 3 ml Amlodipine Besylate (Norvasc) 5 mg PO DAILY [facility] Last Admin: 10/02/17 08:54 Dose: 5 mg Arformoterol Tartrate (Brovana) 15 mcg INH BIDRT [facility] Last Admin: 10/02/17 19:17 Dose: 15 mcg Aspirin (Halfprin) 162 mg PO DAILY [facility] Last Admin: 10/02/17 08:53 Dose: 162 mg Azithromycin (Zithromax) 500 mg PO DAILY [facility] Benzonatate (Tessalon Perles) 200 mg PO TID [facility] Last Admin: 10/02/17 17:27 Dose: 200 mg Calcium Carbonate/Glycine (Tums) 500 mg PO BID [facility] Last Admin: 10/02/17 17:27 Dose: 500 mg Ceftazidime (Fortaz) 1 gm IVPUSH Q12HR [facility] Last Admin: 10/02/17 19:16 Dose: 1 gm Cholecalciferol (Vitamin D3) 2,000 units PO DAILY [facility] Last Admin: 10/02/17 08:54 Dose: 2,000 units Citalopram Hydrobromide (Celexa) 20 mg PO DAILY [facility] Last Admin: 10/02/17 08:52 Dose: 20 mg Cyclobenzaprine HCl (Flexeril) 10 mg PO TID PRN PRN Reason: MUSCLE SPASMS Last Admin: 10/01/17 21:11 Dose: 10 mg Docusate Sodium (Colace) 100 mg PO BID [facility] Last Admin: 10/02/17 17:26 Dose: 100 mg Famotidine (Pepcid) 20 mg PO BID [facility] Last Admin: 10/02/17 17:26 Dose: 20 mg Finasteride (Proscar) 5 mg PO DAILY [facility] Last Admin: 10/02/17 08:54 Dose: 5 mg Folic Acid (Folic Acid) 1 mg PO DAILY [facility] Last Admin: 10/02/17 08:52 Dose: 1 mg Furosemide (Lasix) 40 mg IVPUSH DAILY [facility] Last Admin: 10/02/17 08:51 Dose: 40 mg Guaifenesin/Dextromethorphan (Mucinex Dm Er 600-30 Mg) 1 tab PO BID [facility] Last Admin: 10/02/17 17:27 Dose: 1 tab Latanoprost (Xalatan 0.005% Ophth Soln) 0 ml EYEBOTH BEDTIME [facility] Last Admin: 10/02/17 19:18 Dose: 1 drop Levothyroxine Sodium (Levothyroxine) 75 mcg PO QAM [facility] Last Admin: 10/02/17 08:53 Dose: 75 mcg Magnesium Oxide (Magnesium Oxide) 400 mg PO BID [facility] Last Admin: 10/02/17 17:26 Dose: 400 mg Methylprednisolone Sodium Succinate (Solu-Medrol) 40 mg IVPUSH Q12H [facility] Last Admin: 10/02/17 19:16 Dose: 40 mg Nitroglycerin (Nitrostat) 0.4 mg SL ASDIRECTED PRN PRN Reason: Chest Pain Abiraterone Acetate ([Zytiga] 250mg Tabs) 1,000 mg PO DAILY [facility] Last Admin: 10/02/17 08:49 Dose: 1,000 mg Non-Formulary Medication (Amino Acids/Protein Supplement [Protein 2,000 Mg]) 1 each PO DAILY [facility] Pantoprazole Sodium (Protonix Iv) 40 mg IVPUSH BEDTIME [facility] Last Admin: 10/02/17 19:16 Dose: 40 mg Prednisone (Prednisone) 5 mg PO BID [facility] Last Admin: 10/02/17 17:24 Dose: 5 mg Pregabalin (Lyrica) 25 mg PO TID [facility] Last Admin: 10/02/17 17:26 Dose: 25 mg Senna/Docusate Sodium (Senna Plus) 1 tab PO BID PRN PRN Reason: Constipation Simvastatin (Zocor) 10 mg PO BEDTIME [facility] Last Admin: 10/02/17 19:17 Dose: 10 mg Sodium Chloride (Saline Flush) 10 ml FLUSH ASDIRECTED PRN PRN Reason: Keep Vein Open Last Admin: 10/02/17 21:53 Dose: 10 ml Sodium Chloride (Saline Flush) 10 ml FLUSH Q12HR [facility] Last Admin: 10/02/17 19:17 Dose: 10 ml Temazepam (Restoril) 15 mg PO BEDTIME PRN PRN Reason: Insomnia Verapamil HCl (Calan Sr) 240 mg PO DAILY@1700 [facility] Last Admin: 10/02/17 17:26 Dose: 240 mg Discontinued Medications Acetaminophen (Tylenol) 650 mg PO Q4H PRN PRN Reason: Pain Al Hydroxide/Mg Hydroxide (Mag-Al Plus) 30 ml PO ONETIME ONE Stop: 10/02/17 15:21 Last Admin: 10/02/17 15:40 Dose: 30 ml Albuterol/Ipratropium (Duoneb 3.0-0.5 Mg/3 Ml) 3 ml NEB Q4HRRT PRN PRN Reason: Dyspnea Last Admin: 10/01/17 01:12 Dose: 3 ml Arformoterol Tartrate (Brovana) 15 mcg INH BID [facility] Last Admin: 10/01/17 07:44 Dose: 15 mcg Budesonide (Pulmicort) 0.5 mg NEB ONETIME ONE Stop: 09/30/17 21:43 Last Admin: 09/30/17 22:00 Dose: 0.5 mg Budesonide (Pulmicort) 0.5 mg NEB BIDRT [facility] Last Admin: 10/01/17 20:48 Dose: 0.5 mg Famotidine (Pepcid) 40 mg IVPUSH ONETIME ONE Stop: 09/30/17 22:56 Last Admin: 09/30/17 23:08 Dose: 40 mg Furosemide (Lasix) 60 mg IVPUSH NOW ONE Stop: 09/30/17 22:55 Last Admin: 09/30/17 23:08 Dose: 60 mg Furosemide (Lasix) 40 mg IVPUSH Q8H [facility] Last Admin: 10/01/17 07:44 Dose: 40 mg Azithromycin 500 mg/ Sodium (Chloride) 250 mls @ 250 mls/hr IV Q24H [facility] Stop: 10/02/17 22:44 Last Admin: 10/02/17 21:52 Dose: 250 mls/hr Levofloxacin/Dextrose 500 mg/ (Premix) 100 mls @ 100 mls/hr IV Q24H [facility] Last Admin: 09/30/17 23:32 Dose: 100 mls/hr Non-Formulary Medication (Ranitidine [Zantac]) 150 mg PO BID [facility] Potassium Chloride (Klor-Con M20) 20 meq PO TID [facility] Last Admin: 10/01/17 11:18 Dose: 20 meq Potassium Chloride (Klor-Con M20) 20 meq PO BID [facility] Last Admin: 10/01/17 17:55 Dose: 20 meq Sodium Chloride (Saline Flush) 10 ml FLUSH Q12HR PRN PRN Reason: Keep Vein Open Warfarin Sodium (Coumadin) 7.5 mg PO SUMOTUWEFRSA@1800 [facility] Warfarin Sodium (Coumadin) 10 mg PO TH@18 [facility] - Exam Quality Assessment: Supplemental Oxygen General: Alert, Cooperative, Mild Distress HEENT: Pupils Equal, EOMI, Mucous Membr. Moist/Frederic Neck: Trachea Midline, No JVD Lungs: Normal Respiratory Effort, Decreased Breath Sounds, Rales Cardiovascular: Irregular Rhythm, Murmurs GI/Abdominal Exam: Soft, Non-Tender, No Distention (Male) Exam: Deferred Back Exam: Normal Inspection Extremities: Normal Inspection, Normal Range of Motion, No Pedal Edema Skin: Warm, Dry, Intact, Ecchymosis Wound/Incisions: Healing Well Neurological: No New Focal Deficit Psy/Mental Status: Alert, Normal Affect, Normal Mood - Problem List & Annotations (1) COPD (chronic obstructive pulmonary disease) SNOMED Code(s): 89840667 Code(s): J44.9 - CHRONIC OBSTRUCTIVE PULMONARY DISEASE, UNSPECIFIED Status : Acute Priority: High Current Visit: Yes Qualifiers: COPD type: COPD with acute lower respiratory infection Qualified Code(s): J44.0 - Chronic obstructive pulmonary disease with acute lower respiratory infection Annotation/Comment:: O2 dependent COPD with significant hypoxia at home prior to transfer as above. Blood Cultures 2 were collected with concomitant right middle lobe and left lower lobe pneumonia. Note DuoNeb nebulizer treatment initiated by paramedics prior to arrival. Attempt to obtain sputum specimen. IV Levaquin and IV Zithromax therapy initiated in the emergency room. Continue aggressive nebulizer treatment. Note additional history of sleep apnea with the patient not currently compliant with his CPAP' (2) Pneumonia SNOMED Code(s): 489232985 Code(s): J18.9 - PNEUMONIA, UNSPECIFIED ORGANISM Status: Acute Priority: High Current Visit: Yes Onset Date: ~09/30/17 Qualifiers: Pneumonia type: aspiration pneumonia Aspiration pneumonia type: unspecified Laterality: left Lung location: lower lobe of lung Qualified Code(s): J69.0 - Pneumonitis due to inhalation of food and vomit Annotation/Comment:: As above (3) Anemia SNOMED Code(s): 423089478 Code(s): D64.9 - ANEMIA, UNSPECIFIED Status: Chronic Priority: High Current Visit: Yes Qualifiers: Anemia type: other cause Other causes of anemia: other cause, not classified Qualified Code(s): D64.89 - Other specified anemias Annotation/Comment:: History of chronic anemia. Continue to observe closely by his regular providers with further workup depending on his clinical course. Note current Coumadin therapy with Hemoccults, etc. to be collected (4) CHF, Congestive heart failure SNOMED Code(s): 84853997 Code(s): I50.9 - HEART FAILURE, UNSPECIFIED Status: Chronic Priority: Medium Current Visit: Yes Annotation/Comment:: Significant clinical CHF with IV Lasix initiated in the emergency room. No chest pain or anginal type symptoms with chest pain protocol not initiated in the emergency room. Repeat cardiac enzymes, EKG, etc. in the a.m. [facility] assumes care in the a.m. Long-term prognosis guarded and extremely poor. Note comfort care with no further echocardiogram, etc. Cardiology consultation depending on his clinical course (5) D-dimer, elevated SNOMED Code(s): 805317255 Code(s): R79.89 - OTHER SPECIFIED ABNORMAL FINDINGS OF BLOOD CHEMISTRY Status: Chronic Priority: High Current Visit: Yes Annotation/Comment:: Chronic d-dimer elevation with history of recurrent DVTs and PEs as above. No direct evidence of acute DVT or PE. Patient is on Coumadin. Consider repeat venous Doppler studies and CT of the chest depending on his clinical course (6) GERD (gastroesophageal reflux disease) SNOMED Code(s): 790229400 Code(s): K21.9 - GASTRO-ESOPHAGEAL REFLUX DISEASE WITHOUT ESOPHAGITIS Status: Chronic Priority: Medium Current Visit: Yes Qualifiers: Esophagitis presence: esophagitis presence not specified Qualified Code(s) : K21.9 - Gastro-esophageal reflux disease without esophagitis Annotation/Comment:: After arrival patient began experiencing some nonspecific periumbilical abdominal discomfort and cramping with high-dose IV Pepcid given and improvement of his symptoms. Acute abdominal x-rays and repeat blood work in the a.m. (7) Hypertension SNOMED Code(s): 48668283 Code(s): I10 - ESSENTIAL (PRIMARY) HYPERTENSION Status: Chronic Priority : Medium Current Visit: Yes Qualifiers: Hypertension type: essential hypertension Qualified Code(s): I10 - Essential (primary) hypertension Annotation/Comment:: Blood Pressures under good control in the emergency room (8) Hypoalbuminemia SNOMED Code(s): 196308226 Code(s): E88.09 - [facility] DISORDERS OF PLASMA-PROTEIN METABOLISM, NEC Status: Chronic Priority: Medium Current Visit: Yes Annotation/Comment:: Initiate high protein Glucerna supplement with caution secondary to his previous history of renal insufficiency (9) Hypothyroidism SNOMED Code(s): 52573175 Code(s): E03.9 - HYPOTHYROIDISM, UNSPECIFIED Status: Chronic Priority: Medium Current Visit: Yes Annotation/Comment:: Stable by his history, TSH normal today (10) Need for comfort care SNOMED Code(s): 008059635 Code(s): KYB2938 - Status: Chronic Priority: Medium Current Visit: Yes Annotation/Comment:: Comfort care as above confirmed today with the patient (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 SNOMED Code(s): 3362475 Code(s): D68.59 - OTHER PRIMARY THROMBOPHILIA Status: Chronic Priority: Medium Current Visit: Yes Annotation/Comment:: History of chronic and recurrent DVT as above. INR in the a.m.. (12) Renal insufficiency SNOMED Code(s): 571564989, 971694770 Code(s): N28.9 - DISORDER OF KIDNEY AND URETER, UNSPECIFIED Status: Chronic Priority: Medium Current Visit: Yes Annotation/Comment:: History of chronic renal insufficiency relatively stable from previous evaluations. Note previous history of acute renal insufficiency requiring distant dialysis as above (13) Elevated INR SNOMED Code(s): 167522968 Code(s): R79.1 - ABNORMAL COAGULATION PROFILE Status: Acute Current Visit : No (14) Hip joint replacement status SNOMED Code(s): 715425167, 040190570, 363458705, 336359754 Code(s): Z96.649 - PRESENCE OF UNSPECIFIED ARTIFICIAL HIP JOINT Status: Acute Priority: High Current Visit: No Qualifiers: Laterality: left Qualified Code(s): Z96.642 - Presence of left artificial hip joint (15) Lower leg DVT (deep venous thromboembolism), chronic SNOMED Code(s): 280771966, 781896025, 462901924883049 Code(s): I82.5Z9 - CHR EMBLSM AND THOMBOS UNSP DEEP VN UNSP DISTAL LOW EXTRM Status: Acute Priority: Medium Current Visit: No Qualifiers: Laterality: unspecified laterality Qualified Code(s): I82.5Z9 - Chronic embolism and thrombosis of unspecified deep veins of unspecified distal lower extremity (16) Mood disorder Status: Acute Priority: Medium Current Visit: No (17) PVD (peripheral vascular disease) SNOMED Code(s): 492368708 Code(s): I73.9 - PERIPHERAL VASCULAR DISEASE, UNSPECIFIED Status: Acute Priority: Medium Current Visit: No (18) Respiratory failure, chronic SNOMED Code(s): 91693140 Code(s): J96.10 - CHRONIC RESPIRATORY FAILURE, UNSP W HYPOXIA OR HYPERCAPNIA Status: Acute Priority: Medium Current Visit: No Qualifiers: Respiratory failure complication: unspecified whether with hypoxia or hypercapnia Qualified Code(s): J96.10 - Chronic respiratory failure, unspecified whether with hypoxia or hypercapnia (19) AAA (abdominal aortic aneurysm) SNOMED Code(s): 853353232 Code(s): I71.4 - ABDOMINAL AORTIC ANEURYSM, WITHOUT RUPTURE Status: Chronic Priority: Medium Current Visit: No Qualifiers: Presence of rupture: without rupture Qualified Code(s): I71.4 - Abdominal aortic aneurysm, without rupture Annotation/Comment:: Recently diagnosed small abdominal aortic aneurysm by CT scan nonproblematic at this time (20) Arthritis of left hip SNOMED Code(s): 30187162 Code(s): M19.90 - UNSPECIFIED OSTEOARTHRITIS, UNSPECIFIED SITE Status: Chronic Priority: High Current Visit: No (21) Blood coagulation disorder SNOMED Code(s): 59505056 Code(s): D68.9 - COAGULATION DEFECT, UNSPECIFIED Status: Chronic Priority : Medium Current Visit: No (22) Congestive heart failure SNOMED Code(s): 87093267 Code(s): I50.9 - HEART FAILURE, UNSPECIFIED Status: Chronic Priority: High Current Visit: No Qualifiers: Qualified Code(s): I50.9 - Heart failure, unspecified Annotation/Comment:: No recent chest pain or anginal type symptoms (23) Heart disease SNOMED Code(s): 45601714 Code(s): I51.9 - HEART DISEASE, UNSPECIFIED Status: Chronic Priority: Medium Current Visit: No Annotation/Comment:: Stable by history with no recent true anginal complaints, etc. and negative EKG, cardiac enzymes, etc. as above (24) Hypomagnesemia SNOMED Code(s): 932150988 Code(s): E83.42 - HYPOMAGNESEMIA Status: Chronic Priority: Medium Current Visit: No Annotation/Comment:: Consider initiation of magnesium oxide therapy (25) Migraine SNOMED Code(s): 19760350 Code(s): G43.909 - MIGRAINE, UNSP, NOT INTRACTABLE, WITHOUT STATUS MIGRAINOSUS Status: Chronic Priority: Medium Current Visit: No Annotation/Comment:: Symptomatically improved after medications provided. Advised to hydrate and rest today to avoid rebound. Follow up as needed. (26) Osteoarthritis SNOMED Code(s): 377417300 Code(s): M19.90 - UNSPECIFIED OSTEOARTHRITIS, UNSPECIFIED SITE Status: Chronic Priority: Medium Current Visit: No Qualifiers: Osteoarthritis location: multiple joints Osteoarthritis type: primary Qualified Code(s): M15.0 - Primary generalized (osteo)arthritis Annotation/Comment:: Stable by history with history of gout and chronic narcotic use. Current discomfort likely secondary to his mild ecchymosis in the left knee region as above. No evidence of significant injury (27) Peptic reflux disease SNOMED Code(s): 119250654 Code(s): K21.9 - GASTRO-ESOPHAGEAL REFLUX DISEASE WITHOUT ESOPHAGITIS Status: Chronic Priority: Medium Current Visit: No Annotation/Comment:: Stable by patient history. Note moderate anemia today (28) Polycythemia SNOMED Code(s): 023644637 Code(s): D75.1 - SECONDARY POLYCYTHEMIA Status: Chronic Priority: Medium Current Visit: No Onset Date: 09/12/15 Annotation/Comment:: Likely secondary to his COPD (29) Prostate cancer SNOMED Code(s): 570456328 Code(s): C61 - MALIGNANT NEOPLASM OF PROSTATE Status: Chronic Priority: Low Current Visit: No (30) Renal insufficiency, mild SNOMED Code(s): 430349190 Code(s): N28.9 - DISORDER OF KIDNEY AND URETER, UNSPECIFIED Status: Chronic Current Visit: No (31) Sleep apnea SNOMED Code(s): 36354163 Code(s): G47.30 - SLEEP APNEA, UNSPECIFIED Status: Chronic Priority: Medium Current Visit: No Onset Date: ~08/21/16 Qualifiers: Sleep apnea type: obstructive Qualified Code(s): G47.33 - Obstructive sleep apnea (adult) (pediatric) Annotation/Comment:: Auto-CPAP should be initiated JUSTYN - Problem List Review Problem List Initiated/Reviewed/Updated: Yes - My Orders Last 24 Hours: My Active Orders 10/02/17 05:11 Chest 2V [CR] Routine 10/02/17 06:50 MYCOPLASMA IGM RAPID [MREF] Routine 10/02/17 08:00 Care Management Consult [Consult to Case Management] [CONS] Routine Consult to Occupational Therapy [OT Evaluation and Treatment] [CONS] Routine Consult to Physical Therapy [PT Evaluation and Treatment] [CONS] Routine Albuterol/Ipratropium [DuoNeb 3.0-0.5 MG/3 ML] 3 ml NEB QIDRT Furosemide [Lasix] 40 mg IVPUSH DAILY 10/02/17 18:00 Benzonatate [Tessalon Perles] 200 mg PO TID 10/02/17 20:00 Pantoprazole [ProTONIX IV] 40 mg IVPUSH BEDTIME methylPREDNISolone Sod Succ [Solu-MEDROL] 40 mg IVPUSH Q12H 10/03/17 05:11 CRP [C-REACTIVE PROTEIN] [CHEM] DAILY INR,PT,PROTHROMBIN TIME [COAG] DAILY 10/03/17 12:00 Azithromycin [Zithromax] 500 mg PO DAILY 10/04/17 05:11 CRP [C-REACTIVE PROTEIN] [CHEM] DAILY INR,PT,PROTHROMBIN TIME [COAG] DAILY 10/05/17 05:11 INR,PT,PROTHROMBIN TIME [COAG] DAILY - Plan Plan:: 10/01/17 Beatrice Lang MD Still not feeling the best. Deep harsh cough. Antibiotics change due to multiple drug interactions. 10/02/17 Beatrice Lang Still not feeling better, Phegm present.
[2017-10-03] MEDS ORDERED: Ondansetron 4 MG/2 ML SDV IVPUSH PRN (07:29)
[2017-10-03 10:22] LABS: O2 DELIVERY DEVICE NON REBR MASK; O2 FLOW RATE 13 L/min
[2017-10-03 10:23] LABS: PCO2 ARTERIAL 86 mmHG (35-45); PO2 ARTERIAL 86 mmHG (80-105)
[2017-10-03 10:24] LABS: BASE EXCESS ARTERIAL 18 mmol/L (-2-3); BICARBONATE,ARTERIAL 44.3 mmol/L (22-26); O2 SATURATION ARTERIAL 95 % (95-98)
[2017-10-03] MEDS: Arformoterol 15 MCG/2 ML Neb Soln INH SCH ×2 (10:39→20:45)
[2017-10-03] MEDS: Citalopram 20 MG Tab PO SCH (10:39)
[2017-10-03] MEDS: Aspirin 81 MG Tab.EC PO SCH (10:40)
[2017-10-03] MEDS: Furosemide 40 MG/4 ML VIAL IVPUSH SCH (10:40)
[2017-10-03] MEDS: Pregabalin 25 MG Cap PO SCH ×3 (10:40→17:05)
[2017-10-03] MEDS: Docusate Sodium 100 MG Cap PO SCH ×2 (10:40→17:05)
[2017-10-03] MEDS: amLODIPine 5 MG Tab PO SCH (10:40)
[2017-10-03] MEDS: Dextromethorphan/guaiFENesin 600-30 MG Tab.ER PO SCH ×2 (10:40→17:04)
[2017-10-03] MEDS: Albuterol/Ipratropium 3.0-0.5 MG/3 ML Neb Soln NEB SCH ×4 (10:40→20:45)
[2017-10-03] MEDS: Levothyroxine 75 MCG Tab PO SCH (10:40)
[2017-10-03] MEDS: cefTAZidime 1 GM Vial IVPUSH SCH (10:40)
[2017-10-03] MEDS: methylPREDNISolone Sodium Succinate 40 MG/1 ML SDV IVPUSH SCH ×2 (10:41→20:45)
[2017-10-03] MEDS: Sodium Chloride 0.9% 10 ML Syringe FLUSH SCH ×2 (10:41→20:47)
[2017-10-03] MEDS: Benzonatate 100 MG Cap PO SCH ×3 (10:41→17:05)
[2017-10-03] MEDS: Calcium Carbonate 500 MG Tab.Chew PO SCH ×2 (10:41→17:05)
[2017-10-03] MEDS ORDERED: Aminophylline 500 MG/20 ML SDV ONE (10:53)
[2017-10-03] MEDS: Finasteride 5 MG Tab PO SCH (11:15)
[2017-10-03] MEDS: Magnesium Oxide 400 MG Tab PO SCH (11:15)
[2017-10-03] MEDS: Famotidine 20 MG Tab PO SCH (11:15)
[2017-10-03] MEDS: Cholecalciferol (Vitamin D3) 1,000 Unit Tab PO SCH (11:15)
[2017-10-03] MEDS: predniSONE 5 MG Tab PO SCH (11:15)
[2017-10-03] MEDS: Folic Acid 1 MG Tab PO SCH (11:15)
[2017-10-03] MEDS: Meropenem 1 GM in Sodium Chloride 0.9% 100 ML IV SCH ×2 (11:42→20:45)
[2017-10-03] MEDS ORDERED: Meropenem 500 MG SDV IVPUSH SCH (12:00)
[2017-10-03] MEDS ORDERED: Azithromycin 250 MG Tab PO SCH (12:00)
[2017-10-03] MEDS: metroNIDAZOLE/Normal Saline 500 MG in Premix Bag 1 BAG IV SCH ×2 (14:41→21:39)
[2017-10-03] MEDS: Verapamil 120 MG Tab.ER PO SCH (16:36)
--- NOTE | 2017-10-03 17:08 | PCM.PN ---
- General Info Date of Service: 10/03/17 Functional Status: Reports: Pain Controlled, Tolerating Diet - Review of Systems General: Reports: No Symptoms HEENT: Reports: No Symptoms Pulmonary: Reports: Shortness of Breath, Cough, Other (episode of hypoxia this AM) Cardiovascular: Reports: No Symptoms Gastrointestinal: Reports: No Symptoms, Decreased Appetite (improving) Genitourinary: Reports: No Symptoms Musculoskeletal: Reports: No Symptoms Skin: Reports: No Symptoms Neurological: Reports: Confusion Psychiatric: Reports: Confusion - Patient Data Vitals - Most Recent: Last Vital Signs Temp 98.2 F 10/03/17 16:00 Pulse 92 10/03/17 16:00 Resp 19 10/03/17 16:00 BP 143/79 H 10/03/17 16:00 Pulse Ox 100 10/03/17 16:00 Weight - Most Recent: 248 lb 8 oz I&O - Last 24 Hours: Intake & Output 10/03/17 10/03/17 10/03/17 06:59 14:59 22:59 Intake Total 675 600 Balance 675 600 Lab Results Last 24 Hours: Laboratory Results - last 24 hr 10/03/17 10/03/17 10/03/17 Range/Units 07:30 07:30 10:15 PT 28.8 H (9.8-11.7) SEC INR 2.6 ABG pH 7.32 L (7.35-7.45) ABG pCO2 86 H* (35-45) mmHG ABG pO2 86 (80-105) mmHG ABG HCO3 44.3 H (22-26) mmol/L ABG Total CO2 47 H (23-27) mmol/L ABG O2 Saturation 95 (95-98) % ABG Base Excess 18 H (-2-3) mmol/L O2 Delivery Device Non rebr mask Oxygen Flow Rate 13 L/min C-Reactive Protein 10.7 H (<=0.9) mg/dL Abdiaziz Results Last 24 Hours: Microbiology 10/02/17 06:50 Mycoplasma Serology - Final Blood 09/30/17 22:12 Aerobic Blood Culture - Preliminary Blood - Venous - Lab Draw NO GROWTH AFTER 2 DAYS Anaerobic Blood Culture - Preliminary NO GROWTH AFTER 2 DAYS 09/30/17 22:00 Aerobic Blood Culture - Preliminary Blood - Venous NO GROWTH AFTER 2 DAYS Anaerobic Blood Culture - Preliminary NO GROWTH AFTER 2 DAYS Med Orders - Current: Current Medications Acetaminophen (Tylenol) 650 mg PO Q4H PRN PRN Reason: Pain/Fever Last Admin: 10/02/17 17:28 Dose: 650 mg Albuterol (Proventil Neb Soln) 2.5 mg INH Q2H PRN PRN Reason: SHORTNESS OF BREATH Last Admin: 10/02/17 03:49 Dose: 2.5 mg Albuterol/Ipratropium (Duoneb 3.0-0.5 Mg/3 Ml) 3 ml NEB QIDRT [facility] Last Admin: 10/03/17 16:36 Dose: 3 ml Amlodipine Besylate (Norvasc) 5 mg PO DAILY [facility] Last Admin: 10/03/17 10:40 Dose: Not Given Arformoterol Tartrate (Brovana) 15 mcg INH BIDRT [facility] Last Admin: 10/03/17 10:39 Dose: Not Given Aspirin (Halfprin) 162 mg PO DAILY [facility] Last Admin: 10/03/17 10:40 Dose: Not Given Benzonatate (Tessalon Perles) 200 mg PO TID [facility] Last Admin: 10/03/17 11:27 Dose: 200 mg Calcium Carbonate/Glycine (Tums) 500 mg PO BID [facility] Last Admin: 10/03/17 10:41 Dose: Not Given Citalopram Hydrobromide (Celexa) 20 mg PO DAILY [facility] Last Admin: 10/03/17 10:39 Dose: Not Given Docusate Sodium (Colace) 100 mg PO BID [facility] Last Admin: 10/03/17 10:40 Dose: Not Given Furosemide (Lasix) 40 mg IVPUSH DAILY [facility] Last Admin: 10/03/17 10:40 Dose: Not Given Guaifenesin/Dextromethorphan (Mucinex Dm Er 600-30 Mg) 1 tab PO BID [facility] Last Admin: 10/03/17 10:40 Dose: Not Given Meropenem 1 gm/ Sodium (Chloride) 100 mls @ 200 mls/hr IV Q8H [facility] Last Admin: 10/03/17 11:42 Dose: 200 mls/hr Metronidazole 500 mg/ Premix 100 mls @ 100 mls/hr IV Q8H [facility] Last Admin: 10/03/17 14:41 Dose: 100 mls/hr Latanoprost (Xalatan 0.005% Ophth Soln) 0 ml EYEBOTH BEDTIME [facility] Last Admin: 10/02/17 19:18 Dose: 1 drop Levothyroxine Sodium (Levothyroxine) 75 mcg PO QAM [facility] Last Admin: 10/03/17 10:40 Dose: Not Given Methylprednisolone Sodium Succinate (Solu-Medrol) 40 mg IVPUSH Q12H [facility] Last Admin: 10/03/17 10:41 Dose: Not Given Nitroglycerin (Nitrostat) 0.4 mg SL ASDIRECTED PRN PRN Reason: Chest Pain Abiraterone Acetate ([Zytiga] 250mg Tabs) 1,000 mg PO DAILY [facility] Last Admin: 10/03/17 10:39 Dose: Not Given Non-Formulary Medication (Amino Acids/Protein Supplement [Protein 2,000 Mg]) 1 each PO DAILY [facility] Ondansetron HCl (Zofran) 4 mg IVPUSH Q6H PRN PRN Reason: Nausea/Vomiting Pantoprazole Sodium (Protonix Iv) 40 mg IVPUSH BEDTIME [facility] Last Admin: 10/02/17 19:16 Dose: 40 mg Pregabalin (Lyrica) 25 mg PO TID [facility] Last Admin: 10/03/17 11:27 Dose: 25 mg Senna/Docusate Sodium (Senna Plus) 1 tab PO BID PRN PRN Reason: Constipation Sodium Chloride (Saline Flush) 10 ml FLUSH ASDIRECTED PRN PRN Reason: Keep Vein Open Last Admin: 10/02/17 21:53 Dose: 10 ml Sodium Chloride (Saline Flush) 10 ml FLUSH Q12HR [facility] Last Admin: 10/03/17 10:41 Dose: Not Given Temazepam (Restoril) 15 mg PO BEDTIME PRN PRN Reason: Insomnia Last Admin: 10/03/17 03:51 Dose: 15 mg Verapamil HCl (Calan Sr) 240 mg PO DAILY@1700 [facility] Last Admin: 10/03/17 16:36 Dose: 240 mg Discontinued Medications Acetaminophen (Tylenol) 650 mg PO Q4H PRN PRN Reason: Pain Al Hydroxide/Mg Hydroxide (Mag-Al Plus) 30 ml PO ONETIME ONE Stop: 10/02/17 15:21 Last Admin: 10/02/17 15:40 Dose: 30 ml Albuterol/Ipratropium (Duoneb 3.0-0.5 Mg/3 Ml) 3 ml NEB Q4HRRT PRN PRN Reason: Dyspnea Last Admin: 10/01/17 01:12 Dose: 3 ml Aminophylline (Aminophylline) Confirm Administered Dose 500 mg .ROUTE .STK-MED ONE Stop: 10/03/17 10:54 Last Admin: 10/03/17 11:14 Dose: Not Given Arformoterol Tartrate (Brovana) 15 mcg INH BID [facility] Last Admin: 10/01/17 07:44 Dose: 15 mcg Azithromycin (Zithromax) 500 mg PO DAILY [facility] Last Admin: 10/03/17 11:27 Dose: 500 mg Budesonide (Pulmicort) 0.5 mg NEB ONETIME ONE Stop: 09/30/17 21:43 Last Admin: 09/30/17 22:00 Dose: 0.5 mg Budesonide (Pulmicort) 0.5 mg NEB BIDRT [facility] Last Admin: 10/01/17 20:48 Dose: 0.5 mg Ceftazidime (Fortaz) 1 gm IVPUSH Q12HR [facility] Last Admin: 10/03/17 10:40 Dose: Not Given Cholecalciferol (Vitamin D3) 2,000 units PO DAILY [facility] Last Admin: 10/03/17 11:15 Dose: Not Given Cyclobenzaprine HCl (Flexeril) 10 mg PO TID PRN PRN Reason: MUSCLE SPASMS Last Admin: 10/01/17 21:11 Dose: 10 mg Famotidine (Pepcid) 40 mg IVPUSH ONETIME ONE Stop: 09/30/17 22:56 Last Admin: 09/30/17 23:08 Dose: 40 mg Famotidine (Pepcid) 20 mg PO BID [facility] Last Admin: 10/03/17 11:15 Dose: Not Given Finasteride (Proscar) 5 mg PO DAILY [facility] Last Admin: 10/03/17 11:15 Dose: Not Given Folic Acid (Folic Acid) 1 mg PO DAILY [facility] Last Admin: 10/03/17 11:15 Dose: Not Given Furosemide (Lasix) 60 mg IVPUSH NOW ONE Stop: 09/30/17 22:55 Last Admin: 09/30/17 23:08 Dose: 60 mg Furosemide (Lasix) 40 mg IVPUSH Q8H [facility] Last Admin: 10/01/17 07:44 Dose: 40 mg Azithromycin 500 mg/ Sodium (Chloride) 250 mls @ 250 mls/hr IV Q24H [facility] Stop: 10/02/17 22:44 Last Admin: 10/02/17 21:52 Dose: 250 mls/hr Levofloxacin/Dextrose 500 mg/ (Premix) 100 mls @ 100 mls/hr IV Q24H [facility] Last Admin: 09/30/17 23:32 Dose: 100 mls/hr Aminophylline 500 mg/ Sodium (Chloride) 120 mls @ 100 mls/hr IV ONETIME ONE Stop: 10/03/17 11:11 Last Admin: 10/03/17 10:51 Dose: 100 mls/hr Magnesium Oxide (Magnesium Oxide) 400 mg PO BID [facility] Last Admin: 10/03/17 11:15 Dose: Not Given Meropenem (Merrem) 500 mg IVPUSH Q6H [facility] Non-Formulary Medication (Ranitidine [Zantac]) 150 mg PO BID [facility] Potassium Chloride (Klor-Con M20) 20 meq PO TID [facility] Last Admin: 10/01/17 11:18 Dose: 20 meq Potassium Chloride (Klor-Con M20) 20 meq PO BID [facility] Last Admin: 10/01/17 17:55 Dose: 20 meq Prednisone (Prednisone) 5 mg PO BID [facility] Last Admin: 10/03/17 11:15 Dose: Not Given Simvastatin (Zocor) 10 mg PO BEDTIME [facility] Last Admin: 10/02/17 19:17 Dose: 10 mg Sodium Chloride (Saline Flush) 10 ml FLUSH Q12HR PRN PRN Reason: Keep Vein Open Warfarin Sodium (Coumadin) 7.5 mg PO SUMOTUWEFRSA@1800 [facility] Warfarin Sodium (Coumadin) 10 mg PO TH@18 [facility] - Exam Quality Assessment: Supplemental Oxygen General: Alert, Cooperative, No Acute Distress HEENT: Mucous Membr. Moist/[place] Neck: Trachea Midline, No JVD Lungs: Normal Respiratory Effort, Decreased Breath Sounds, Wheezing Cardiovascular: Regular Rate, Regular Rhythm GI/Abdominal Exam: Soft, Non-Tender, No Mass (Male) Exam: Deferred Back Exam: Normal Inspection Extremities: Non-Tender, Pedal Edema (scant) Skin: Warm, Dry, Intact Neurological: No New Focal Deficit Psy/Mental Status: Alert, Normal Affect, Normal Mood - Problem List & Annotations (1) COPD (chronic obstructive pulmonary disease) SNOMED Code(s): 08461763 Code(s): J44.9 - CHRONIC OBSTRUCTIVE PULMONARY DISEASE, UNSPECIFIED Status : Acute Priority: High Current Visit: Yes Qualifiers: COPD type: COPD with acute lower respiratory infection Qualified Code(s): J44.0 - Chronic obstructive pulmonary disease with acute lower respiratory infection Annotation/Comment:: O2 dependent COPD with significant hypoxia at home prior to transfer as above. Blood Cultures 2 were collected with concomitant right middle lobe and left lower lobe pneumonia. Note DuoNeb nebulizer treatment initiated by paramedics prior to arrival. Attempt to obtain sputum specimen. IV Levaquin and IV Zithromax therapy initiated in the emergency room. Continue aggressive nebulizer treatment. Note additional history of sleep apnea with the patient not currently compliant with his CPAP' (2) Pneumonia SNOMED Code(s): 253681772 Code(s): J18.9 - PNEUMONIA, UNSPECIFIED ORGANISM Status: Acute Priority: High Current Visit: Yes Onset Date: ~09/30/17 Qualifiers: Pneumonia type: aspiration pneumonia Aspiration pneumonia type: unspecified Laterality: left Lung location: lower lobe of lung Qualified Code(s): J69.0 - Pneumonitis due to inhalation of food and vomit Annotation/Comment:: As above (3) Anemia SNOMED Code(s): 209851435 Code(s): D64.9 - ANEMIA, UNSPECIFIED Status: Chronic Priority: High Current Visit: Yes Qualifiers: Anemia type: other cause Other causes of anemia: other cause, not classified Qualified Code(s): D64.89 - Other specified anemias Annotation/Comment:: History of chronic anemia. Continue to observe closely by his regular providers with further workup depending on his clinical course. Note current Coumadin therapy with Hemoccults, etc. to be collected (4) CHF, Congestive heart failure SNOMED Code(s): 54645732 Code(s): I50.9 - HEART FAILURE, UNSPECIFIED Status: Chronic Priority: Medium Current Visit: Yes Annotation/Comment:: Significant clinical CHF with IV Lasix initiated in the emergency room. No chest pain or anginal type symptoms with chest pain protocol not initiated in the emergency room. Repeat cardiac enzymes, EKG, etc. in the a.m. [facility] assumes care in the a.m. Long-term prognosis guarded and extremely poor. Note comfort care with no further echocardiogram, etc. Cardiology consultation depending on his clinical course (5) D-dimer, elevated SNOMED Code(s): 583647602 Code(s): R79.89 - OTHER SPECIFIED ABNORMAL FINDINGS OF BLOOD CHEMISTRY Status: Chronic Priority: High Current Visit: Yes Annotation/Comment:: Chronic d-dimer elevation with history of recurrent DVTs and PEs as above. No direct evidence of acute DVT or PE. Patient is on Coumadin. Consider repeat venous Doppler studies and CT of the chest depending on his clinical course (6) GERD (gastroesophageal reflux disease) SNOMED Code(s): 907277769 Code(s): K21.9 - GASTRO-ESOPHAGEAL REFLUX DISEASE WITHOUT ESOPHAGITIS Status: Chronic Priority: Medium Current Visit: Yes Qualifiers: Esophagitis presence: esophagitis presence not specified Qualified Code(s) : K21.9 - Gastro-esophageal reflux disease without esophagitis Annotation/Comment:: After arrival patient began experiencing some nonspecific periumbilical abdominal discomfort and cramping with high-dose IV Pepcid given and improvement of his symptoms. Acute abdominal x-rays and repeat blood work in the a.m. (7) Hypertension SNOMED Code(s): 41432558 Code(s): I10 - ESSENTIAL (PRIMARY) HYPERTENSION Status: Chronic Priority : Medium Current Visit: Yes Qualifiers: Hypertension type: essential hypertension Qualified Code(s): I10 - Essential (primary) hypertension Annotation/Comment:: Blood Pressures under good control in the emergency room (8) Hypoalbuminemia SNOMED Code(s): 885691605 Code(s): E88.09 - OTH DISORDERS OF PLASMA-PROTEIN METABOLISM, NEC Status: Chronic Priority: Medium Current Visit: Yes Annotation/Comment:: Initiate high protein Glucerna supplement with caution secondary to his previous history of renal insufficiency (9) Hypothyroidism SNOMED Code(s): 07699466 Code(s): E03.9 - HYPOTHYROIDISM, UNSPECIFIED Status: Chronic Priority: Medium Current Visit: Yes Annotation/Comment:: Stable by his history, TSH normal today (10) Need for comfort care SNOMED Code(s): 906857822 Code(s): PLD5916 - Status: Chronic Priority: Medium Current Visit: Yes Annotation/Comment:: Comfort care as above confirmed today with the patient (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 SNOMED Code(s): 9306738 Code(s): D68.59 - OTHER PRIMARY THROMBOPHILIA Status: Chronic Priority: Medium Current Visit: Yes Annotation/Comment:: History of chronic and recurrent DVT as above. INR in the a.m.. (12) Renal insufficiency SNOMED Code(s): 121331377, 565644194 Code(s): N28.9 - DISORDER OF KIDNEY AND URETER, UNSPECIFIED Status: Chronic Priority: Medium Current Visit: Yes Annotation/Comment:: History of chronic renal insufficiency relatively stable from previous evaluations. Note previous history of acute renal insufficiency requiring distant dialysis as above (13) Elevated INR SNOMED Code(s): 215994056 Code(s): R79.1 - ABNORMAL COAGULATION PROFILE Status: Acute Current Visit : No (14) Hip joint replacement status SNOMED Code(s): 239595593, 873890218, 701072829, 315314480 Code(s): Z96.649 - PRESENCE OF UNSPECIFIED ARTIFICIAL HIP JOINT Status: Acute Priority: High Current Visit: No Qualifiers: Laterality: left Qualified Code(s): Z96.642 - Presence of left artificial hip joint (15) Lower leg DVT (deep venous thromboembolism), chronic SNOMED Code(s): 591893831, 752985524, 105583567921158 Code(s): I82.5Z9 - CHR EMBLSM AND THOMBOS UNSP DEEP VN UNSP DISTAL LOW EXTRM Status: Acute Priority: Medium Current Visit: No Qualifiers: Laterality: unspecified laterality Qualified Code(s): I82.5Z9 - Chronic embolism and thrombosis of unspecified deep veins of unspecified distal lower extremity (16) Mood disorder Status: Acute Priority: Medium Current Visit: No (17) PVD (peripheral vascular disease) SNOMED Code(s): 890178974 Code(s): I73.9 - PERIPHERAL VASCULAR DISEASE, UNSPECIFIED Status: Acute Priority: Medium Current Visit: No (18) Respiratory failure, chronic SNOMED Code(s): 14168607 Code(s): J96.10 - CHRONIC RESPIRATORY FAILURE, UNSP W HYPOXIA OR HYPERCAPNIA Status: Acute Priority: Medium Current Visit: No Qualifiers: Respiratory failure complication: unspecified whether with hypoxia or hypercapnia Qualified Code(s): J96.10 - Chronic respiratory failure, unspecified whether with hypoxia or hypercapnia (19) AAA (abdominal aortic aneurysm) SNOMED Code(s): 559781626 Code(s): I71.4 - ABDOMINAL AORTIC ANEURYSM, WITHOUT RUPTURE Status: Chronic Priority: Medium Current Visit: No Qualifiers: Presence of rupture: without rupture Qualified Code(s): I71.4 - Abdominal aortic aneurysm, without rupture Annotation/Comment:: Recently diagnosed small abdominal aortic aneurysm by CT scan nonproblematic at this time (20) Arthritis of left hip SNOMED Code(s): 77829688 Code(s): M19.90 - UNSPECIFIED OSTEOARTHRITIS, UNSPECIFIED SITE Status: Chronic Priority: High Current Visit: No (21) Blood coagulation disorder SNOMED Code(s): 20044229 Code(s): D68.9 - COAGULATION DEFECT, UNSPECIFIED Status: Chronic Priority : Medium Current Visit: No (22) Congestive heart failure SNOMED Code(s): 65924542 Code(s): I50.9 - HEART FAILURE, UNSPECIFIED Status: Chronic Priority: High Current Visit: No Qualifiers: Qualified Code(s): I50.9 - Heart failure, unspecified Annotation/Comment:: No recent chest pain or anginal type symptoms (23) Heart disease SNOMED Code(s): 22003198 Code(s): I51.9 - HEART DISEASE, UNSPECIFIED Status: Chronic Priority: Medium Current Visit: No Annotation/Comment:: Stable by history with no recent true anginal complaints, etc. and negative EKG, cardiac enzymes, etc. as above (24) Hypomagnesemia SNOMED Code(s): 563658655 Code(s): E83.42 - HYPOMAGNESEMIA Status: Chronic Priority: Medium Current Visit: No Annotation/Comment:: Consider initiation of magnesium oxide therapy (25) Migraine SNOMED Code(s): 94033558 Code(s): G43.909 - MIGRAINE, UNSP, NOT INTRACTABLE, WITHOUT STATUS MIGRAINOSUS Status: Chronic Priority: Medium Current Visit: No Annotation/Comment:: Symptomatically improved after medications provided. Advised to hydrate and rest today to avoid rebound. Follow up as needed. (26) Osteoarthritis SNOMED Code(s): 313935814 Code(s): M19.90 - UNSPECIFIED OSTEOARTHRITIS, UNSPECIFIED SITE Status: Chronic Priority: Medium Current Visit: No Qualifiers: Osteoarthritis location: multiple joints Osteoarthritis type: primary Qualified Code(s): M15.0 - Primary generalized (osteo)arthritis Annotation/Comment:: Stable by history with history of gout and chronic narcotic use. Current discomfort likely secondary to his mild ecchymosis in the left knee region as above. No evidence of significant injury (27) Peptic reflux disease SNOMED Code(s): 675720038 Code(s): K21.9 - GASTRO-ESOPHAGEAL REFLUX DISEASE WITHOUT ESOPHAGITIS Status: Chronic Priority: Medium Current Visit: No Annotation/Comment:: Stable by patient history. Note moderate anemia today (28) Polycythemia SNOMED Code(s): 595942625 Code(s): D75.1 - SECONDARY POLYCYTHEMIA Status: Chronic Priority: Medium Current Visit: No Onset Date: 09/12/15 Annotation/Comment:: Likely secondary to his COPD (29) Prostate cancer SNOMED Code(s): 150817172 Code(s): C61 - MALIGNANT NEOPLASM OF PROSTATE Status: Chronic Priority: Low Current Visit: No (30) Renal insufficiency, mild SNOMED Code(s): 389298082 Code(s): N28.9 - DISORDER OF KIDNEY AND URETER, UNSPECIFIED Status: Chronic Current Visit: No (31) Sleep apnea SNOMED Code(s): 73028690 Code(s): G47.30 - SLEEP APNEA, UNSPECIFIED Status: Chronic Priority: Medium Current Visit: No Onset Date: ~08/21/16 Qualifiers: Sleep apnea type: obstructive Qualified Code(s): G47.33 - Obstructive sleep apnea (adult) (pediatric) Annotation/Comment:: Auto-CPAP should be initiated JUSTYN (32) Respiratory failure SNOMED Code(s): 841890225 Code(s): J96.90 - RESPIRATORY FAILURE, UNSP, UNSP W HYPOXIA OR HYPERCAPNIA Status: Acute Priority: High Current Visit: Yes Qualifiers: Chronicity: acute on chronic Respiratory failure complication: hypoxia and hypercapnia Qualified Code(s): J96.21 - Acute and chronic respiratory failure with hypoxia; J96.22 - Acute and chronic respiratory failure with hypercapnia - Problem List Review Problem List Initiated/Reviewed/Updated: Yes - My Orders Last 24 Hours: My Active Orders 10/02/17 18:00 Benzonatate [Tessalon Perles] 200 mg PO TID 10/02/17 20:00 Pantoprazole [ProTONIX IV] 40 mg IVPUSH BEDTIME methylPREDNISolone Sod Succ [Solu-MEDROL] 40 mg IVPUSH Q12H 10/03/17 12:00 Meropenem [Merrem] 1 gm Sodium Chloride 0.9% [Normal Saline] 100 ml IV Q8H 10/03/17 14:00 metroNIDAZOLE/Normal Saline [Flagyl 500 MG in NS 100 ML] 500 mg Premix Bag 1 bag IV Q8H 10/04/17 05:11 CRP [C-REACTIVE PROTEIN] [CHEM] DAILY INR,PT,PROTHROMBIN TIME [COAG] DAILY 10/05/17 05:11 INR,PT,PROTHROMBIN TIME [COAG] DAILY - Plan Plan:: 10/01/17 Beatrice Lang MD Still not feeling the best. Deep harsh cough. Antibiotics change due to multiple drug interactions. 10/02/17 Beatrice Lang Still not feeling better, Phegm present. 10/03/17 Beatrice Lang MD Had a hypoxic/hypercapnia episode this AM. Now feeling better.
[2017-10-03] MEDS: Acetaminophen 325 MG Tab PO PRN (20:43)
[2017-10-03] MEDS: Pantoprazole 40 MG Vial IVPUSH SCH (20:45)
[2017-10-03] MEDS: Latanoprost 0.005% Ophth Soln 2.5 ML Bottle EYEBOTH SCH (20:47)
[2017-10-04] MEDS: Meropenem 1 GM in Sodium Chloride 0.9% 100 ML IV SCH ×2 (04:33→11:28)
[2017-10-04] MEDS: metroNIDAZOLE/Normal Saline 500 MG in Premix Bag 1 BAG IV SCH ×2 (05:28→14:27)
[2017-10-04 08:10] LABS: CHLORIDE,CL 101 mmol/L (98-107); SODIUM,NA 144 mmol/L (136-145)
[2017-10-04] MEDS: Albuterol/Ipratropium 3.0-0.5 MG/3 ML Neb Soln NEB SCH ×2 (08:52→11:28)
[2017-10-04] MEDS: Calcium Carbonate 500 MG Tab.Chew PO SCH (09:30)
[2017-10-04] MEDS: Benzonatate 100 MG Cap PO SCH ×2 (09:30→11:28)
[2017-10-04] MEDS: Arformoterol 15 MCG/2 ML Neb Soln INH SCH (09:30)
[2017-10-04] MEDS: Furosemide 40 MG/4 ML VIAL IVPUSH SCH (09:31)
[2017-10-04] MEDS: Levothyroxine 75 MCG Tab PO SCH (09:31)
[2017-10-04] MEDS: Aspirin 81 MG Tab.EC PO SCH (09:31)
[2017-10-04] MEDS: Citalopram 20 MG Tab PO SCH (09:31)
[2017-10-04] MEDS: Pregabalin 25 MG Cap PO SCH ×2 (09:31→11:28)
[2017-10-04] MEDS: Docusate Sodium 100 MG Cap PO SCH (09:31)
[2017-10-04] MEDS: Dextromethorphan/guaiFENesin 600-30 MG Tab.ER PO SCH (09:31)
[2017-10-04] MEDS: amLODIPine 5 MG Tab PO SCH (09:31)
[2017-10-04] MEDS: Sodium Chloride 0.9% 10 ML Syringe FLUSH SCH (09:32)
[2017-10-04] MEDS: methylPREDNISolone Sodium Succinate 40 MG/1 ML SDV IVPUSH SCH (09:32)
--- NOTE | 2017-10-04 12:39 | PCM.PN ---
- General Info Date of Service: 10/04/17 Admission Dx/Problem (Free Text): Pneumonia Functional Status: Reports: Tolerating Diet - Review of Systems General: Reports: Weakness HEENT: Reports: No Symptoms Pulmonary: Reports: Shortness of Breath, Cough Cardiovascular: Reports: No Symptoms Gastrointestinal: Reports: No Symptoms Genitourinary: Reports: Incontinence (especially with cough, wearing incontinence brief) Musculoskeletal: Reports: No Symptoms Skin: Reports: No Symptoms Neurological: Reports: No Symptoms Psychiatric: Reports: No Symptoms - Patient Data Vitals - Most Recent: Last Vital Signs Temp 97.5 F 10/04/17 08:00 Pulse 92 10/04/17 08:00 Resp 17 10/04/17 08:00 BP 145/81 H 10/04/17 09:31 Pulse Ox 100 10/04/17 08:00 Weight - Most Recent: 248 lb 8 oz I&O - Last 24 Hours: Intake & Output 10/03/17 10/04/17 10/04/17 22:59 06:59 14:59 Intake Total 480 720 Balance 480 720 Lab Results Last 24 Hours: Laboratory Results - last 24 hr 10/04/17 10/04/17 10/04/17 Range/Units 07:38 07:38 07:38 WBC 4.6 (4.0-10.2) K/uL RBC 3.57 L (4.33-5.41) M/uL Hgb 10.6 L (13.1-16.8) g/dL Hct 35.3 L (39.0-49.0) % MCV 98.9 H (84.0-98.0) fL MCH 29.7 (28.2-33.3) pg MCHC 30.0 L (31.7-36.0) g/dL RDW 14.4 H (11.2-14.1) % Plt Count 153 (150-350) K/uL Neut % (Auto) 92.2 H (45.0-80.0) % Lymph % (Auto) 5.2 L (10.0-50.0) % Garvin % (Auto) 2.4 (2.0-14.0) % Eos % (Auto) 0.0 (0.0-5.0) % Baso % (Auto) 0.2 (0.0-2.0) % Neut # (Auto) 4.27 (1.40-7.00) K/uL Lymph # (Auto) 0.24 L (0.50-3.50) K/uL Garvin # (Auto) 0.11 (0.00-1.00) K/uL Eos # (Auto) 0.00 (0.00-0.50) K/uL Baso # (Auto) 0.01 (0.00-0.20) K/uL PT 21.7 H (9.8-11.7) SEC INR 2.0 Sodium 144 (136-145) mmol/L Potassium 4.8 (3.5-5.1) mmol/L Chloride 101 (98-107) mmol/L Carbon Dioxide 44.7 H* (21.0-32.0) mmol/L BUN 29 H (7-18) mg/dL Creatinine 1.07 (0.51-1.17) mg/dL Est Cr Clr Drug Dosing 65.56 mL/min Estimated GFR (MDRD) > 60 mL/min Glucose 130 H (74-106) mg/dL Calcium 8.3 L (8.5-10.1) mg/dL Total Bilirubin 0.4 (0.2-1.0) mg/dL AST 25 (15-37) U/L ALT 19 (12-78) U/L Alkaline Phosphatase 72 (46-116) IU/L C-Reactive Protein 4.6 H (<=0.9) mg/dL Total Protein 6.4 (6.4-8.2) g/dL Albumin 2.6 L (3.4-5.0) g/dL Abdiaziz Results Last 24 Hours: Microbiology 09/30/17 22:12 Aerobic Blood Culture - Preliminary Blood - Venous - Lab Draw NO GROWTH AFTER 3 DAYS Anaerobic Blood Culture - Preliminary NO GROWTH AFTER 3 DAYS 09/30/17 22:00 Aerobic Blood Culture - Preliminary Blood - Venous NO GROWTH AFTER 3 DAYS Anaerobic Blood Culture - Preliminary NO GROWTH AFTER 3 DAYS 10/02/17 06:50 Mycoplasma Serology - Final Blood Med Orders - Current: Current Medications Acetaminophen (Tylenol) 650 mg PO Q4H PRN PRN Reason: Pain/Fever Last Admin: 10/03/17 20:43 Dose: 650 mg Albuterol (Proventil Neb Soln) 2.5 mg INH Q2H PRN PRN Reason: SHORTNESS OF BREATH Last Admin: 10/02/17 03:49 Dose: 2.5 mg Albuterol/Ipratropium (Duoneb 3.0-0.5 Mg/3 Ml) 3 ml NEB QIDRT [facility] Last Admin: 10/04/17 11:28 Dose: 3 ml Amlodipine Besylate (Norvasc) 5 mg PO DAILY [facility] Last Admin: 10/04/17 09:31 Dose: 5 mg Arformoterol Tartrate (Brovana) 15 mcg INH BIDRT [facility] Last Admin: 10/04/17 09:30 Dose: 15 mcg Aspirin (Halfprin) 162 mg PO DAILY [facility] Last Admin: 10/04/17 09:31 Dose: 162 mg Benzonatate (Tessalon Perles) 200 mg PO TID [facility] Last Admin: 10/04/17 11:28 Dose: 200 mg Calcium Carbonate/Glycine (Tums) 500 mg PO BID [facility] Last Admin: 10/04/17 09:30 Dose: 500 mg Citalopram Hydrobromide (Celexa) 20 mg PO DAILY [facility] Last Admin: 10/04/17 09:31 Dose: 20 mg Docusate Sodium (Colace) 100 mg PO BID [facility] Last Admin: 10/04/17 09:31 Dose: 100 mg Furosemide (Lasix) 40 mg IVPUSH DAILY [facility] Last Admin: 10/04/17 09:31 Dose: 40 mg Guaifenesin/Dextromethorphan (Mucinex Dm Er 600-30 Mg) 1 tab PO BID [facility] Last Admin: 10/04/17 09:31 Dose: 1 tab Meropenem 1 gm/ Sodium (Chloride) 100 mls @ 200 mls/hr IV Q8H [facility] Last Admin: 10/04/17 11:28 Dose: 200 mls/hr Metronidazole 500 mg/ Premix 100 mls @ 100 mls/hr IV Q8H [facility] Last Admin: 10/04/17 05:28 Dose: 100 mls/hr Latanoprost (Xalatan 0.005% Ophth Soln) 0 ml EYEBOTH BEDTIME [facility] Last Admin: 10/03/17 20:47 Dose: 1 drop Levothyroxine Sodium (Levothyroxine) 75 mcg PO QAM [facility] Last Admin: 10/04/17 09:31 Dose: 75 mcg Methylprednisolone Sodium Succinate (Solu-Medrol) 40 mg IVPUSH Q12H [facility] Last Admin: 10/04/17 09:32 Dose: 40 mg Nitroglycerin (Nitrostat) 0.4 mg SL ASDIRECTED PRN PRN Reason: Chest Pain Abiraterone Acetate ([Zytiga] 250mg Tabs) 1,000 mg PO DAILY [facility] Last Admin: 10/04/17 09:32 Dose: 1,000 mg Non-Formulary Medication (Amino Acids/Protein Supplement [Protein 2,000 Mg]) 1 each PO DAILY [facility] Ondansetron HCl (Zofran) 4 mg IVPUSH Q6H PRN PRN Reason: Nausea/Vomiting Pantoprazole Sodium (Protonix Iv) 40 mg IVPUSH BEDTIME [facility] Last Admin: 10/03/17 20:45 Dose: 40 mg Pregabalin (Lyrica) 25 mg PO TID [facility] Last Admin: 10/04/17 11:28 Dose: 25 mg Senna/Docusate Sodium (Senna Plus) 1 tab PO BID PRN PRN Reason: Constipation Sodium Chloride (Saline Flush) 10 ml FLUSH ASDIRECTED PRN PRN Reason: Keep Vein Open Last Admin: 10/02/17 21:53 Dose: 10 ml Sodium Chloride (Saline Flush) 10 ml FLUSH Q12HR [facility] Last Admin: 10/04/17 09:32 Dose: 10 ml Temazepam (Restoril) 15 mg PO BEDTIME PRN PRN Reason: Insomnia Last Admin: 10/03/17 03:51 Dose: 15 mg Verapamil HCl (Calan Sr) 240 mg PO DAILY@1700 [facility] Last Admin: 10/03/17 16:36 Dose: 240 mg Discontinued Medications Acetaminophen (Tylenol) 650 mg PO Q4H PRN PRN Reason: Pain Al Hydroxide/Mg Hydroxide (Mag-Al Plus) 30 ml PO ONETIME ONE Stop: 10/02/17 15:21 Last Admin: 10/02/17 15:40 Dose: 30 ml Albuterol/Ipratropium (Duoneb 3.0-0.5 Mg/3 Ml) 3 ml NEB Q4HRRT PRN PRN Reason: Dyspnea Last Admin: 10/01/17 01:12 Dose: 3 ml Aminophylline (Aminophylline) Confirm Administered Dose 500 mg .ROUTE .STK-MED ONE Stop: 10/03/17 10:54 Last Admin: 10/03/17 11:14 Dose: Not Given Arformoterol Tartrate (Brovana) 15 mcg INH BID [facility] Last Admin: 10/01/17 07:44 Dose: 15 mcg Azithromycin (Zithromax) 500 mg PO DAILY [facility] Last Admin: 10/03/17 11:27 Dose: 500 mg Budesonide (Pulmicort) 0.5 mg NEB ONETIME ONE Stop: 09/30/17 21:43 Last Admin: 09/30/17 22:00 Dose: 0.5 mg Budesonide (Pulmicort) 0.5 mg NEB BIDRT [facility] Last Admin: 10/01/17 20:48 Dose: 0.5 mg Ceftazidime (Fortaz) 1 gm IVPUSH Q12HR [facility] Last Admin: 10/03/17 10:40 Dose: Not Given Cholecalciferol (Vitamin D3) 2,000 units PO DAILY [facility] Last Admin: 10/03/17 11:15 Dose: Not Given Cyclobenzaprine HCl (Flexeril) 10 mg PO TID PRN PRN Reason: MUSCLE SPASMS Last Admin: 10/01/17 21:11 Dose: 10 mg Famotidine (Pepcid) 40 mg IVPUSH ONETIME ONE Stop: 09/30/17 22:56 Last Admin: 09/30/17 23:08 Dose: 40 mg Famotidine (Pepcid) 20 mg PO BID [facility] Last Admin: 10/03/17 11:15 Dose: Not Given Finasteride (Proscar) 5 mg PO DAILY [facility] Last Admin: 10/03/17 11:15 Dose: Not Given Folic Acid (Folic Acid) 1 mg PO DAILY [facility] Last Admin: 10/03/17 11:15 Dose: Not Given Furosemide (Lasix) 60 mg IVPUSH NOW ONE Stop: 09/30/17 22:55 Last Admin: 09/30/17 23:08 Dose: 60 mg Furosemide (Lasix) 40 mg IVPUSH Q8H [facility] Last Admin: 10/01/17 07:44 Dose: 40 mg Azithromycin 500 mg/ Sodium (Chloride) 250 mls @ 250 mls/hr IV Q24H [facility] Stop: 10/02/17 22:44 Last Admin: 10/02/17 21:52 Dose: 250 mls/hr Levofloxacin/Dextrose 500 mg/ (Premix) 100 mls @ 100 mls/hr IV Q24H [facility] Last Admin: 09/30/17 23:32 Dose: 100 mls/hr Aminophylline 500 mg/ Sodium (Chloride) 120 mls @ 100 mls/hr IV ONETIME ONE Stop: 10/03/17 11:11 Last Admin: 10/03/17 10:51 Dose: 100 mls/hr Magnesium Oxide (Magnesium Oxide) 400 mg PO BID [facility] Last Admin: 10/03/17 11:15 Dose: Not Given Meropenem (Merrem) 500 mg IVPUSH Q6H [facility] Non-Formulary Medication (Ranitidine [Zantac]) 150 mg PO BID [facility] Potassium Chloride (Klor-Con M20) 20 meq PO TID [facility] Last Admin: 10/01/17 11:18 Dose: 20 meq Potassium Chloride (Klor-Con M20) 20 meq PO BID [facility] Last Admin: 10/01/17 17:55 Dose: 20 meq Prednisone (Prednisone) 5 mg PO BID [facility] Last Admin: 10/03/17 11:15 Dose: Not Given Simvastatin (Zocor) 10 mg PO BEDTIME [facility] Last Admin: 10/02/17 19:17 Dose: 10 mg Sodium Chloride (Saline Flush) 10 ml FLUSH Q12HR PRN PRN Reason: Keep Vein Open Warfarin Sodium (Coumadin) 7.5 mg PO SUMOTUWEFRSA@1800 [facility] Warfarin Sodium (Coumadin) 10 mg PO TH@18 [facility] - Exam Quality Assessment: Supplemental Oxygen (via [place] now at 5 L/m) General: Alert, Oriented HEENT: EOMI, Mucous Membr. Moist/[place] Neck: Supple, Trachea Midline, No JVD Lungs: Decreased Breath Sounds Cardiovascular: Regular Rate, Regular Rhythm GI/Abdominal Exam: Normal Bowel Sounds, Soft, Non-Tender (Male) Exam: Deferred Back Exam: Normal Inspection Extremities: Pedal Edema (mild, support stockings on) Skin: Warm, Dry, Intact Neurological: No New Focal Deficit Psy/Mental Status: Alert, Normal Affect, Normal Mood - Problem List Review Problem List Initiated/Reviewed/Updated: Yes - Plan Plan:: 10/01/17 Beatrice Lang MD Still not feeling the best. Deep harsh cough. Antibiotics change due to multiple drug interactions. 10/02/17 Beatrice Lang Still not feeling better, Phegm present. 10/03/17 Beatrice Lang MD Had a hypoxic/hypercapnia episode this AM. Now feeling better. 10-04-17 Marin Panchal PA-C Says feeling much better today, "God's not ready for me yet". Sats in the 90's now on 5L/m O2 via [place]. Discussed transfer to [facility] status today, and he is aware that is the plan as he discussed this with Dr. Barron yesterday.
[2017-10-04 13:18] VITALS: BP 144/79
--- NOTE | 2017-10-04 15:03 | PCM.DCSUM1 ---
Discharge Summary - Hospital Course Brief History: Admitted to status after evaluation in the ER, with diagnoses of pneumonia, COPD and CHF. - Discharge Data Discharge Date: 10/04/17 Discharge Disposition: DC/Tfer W/I Hosp To Swing 61 Condition: Fair - Patient Summary/Data Consults: Consultations 10/02/17 08:00 Care Management Consult [Consult to Case Management] [CONS] Routine Consult to Occupational Therapy [OT Evaluation and Treatment] [CONS] Routine Consult to Physical Therapy [PT Evaluation and Treatment] [CONS] Routine Hospital Course: Did improve with medical management, including IV antibiotics and diuretics. Required oxygen, including high-flow on NRB mask at one point. - Patient Instructions Other/Special Instructions: to swing bed from inpatient - Discharge Plan Home Medications: Home Meds Citalopram [Citalopram HBr] 20 mg PO DAILY 08/07/13 [History] Levothyroxine 75 mcg PO QAM 08/07/13 [History] Pregabalin [Lyrica] 25 mg PO TID 08/07/13 [History] amLODIPine [Norvasc] 5 mg PO DAILY 08/07/13 [History] Cholecalciferol (Vitamin D3) [Vitamin D3] 2,000 units PO DAILY 06/12/14 [History ] Latanoprost [Xalatan 0.005% Ophth Soln] 1 drop EYEBOTH BEDTIME 06/12/14 [History ] Nitroglycerin [Nitrostat] 1 tab SL ASDIRECTED PRN 06/12/14 [History] Simvastatin [Zocor] 10 mg PO BEDTIME 11/12/15 [History] Ranitidine [Zantac] 150 mg PO BID #60 tab 11/17/15 [Rx] Albuterol/Ipratropium [DuoNeb 3.0-0.5 MG/3 ML] 1 ampule INH Q4H PRN 03/19/16 [ History] Folic Acid 1 mg PO DAILY 03/19/16 [History] Acetaminophen 650 mg PO Q4HR PRN 07/26/16 [History] Furosemide 20 mg PO DAILY 07/26/16 [History] Finasteride 5 mg PO DAILY 11/02/16 [History] Verapamil HCl [Verapamil ER] 240 mg PO DAILY@1700 11/02/16 [History] Warfarin [Coumadin] 7.5 mg PO SUMOTUWEFRSA@1800 11/02/16 [History] Aspirin [Halfprin] 162 mg PO DAILY 11/15/16 [History] Budesonide [Pulmicort] 0.5 mg NEB BIDRT 11/15/16 [History] Magnesium Oxide 400 mg PO BID 11/15/16 [History] Amino Acids/Protein Supplement [Protein 2,000 MG] 1 each PO DAILY 03/30/17 [ History] Calcium Carbonate [Calcium] 600 mg PO BID 03/30/17 [History] Docusate Sodium [Colace] 100 mg PO BID 03/30/17 [History] Abiraterone Acetate [Zytiga] 1,000 mg PO DAILY 09/30/17 [History] Arformoterol [Brovana] 1 inh INH BID 09/30/17 [History] Cyclobenzaprine [Flexeril] 10 mg PO TID PRN 09/30/17 [History] Sennosides/Docusate Sodium [Senna-S] 1 each PO BID PRN 09/30/17 [History] Warfarin Sodium [Coumadin] 10 mg PO TH@18 09/30/17 [History] predniSONE [Prednisone] 5 mg PO BID 10/03/17 [History] Forms: ED Department Discharge Referrals: PCP,Unknown [Primary Care Provider] - - Discharge Summary/Plan Comment DC Time >30 min.: Yes Discharge Summary/Plan Comment: 10-04-17 Marin Panchal PA-C Transferred to [facility] status today to continue IV meds and PT-OT, with [facility] to be involved regarding discharge planning. - Patient Data Vitals - Most Recent: Last Vital Signs Temp 97.6 F 10/04/17 12:00 Pulse 110 H 10/04/17 12:00 Resp 17 10/04/17 12:00 BP 144/79 H 10/04/17 12:00 Pulse Ox 94 L 10/04/17 12:00 Weight - Most Recent: 248 lb 8 oz I&O - Last 24 hours: Intake & Output 10/04/17 10/04/17 10/04/17 06:59 14:59 22:59 Intake Total 1440 Balance 1440 Lab Results - Last 24 hrs: Laboratory Results - last 24 hr 10/04/17 10/04/17 10/04/17 Range/Units 07:38 07:38 07:38 WBC 4.6 (4.0-10.2) K/uL RBC 3.57 L (4.33-5.41) M/uL Hgb 10.6 L (13.1-16.8) g/dL Hct 35.3 L (39.0-49.0) % MCV 98.9 H (84.0-98.0) fL MCH 29.7 (28.2-33.3) pg MCHC 30.0 L (31.7-36.0) g/dL RDW 14.4 H (11.2-14.1) % Plt Count 153 (150-350) K/uL Neut % (Auto) 92.2 H (45.0-80.0) % Lymph % (Auto) 5.2 L (10.0-50.0) % [place] % (Auto) 2.4 (2.0-14.0) % Eos % (Auto) 0.0 (0.0-5.0) % Baso % (Auto) 0.2 (0.0-2.0) % Neut # (Auto) 4.27 (1.40-7.00) K/uL Lymph # (Auto) 0.24 L (0.50-3.50) K/uL [place] # (Auto) 0.11 (0.00-1.00) K/uL Eos # (Auto) 0.00 (0.00-0.50) K/uL Baso # (Auto) 0.01 (0.00-0.20) K/uL PT 21.7 H (9.8-11.7) SEC INR 2.0 Sodium 144 (136-145) mmol/L Potassium 4.8 (3.5-5.1) mmol/L Chloride 101 (98-107) mmol/L Carbon Dioxide 44.7 H* (21.0-32.0) mmol/L BUN 29 H (7-18) mg/dL Creatinine 1.07 (0.51-1.17) mg/dL Est Cr Clr Drug Dosing 65.56 mL/min Estimated GFR (MDRD) > 60 mL/min Glucose 130 H (74-106) mg/dL Calcium 8.3 L (8.5-10.1) mg/dL Total Bilirubin 0.4 (0.2-1.0) mg/dL AST 25 (15-37) U/L ALT 19 (12-78) U/L Alkaline Phosphatase 72 (46-116) IU/L C-Reactive Protein 4.6 H (<=0.9) mg/dL Total Protein 6.4 (6.4-8.2) g/dL Albumin 2.6 L (3.4-5.0) g/dL JACLYN Results - Last 24 hrs: Microbiology 09/30/17 22:12 Aerobic Blood Culture - Preliminary Blood - Venous - Lab Draw NO GROWTH AFTER 3 DAYS Anaerobic Blood Culture - Preliminary NO GROWTH AFTER 3 DAYS 09/30/17 22:00 Aerobic Blood Culture - Preliminary Blood - Venous NO GROWTH AFTER 3 DAYS Anaerobic Blood Culture - Preliminary NO GROWTH AFTER 3 DAYS Med Orders - Current: Current Medications Discontinued Medications Acetaminophen (Tylenol) 650 mg PO Q4H PRN PRN Reason: Pain/Fever Last Admin: 10/03/17 20:43 Dose: 650 mg Acetaminophen (Tylenol) 650 mg PO Q4H PRN PRN Reason: Pain Al Hydroxide/Mg Hydroxide (Mag-Al Plus) 30 ml PO ONETIME ONE Stop: 10/02/17 15:21 Last Admin: 10/02/17 15:40 Dose: 30 ml Albuterol (Proventil Neb Soln) 2.5 mg INH Q2H PRN PRN Reason: SHORTNESS OF BREATH Last Admin: 10/02/17 03:49 Dose: 2.5 mg Albuterol/Ipratropium (Duoneb 3.0-0.5 Mg/3 Ml) 3 ml NEB Q4HRRT PRN PRN Reason: Dyspnea Last Admin: 10/01/17 01:12 Dose: 3 ml Albuterol/Ipratropium (Duoneb 3.0-0.5 Mg/3 Ml) 3 ml NEB QIDRT [facility] Last Admin: 10/04/17 11:28 Dose: 3 ml Aminophylline (Aminophylline) Confirm Administered Dose 500 mg .ROUTE .STK-MED ONE Stop: 10/03/17 10:54 Last Admin: 10/03/17 11:14 Dose: Not Given Amlodipine Besylate (Norvasc) 5 mg PO DAILY [facility] Last Admin: 10/04/17 09:31 Dose: 5 mg Arformoterol Tartrate (Brovana) 15 mcg INH BID [facility] Last Admin: 10/01/17 07:44 Dose: 15 mcg Arformoterol Tartrate (Brovana) 15 mcg INH BIDRT [facility] Last Admin: 10/04/17 09:30 Dose: 15 mcg Aspirin (Halfprin) 162 mg PO DAILY [facility] Last Admin: 10/04/17 09:31 Dose: 162 mg Azithromycin (Zithromax) 500 mg PO DAILY [facility] Last Admin: 10/03/17 11:27 Dose: 500 mg Benzonatate (Tessalon Perles) 200 mg PO TID [facility] Last Admin: 10/04/17 11:28 Dose: 200 mg Budesonide (Pulmicort) 0.5 mg NEB ONETIME ONE Stop: 09/30/17 21:43 Last Admin: 09/30/17 22:00 Dose: 0.5 mg Budesonide (Pulmicort) 0.5 mg NEB BIDRT [facility] Last Admin: 10/01/17 20:48 Dose: 0.5 mg Calcium Carbonate/Glycine (Tums) 500 mg PO BID [facility] Last Admin: 10/04/17 09:30 Dose: 500 mg Ceftazidime (Fortaz) 1 gm IVPUSH Q12HR [facility] Last Admin: 10/03/17 10:40 Dose: Not Given Cholecalciferol (Vitamin D3) 2,000 units PO DAILY [facility] Last Admin: 10/03/17 11:15 Dose: Not Given Citalopram Hydrobromide (Celexa) 20 mg PO DAILY [facility] Last Admin: 10/04/17 09:31 Dose: 20 mg Cyclobenzaprine HCl (Flexeril) 10 mg PO TID PRN PRN Reason: MUSCLE SPASMS Last Admin: 10/01/17 21:11 Dose: 10 mg Docusate Sodium (Colace) 100 mg PO BID [facility] Last Admin: 10/04/17 09:31 Dose: 100 mg Famotidine (Pepcid) 40 mg IVPUSH ONETIME ONE Stop: 09/30/17 22:56 Last Admin: 09/30/17 23:08 Dose: 40 mg Famotidine (Pepcid) 20 mg PO BID [facility] Last Admin: 10/03/17 11:15 Dose: Not Given Finasteride (Proscar) 5 mg PO DAILY [facility] Last Admin: 10/03/17 11:15 Dose: Not Given Folic Acid (Folic Acid) 1 mg PO DAILY [facility] Last Admin: 10/03/17 11:15 Dose: Not Given Furosemide (Lasix) 60 mg IVPUSH NOW ONE Stop: 09/30/17 22:55 Last Admin: 09/30/17 23:08 Dose: 60 mg Furosemide (Lasix) 40 mg IVPUSH Q8H [facility] Last Admin: 10/01/17 07:44 Dose: 40 mg Furosemide (Lasix) 40 mg IVPUSH DAILY [facility] Last Admin: 10/04/17 09:31 Dose: 40 mg Guaifenesin/Dextromethorphan (Mucinex Dm Er 600-30 Mg) 1 tab PO BID [facility] Last Admin: 10/04/17 09:31 Dose: 1 tab Azithromycin 500 mg/ Sodium (Chloride) 250 mls @ 250 mls/hr IV Q24H [facility] Stop: 10/02/17 22:44 Last Admin: 10/02/17 21:52 Dose: 250 mls/hr Levofloxacin/Dextrose 500 mg/ (Premix) 100 mls @ 100 mls/hr IV Q24H [facility] Last Admin: 09/30/17 23:32 Dose: 100 mls/hr Aminophylline 500 mg/ Sodium (Chloride) 120 mls @ 100 mls/hr IV ONETIME ONE Stop: 10/03/17 11:11 Last Admin: 10/03/17 10:51 Dose: 100 mls/hr Meropenem 1 gm/ Sodium (Chloride) 100 mls @ 200 mls/hr IV Q8H [facility] Last Admin: 10/04/17 11:28 Dose: 200 mls/hr Metronidazole 500 mg/ Premix 100 mls @ 100 mls/hr IV Q8H [facility] Last Admin: 10/04/17 14:27 Dose: 100 mls/hr Latanoprost (Xalatan 0.005% Ophth Soln) 0 ml EYEBOTH BEDTIME [facility] Last Admin: 10/03/17 20:47 Dose: 1 drop Levothyroxine Sodium (Levothyroxine) 75 mcg PO QAM [facility] Last Admin: 10/04/17 09:31 Dose: 75 mcg Magnesium Oxide (Magnesium Oxide) 400 mg PO BID [facility] Last Admin: 10/03/17 11:15 Dose: Not Given Meropenem (Merrem) 500 mg IVPUSH Q6H [facility] Methylprednisolone Sodium Succinate (Solu-Medrol) 40 mg IVPUSH Q12H [facility] Last Admin: 10/04/17 09:32 Dose: 40 mg Nitroglycerin (Nitrostat) 0.4 mg SL ASDIRECTED PRN PRN Reason: Chest Pain Abiraterone Acetate ([Zytiga] 250mg Tabs) 1,000 mg PO DAILY [facility] Last Admin: 10/04/17 09:32 Dose: 1,000 mg Non-Formulary Medication (Amino Acids/Protein Supplement [Protein 2,000 Mg]) 1 each PO DAILY [facility] Non-Formulary Medication (Ranitidine [Zantac]) 150 mg PO BID [facility] Ondansetron HCl (Zofran) 4 mg IVPUSH Q6H PRN PRN Reason: Nausea/Vomiting Pantoprazole Sodium (Protonix Iv) 40 mg IVPUSH BEDTIME [facility] Last Admin: 10/03/17 20:45 Dose: 40 mg Potassium Chloride (Klor-Con M20) 20 meq PO TID [facility] Last Admin: 10/01/17 11:18 Dose: 20 meq Potassium Chloride (Klor-Con M20) 20 meq PO BID [facility] Last Admin: 10/01/17 17:55 Dose: 20 meq Prednisone (Prednisone) 5 mg PO BID [facility] Last Admin: 10/03/17 11:15 Dose: Not Given Pregabalin (Lyrica) 25 mg PO TID [facility] Last Admin: 10/04/17 11:28 Dose: 25 mg Senna/Docusate Sodium (Senna Plus) 1 tab PO BID PRN PRN Reason: Constipation Simvastatin (Zocor) 10 mg PO BEDTIME [facility] Last Admin: 10/02/17 19:17 Dose: 10 mg Sodium Chloride (Saline Flush) 10 ml FLUSH ASDIRECTED PRN PRN Reason: Keep Vein Open Last Admin: 10/02/17 21:53 Dose: 10 ml Sodium Chloride (Saline Flush) 10 ml FLUSH Q12HR PRN PRN Reason: Keep Vein Open Sodium Chloride (Saline Flush) 10 ml FLUSH Q12HR [facility] Last Admin: 10/04/17 09:32 Dose: 10 ml Temazepam (Restoril) 15 mg PO BEDTIME PRN PRN Reason: Insomnia Last Admin: 10/03/17 03:51 Dose: 15 mg Verapamil HCl (Calan Sr) 240 mg PO DAILY@1700 [facility] Last Admin: 10/03/17 16:36 Dose: 240 mg Warfarin Sodium (Coumadin) 7.5 mg PO SUMOTUWEFRSA@1800 [facility] Warfarin Sodium (Coumadin) 10 mg PO TH@18 [facility]
== END 2017-10-04 12:52 | disposition swing bed (61) | DRG 291 ==
LOC: LL.ED 21:36 → LL.MS 23:41
PROVIDERS: ADMIT Family Medicine; ATTEND Family Medicine
DX: I13.0 Hypertensive heart and chronic kidney disease with heart failure and stage 1 through stage 4 chronic kidney disease, or unspecified chronic kidney disease (principal); J69.0 Pneumonitis due to inhalation of food and vomit; D68.59 Other primary thrombophilia; L97.819 Non-pressure chronic ulcer of other part of right lower leg with unspecified severity; B94.8 Sequelae of other specified infectious and parasitic diseases; I42.9 Cardiomyopathy, unspecified; R09.02 Hypoxemia; J44.9 Chronic obstructive pulmonary disease, unspecified; G47.33 Obstructive sleep apnea (adult) (pediatric); I50.9 Heart failure, unspecified; R91.8 Other nonspecific abnormal finding of lung field; E21.3 Hyperparathyroidism, unspecified; E03.9 Hypothyroidism, unspecified; N18.9 Chronic kidney disease, unspecified; K21.9 Gastro-esophageal reflux disease without esophagitis; I49.9 Cardiac arrhythmia, unspecified; I83.90 Asymptomatic varicose veins of unspecified lower extremity; E78.00 Pure hypercholesterolemia, unspecified; I71.4 Abdominal aortic aneurysm, without rupture; R06.02 Shortness of breath; R06.00 Dyspnea, unspecified; R05 Cough; M25.50 Pain in unspecified joint; R50.9 Fever, unspecified; I45.19 Other right bundle-branch block; R53.1 Weakness; K59.09 Other constipation; K57.90 Diverticulosis of intestine, part unspecified, without perforation or abscess without bleeding; N40.1 Benign prostatic hyperplasia with lower urinary tract symptoms; N39.498 Other specified urinary incontinence; M32.9 Systemic lupus erythematosus, unspecified; M19.90 Unspecified osteoarthritis, unspecified site; G89.4 Chronic pain syndrome; G43.909 Migraine, unspecified, not intractable, without status migrainosus; G62.9 Polyneuropathy, unspecified; F41.9 Anxiety disorder, unspecified; F32.9 Major depressive disorder, single episode, unspecified; E66.9 Obesity, unspecified; E83.42 Hypomagnesemia; D75.1 Secondary polycythemia; I87.8 Other specified disorders of veins; E88.09 Other disorders of plasma-protein metabolism, not elsewhere classified; R79.1 Abnormal coagulation profile; D64.9 Anemia, unspecified; H40.9 Unspecified glaucoma; H54.7 Unspecified visual loss; Z90.79 Acquired absence of other genital organ(s); Z96.641 Presence of right artificial hip joint; Z86.718 Personal history of other venous thrombosis and embolism; Z96.653 Presence of artificial knee joint, bilateral; Z88.6 Allergy status to analgesic agent; Z88.0 Allergy status to penicillin; Z79.01 Long term (current) use of anticoagulants; Z79.82 Long term (current) use of aspirin; Z79.899 Other long term (current) drug therapy; Z86.711 Personal history of pulmonary embolism; Z87.01 Personal history of pneumonia (recurrent); Z99.81 Dependence on supplemental oxygen; Z85.46 Personal history of malignant neoplasm of prostate; Z85.51 Personal history of malignant neoplasm of bladder; Z92.21 Personal history of antineoplastic chemotherapy; Z92.3 Personal history of irradiation; Z51.5 Encounter for palliative care; R06.89 Other abnormalities of breathing; Z68.33 Body mass index [BMI] 33.0-33.9, adult
CPT/HCPCS: 36415; 71045; 71046; 74022; 80053; 80061; 82150; 82550; 82553; 82803; 83036; 83605; 83690; 83735; 83880; 84443; 84484; 85025; 85379; 85610; 86140; 86738; 87040; 87070; 87205; 87804; 93005; 94640; 96365; 96367; 96375; 97165-GO; 99285; A9270-GY; C9113; J0456; J0713; J1940; J1956; J2185; J2920; J7050; J7620-GY; S0028

== ENCOUNTER 2017-10-04 12:52 | Inpatient (IN) | payer MEDICARE, MEDICAID ==
[2017-10-04] MEDS ORDERED: Albuterol 0.083% 2.5 MG/3 ML Neb Soln INH PRN (14:35)
[2017-10-04] MEDS ORDERED: Nitroglycerin 0.4 MG Tab.SL SL PRN (14:35)
--- NOTE | 2017-10-04 14:54 | PCM.HP ---
H&P History of Present Illness - General Date of Service: 10/04/17 Admit Problem/Dx: Admission Diagnosis/Problem Admission Diagnosis/Problem CHF, Congestive heart failure COPD Source of Information: Patient, Family, Old Records History Limitations: Reports: No Limitations - History of Present Illness Initial Comments - Free Text/Narative: Transferred to [facility] status today after acute hospitalization for pneumonia, CHF and COPD. Episodes of acute respiratory distress. Onset of Symptoms: Reports: Gradual Duration of Symptoms: Reports: Day(s):, Week(s):, Improving (after inpatient treatment) Location: Reports: Chest Improves with: Reports: Medication Worsens with: Reports: Movement - Related Data Allergies/Adverse Reactions: Allergies Allergy/AdvReac Type Severity Reaction Status Date / Time codeine Allergy Nausea Verified 09/30/17 21:47 Penicillins Allergy Hives Verified 09/30/17 21:47 Home Medications: Home Meds Citalopram [Citalopram HBr] 20 mg PO DAILY 08/07/13 [History] Levothyroxine 75 mcg PO QAM 08/07/13 [History] Pregabalin [Lyrica] 25 mg PO TID 08/07/13 [History] amLODIPine [Norvasc] 5 mg PO DAILY 08/07/13 [History] Cholecalciferol (Vitamin D3) [Vitamin D3] 2,000 units PO DAILY 06/12/14 [History ] Latanoprost [Xalatan 0.005% Ophth Soln] 1 drop EYEBOTH BEDTIME 06/12/14 [History ] Nitroglycerin [Nitrostat] 1 tab SL ASDIRECTED PRN 06/12/14 [History] Simvastatin [Zocor] 10 mg PO BEDTIME 11/12/15 [History] Ranitidine [Zantac] 150 mg PO BID #60 tab 11/17/15 [Rx] Albuterol/Ipratropium [DuoNeb 3.0-0.5 MG/3 ML] 1 ampule INH Q4H PRN 03/19/16 [ History] Folic Acid 1 mg PO DAILY 03/19/16 [History] Acetaminophen 650 mg PO Q4HR PRN 07/26/16 [History] Furosemide 20 mg PO DAILY 07/26/16 [History] Finasteride 5 mg PO DAILY 11/02/16 [History] Verapamil HCl [Verapamil ER] 240 mg PO DAILY@1700 11/02/16 [History] Warfarin [Coumadin] 7.5 mg PO SUMOTUWEFRSA@1800 11/02/16 [History] Aspirin [Halfprin] 162 mg PO DAILY 11/15/16 [History] Budesonide [Pulmicort] 0.5 mg NEB BIDRT 11/15/16 [History] Magnesium Oxide 400 mg PO BID 11/15/16 [History] Amino Acids/Protein Supplement [Protein 2,000 MG] 1 each PO DAILY 03/30/17 [ History] Calcium Carbonate [Calcium] 600 mg PO BID 03/30/17 [History] Docusate Sodium [Colace] 100 mg PO BID 03/30/17 [History] Abiraterone Acetate [Zytiga] 1,000 mg PO DAILY 09/30/17 [History] Arformoterol [Brovana] 1 inh INH BID 09/30/17 [History] Cyclobenzaprine [Flexeril] 10 mg PO TID PRN 09/30/17 [History] Sennosides/Docusate Sodium [Senna-S] 1 each PO BID PRN 09/30/17 [History] Warfarin Sodium [Coumadin] 10 mg PO TH@18 09/30/17 [History] predniSONE [Prednisone] 5 mg PO BID 10/03/17 [History] Past Medical History HEENT History: Reports: Cataract, Glaucoma, Impaired Vision, Other (See Below) Other HEENT History: Patient wears reading glasses Cardiovascular History: Reports: Aneurysm, Arrhythmia, Blood Clots/VTE/DVT, Cardiomyopathy, Heart Failure, High Cholesterol, Hypertension, PVD, Other (See Below) Other Cardiovascular History: Varicose veins; 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 including DVT of the abdomen and legs with 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 Respiratory Arrest on 08/14/16 with code required and secondary right -sided rib fractures. Gastrointestinal History: Reports: Chronic Constipation, Diverticulosis, GERD, Hiatal Hernia Genitourinary History: Reports: Acute Renal Failure, BPH, Chronic Renal Insuffiency, Dialysis, Renal Disease, Urinary Incontinence Other Genitourinary History: History of DIALYSIS due to acute renal failure- resolved; chronic renal insufficiency, BPH with additional history of prostate cancer Musculoskeletal History: Reports: Arthritis, Back Pain, Chronic, Fracture, Gout , Neck Pain, Chronic, Osteoarthritis, SLE, Other (See Below) Other Musculoskeletal History: Chronic pain syndrome with previous history chronic narcotic use, bilateral wrist fractures as a child at about age 13, right-sided rib fracture secondary to respiratory code on 08/14/16 as above. 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 Head mass found via CT on 08/19/16 Psychiatric History: Reports: Addiction, Anxiety, Depression, Other (See Below) Other Psychiatric History: History of chronic narcotic use secondary to chronic pain syndrome as above Endocrine/Metabolic History: Reports: Hyperparathyroidism, Hypothyroidism, Obesity/BMI 30+, Other (See Below) Other Endocrine/Metabolic History: Hypomagnesemia Hematologic History: Reports: Polycythemia, Other (See Below) Other Hematologic History: Protein S deficiency with secondary recurrent DVTs and PE Immunologic History: Reports: None Oncologic (Cancer) History: Reports: Bladder, Metastatic, Prostate, Other (See Below) Other Oncologic History: 37 radiation treatments for prostate cancer with additional chemotherapy and status post prostatectomy in 2011. 09/10/17: reports current chemotherapy treatments for unknown type cancer, states "it's all over his body, I don't know what kind". Bladder cancer with surgery as below in September 2016. Dermatologic History: Reports: Venous Stasis Dermatitis, Other (See Below) Other Dermatologic History: Venous stasis ulcer of the right anterior tibial region with skin graft as below - Infectious Disease History Infectious Disease History: Reports: Chicken Pox, Measles, Mumps - Past Surgical History Head Surgeries/Procedures: Reports: None HEENT Surgical History: Reports: Cataract Surgery, Oral Surgery, Tonsillectomy GI Surgical History: Reports: Appendectomy, Colonoscopy, EGD, Miley Fundoplication, Other (See Below) Other GI Surgeries/Procedures: Appendectomy in 1970 Male Surgical History: Reports: Circumcision, Prostatectomy, TURBT- Transurethral Resection of Bladder Tumor, Other (See Below) Other Male Surgeries/Procedures: TURBT on 10/10/16 at cystoscopy on 10/05/16 Endocrine Surgical History: Reports: None Musculoskeletal Surgical History: Reports: Carpal Tunnel, Hip Replacement, Joint Replacement, Knee Replacement, Shoulder Surgery, Other (See Below) Other Musculoskeletal Surgeries/Procedures:: Left total knee arthroplasty on with history of bilateral total knee hemiarthroplasty and right hip TEP Oncologic Surgical History: Reports: Other (See Below) Dermatological Surgical History: Reports: Skin Graft - Past Imaging History Past Imaging History: Reports: Cardiac Echo (Last echocardiogram on with results not available with previous echocardiogram on 01/17/15 with ejection fraction of 5055 percent), CAT Scan (CTA of the chest on 04/05/17 with previous evaluation on 09/02/16; CT of the chest on 03/07/17; CT of the chest, abdomen, and pelvis on 11/22/16, CT of the head, chest, and abdomen on 08/19/16, CT of the soft tissue of the neck on 11/21/15 and 11/16/15, CT of the chest on 07/04/12, CT of the abdomen and pelvis on 01/08/15, 12/19/12, and 07/04/12, CT of the brain on 08/07/13 and 02/04/14), DEXA Scan (07/09/12), Sleep Study (08/21/16), Swallow Study (), Ultrasound (Renal ultrasound on 04/17/16, thyroid ultrasound on 11/16/15 , bladder ultrasound and abdominal ultrasound on 12/24/12), Venous Doppler ( Bilateral venous Doppler studies on 12/19/16. Left leg on 07/26/16, right leg on 05/11/14) Social & Family History - Family History Family Medical History: Noncontributory HEENT: Reports: None Cardiac: Reports: Blood Clots/VTE/DVT, CAD, Heart Failure, WI, Other (See Below) Other Cardiac Family History: Father with probable fatal WI and CHF at age 78, father with recurrent DVTs Respiratory: Reports: None GI: Reports: None : Reports: Diabetic Nephropathy, Renal Disease/Insufficiency, Other (See Below ) Other Family History: mother with diabetic nephropathy and brother with renal insufficiency Musculoskeletal: Reports: Arthritis, Osteoarthritis, Other (See Below) Other Musculoskeletal Family History: Father with osteoarthritis Neurological: Reports: CVA, Other (See Below) Other Neurological Family History: Son with fatal muscular dystrophy at age 21 and mother with CVA Psychiatric: Reports: None Endocrine/Metabolic: Reports: Diabetes, type II, IDDM, Other (See Below) Other Endocrine/Metabolic Family History: Mother, maternal aunt, and paternal uncle with IDDM Hematologic: Reports: None Immunologic: Reports: None Dermatologic: Reports: None Oncologic: Reports: Other (See Below) Other Oncologic Family History: Paternal aunt and uncle with unknown type of cancer - Tobacco Use Smoking Status *Q: Never Smoker Used Tobacco, but Quit: No Second Hand Smoke Exposure: No - Caffeine Use Caffeine Use: Reports: None - Alcohol Use Days Per Week of Alcohol Use: 0 Number of Drinks Per Day: 0 Total Drinks Per Week: 0 - Recreational Drug Use Recreational Drug Use: No Drug Use in Last 12 Months: No Recreational Drug Type: Denies: Amphetamines (Speed), Cocaine, Heroin, Inhalants (Glues, Solvents, Aerosols), LSD (Acid), Marijuana/Hashish, Methamphetamine, Morphine Recreational Drug Use Frequency: Daily - Living Situation & Occupation Living situation: Reports: , with Family Occupation: Retired H&P Review of Systems - Review of Systems: Review Of Systems: See Below General: Reports: Weakness HEENT: Reports: No Symptoms Pulmonary: Reports: Shortness of Breath, Cough Cardiovascular: Reports: No Symptoms Gastrointestinal: Reports: No Symptoms Genitourinary: Reports: Incontinence (especially with cough, wearing incontinence brief) Musculoskeletal: Reports: No Symptoms Skin: Reports: No Symptoms Psychiatric: Reports: No Symptoms Neurological: Reports: No Symptoms Exam - Exam Exam: See Below - Exam Quality Assessment: Supplemental Oxygen General: Alert, Oriented, 4 HEENT: EOMI, Hearing Intact, Mucosa Moist & Tebbetts Neck: Supple, Trachea Midline, 2 Lungs: Decreased Breath Sounds Cardiovascular: Regular Rate, Regular Rhythm GI/Abdominal Exam: Normal Bowel Sounds, Soft, Non-Tender (Male) Exam: Deferred Rectal (Males) Exam: Deferred Back Exam: Normal Inspection Extremities: Pedal Edema (mild) Skin: Warm, Dry, Intact Neuro Extensive - Mental Status: Alert, Oriented x3, Normal Mood/Affect Psychiatric: Alert, Normal Affect, Normal Mood Problem List Initiated/Reviewed/Updated: Yes Orders Last 24hrs: Active Orders 24 hr Category Date Time Status Patient Status [ADT] Routine ADT 10/04/17 14:38 Ordered Antiembolic Devices [RC] .Routine Care 10/04/17 14:35 Ordered Antiembolic Devices [RC] .Routine Care 10/04/17 14:35 Ordered Communication Order [RC] ROUTINE Care 10/04/17 14:35 Ordered Communication Order [RC] ROUTINE Care 10/04/17 14:35 Ordered Communication, Vaccine [RC] PER UNIT ROUTINE Care 10/04/17 14:35 Ordered EKG Documentation Completion [RC] ASDIRECTED Care 10/04/17 14:35 Ordered Height and Weight [RC] DAILY Care 10/04/17 14:35 Ordered Intake and Output Strict [RC] ASDIRECTED Care 10/04/17 14:35 Ordered Oxygen Therapy [RC] CONTINUOUS Care 10/04/17 14:35 Ordered Peripheral IV Care [RC] . DIRECTED Care 10/04/17 14:35 Ordered Peripheral IV Care [RC] . DIRECTED Care 10/04/17 14:35 Ordered Pulse Oximetry [RC] ASDIRECTED Care 10/04/17 14:35 Ordered RT Aerosol Therapy [RC] ASDIRECTED Care 10/04/17 14:35 Ordered RT Aerosol Therapy [RC] ASDIRECTED Care 10/04/17 14:35 Ordered RT Aerosol Therapy [RC] ASDIRECTED Care 10/04/17 14:35 Ordered RT Incentive Spirometry [RC] ASDIRECTED Care 10/04/17 14:35 Ordered Ready for Discharge [RC] PER UNIT ROUTINE Care 10/04/17 14:35 Ordered Up With Assistance [RC] ASDIRECTED Care 10/04/17 14:35 Ordered VTE/DVT Education [RC] PER UNIT ROUTINE Care 10/04/17 14:35 Ordered Vital Signs [RC] QID Care 10/04/17 14:35 Ordered Care Management Consult [Consult to Case Management] [ Cons 10/04/17 14:35 Ordered CONS] Routine Consult to Occupational Therapy [OT Evaluation and Cons 10/04/17 14:35 Ordered Treatment] [CONS] Routine Consult to Physical Therapy [PT Evaluation and Cons 10/04/17 14:35 Ordered Treatment] [CONS] Routine Fluid Restriction [DIET] Diet 10/04/17 Breakfast Ordered CULTURE BLOOD [BC] Stat Lab 10/04/17 14:35 Ordered CULTURE BLOOD [BC] Stat Lab 10/04/17 14:35 Ordered INR,PT,PROTHROMBIN TIME [COAG] DAILY Lab 10/05/17 05:11 Ordered Abiraterone Acetate [Zytiga] Med 10/05/17 08:00 Ordered 1,000 mg PO DAILY Acetaminophen [Tylenol] Med 10/04/17 14:35 Ordered 650 mg PO Q4H PRN Albuterol [Proventil Neb Soln] Med 10/04/17 14:35 Ordered 2.5 mg INH Q2H PRN Albuterol/Ipratropium [DuoNeb 3.0-0.5 MG/3 ML] Med 10/04/17 16:00 Ordered 3 ml NEB QIDRT Amino Acids/Protein Supplement [Protein 2,000 MG] Med 10/05/17 08:00 Pending 1 each PO DAILY Arformoterol [Brovana] Med 10/04/17 20:00 Ordered 15 mcg INH BIDRT Aspirin [Halfprin] Med 10/05/17 08:00 Ordered 162 mg PO DAILY Benzonatate [Tessalon Perles] Med 10/04/17 18:00 Ordered 200 mg PO TID Calcium Carbonate [Tums] Med 10/04/17 18:00 Ordered 500 mg PO BID Citalopram [Celexa] Med 10/05/17 08:00 Ordered 20 mg PO DAILY Dextromethorphan/guaiFENesin [Mucinex DM ER 600-30 MG] Med 10/04/17 18:00 Ordered 1 tab PO BID Docusate Sodium [Colace] Med 10/04/17 18:00 Ordered 100 mg PO BID Docusate Sodium/Sennosides [Senna Plus] Med 10/04/17 14:35 Ordered 1 tab PO BID PRN Furosemide [Lasix] Med 10/05/17 08:00 Ordered 40 mg IVPUSH DAILY Latanoprost [Xalatan 0.005% Ophth Soln] Med 10/04/17 20:00 Ordered 0 ml EYEBOTH BEDTIME Levothyroxine Med 10/05/17 08:00 Ordered 75 mcg PO QAM Meropenem [Merrem] 1 gm Med 10/04/17 20:00 Ordered Sodium Chloride 0.9% [Normal Saline] 100 ml IV Q8H Nitroglycerin [Nitrostat] Med 10/04/17 14:35 Ordered 0.4 mg SL ASDIRECTED PRN Ondansetron [Zofran] Med 10/04/17 14:35 Ordered 4 mg IVPUSH Q6H PRN Pantoprazole [ProTONIX IV] Med 10/04/17 20:00 Ordered 40 mg IVPUSH BEDTIME Pregabalin [Lyrica] Med 10/04/17 18:00 Ordered 25 mg PO TID Sodium Chloride 0.9% [Saline Flush] Med 10/04/17 14:35 Ordered 10 ml FLUSH ASDIRECTED PRN Sodium Chloride 0.9% [Saline Flush] Med 10/04/17 14:35 Ordered 10 ml FLUSH ASDIRECTED PRN Sodium Chloride 0.9% [Saline Flush] Med 10/04/17 20:00 Ordered 10 ml FLUSH Q12HR Temazepam [Restoril] Med 10/04/17 14:35 Ordered 15 mg PO BEDTIME PRN Verapamil [Calan SR] Med 10/04/17 17:00 Ordered 240 mg PO DAILY@1700 amLODIPine [Norvasc] Med 10/05/17 08:00 Ordered 5 mg PO DAILY methylPREDNISolone Sod Succ [Solu-MEDROL] Med 10/04/17 20:00 Ordered 40 mg IVPUSH Q12H metroNIDAZOLE/Normal Saline [Flagyl 500 MG in NS 100 ML Med 10/04/17 22:00 Ordered ] 500 mg Premix Bag 1 bag IV Q8H Antiembolic Hose [OM.PC] Routine Oth 10/04/17 14:35 Ordered Blood Culture x2 Reflex Set [OM.PC] Stat Oth 10/04/17 14:35 Ordered Comfort Measures [OM.PC] Routine Oth 10/04/17 14:35 Ordered DVT/VTE Prophylaxis Reflex [OM.PC] Routine Oth 10/04/17 14:35 Ordered Peripheral IV Insertion Adult [OM.PC] Stat Oth 10/04/17 14:35 Ordered Resuscitation Status Routine Resus Stat 10/04/17 14:39 Ordered Medication Orders Acetaminophen (Tylenol) 650 mg PO Q4H PRN PRN Reason: Pain/Fever Albuterol (Proventil Neb Soln) 2.5 mg INH Q2H PRN PRN Reason: SHORTNESS OF BREATH Albuterol/Ipratropium (Duoneb 3.0-0.5 Mg/3 Ml) 3 ml NEB QIDRT [facility] Amlodipine Besylate (Norvasc) 5 mg PO DAILY [facility] Arformoterol Tartrate (Brovana) 15 mcg INH BIDRT [facility] Aspirin (Halfprin) 162 mg PO DAILY [facility] Benzonatate (Tessalon Perles) 200 mg PO TID [facility] Calcium Carbonate/Glycine (Tums) 500 mg PO BID [facility] Citalopram Hydrobromide (Celexa) 20 mg PO DAILY [facility] Docusate Sodium (Colace) 100 mg PO BID [facility] Furosemide (Lasix) 40 mg IVPUSH DAILY [facility] Guaifenesin/Dextromethorphan (Mucinex Dm Er 600-30 Mg) 1 tab PO BID [facility] Meropenem 1 gm/ Sodium (Chloride) 100 mls @ 200 mls/hr IV Q8H [facility] Metronidazole 500 mg/ Premix 100 mls @ 100 mls/hr IV Q8H [facility] Latanoprost (Xalatan 0.005% Ophth Soln) 0 ml EYEBOTH BEDTIME [facility] Levothyroxine Sodium (Levothyroxine) 75 mcg PO QAM [facility] Methylprednisolone Sodium Succinate (Solu-Medrol) 40 mg IVPUSH Q12H [facility] Nitroglycerin (Nitrostat) 0.4 mg SL ASDIRECTED PRN PRN Reason: Chest Pain Non-Formulary Medication (Abiraterone Acetate [Zytiga]) 1,000 mg PO DAILY [facility] Non-Formulary Medication (Amino Acids/Protein Supplement [Protein 2,000 Mg]) 1 each PO DAILY [facility] Ondansetron HCl (Zofran) 4 mg IVPUSH Q6H PRN PRN Reason: Nausea/Vomiting Pantoprazole Sodium (Protonix Iv) 40 mg IVPUSH BEDTIME [facility] Pregabalin (Lyrica) 25 mg PO TID [facility] Senna/Docusate Sodium (Senna Plus) 1 tab PO BID PRN PRN Reason: Constipation Sodium Chloride (Saline Flush) 10 ml FLUSH ASDIRECTED PRN PRN Reason: Keep Vein Open Sodium Chloride (Saline Flush) 10 ml FLUSH Q12HR [facility] Sodium Chloride (Saline Flush) 10 ml FLUSH ASDIRECTED PRN PRN Reason: Keep Vein Open Temazepam (Restoril) 15 mg PO BEDTIME PRN PRN Reason: Insomnia Verapamil HCl (Calan Sr) 240 mg PO DAILY@1700 [facility] Assessment/Plan Comment:: 10-04-17 Marin Panchal PA-C Transferred to [facility] status today to continue IV meds. He will need PT-OT for strengthening and ADL's. Will consult [facility] for discharge planning. Long discussion with patient - he knows he had a very serious episode of respiratory distress yesterday morning and says it has happened several times in the past, "I guess God's just not ready for me yet." He says he is comfortable now and has no other questions.
[2017-10-04] MEDS: Albuterol/Ipratropium 3.0-0.5 MG/3 ML Neb Soln NEB SCH ×2 (16:17→19:48)
[2017-10-04] MEDS: Verapamil 120 MG Tab.ER PO SCH (17:39)
[2017-10-04] MEDS: Benzonatate 100 MG Cap PO SCH (17:39)
[2017-10-04] MEDS: Dextromethorphan/guaiFENesin 600-30 MG Tab.ER PO SCH (17:40)
[2017-10-04] MEDS: Docusate Sodium 100 MG Cap PO SCH (17:40)
[2017-10-04] MEDS: Pregabalin 25 MG Cap PO SCH (17:40)
[2017-10-04] MEDS: Calcium Carbonate 500 MG Tab.Chew PO SCH (17:40)
[2017-10-04] MEDS: methylPREDNISolone Sodium Succinate 40 MG/1 ML SDV IVPUSH SCH (19:49)
[2017-10-04] MEDS: Pantoprazole 40 MG Vial IVPUSH SCH (19:49)
[2017-10-04] MEDS: Meropenem 1 GM in Sodium Chloride 0.9% 100 ML IV SCH (19:50)
[2017-10-04] MEDS: Sodium Chloride 0.9% 10 ML Syringe FLUSH SCH (19:51)
[2017-10-04] MEDS: Arformoterol 15 MCG/2 ML Neb Soln INH SCH (19:51)
[2017-10-04] MEDS: metroNIDAZOLE/Normal Saline 500 MG in Premix Bag 1 BAG IV SCH (20:59)
[2017-10-04] MEDS: Latanoprost 0.005% Ophth Soln 2.5 ML Bottle EYEBOTH SCH (20:59)
[2017-10-05] MEDS: Meropenem 1 GM in Sodium Chloride 0.9% 100 ML IV SCH ×3 (03:31→19:56)
[2017-10-05] MEDS: Acetaminophen 325 MG Tab PO PRN (03:32)
[2017-10-05] MEDS: Sodium Chloride 0.9% 10 ML Syringe FLUSH PRN ×5 (03:34→22:25)
[2017-10-05] MEDS: metroNIDAZOLE/Normal Saline 500 MG in Premix Bag 1 BAG IV SCH ×3 (05:35→21:22)
[2017-10-05] MEDS ORDERED: PROTEIN SUPPLEMENT PO SCH (08:00)
[2017-10-05] MEDS ORDERED: ABIRATERONE ACETATE 1000 MG PO SCH (08:00)
[2017-10-05] MEDS ORDERED: AMINO ACIDS PO SCH (08:00)
[2017-10-05] MEDS ORDERED: [UNRECOGNIZED DRUG - OTHER] PO SCH (08:00)
[2017-10-05] MEDS: Furosemide 40 MG/4 ML VIAL IVPUSH SCH (08:08)
[2017-10-05] MEDS: Aspirin 81 MG Tab.EC PO SCH (08:12)
[2017-10-05] MEDS: Dextromethorphan/guaiFENesin 600-30 MG Tab.ER PO SCH ×2 (08:13→17:52)
[2017-10-05] MEDS: Benzonatate 100 MG Cap PO SCH ×3 (08:13→17:53)
[2017-10-05] MEDS: amLODIPine 5 MG Tab PO SCH (08:14)
[2017-10-05] MEDS: Citalopram 20 MG Tab PO SCH (08:14)
[2017-10-05] MEDS: Calcium Carbonate 500 MG Tab.Chew PO SCH ×2 (08:15→17:52)
[2017-10-05] MEDS: Pregabalin 25 MG Cap PO SCH ×3 (08:15→17:52)
[2017-10-05] MEDS: Docusate Sodium 100 MG Cap PO SCH ×2 (08:15→17:53)
[2017-10-05] MEDS: Arformoterol 15 MCG/2 ML Neb Soln INH SCH ×2 (08:15→19:56)
[2017-10-05] MEDS: Albuterol/Ipratropium 3.0-0.5 MG/3 ML Neb Soln NEB SCH ×4 (08:15→19:56)
[2017-10-05] MEDS: Levothyroxine 75 MCG Tab PO SCH (08:15)
[2017-10-05] MEDS: methylPREDNISolone Sodium Succinate 40 MG/1 ML SDV IVPUSH SCH ×2 (09:08→19:57)
[2017-10-05] MEDS: Sodium Chloride 0.9% 10 ML Syringe FLUSH SCH ×2 (09:08→19:57)
[2017-10-05] MEDS: Verapamil 120 MG Tab.ER PO SCH (17:53)
[2017-10-05] MEDS ORDERED: Warfarin 5 MG Tab PO ONE (18:00)
[2017-10-05] MEDS: Pantoprazole 40 MG Vial IVPUSH SCH (19:56)
[2017-10-05] MEDS: Latanoprost 0.005% Ophth Soln 2.5 ML Bottle EYEBOTH SCH (20:24)
[2017-10-06] MEDS: Meropenem 1 GM in Sodium Chloride 0.9% 100 ML IV SCH ×3 (05:08→20:27)
[2017-10-06] MEDS: Sodium Chloride 0.9% 10 ML Syringe FLUSH PRN ×5 (05:09→21:46)
[2017-10-06] MEDS: metroNIDAZOLE/Normal Saline 500 MG in Premix Bag 1 BAG IV SCH ×3 (05:54→21:45)
[2017-10-06] MEDS: Calcium Carbonate 500 MG Tab.Chew PO SCH ×2 (08:32→17:52)
[2017-10-06] MEDS: Arformoterol 15 MCG/2 ML Neb Soln INH SCH ×2 (08:32→20:27)
[2017-10-06] MEDS: Albuterol/Ipratropium 3.0-0.5 MG/3 ML Neb Soln NEB SCH ×4 (08:32→20:27)
[2017-10-06] MEDS: Furosemide 40 MG/4 ML VIAL IVPUSH SCH (08:32)
[2017-10-06] MEDS: Levothyroxine 75 MCG Tab PO SCH (08:33)
[2017-10-06] MEDS: Aspirin 81 MG Tab.EC PO SCH (08:33)
[2017-10-06] MEDS: methylPREDNISolone Sodium Succinate 40 MG/1 ML SDV IVPUSH SCH ×2 (08:33→20:27)
[2017-10-06] MEDS: Dextromethorphan/guaiFENesin 600-30 MG Tab.ER PO SCH ×2 (08:33→17:52)
[2017-10-06] MEDS: Pregabalin 25 MG Cap PO SCH ×3 (08:34→17:53)
[2017-10-06] MEDS: Benzonatate 100 MG Cap PO SCH ×3 (08:34→17:52)
[2017-10-06] MEDS: Docusate Sodium 100 MG Cap PO SCH ×2 (08:34→17:52)
[2017-10-06] MEDS: amLODIPine 5 MG Tab PO SCH (08:35)
[2017-10-06] MEDS: Citalopram 20 MG Tab PO SCH (08:35)
[2017-10-06] MEDS: ZYTIGA 250 MG PO SCH (08:36)
[2017-10-06] MEDS: Sodium Chloride 0.9% 10 ML Syringe FLUSH SCH ×2 (08:36→20:28)
[2017-10-06 11:12] LABS: CHLORIDE,CL 101 mmol/L (98-107); SODIUM,NA 145 mmol/L (136-145)
[2017-10-06] MEDS: Verapamil 120 MG Tab.ER PO SCH (17:53)
[2017-10-06] MEDS ORDERED: Warfarin 5 MG Tab PO ONE (18:00)
[2017-10-06] MEDS: Pantoprazole 40 MG Vial IVPUSH SCH (20:27)
[2017-10-06] MEDS: Latanoprost 0.005% Ophth Soln 2.5 ML Bottle EYEBOTH SCH (20:28)
[2017-10-06] MEDS: Acetaminophen 325 MG Tab PO PRN (21:00)
[2017-10-06] MEDS: Aloe Vera/Sodium Chloride Gel 14.1 GM Tube NASBOTH PRN (21:01)
[2017-10-07] MEDS: Meropenem 1 GM in Sodium Chloride 0.9% 100 ML IV SCH ×3 (03:26→20:31)
[2017-10-07] MEDS: Sodium Chloride 0.9% 10 ML Syringe FLUSH PRN ×8 (03:27→22:06)
[2017-10-07] MEDS: metroNIDAZOLE/Normal Saline 500 MG in Premix Bag 1 BAG IV SCH ×3 (05:06→21:58)
[2017-10-07] MEDS: Furosemide 40 MG/4 ML VIAL IVPUSH SCH (08:41)
[2017-10-07] MEDS: Albuterol/Ipratropium 3.0-0.5 MG/3 ML Neb Soln NEB SCH ×4 (08:41→20:26)
[2017-10-07] MEDS: Arformoterol 15 MCG/2 ML Neb Soln INH SCH ×2 (08:41→20:26)
[2017-10-07] MEDS: methylPREDNISolone Sodium Succinate 40 MG/1 ML SDV IVPUSH SCH (08:41)
[2017-10-07] MEDS: Aspirin 81 MG Tab.EC PO SCH (08:42)
[2017-10-07] MEDS: Benzonatate 100 MG Cap PO SCH ×3 (08:42→17:21)
[2017-10-07] MEDS: amLODIPine 5 MG Tab PO SCH (08:43)
[2017-10-07] MEDS: Levothyroxine 75 MCG Tab PO SCH (08:43)
[2017-10-07] MEDS: Citalopram 20 MG Tab PO SCH (08:43)
[2017-10-07] MEDS: Dextromethorphan/guaiFENesin 600-30 MG Tab.ER PO SCH ×2 (08:43→17:20)
[2017-10-07] MEDS: Docusate Sodium 100 MG Cap PO SCH ×2 (08:44→17:21)
[2017-10-07] MEDS: Pregabalin 25 MG Cap PO SCH ×3 (08:44→17:20)
[2017-10-07] MEDS: Calcium Carbonate 500 MG Tab.Chew PO SCH ×2 (08:44→17:19)
[2017-10-07] MEDS: ZYTIGA 250 MG PO SCH (08:45)
[2017-10-07] MEDS: Sodium Chloride 0.9% 10 ML Syringe FLUSH SCH ×2 (08:47→20:26)
[2017-10-07] MEDS: Acetaminophen 325 MG Tab PO PRN ×2 (12:42→21:55)
[2017-10-07] MEDS: Verapamil 120 MG Tab.ER PO SCH (17:20)
[2017-10-07] MEDS: Warfarin 2.5 MG Tab PO SCH (17:25)
[2017-10-07] MEDS: Pantoprazole 40 MG Vial IVPUSH SCH (20:26)
[2017-10-07] MEDS: Latanoprost 0.005% Ophth Soln 2.5 ML Bottle EYEBOTH SCH (20:27)
[2017-10-07] MEDS: Temazepam 15 MG Cap PO PRN (21:55)
[2017-10-08] MEDS: Meropenem 1 GM in Sodium Chloride 0.9% 100 ML IV SCH ×3 (03:36→19:19)
[2017-10-08] MEDS: Sodium Chloride 0.9% 10 ML Syringe FLUSH PRN ×6 (03:36→21:21)
[2017-10-08] MEDS: metroNIDAZOLE/Normal Saline 500 MG in Premix Bag 1 BAG IV SCH ×3 (05:52→21:21)
[2017-10-08] MEDS: Benzonatate 100 MG Cap PO SCH ×3 (08:11→17:03)
[2017-10-08] MEDS: Calcium Carbonate 500 MG Tab.Chew PO SCH ×2 (08:11→17:03)
[2017-10-08] MEDS: Aspirin 81 MG Tab.EC PO SCH (08:12)
[2017-10-08] MEDS: Dextromethorphan/guaiFENesin 600-30 MG Tab.ER PO SCH ×2 (08:12→17:03)
[2017-10-08] MEDS: Citalopram 20 MG Tab PO SCH (08:12)
[2017-10-08] MEDS: Docusate Sodium 100 MG Cap PO SCH ×2 (08:12→17:03)
[2017-10-08] MEDS: Levothyroxine 75 MCG Tab PO SCH (08:12)
[2017-10-08] MEDS: amLODIPine 5 MG Tab PO SCH (08:12)
[2017-10-08] MEDS: Arformoterol 15 MCG/2 ML Neb Soln INH SCH ×2 (08:12→19:18)
[2017-10-08] MEDS: Pregabalin 25 MG Cap PO SCH ×3 (08:12→17:03)
[2017-10-08] MEDS: Albuterol/Ipratropium 3.0-0.5 MG/3 ML Neb Soln NEB SCH ×4 (08:12→19:18)
[2017-10-08] MEDS: Furosemide 40 MG/4 ML VIAL IVPUSH SCH (08:12)
[2017-10-08] MEDS: Sodium Chloride 0.9% 10 ML Syringe FLUSH SCH ×2 (08:13→19:15)
[2017-10-08] MEDS: ZYTIGA 250 MG PO SCH (08:13)
[2017-10-08] MEDS: methylPREDNISolone Sodium Succinate 40 MG/1 ML SDV IVPUSH SCH (08:13)
[2017-10-08] MEDS: Verapamil 120 MG Tab.ER PO SCH (17:03)
[2017-10-08] MEDS: Warfarin 2.5 MG Tab PO SCH (17:11)
[2017-10-08] MEDS ORDERED: Ketorolac 15 MG/ML SDV IVPUSH ONE (17:47)
[2017-10-08] MEDS: Ondansetron 4 MG/2 ML SDV IVPUSH PRN (18:11)
[2017-10-08] MEDS: Pantoprazole 40 MG Vial IVPUSH SCH (19:15)
[2017-10-08] MEDS: Latanoprost 0.005% Ophth Soln 2.5 ML Bottle EYEBOTH SCH (19:15)
[2017-10-08] MEDS: Acetaminophen 325 MG Tab PO PRN (19:18)
[2017-10-08] MEDS: Temazepam 15 MG Cap PO PRN (19:18)
[2017-10-08] MEDS: Aloe Vera/Sodium Chloride Gel 14.1 GM Tube NASBOTH PRN (19:23)
[2017-10-09] MEDS: Sodium Chloride 0.9% 10 ML Syringe FLUSH PRN ×5 (03:25→21:38)
[2017-10-09] MEDS: Meropenem 1 GM in Sodium Chloride 0.9% 100 ML IV SCH ×3 (03:25→19:28)
[2017-10-09] MEDS: Ondansetron 4 MG/2 ML SDV IVPUSH PRN (03:29)
[2017-10-09] MEDS ORDERED: Ketorolac 15 MG/ML SDV IVPUSH ONE (05:18)
[2017-10-09] MEDS: metroNIDAZOLE/Normal Saline 500 MG in Premix Bag 1 BAG IV SCH ×3 (05:35→21:38)
[2017-10-09] MEDS: Arformoterol 15 MCG/2 ML Neb Soln INH SCH ×2 (08:27→19:28)
[2017-10-09] MEDS: Calcium Carbonate 500 MG Tab.Chew PO SCH ×2 (08:38→17:18)
[2017-10-09] MEDS: methylPREDNISolone Sodium Succinate 40 MG/1 ML SDV IVPUSH SCH (08:38)
[2017-10-09] MEDS: Furosemide 40 MG/4 ML VIAL IVPUSH SCH (08:38)
[2017-10-09] MEDS: Albuterol/Ipratropium 3.0-0.5 MG/3 ML Neb Soln NEB SCH ×6 (08:38→23:31)
[2017-10-09] MEDS: Benzonatate 100 MG Cap PO SCH ×3 (08:38→17:18)
[2017-10-09] MEDS: amLODIPine 5 MG Tab PO SCH (08:38)
[2017-10-09] MEDS: Docusate Sodium 100 MG Cap PO SCH ×2 (08:39→17:18)
[2017-10-09] MEDS: ZYTIGA 250 MG PO SCH (08:39)
[2017-10-09] MEDS: Levothyroxine 75 MCG Tab PO SCH (08:39)
[2017-10-09] MEDS: Aspirin 81 MG Tab.EC PO SCH (08:39)
[2017-10-09] MEDS: Dextromethorphan/guaiFENesin 600-30 MG Tab.ER PO SCH ×2 (08:39→17:18)
[2017-10-09] MEDS: Citalopram 20 MG Tab PO SCH (08:39)
[2017-10-09] MEDS: Pregabalin 25 MG Cap PO SCH ×3 (08:39→17:18)
[2017-10-09] MEDS: Sodium Chloride 0.9% 10 ML Syringe FLUSH SCH ×2 (08:42→19:29)
[2017-10-09] MEDS ORDERED: LORazepam 0.5 MG Tab PO ONE (15:00)
[2017-10-09] MEDS: Verapamil 120 MG Tab.ER PO SCH (17:17)
[2017-10-09] MEDS: Albuterol 0.083% 2.5 MG/3 ML Neb Soln INH SCH ×2 (17:18→21:38)
[2017-10-09] MEDS ORDERED: Warfarin 5 MG Tab PO SCH (18:00)
[2017-10-09] MEDS: LORazepam 0.5 MG Tab PO SCH (19:28)
[2017-10-09] MEDS: Morphine 2 MG/ML Syringe IVPUSH PRN (19:28)
[2017-10-09] MEDS: Pantoprazole 40 MG Vial IVPUSH SCH (19:29)
[2017-10-09] MEDS: Latanoprost 0.005% Ophth Soln 2.5 ML Bottle EYEBOTH SCH (19:34)
[2017-10-10] MEDS: Morphine 2 MG/ML Syringe IVPUSH PRN ×2 (00:34→05:47)
[2017-10-10] MEDS: Sodium Chloride 0.9% 10 ML Syringe FLUSH PRN ×4 (00:34→22:26)
[2017-10-10] MEDS: Ondansetron 4 MG/2 ML SDV IVPUSH PRN (00:34)
[2017-10-10] MEDS: Albuterol 0.083% 2.5 MG/3 ML Neb Soln INH SCH ×6 (01:30→22:11)
[2017-10-10] MEDS: Meropenem 1 GM in Sodium Chloride 0.9% 100 ML IV SCH ×3 (03:45→22:10)
[2017-10-10] MEDS: Albuterol/Ipratropium 3.0-0.5 MG/3 ML Neb Soln NEB SCH ×6 (03:46→19:44)
[2017-10-10] MEDS: metroNIDAZOLE/Normal Saline 500 MG in Premix Bag 1 BAG IV SCH ×3 (05:43→22:11)
[2017-10-10 06:58] VITALS: BP 148/76
[2017-10-10 08:24] LABS: CHLORIDE,CL 99 mmol/L (98-107); SODIUM,NA 143 mmol/L (136-145)
[2017-10-10] MEDS: methylPREDNISolone Sodium Succinate 40 MG/1 ML SDV IVPUSH SCH (09:05)
[2017-10-10] MEDS: Furosemide 40 MG/4 ML VIAL IVPUSH SCH (09:05)
[2017-10-10] MEDS: Arformoterol 15 MCG/2 ML Neb Soln INH SCH ×2 (09:05→19:45)
[2017-10-10] MEDS: ZYTIGA 250 MG PO SCH (09:06)
[2017-10-10] MEDS: Docusate Sodium 100 MG Cap PO SCH (09:06)
[2017-10-10] MEDS: LORazepam 0.5 MG Tab PO SCH (09:06)
[2017-10-10] MEDS: Citalopram 20 MG Tab PO SCH (09:06)
[2017-10-10] MEDS: Dextromethorphan/guaiFENesin 600-30 MG Tab.ER PO SCH (09:07)
[2017-10-10] MEDS: Aspirin 81 MG Tab.EC PO SCH (09:07)
[2017-10-10] MEDS: Pregabalin 25 MG Cap PO SCH (09:07)
[2017-10-10] MEDS: Levothyroxine 75 MCG Tab PO SCH (09:07)
[2017-10-10] MEDS: Sodium Chloride 0.9% 10 ML Syringe FLUSH SCH ×2 (09:08→22:11)
[2017-10-10] MEDS: amLODIPine 5 MG Tab PO SCH (09:08)
[2017-10-10] MEDS: Benzonatate 100 MG Cap PO SCH (09:09)
[2017-10-10] MEDS: Calcium Carbonate 500 MG Tab.Chew PO SCH (09:09)
[2017-10-10] MEDS: Latanoprost 0.005% Ophth Soln 2.5 ML Bottle EYEBOTH SCH (19:48)
[2017-10-10] MEDS: Pantoprazole 40 MG Vial IVPUSH SCH (22:10)
--- NOTE | 2017-10-10 23:09 | PCM.PN ---
- General Info Date of Service: 10/10/17 Admission Dx/Problem (Free Text): Admission Diagnosis/Problem Admission Diagnosis/Problem CHF, Congestive heart failure COPD Functional Status: Reports: New Symptoms (less responsive) - Review of Systems General: Reports: Weakness, Appetite (decreased) HEENT: Reports: Headaches (migraine) Pulmonary: Reports: Shortness of Breath, Cough Cardiovascular: Reports: No Symptoms Gastrointestinal: Reports: Decreased Appetite, Difficulty Swallowing Genitourinary: Reports: No Symptoms Musculoskeletal: Reports: Joint Pain (chronic) Skin: Reports: Pallor, Diaphoresis Neurological: Reports: Tremors, Difficulty Walking, Weakness, Other (becoming less responsive) - Patient Data Vitals - Most Recent: Last Vital Signs Temp 97.6 F 10/10/17 06:51 Pulse 104 H 10/10/17 06:51 Resp 20 10/10/17 06:51 BP 148/76 H 10/10/17 06:51 Pulse Ox 90 L 10/10/17 06:51 Weight - Most Recent: 246 lb I&O - Last 24 Hours: Intake & Output 10/10/17 10/10/17 10/11/17 14:59 22:59 06:59 Intake Total 0 Balance 0 Lab Results Last 24 Hours: Laboratory Results - last 24 hr 10/10/17 10/10/17 10/10/17 Range/Units 07:35 07:35 07:35 WBC 12.8 H (4.0-10.2) K/uL RBC 4.44 (4.33-5.41) M/uL Hgb 13.2 D (13.1-16.8) g/dL Hct 45.5 (39.0-49.0) % MCV 102.5 H (84.0-98.0) fL MCH 29.7 (28.2-33.3) pg MCHC 29.0 L (31.7-36.0) g/dL RDW 14.8 H (11.2-14.1) % Plt Count 251 (150-350) K/uL Neut % (Auto) 86.7 H (45.0-80.0) % Lymph % (Auto) 5.3 L (10.0-50.0) % Clinch % (Auto) 7.6 (2.0-14.0) % Eos % (Auto) 0.2 (0.0-5.0) % Baso % (Auto) 0.2 (0.0-2.0) % Neut # (Auto) 11.14 H (1.40-7.00) K/uL Lymph # (Auto) 0.68 (0.50-3.50) K/uL Clinch # (Auto) 0.97 (0.00-1.00) K/uL Eos # (Auto) 0.02 (0.00-0.50) K/uL Baso # (Auto) 0.03 (0.00-0.20) K/uL PT 42.2 H D (9.8-11.7) SEC INR 3.8 Sodium 143 (136-145) mmol/L Potassium 3.9 (3.5-5.1) mmol/L Chloride 99 (98-107) mmol/L Carbon Dioxide 49.8 H* (21.0-32.0) mmol/L BUN 38 H (7-18) mg/dL Creatinine 1.11 (0.51-1.17) mg/dL Est Cr Clr Drug Dosing 63.20 mL/min Estimated GFR (MDRD) > 60 mL/min Glucose 175 H (74-106) mg/dL Calcium 8.7 (8.5-10.1) mg/dL Total Bilirubin 0.4 (0.2-1.0) mg/dL AST 22 (15-37) U/L ALT 24 (12-78) U/L Alkaline Phosphatase 84 (46-116) IU/L C-Reactive Protein < 0.9 (<=0.9) mg/dL Total Protein 6.5 (6.4-8.2) g/dL Albumin 3.1 L (3.4-5.0) g/dL Med Orders - Current: Current Medications Acetaminophen (Tylenol) 650 mg PO Q4H PRN PRN Reason: Pain/Fever Last Admin: 10/08/17 19:18 Dose: 650 mg Albuterol (Proventil Neb Soln) 2.5 mg INH Q4H [facility] Last Admin: 10/10/17 22:11 Dose: Not Given Albuterol/Ipratropium (Duoneb 3.0-0.5 Mg/3 Ml) 3 ml NEB Q4H [facility]OL[facility] Last Admin: 10/10/17 19:44 Dose: 3 ml Amlodipine Besylate (Norvasc) 5 mg PO DAILY [facility] Last Admin: 10/10/17 09:08 Dose: Not Given Arformoterol Tartrate (Brovana) 15 mcg INH BIDRT [facility] Last Admin: 10/10/17 19:45 Dose: 15 mcg Aspirin (Halfprin) 162 mg PO DAILY [facility] Last Admin: 10/10/17 09:07 Dose: Not Given Benzonatate (Tessalon Perles) 200 mg PO TID [facility] Last Admin: 10/10/17 09:09 Dose: Not Given Citalopram Hydrobromide (Celexa) 20 mg PO DAILY [facility] Last Admin: 10/10/17 09:06 Dose: Not Given Docusate Sodium (Colace) 100 mg PO BID [facility] Last Admin: 10/10/17 09:06 Dose: Not Given Guaifenesin/Dextromethorphan (Mucinex Dm Er 600-30 Mg) 1 tab PO BID [facility] Last Admin: 10/10/17 09:07 Dose: Not Given Meropenem 1 gm/ Sodium (Chloride) 100 mls @ 200 mls/hr IV Q8H [facility] Stop: 10/11/17 20:01 Last Admin: 10/10/17 22:10 Dose: Not Given Metronidazole 500 mg/ Premix 100 mls @ 100 mls/hr IV Q8H [facility] Stop: 10/11/17 22:01 Last Admin: 10/10/17 22:11 Dose: Not Given Latanoprost (Xalatan 0.005% Ophth Soln) 0 ml EYEBOTH BEDTIME [facility] Last Admin: 10/10/17 19:48 Dose: 1 drop Levothyroxine Sodium (Levothyroxine) 75 mcg PO QAM [facility] Last Admin: 10/10/17 09:07 Dose: Not Given Methylprednisolone Sodium Succinate (Solu-Medrol) 20 mg IVPUSH DAILY [facility] Morphine Sulfate (Morphine) 2 mg IVPUSH Q2H PRN PRN Reason: Dyspnea Last Admin: 10/10/17 05:47 Dose: 2 mg Nitroglycerin (Nitrostat) 0.4 mg SL ASDIRECTED PRN PRN Reason: Chest Pain Last Admin: 10/07/17 18:34 Dose: 0.4 mg Zytiga 250 Mg Own (Med) 0 mg PO DAILY [facility] Last Admin: 10/10/17 09:06 Dose: Not Given Ondansetron HCl (Zofran) 4 mg IVPUSH Q6H PRN PRN Reason: Nausea/Vomiting Last Admin: 10/10/17 00:34 Dose: 4 mg Pantoprazole Sodium (Protonix Iv) 40 mg IVPUSH BEDTIME [facility] Last Admin: 10/10/17 22:10 Dose: Not Given Pregabalin (Lyrica) 25 mg PO TID [facility] Last Admin: 10/10/17 09:07 Dose: Not Given Senna/Docusate Sodium (Senna Plus) 1 tab PO BID PRN PRN Reason: Constipation Sodium Chloride (Saline Flush) 10 ml FLUSH Q12HR [facility] Last Admin: 10/10/17 22:11 Dose: Not Given Sodium Chloride (Saline Flush) 10 ml FLUSH ASDIRECTED PRN PRN Reason: Keep Vein Open Last Admin: 10/10/17 22:26 Dose: 10 ml Sodium Chloride ([place] Saline Nasal Gel) 1 gm NASBOTH ASDIRECTED PRN PRN Reason: Dry Nares Last Admin: 10/08/17 19:23 Dose: 1 applic Verapamil HCl (Calan Sr) 240 mg PO DAILY@1700 [facility] Last Admin: 10/09/17 17:17 Dose: 240 mg Warfarin Sodium (Coumadin) 7.5 mg PO SUMOTUWEFRSA [facility] Last Admin: 10/08/17 17:11 Dose: 7.5 mg Warfarin Sodium (Coumadin) 10 mg PO TH [facility] Last Admin: 10/09/17 17:22 Dose: 10 mg Discontinued Medications Albuterol (Proventil Neb Soln) 2.5 mg INH Q2H PRN PRN Reason: SHORTNESS OF BREATH Last Admin: 10/09/17 14:19 Dose: 2.5 mg Albuterol/Ipratropium (Duoneb 3.0-0.5 Mg/3 Ml) 3 ml NEB QIDRT [facility] Last Admin: 10/09/17 14:37 Dose: 3 ml Calcium Carbonate/Glycine (Tums) 500 mg PO BID [facility] Last Admin: 10/10/17 09:09 Dose: Not Given Furosemide (Lasix) 40 mg IVPUSH DAILY [facility] Last Admin: 10/10/17 09:05 Dose: 40 mg Ketorolac Tromethamine (Toradol) 15 mg IVPUSH ONETIME ONE Stop: 10/08/17 17:48 Last Admin: 10/08/17 18:11 Dose: 15 mg Ketorolac Tromethamine (Toradol) 15 mg IVPUSH ONETIME ONE Stop: 10/09/17 05:19 Last Admin: 10/09/17 05:35 Dose: 15 mg Lorazepam (Ativan) 0.5 mg PO ONETIME ONE Stop: 10/09/17 15:01 Last Admin: 10/09/17 15:16 Dose: 0.5 mg Lorazepam (Ativan) 0.5 mg PO QID [facility] Last Admin: 10/10/17 09:06 Dose: Not Given Methylprednisolone Sodium Succinate (Solu-Medrol) 40 mg IVPUSH Q12H [facility] Last Admin: 10/07/17 08:41 Dose: 40 mg Methylprednisolone Sodium Succinate (Solu-Medrol) 40 mg IVPUSH DAILY [facility] Last Admin: 10/10/17 09:05 Dose: 40 mg Non-Formulary Medication (Abiraterone Acetate [Zytiga]) 1,000 mg PO DAILY [facility] Last Admin: 10/05/17 09:04 Dose: 1,000 mg Non-Formulary Medication (Amino Acids/Protein Supplement [Protein 2,000 Mg]) 1 each PO DAILY [facility] Last Admin: 10/05/17 09:11 Dose: Not Given Sodium Chloride (Saline Flush) 10 ml FLUSH ASDIRECTED PRN PRN Reason: Keep Vein Open Last Admin: 10/06/17 05:54 Dose: 10 ml Temazepam (Restoril) 15 mg PO BEDTIME PRN PRN Reason: Insomnia Last Admin: 10/08/17 19:18 Dose: 15 mg Warfarin Sodium (Coumadin) 10 mg PO ONETIME ONE Stop: 10/05/17 18:01 Last Admin: 10/05/17 17:52 Dose: 10 mg Warfarin Sodium (Coumadin) 10 mg PO ONETIME ONE Stop: 10/06/17 18:01 Last Admin: 10/06/17 17:54 Dose: 10 mg - Exam Quality Assessment: Supplemental Oxygen General: Lethargic HEENT: Mucous Membr. Moist/Chacra Neck: Trachea Midline, No JVD Lungs: Decreased Breath Sounds, Wheezing, Other (agonal breathing at times, periods of apnea) Cardiovascular: Regular Rate, Regular Rhythm GI/Abdominal Exam: Soft, Non-Tender, No Distention (Male) Exam: Deferred Back Exam: Normal Inspection Extremities: Pedal Edema Skin: Warm, Dry, Intact, Other (diaphoretic at times) Neurological: Other (becoming less responsive) - Problem List & Annotations (1) COPD (chronic obstructive pulmonary disease) SNOMED Code(s): 26199618 Code(s): J44.9 - CHRONIC OBSTRUCTIVE PULMONARY DISEASE, UNSPECIFIED Status : Acute Priority: High Current Visit: No Qualifiers: COPD type: COPD with acute lower respiratory infection Qualified Code(s): J44.0 - Chronic obstructive pulmonary disease with acute lower respiratory infection Annotation/Comment:: O2 dependent COPD with significant hypoxia at home prior to transfer as above. Blood Cultures 2 were collected with concomitant right middle lobe and left lower lobe pneumonia. Note DuoNeb nebulizer treatment initiated by paramedics prior to arrival. Attempt to obtain sputum specimen. IV Levaquin and IV Zithromax therapy initiated in the emergency room. Continue aggressive nebulizer treatment. Note additional history of sleep apnea with the patient not currently compliant with his CPAP' (2) Lower leg DVT (deep venous thromboembolism), chronic SNOMED Code(s): 754878303, 523002774, 536216606202367 Code(s): I82.5Z9 - CHR EMBLSM AND THOMBOS UNSP DEEP VN UNSP DISTAL LOW EXTRM Status: Acute Priority: Medium Current Visit: No Qualifiers: Laterality: unspecified laterality Qualified Code(s): I82.5Z9 - Chronic embolism and thrombosis of unspecified deep veins of unspecified distal lower extremity (3) Mood disorder Status: Acute Priority: Medium Current Visit: No (4) PVD (peripheral vascular disease) SNOMED Code(s): 830548983 Code(s): I73.9 - PERIPHERAL VASCULAR DISEASE, UNSPECIFIED Status: Acute Priority: Medium Current Visit: No (5) Pneumonia SNOMED Code(s): 674282898 Code(s): J18.9 - PNEUMONIA, UNSPECIFIED ORGANISM Status: Acute Priority: High Current Visit: No Onset Date: ~09/30/17 Qualifiers: Pneumonia type: aspiration pneumonia Aspiration pneumonia type: unspecified Laterality: left Lung location: lower lobe of lung Qualified Code(s): J69.0 - Pneumonitis due to inhalation of food and vomit Annotation/Comment:: As above (6) Respiratory failure, chronic SNOMED Code(s): 94789489 Code(s): J96.10 - CHRONIC RESPIRATORY FAILURE, UNSP W HYPOXIA OR HYPERCAPNIA Status: Acute Priority: Medium Current Visit: No Qualifiers: Respiratory failure complication: unspecified whether with hypoxia or hypercapnia Qualified Code(s): J96.10 - Chronic respiratory failure, unspecified whether with hypoxia or hypercapnia (7) Anemia SNOMED Code(s): 780683570 Code(s): D64.9 - ANEMIA, UNSPECIFIED Status: Chronic Priority: Medium Current Visit: No Qualifiers: Anemia type: unspecified type Qualified Code(s): D64.9 - Anemia, unspecified Annotation/Comment:: Mild progression of his previous anemia with no abdominal complaints or evidence of acute GI bleed. Note current Coumadin therapy. Continue to observe closely with further workup depending on his clinical course (8) Blood coagulation disorder SNOMED Code(s): 86988186 Code(s): D68.9 - COAGULATION DEFECT, UNSPECIFIED Status: Chronic Priority : Medium Current Visit: No (9) CHF, Congestive heart failure SNOMED Code(s): 74167207 Code(s): I50.9 - HEART FAILURE, UNSPECIFIED Status: Chronic Priority: Medium Current Visit: No Annotation/Comment:: Significant clinical CHF with IV Lasix initiated in the emergency room. No chest pain or anginal type symptoms with chest pain protocol not initiated in the emergency room. Repeat cardiac enzymes, EKG, etc. in the a.m. [facility] assumes care in the a.m. Long-term prognosis guarded and extremely poor. Note comfort care with no further echocardiogram, etc. Cardiology consultation depending on his clinical course (10) GERD (gastroesophageal reflux disease) SNOMED Code(s): 518922650 Code(s): K21.9 - GASTRO-ESOPHAGEAL REFLUX DISEASE WITHOUT ESOPHAGITIS Status: Chronic Priority: Medium Current Visit: No Qualifiers: Esophagitis presence: esophagitis presence not specified Qualified Code(s) : K21.9 - Gastro-esophageal reflux disease without esophagitis Annotation/Comment:: After arrival patient began experiencing some nonspecific periumbilical abdominal discomfort and cramping with high-dose IV Pepcid given and improvement of his symptoms. Acute abdominal x-rays and repeat blood work in the a.m. (11) Heart disease SNOMED Code(s): 83089717 Code(s): I51.9 - HEART DISEASE, UNSPECIFIED Status: Chronic Priority: Medium Current Visit: No Annotation/Comment:: Stable by history with no recent true anginal complaints, etc. and negative EKG, cardiac enzymes, etc. as above (12) Hypertension SNOMED Code(s): 86694812 Code(s): I10 - ESSENTIAL (PRIMARY) HYPERTENSION Status: Chronic Priority : Medium Current Visit: No Qualifiers: Hypertension type: essential hypertension Qualified Code(s): I10 - Essential (primary) hypertension Annotation/Comment:: Blood Pressures under good control in the emergency room (13) Hypothyroidism SNOMED Code(s): 27847002 Code(s): E03.9 - HYPOTHYROIDISM, UNSPECIFIED Status: Chronic Priority: Medium Current Visit: No Annotation/Comment:: Stable by his history, TSH normal today (14) Migraine SNOMED Code(s): 09628263 Code(s): G43.909 - MIGRAINE, UNSP, NOT INTRACTABLE, WITHOUT STATUS MIGRAINOSUS Status: Chronic Priority: Medium Current Visit: No Annotation/Comment:: Symptomatically improved after medications provided. Advised to hydrate and rest today to avoid rebound. Follow up as needed. (15) Need for comfort care SNOMED Code(s): 177718773 Code(s): AZF0027 - Status: Chronic Priority: Medium Current Visit: No Annotation/Comment:: Comfort care as above confirmed today with the patient (16) Osteoarthritis SNOMED Code(s): 749375751 Code(s): M19.90 - UNSPECIFIED OSTEOARTHRITIS, UNSPECIFIED SITE Status: Chronic Priority: Medium Current Visit: No Qualifiers: Osteoarthritis location: multiple joints Osteoarthritis type: primary Qualified Code(s): M15.0 - Primary generalized (osteo)arthritis Annotation/Comment:: Stable by history with history of gout and chronic narcotic use. Current discomfort likely secondary to his mild ecchymosis in the left knee region as above. No evidence of significant injury (17) Peptic reflux disease SNOMED Code(s): 970746475 Code(s): K21.9 - GASTRO-ESOPHAGEAL REFLUX DISEASE WITHOUT ESOPHAGITIS Status: Chronic Priority: Medium Current Visit: No Annotation/Comment:: Stable by patient history. 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 INR in the a.m.. (21) Renal insufficiency SNOMED Code(s): 880982802, 785140091 Code(s): N28.9 - DISORDER OF KIDNEY AND URETER, UNSPECIFIED Status: Chronic Priority: Medium Current Visit: No Annotation/Comment:: History of chronic renal insufficiency relatively stable from previous evaluations. Note previous history of acute renal insufficiency requiring distant dialysis as above (22) Sleep apnea SNOMED Code(s): 28034361 Code(s): G47.30 - SLEEP APNEA, UNSPECIFIED Status: Chronic Priority: Medium Current Visit: No Onset Date: ~08/21/16 Qualifiers: Sleep apnea type: obstructive Qualified Code(s): G47.33 - Obstructive sleep apnea (adult) (pediatric) Annotation/Comment:: Auto-CPAP should be initiated JUSTYN - Problem List Review Problem List Initiated/Reviewed/Updated: Yes - My Orders Last 24 Hours: My Active Orders 10/11/17 08:00 methylPREDNISolone Sod Succ [Solu-MEDROL] 20 mg IVPUSH DAILY - Assessment Assessment:: 10/10/17 Beatrice Lang MD He had an episode of respiratory distress/respiratory failure yesterday. He finally coughed up a large mucous plug. He then did improve. Family () and Jabari want him treated for pneumonia, COPD acute exacerbation but also want comfort cares and know his lung disease is end-stage. Today he became less mentally responsive. Oral medications stopped since it is judged to be too risky with chance for aspiration. IV lorazepam was started yesterday for gross neurological tremors and anxiety. Tremors and anxiety improved today. He is still on IV antibiotics, IV solumedrol, and prn IV morphine. - Plan Plan:: 10-04-17 Marin Panchal PA-C Transferred to B status today to continue IV meds. He will need PT-OT for strengthening and ADL's. Will consult Nurse Sane for discharge planning. Long discussion with patient - he knows he had a very serious episode of respiratory distress yesterday morning and says it has happened several times in the past, "I guess God's just not ready for me yet." He says he is comfortable now and has no other questions.
[2017-10-10] MEDS ORDERED: Acetaminophen 650 MG Supp RECTAL PRN (23:30)
[2017-10-10] MEDS ORDERED: Atropine 1% Ophth Soln 5 ML BOTTLE EYEBOTH PRN (23:32)
[2017-10-11] MEDS ORDERED: methylPREDNISolone Sodium Succinate 40 MG/1 ML SDV IVPUSH SCH (08:00)
--- NOTE | 2017-10-11 11:59 | PCM.DCSUM1 ---
Discharge Summary - Discharge Data Discharge Date: 10/11/17 Discharge Disposition: 20 Preliminary Cause of *Q: Respiratory Failure Condition: - Discharge Diagnosis/Problem(s) (1) COPD (chronic obstructive pulmonary disease) SNOMED Code(s): 15684874 ICD Code: J44.9 - CHRONIC OBSTRUCTIVE PULMONARY DISEASE, UNSPECIFIED Status : Acute Priority: High Problem Details: O2 dependent COPD with significant hypoxia at home prior to transfer as above. Blood Cultures 2 were collected with concomitant right middle lobe and left lower lobe pneumonia. Note DuoNeb nebulizer treatment initiated by paramedics prior to arrival. Attempt to obtain sputum specimen. IV Levaquin and IV Zithromax therapy initiated in the emergency room. Continue aggressive nebulizer treatment. Note additional history of sleep apnea with the patient not currently compliant with his CPAP' Qualifiers: COPD type: COPD with acute lower respiratory infection Qualified Code(s): J44.0 - Chronic obstructive pulmonary disease with acute lower respiratory infection (2) Lower leg DVT (deep venous thromboembolism), chronic SNOMED Code(s): 370973816, 514381907, [id number] ICD Code: I82.5Z9 - CHR EMBLSM AND THOMBOS UNSP DEEP VN UNSP DISTAL LOW EXTRM Status: Acute Priority: Medium Qualifiers: Laterality: unspecified laterality Qualified Code(s): I82.5Z9 - Chronic embolism and thrombosis of unspecified deep veins of unspecified distal lower extremity (3) Mood disorder Status: Acute Priority: Medium (4) PVD (peripheral vascular disease) SNOMED Code(s): 117817638 ICD Code: I73.9 - PERIPHERAL VASCULAR DISEASE, UNSPECIFIED Status: Acute Priority: Medium (5) Pneumonia SNOMED Code(s): 425887457 ICD Code: J18.9 - PNEUMONIA, UNSPECIFIED ORGANISM Status: Acute Priority : High Onset Date: ~09/30/17 Problem Details: As above Qualifiers: Pneumonia type: aspiration pneumonia Aspiration pneumonia type: unspecified Laterality: left Lung location: lower lobe of lung Qualified Code(s): J69.0 - Pneumonitis due to inhalation of food and vomit (6) Respiratory failure, chronic SNOMED Code(s): 96561862 ICD Code: J96.10 - CHRONIC RESPIRATORY FAILURE, UNSP W HYPOXIA OR HYPERCAPNIA Status: Acute Priority: Medium Qualifiers: Respiratory failure complication: unspecified whether with hypoxia or hypercapnia Qualified Code(s): J96.10 - Chronic respiratory failure, unspecified whether with hypoxia or hypercapnia (7) Anemia SNOMED Code(s): 184385147 ICD Code: D64.9 - ANEMIA, UNSPECIFIED Status: Chronic Priority: Medium Problem Details: Mild progression of his previous anemia with no abdominal complaints or evidence of acute GI bleed. Note current Coumadin therapy. Continue to observe closely with further workup depending on his clinical course Qualifiers: Anemia type: unspecified type Qualified Code(s): D64.9 - Anemia, unspecified (8) Blood coagulation disorder SNOMED Code(s): 22826904 ICD Code: D68.9 - COAGULATION DEFECT, UNSPECIFIED Status: Chronic Priority: Medium (9) CHF, Congestive heart failure SNOMED Code(s): 82913663 ICD Code: I50.9 - HEART FAILURE, UNSPECIFIED Status: Chronic Priority: Medium Problem Details: Significant clinical CHF with IV Lasix initiated in the emergency room. No chest pain or anginal type symptoms with chest pain protocol not initiated in the emergency room. Repeat cardiac enzymes, EKG, etc. in the a.m. [facility] assumes care in the a.m. Long-term prognosis guarded and extremely poor. Note comfort care with no further echocardiogram, etc. Cardiology consultation depending on his clinical course (10) GERD (gastroesophageal reflux disease) SNOMED Code(s): 169803508 ICD Code: K21.9 - GASTRO-ESOPHAGEAL REFLUX DISEASE WITHOUT ESOPHAGITIS Status: Chronic Priority: Medium Problem Details: After arrival patient began experiencing some nonspecific periumbilical abdominal discomfort and cramping with high-dose IV Pepcid given and improvement of his symptoms. Acute abdominal x-rays and repeat blood work in the a.m. Qualifiers: Esophagitis presence: esophagitis presence not specified Qualified Code(s) : K21.9 - Gastro-esophageal reflux disease without esophagitis (11) Heart disease SNOMED Code(s): 29436954 ICD Code: I51.9 - HEART DISEASE, UNSPECIFIED Status: Chronic Priority: Medium Problem Details: Stable by history with no recent true anginal complaints, etc. and negative EKG, cardiac enzymes, etc. as above (12) Hypertension SNOMED Code(s): 70902892 ICD Code: I10 - ESSENTIAL (PRIMARY) HYPERTENSION Status: Chronic Priority : Medium Problem Details: Blood Pressures under good control in the emergency room Qualifiers: Hypertension type: essential hypertension Qualified Code(s): I10 - Essential (primary) hypertension (13) Hypothyroidism SNOMED Code(s): 38016603 ICD Code: E03.9 - HYPOTHYROIDISM, UNSPECIFIED Status: Chronic Priority: Medium Problem Details: Stable by his history, TSH normal today (14) Migraine SNOMED Code(s): 41127182 ICD Code: G43.909 - MIGRAINE, UNSP, NOT INTRACTABLE, WITHOUT STATUS MIGRAINOSUS Status: Chronic Priority: Medium Problem Details: Symptomatically improved after medications provided. Advised to hydrate and rest today to avoid rebound. Follow up as needed. (15) Need for comfort care SNOMED Code(s): 074231963 ICD Code: [id number] - Status: Chronic Priority: Medium Problem Details: Comfort care as above confirmed today with the patient (16) Osteoarthritis SNOMED Code(s): 440070987 ICD Code: M19.90 - UNSPECIFIED OSTEOARTHRITIS, UNSPECIFIED SITE Status: Chronic Priority: Medium Problem Details: Stable by history with history of gout and chronic narcotic use. Current discomfort likely secondary to his mild ecchymosis in the left knee region as above. No evidence of significant injury Qualifiers: Osteoarthritis location: multiple joints Osteoarthritis type: primary Qualified Code(s): M15.0 - Primary generalized (osteo)arthritis (17) Peptic reflux disease SNOMED Code(s): 809402685 ICD Code: K21.9 - GASTRO-ESOPHAGEAL REFLUX DISEASE WITHOUT ESOPHAGITIS Status: Chronic Priority: Medium Problem Details: Stable by patient history. 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 INR in the a.m.. (21) Renal insufficiency SNOMED Code(s): 908596454, 432914382 ICD Code: N28.9 - DISORDER OF KIDNEY AND URETER, UNSPECIFIED Status: Chronic Priority: Medium Problem Details: History of chronic renal insufficiency relatively stable from previous evaluations. Note previous history of acute renal insufficiency requiring distant dialysis as above (22) Sleep apnea SNOMED Code(s): 56441852 ICD Code: G47.30 - SLEEP APNEA, UNSPECIFIED Status: Chronic Priority: Medium Onset Date: ~08/21/16 Problem Details: Auto-CPAP should be initiated JUSTYN Qualifiers: Sleep apnea type: obstructive Qualified Code(s): G47.33 - Obstructive sleep apnea (adult) (pediatric) - Patient Summary/Data Consults: Consultations 10/04/17 14:35 Care Management Consult [Consult to Case Management] [CONS] Routine Consult to Occupational Therapy [OT Evaluation and Treatment] [CONS] Routine Consult to Physical Therapy [PT Evaluation and Treatment] [CONS] Routine - Discharge Plan Home Medications: Home Meds Citalopram [Citalopram HBr] 20 mg PO DAILY 08/07/13 [History] Levothyroxine 75 mcg PO QAM 08/07/13 [History] Pregabalin [Lyrica] 25 mg PO TID 08/07/13 [History] amLODIPine [Norvasc] 5 mg PO DAILY 08/07/13 [History] Cholecalciferol (Vitamin D3) [Vitamin D3] 2,000 units PO DAILY 06/12/14 [History ] Latanoprost [Xalatan 0.005% Ophth Soln] 1 drop EYEBOTH BEDTIME 06/12/14 [History ] Nitroglycerin [Nitrostat] 1 tab SL ASDIRECTED PRN 06/12/14 [History] Simvastatin [Zocor] 10 mg PO BEDTIME 11/12/15 [History] Ranitidine [Zantac] 150 mg PO BID #60 tab 11/17/15 [Rx] Albuterol/Ipratropium [DuoNeb 3.0-0.5 MG/3 ML] 1 ampule INH Q4H PRN 03/19/16 [ History] Folic Acid 1 mg PO DAILY 03/19/16 [History] Acetaminophen 650 mg PO Q4HR PRN 07/26/16 [History] Furosemide 20 mg PO DAILY 07/26/16 [History] Finasteride 5 mg PO DAILY 11/02/16 [History] Verapamil HCl [Verapamil ER] 240 mg PO DAILY@1700 11/02/16 [History] Warfarin [Coumadin] 7.5 mg PO SUMOTUWEFRSA@1800 11/02/16 [History] Aspirin [Halfprin] 162 mg PO DAILY 11/15/16 [History] Budesonide [Pulmicort] 0.5 mg NEB BIDRT 11/15/16 [History] Magnesium Oxide 400 mg PO BID 11/15/16 [History] Amino Acids/Protein Supplement [Protein 2,000 MG] 1 each PO DAILY 03/30/17 [ History] Calcium Carbonate [Calcium] 600 mg PO BID 03/30/17 [History] Docusate Sodium [Colace] 100 mg PO BID 03/30/17 [History] Abiraterone Acetate [Zytiga] 1,000 mg PO DAILY 09/30/17 [History] Arformoterol [Brovana] 1 inh INH BID 09/30/17 [History] Cyclobenzaprine [Flexeril] 10 mg PO TID PRN 09/30/17 [History] Sennosides/Docusate Sodium [Senna-S] 1 each PO BID PRN 09/30/17 [History] Warfarin Sodium [Coumadin] 10 mg PO TH@18 09/30/17 [History] predniSONE [Prednisone] 5 mg PO BID 10/03/17 [History] - Discharge Summary/Plan Comment DC Time >30 min.: No Discharge Summary/Plan Comment: 10/11/17 Beatrice Lang MD 77 yowm with known end stage pulmonary fibrosis, chronic respiratory failure was initially hospitalized acute inpatient status to treat acute exacerbation of COPD and pneumonia. He improved and was admitted into swing bed status to continue IV antibiotics and PT-OT for strengthening. He initially slowly improved but then started having increased episodes of respiratory failure. He became unresponsive. He was DNR/DNI status and early this morning he peacefully . - Patient Data Vitals - Most Recent: Last Vital Signs Temp 97.6 F 10/10/17 06:51 Pulse 104 H 10/10/17 06:51 Resp 20 10/10/17 06:51 BP 148/76 H 10/10/17 06:51 Pulse Ox 90 L 10/10/17 06:51 Weight - Most Recent: 246 lb Med Orders - Current: Current Medications Discontinued Medications Acetaminophen (Tylenol) 650 mg PO Q4H PRN PRN Reason: Pain/Fever Last Admin: 10/08/17 19:18 Dose: 650 mg Acetaminophen (Tylenol) 650 mg RECTAL Q4H PRN PRN Reason: Fever Albuterol (Proventil Neb Soln) 2.5 mg INH Q2H PRN PRN Reason: SHORTNESS OF BREATH Last Admin: 10/09/17 14:19 Dose: 2.5 mg Albuterol (Proventil Neb Soln) 2.5 mg INH Q4H [facility] Last Admin: 10/10/17 22:11 Dose: Not Given Albuterol/Ipratropium (Duoneb 3.0-0.5 Mg/3 Ml) 3 ml NEB QIDRT [facility] Last Admin: 10/09/17 14:37 Dose: 3 ml Albuterol/Ipratropium (Duoneb 3.0-0.5 Mg/3 Ml) 3 ml NEB Q4H [facility] Last Admin: 10/10/17 19:44 Dose: 3 ml Amlodipine Besylate (Norvasc) 5 mg PO DAILY [facility] Last Admin: 10/10/17 09:08 Dose: Not Given Arformoterol Tartrate (Brovana) 15 mcg INH BIDRT [facility] Last Admin: 10/10/17 19:45 Dose: 15 mcg Aspirin (Halfprin) 162 mg PO DAILY [facility] Last Admin: 10/10/17 09:07 Dose: Not Given Atropine Sulfate (Atropine 1% Ophth Soln) 0 ml EYEBOTH Q4H PRN PRN Reason: Other Benzonatate (Tessalon Perles) 200 mg PO TID [facility] Last Admin: 10/10/17 09:09 Dose: Not Given Calcium Carbonate/Glycine (Tums) 500 mg PO BID [facility] Last Admin: 10/10/17 09:09 Dose: Not Given Citalopram Hydrobromide (Celexa) 20 mg PO DAILY [facility] Last Admin: 10/10/17 09:06 Dose: Not Given Docusate Sodium (Colace) 100 mg PO BID [facility] Last Admin: 10/10/17 09:06 Dose: Not Given Furosemide (Lasix) 40 mg IVPUSH DAILY [facility] Last Admin: 10/10/17 09:05 Dose: 40 mg Guaifenesin/Dextromethorphan (Mucinex Dm Er 600-30 Mg) 1 tab PO BID [facility] Last Admin: 10/10/17 09:07 Dose: Not Given Meropenem 1 gm/ Sodium (Chloride) 100 mls @ 200 mls/hr IV Q8H [facility] Stop: 10/11/17 20:01 Last Admin: 10/10/17 22:10 Dose: Not Given Metronidazole 500 mg/ Premix 100 mls @ 100 mls/hr IV Q8H [facility] Stop: 10/11/17 22:01 Last Admin: 10/10/17 22:11 Dose: Not Given Ketorolac Tromethamine (Toradol) 15 mg IVPUSH ONETIME ONE Stop: 10/08/17 17:48 Last Admin: 10/08/17 18:11 Dose: 15 mg Ketorolac Tromethamine (Toradol) 15 mg IVPUSH ONETIME ONE Stop: 10/09/17 05:19 Last Admin: 10/09/17 05:35 Dose: 15 mg Latanoprost (Xalatan 0.005% Ophth Soln) 0 ml EYEBOTH BEDTIME [facility] Last Admin: 10/10/17 19:48 Dose: 1 drop Levothyroxine Sodium (Levothyroxine) 75 mcg PO QAM [facility] Last Admin: 10/10/17 09:07 Dose: Not Given Lorazepam (Ativan) 0.5 mg PO ONETIME ONE Stop: 10/09/17 15:01 Last Admin: 10/09/17 15:16 Dose: 0.5 mg Lorazepam (Ativan) 0.5 mg PO QID [facility] Last Admin: 10/10/17 09:06 Dose: Not Given Methylprednisolone Sodium Succinate (Solu-Medrol) 40 mg IVPUSH Q12H [facility] Last Admin: 10/07/17 08:41 Dose: 40 mg Methylprednisolone Sodium Succinate (Solu-Medrol) 40 mg IVPUSH DAILY [facility] Last Admin: 10/10/17 09:05 Dose: 40 mg Methylprednisolone Sodium Succinate (Solu-Medrol) 20 mg IVPUSH DAILY [facility] Morphine Sulfate (Morphine) 2 mg IVPUSH Q2H PRN PRN Reason: Dyspnea Last Admin: 10/10/17 05:47 Dose: 2 mg Nitroglycerin (Nitrostat) 0.4 mg SL ASDIRECTED PRN PRN Reason: Chest Pain Last Admin: 10/07/17 18:34 Dose: 0.4 mg Non-Formulary Medication (Abiraterone Acetate [Zytiga]) 1,000 mg PO DAILY [facility] Last Admin: 10/05/17 09:04 Dose: 1,000 mg Non-Formulary Medication (Amino Acids/Protein Supplement [Protein 2,000 Mg]) 1 each PO DAILY [facility] Last Admin: 10/05/17 09:11 Dose: Not Given Zytiga 250 Mg Own (Med) 0 mg PO DAILY [facility] Last Admin: 10/10/17 09:06 Dose: Not Given Ondansetron HCl (Zofran) 4 mg IVPUSH Q6H PRN PRN Reason: Nausea/Vomiting Last Admin: 10/10/17 00:34 Dose: 4 mg Pantoprazole Sodium (Protonix Iv) 40 mg IVPUSH BEDTIME [facility] Last Admin: 10/10/17 22:10 Dose: Not Given Pregabalin (Lyrica) 25 mg PO TID [facility] Last Admin: 10/10/17 09:07 Dose: Not Given Senna/Docusate Sodium (Senna Plus) 1 tab PO BID PRN PRN Reason: Constipation Sodium Chloride (Saline Flush) 10 ml FLUSH ASDIRECTED PRN PRN Reason: Keep Vein Open Last Admin: 10/06/17 05:54 Dose: 10 ml Sodium Chloride (Saline Flush) 10 ml FLUSH Q12HR [facility] Last Admin: 10/10/17 22:11 Dose: Not Given Sodium Chloride (Saline Flush) 10 ml FLUSH ASDIRECTED PRN PRN Reason: Keep Vein Open Last Admin: 10/10/17 22:26 Dose: 10 ml Sodium Chloride ([place] Saline Nasal Gel) 1 gm NASBOTH ASDIRECTED PRN PRN Reason: Dry Nares Last Admin: 10/08/17 19:23 Dose: 1 applic Temazepam (Restoril) 15 mg PO BEDTIME PRN PRN Reason: Insomnia Last Admin: 10/08/17 19:18 Dose: 15 mg Verapamil HCl (Calan Sr) 240 mg PO DAILY@1700 [facility] Last Admin: 10/09/17 17:17 Dose: 240 mg Warfarin Sodium (Coumadin) 10 mg PO ONETIME ONE Stop: 10/05/17 18:01 Last Admin: 10/05/17 17:52 Dose: 10 mg Warfarin Sodium (Coumadin) 10 mg PO ONETIME ONE Stop: 10/06/17 18:01 Last Admin: 10/06/17 17:54 Dose: 10 mg Warfarin Sodium (Coumadin) 7.5 mg PO PJ [facility] Last Admin: 10/08/17 17:11 Dose: 7.5 mg Warfarin Sodium (Coumadin) 10 mg PO [facility] Last Admin: 10/09/17 17:22 Dose: 10 mg
== END 2017-10-11 05:50 | disposition expired | DRG 178 ==
LOC: LL.MS 12:52
PROVIDERS: ADMIT Family Medicine; ATTEND Family Medicine
DX: J69.0 Pneumonitis due to inhalation of food and vomit (principal); I82.509 Chronic embolism and thrombosis of unspecified deep veins of unspecified lower extremity; D68.59 Other primary thrombophilia; I13.0 Hypertensive heart and chronic kidney disease with heart failure and stage 1 through stage 4 chronic kidney disease, or unspecified chronic kidney disease; I42.9 Cardiomyopathy, unspecified; J96.11 Chronic respiratory failure with hypoxia; J44.1 Chronic obstructive pulmonary disease with (acute) exacerbation; Z51.5 Encounter for palliative care; Z66 Do not resuscitate; I73.9 Peripheral vascular disease, unspecified; D64.9 Anemia, unspecified; I50.9 Heart failure, unspecified; K21.9 Gastro-esophageal reflux disease without esophagitis; E03.9 Hypothyroidism, unspecified; G43.909 Migraine, unspecified, not intractable, without status migrainosus; M10.9 Gout, unspecified; M15.9 Polyosteoarthritis, unspecified; D75.1 Secondary polycythemia; N18.9 Chronic kidney disease, unspecified; G47.33 Obstructive sleep apnea (adult) (pediatric); J84.10 Pulmonary fibrosis, unspecified; R53.1 Weakness; E78.00 Pure hypercholesterolemia, unspecified; I71.4 Abdominal aortic aneurysm, without rupture; I45.10 Unspecified right bundle-branch block; I49.9 Cardiac arrhythmia, unspecified; R91.8 Other nonspecific abnormal finding of lung field; K59.09 Other constipation; K57.90 Diverticulosis of intestine, part unspecified, without perforation or abscess without bleeding; R26.2 Difficulty in walking, not elsewhere classified; H40.9 Unspecified glaucoma; H54.7 Unspecified visual loss; F39 Unspecified mood [affective] disorder; I87.8 Other specified disorders of veins; I87.2 Venous insufficiency (chronic) (peripheral); T17.990A Other foreign object in respiratory tract, part unspecified in causing asphyxiation, initial encounter; G25.2 Other specified forms of tremor; N40.1 Benign prostatic hyperplasia with lower urinary tract symptoms; N39.498 Other specified urinary incontinence; G62.9 Polyneuropathy, unspecified; F41.9 Anxiety disorder, unspecified; F32.9 Major depressive disorder, single episode, unspecified; M32.9 Systemic lupus erythematosus, unspecified; E21.3 Hyperparathyroidism, unspecified; G89.4 Chronic pain syndrome; E66.9 Obesity, unspecified; Z68.34 Body mass index [BMI] 34.0-34.9, adult; Z88.6 Allergy status to analgesic agent; Z99.81 Dependence on supplemental oxygen; Z85.46 Personal history of malignant neoplasm of prostate; Z87.01 Personal history of pneumonia (recurrent); Z79.01 Long term (current) use of anticoagulants; Z79.82 Long term (current) use of aspirin; Z91.19 Patient's noncompliance with other medical treatment and regimen; Z79.52 Long term (current) use of systemic steroids; Z79.899 Other long term (current) drug therapy; Z86.711 Personal history of pulmonary embolism; Z88.0 Allergy status to penicillin; Z85.51 Personal history of malignant neoplasm of bladder; Z92.21 Personal history of antineoplastic chemotherapy; Z92.3 Personal history of irradiation; Z90.79 Acquired absence of other genital organ(s); Z96.652 Presence of left artificial knee joint; Z96.641 Presence of right artificial hip joint; Z86.718 Personal history of other venous thrombosis and embolism
CPT/HCPCS: 36415; 36416; 80053; 85025; 85610; 86140; 94640; 97110-GO; 97110-GP; 97163-GP; 97165-GO; 97530-GO; 97530-GP; 97535-GO; A9270-GY; C9113; J1885; J1940; J2185; J2270; J2405; J2920; J7050; J7620-GY